=== PATIENT | female | born 1955 | race American Indian/Alaskan Native ===

== ENCOUNTER 2016-07-02 13:21 | Observation (INO) | payer MEDICAID ==
[2016-07-02 13:21] VITALS: BMI 45.3
[2016-07-02] MEDS ORDERED: Iohexol 240 (50 ml) PO ONE (14:08)
[2016-07-02] MEDS ORDERED: Iohexol 240 (50 ml) ONE (14:09)
[2016-07-02] MEDS ORDERED: HYDROmorphone 0.5 mg/0.5 ml ISec IVP STA ×2 (14:21→18:53)
--- NOTE | 2016-07-02 14:21 | ED PDOC ---
HPI: Abdomen Time Seen by Provider: 07/02/16 13:30 Chief Complaint (Nursing): GI Problem Chief Complaint (Provider): GI Problem History Per: Patient History/Exam Limitations: no limitations Onset/Duration Of Symptoms: Hrs Current Symptoms Are (Timing): Still Present Severity: Severe Location Of Pain/Discomfort: Diffuse Quality Of Discomfort: "Pain" Associated Symptoms: Nausea, Vomiting, Diarrhea Exacerbating Factors: None Alleviating Factors: None Additional Complaint(s): Patient is a 61 year old female with an extensive medical history, referred to ED by Rigoberto Andrade for GI bleed. Patient states symptoms began at 0200, notes she was very nausea with an episode of vomiting blood. At this time developed the sensation she needed to have a bowel movement but upon wiping noticed it was all blood. Patient states abdominal pain is severe and diffuse at this time. Past Medical History Reviewed: Historical Data, Nursing Documentation, Vital Signs Vital Signs: Last Vital Signs Temp 98.8 F 07/03/16 08:07 Pulse 78 07/03/16 08:33 Resp 18 07/03/16 08:07 BP 121/70 07/03/16 08:35 Pulse Ox 97 07/03/16 08:07 - Medical History PMH: Arthritis, Asthma, CAD, COPD, Diabetes (Type I and II), GERD, HTN, Hypercholesterolemia Denies: HIV, Chronic Kidney Disease - Surgical History Surgical History: Cholecystectomy, (x1) Other surgeries: amputation of toe on right foot - Family History Family History: States: Diabetes, Hypertension - Living Arrangements Living Arrangements: With Family - Social History Current smoker - smoking cessation education provided: No Alcohol: None Drugs: Denies - Immunization History Hx Tetanus Toxoid Vaccination: No - Home Medications Home Medications: Ambulatory Orders Medication Instructions Recorded Docusate [Colace] 100 mg PO BID PRN 01/26/15 Insulin Lispro Mix 75/25 [HumaLOG 20 units SC BID 01/26/15 Mix 75/25] Clopidogrel [Plavix] 75 mg PO DAILY 03/01/15 Ezetimibe [Zetia] 10 mg PO DAILY 03/01/15 Insulin Glargine,Hum.rec.anlog 20 unit SC HS 03/01/15 [Lantus] Brinzolamide [Azopt] 1 drop EACHEYE BID 04/10/16 Cholecalciferol [Vitamin D 1000 IU] 1,000 unit PO DAILY 04/10/16 Furosemide [Lasix] 20 mg PO BID 04/10/16 Gabapentin [Neurontin] 300 mg PO TID 04/10/16 Simvastatin [Zocor] 40 mg PO HS 04/10/16 Alogliptin Benzoate [Alogliptin] 25 mg PO DAILY 07/02/16 Aspirin [Ecotrin] 81 mg PO DAILY 07/02/16 Ciprofloxacin HCl [Cipro] 500 mg PO BID #20 tab 07/02/16 Fluticasone Nasal [Flonase] 2 spray ZEUS DAILY PRN 07/02/16 Losartan [Cozaar] 100 mg PO DAILY 07/02/16 Magnesium Oxide [Mag-Ox] 400 mg PO BID 07/02/16 Metronidazole [Flagyl] 500 mg PO TID #30 tablet 07/02/16 Minocycline HCl [Minocin] 100 mg PO BID 07/02/16 Pantoprazole Sodium [Protonix] 40 mg PO DAILY 07/02/16 Sennosides [Senna] 8.6 mg PO DAILY PRN 07/02/16 hydroCHLOROthiazide [Hydrodiuril] 25 mg PO DAILY 07/02/16 Hydrocodone/Acetaminophen 1 tab PO Q6H PRN #20 tablet 07/03/16 [Hydrocodon-Acetaminophn 10-325] - Allergies Allergies/Adverse Reactions: Allergies Allergy/AdvReac Type Severity Reaction Status Date / Time azithromycin [From Zithromax] Allergy RASH Verified 07/05/16 16:40 Review of Systems ROS Statement: Except As Marked, All Systems Reviewed And Found Negative Cardiovascular: Negative for: Chest Pain, Palpitations Respiratory: Negative for: Shortness of Breath Gastrointestinal: Positive for: Nausea, Vomiting, Abdominal Pain, Diarrhea, Hematochezia, Hematemesis Genitourinary Female: Negative for: Dysuria, Hematuria, Vaginal Discharge, Vaginal Bleeding Musculoskeletal: Negative for: Neck Pain, Back Pain Skin: Negative for: Rash Neurological: Negative for: Weakness, Numbness Physical Exam - Reviewed Nursing Documentation Reviewed: Yes Vital Signs Reviewed: Yes - Physical Exam Appears: Positive for: Uncomfortable Skin: Positive for: Normal Color, Warm. Negative for: Pallor Eye Exam: Positive for: Normal appearance Neck: Positive for: Normal, Painless ROM Cardiovascular/Chest: Positive for: Regular Rate, Rhythm. Negative for: Murmur Respiratory: Positive for: Normal Breath Sounds. Negative for: Respiratory Distress Gastrointestinal/Abdominal: Positive for: Tenderness (diffuse, obese). Negative for: Distended, Guarding, Rebound Back: Positive for: Normal Inspection Extremity: Positive for: Normal ROM Neurologic/Psych: Positive for: Alert, Oriented - Laboratory Results Result Diagrams: 07/03/16 06:10 07/03/16 06:10 - ECG O2 Sat by Pulse Oximetry: 99 (RA) Pulse Ox Interpretation: Normal Medical Decision Making Medical Decision Making: Time: 1420 Initial impression: GI bleed Initial plan: -- Type and screen -- CT-abdomen -- CMP -- CBC -- Dilaudid and Protonix -- ED obs -- Occult blood stool Case discussed with Rigoberto Andrade, who advised me that patient has a history of obesity, HTN, DM, PAD, CAD, hypolipidemia, currently on ASA and Plavix. Referred to ED for vomiting blood with rectal bleeding. Normal Hemoglobin 10.2 Time: 1605 Pt refusing guiac test, awaiting stool sample. Time: 1800 CT AP IMPRESSION: Colitis, mild confined to the descending colon. Time: 1826 Spoke with Rigoberto Andrade again, pt with intractible pain in setting of colitits. Will admit pt, Rigoberto Andrade accepted under Dr. Johns. Will give 1 dose of Cirpoflagil in room. Scribe Attestation: Documented by Lilian Hunt and Nicole Landa acting as a scribe for Veronica Cuba MD MD Scribe Attestation: All medical record entries made by the Scribe were at my direction and personally dictated by me. I have reviewed the chart and agree that the record accurately reflects my personal performance of the history, physical exam, medical decision making, and the department course for this patient. I have also personally directed, reviewed, and agree with the discharge instructions and disposition. Disposition - Clinical Impression Clinical Impression: Colitis - Patient ED Disposition Is Patient to be Admitted: Yes Counseled Patient/Family Regarding: Studies Performed, Diagnosis - Disposition Disposition Time: 15:40 Condition: STABLE
[2016-07-02 14:29] LABS: BASO # 0.1 K/uL (0.0-0.2); BASO % 0.7 % (0.0-2.0); EOS # 0.2 K/uL (0.0-0.7); EOS % 1.3 % (0.0-4.0); HEMATOCRIT 35.1 % (34.0-47.0); LYMPH # 1.9 K/uL (1.0-4.3); LYMPH % 12.6 % (20.0-40.0); MEAN CELL VOLUME 90.8 fl (81.0-99.0); MEAN CORPUSCULAR HEMOGLOBIN 30.5 pg (27.0-31.0); MEAN CORPUSCULAR HGB CONC 33.6 g/dL (33.0-37.0); MEAN PLATELET VOLUME 8.5 fl (7.2-11.7); MONO % 6.4 % (0.0-10.0); NEUT # 12.1 K/uL (1.8-7.0); RED CELL DISTRIBUTION WIDTH 15.3 % (11.5-14.5); WHITE BLOOD COUNT 15.3 K/uL (4.8-10.8)
[2016-07-02 14:37] LABS: ALB/GLOB RATIO 0.9 (1.0-2.1); ALKALINE PHOSPHATASE 129 U/L (38-126); ALT/SGPT 68 U/L (9-52); AST/SGOT 31 U/L (14-36); BILIRUBIN,TOTAL 0.4 mg/dl (0.2-1.3); BLOOD UREA NITROGEN 23 mg/dl (7-17); CALCIUM 9.2 mg/dL (8.4-10.2); CARBON DIOXIDE 25 mmol/L (22-30); CHLORIDE 106 mmol/L (98-107); GFR AFRICAN-AMERICAN > 60; GLUCOSE,RANDOM 136 mg/dL (65-105); POTASSIUM 4.8 MMOL/L (3.6-5.0); SODIUM 140 mmol/l (132-148); TOTAL PROTEIN 7.9 G/DL (6.3-8.2)
[2016-07-02] MEDS ORDERED: Sodium Chloride 0.9% 50 ML IV ONE (16:56)
[2016-07-02] MEDS ORDERED: Iohexol 300 100 ML IJ ONE (16:56)
--- NOTE | 2016-07-02 17:51 | CT ---
PROCEDURE: CT Abdomen and Pelvis with contrast HISTORY: Abdominal pain. COMPARISON: 05/02/2015 TECHNIQUE: Contrast dose: 100 cc Omnipaque 300 Radiation dose: Total exam DLP = 1078.32 mGy-cm. FINDINGS: LOWER THORAX: Unremarkable. LIVER: Unremarkable. No gross lesion or ductal dilatation. GALLBLADDER AND BILE DUCTS: Status post cholecystectomy. No abnormality is seen in the gallbladder fossa. PANCREAS: Unremarkable. No gross lesion or ductal dilatation. SPLEEN: Unremarkable. ADRENALS: Unremarkable. No mass. KIDNEYS AND URETERS: Unremarkable. No hydronephrosis. No solid mass. VASCULATURE: Unremarkable. No aortic aneurysm. BOWEL: Diffuse thickening of the wall of the descending colon with sparing of the remainder of the colon and rectum. APPENDIX: Normal appendix. PERITONEUM: Unremarkable. No free fluid. No free air. LYMPH NODES: Unremarkable. No enlarged lymph nodes. BLADDER: Unremarkable. REPRODUCTIVE: Unremarkable. BONES: No acute fracture. OTHER FINDINGS: Interval improvement in periumbilical inflammatory changes identified previously. Residual fat in the hernia and focal soft tissue without drainable collection. Rectus diastases at this level noted. IMPRESSION: Colitis, mild confined to the descending colon. Additional benign and/or incidental findings described above.
[2016-07-02] MEDS ORDERED: Ciprofloxacin 400mg/200ml D5W 200 ML IVPB STA (18:27)
[2016-07-02] MEDS ORDERED: metroNIDAZOLE 500mg/100ml NS 100 ML IVPB STA (18:28)
[2016-07-02] MEDS ORDERED: metroNIDAZOLE 500mg/100ml NS 100 ML IVPB ONE (18:36)
[2016-07-02] MEDS ORDERED: HYDROmorphone 0.5 mg/0.5 ml ISec ONE (18:59)
[2016-07-02] MEDS ORDERED: Ciprofloxacin 400mg/200ml D5W 200 ML IVPB ONE (19:59)
[2016-07-02] MEDS: Ciprofloxacin 400mg/200ml D5W 200 ML IVPB SCH (21:45)
[2016-07-02] MEDS ORDERED: Insulin Detemir 100 Units/ml Inj SC SCH (22:00)
[2016-07-02] MEDS: Insulin Regular 100 units/ml SC SCH (22:21)
[2016-07-02 23:25] VITALS: RESP 18
[2016-07-02] MEDS: HYDROmorphone 0.5 mg/0.5 ml ISec IVP PRN (23:34)
[2016-07-03] MEDS: metroNIDAZOLE 500mg/100ml NS 100 ML IVPB SCH ×2 (00:43→08:33)
[2016-07-03 03:29] VITALS: PULSE 78
[2016-07-03] MEDS: HYDROmorphone 0.5 mg/0.5 ml ISec IVP PRN ×3 (03:49→12:32)
[2016-07-03] MEDS: Insulin Regular 100 units/ml SC SCH ×2 (07:04→12:34)
[2016-07-03 07:26] LABS: ALB/GLOB RATIO 0.9 (1.0-2.1); ALKALINE PHOSPHATASE 100 U/L (38-126); ALT/SGPT 42 U/L (9-52); AST/SGOT 24 U/L (14-36); BILIRUBIN,TOTAL 0.6 mg/dl (0.2-1.3); BLOOD UREA NITROGEN 18 mg/dl (7-17); CALCIUM 8.4 mg/dL (8.4-10.2); CARBON DIOXIDE 22 mmol/L (22-30); CHLORIDE 107 mmol/L (98-107); GFR AFRICAN-AMERICAN > 60; GLUCOSE,RANDOM 91 mg/dL (65-105); POTASSIUM 4.4 MMOL/L (3.6-5.0); SODIUM 137 mmol/l (132-148); TOTAL PROTEIN 6.7 G/DL (6.3-8.2)
[2016-07-03 07:36] LABS: BASO # 0.1 K/uL (0.0-0.2); BASO % 0.5 % (0.0-2.0); EOS # 0.3 K/uL (0.0-0.7); EOS % 2.5 % (0.0-4.0); HEMATOCRIT 33.3 % (34.0-47.0); LYMPH # 2.8 K/uL (1.0-4.3); LYMPH % 19.9 % (20.0-40.0); MEAN CORPUSCULAR HEMOGLOBIN 29.8 pg (27.0-31.0); MEAN CORPUSCULAR HGB CONC 32.4 g/dL (33.0-37.0); MEAN PLATELET VOLUME 9.3 fl (7.2-11.7); MONO # 1.1 K/uL (0.0-0.8); MONO % 7.7 % (0.0-10.0); NEUT # 9.8 K/uL (1.8-7.0); NEUT % 69.4 % (50.0-75.0); RED CELL DISTRIBUTION WIDTH 15.7 % (11.5-14.5); WHITE BLOOD COUNT 14.2 K/uL (4.8-10.8)
[2016-07-03 08:08] VITALS: BP 121/70; TEMP 98.8
[2016-07-03] MEDS ORDERED: Magnesium Oxide 400 mg Tab UD PO SCH (09:00)
[2016-07-03] MEDS ORDERED: Pantoprazole 40 mg EC Tab PO SCH (09:00)
[2016-07-03] MEDS ORDERED: Insulin Lispro Mix 75/25 100 units/ml (HumaLog) 10ml SC SCH (09:00)
[2016-07-03] MEDS ORDERED: Dorzolamide 2% Ophth Soln OU SCH (09:00)
--- NOTE | 2016-07-03 09:14 | CP.PCM.HP ---
History of Present Illness - History of Present Illness History of Present Illness: admitted for colitis and intractable pain. doing well today beth liquids. glucose nad bun/cr stable. no f/c, n/v/d. 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 hgb stable. pain to left abd. controlled w/ meds. pt wishes to go home onpo pain/anbx Present on Admission - Present on Admission Any Indicators Present on Admission: Yes History of Uncontrolled Diabetes: Yes Review of Systems - Gastrointestinal Gastrointestinal: As Per HPI, Abdominal Pain, Diarrhea, Hematemesis, Hematochezia, Nausea, Vomiting Past Patient History - Infectious Disease Hx of Infectious Diseases: None - Past Medical History & Family History Past Medical History?: Yes - Past Social History Smoking Status: Former Smoker - CARDIAC Hx Cardiac Disorders: Yes Hx Hypercholesterolemia: Yes Hx Hypertension: Yes Other/Comment: PAD - PULMONARY Hx Respiratory Disorders: Yes Hx Asthma: Yes Hx Chronic Obstructive Pulmonary Disease (COPD): Yes - NEUROLOGICAL Hx Neurological Disorder: No - HEENT Hx HEENT Problems: No - RENAL Hx Chronic Kidney Disease: No - ENDOCRINE/METABOLIC Hx Endocrine Disorders: Yes Hx Diabetes Mellitus Type 1: Yes Hx Diabetes Mellitus Type 2: Yes - HEMATOLOGICAL/ONCOLOGICAL Hx Blood Disorders: No Hx Human Immunodeficiency Virus (HIV): No - INTEGUMENTARY Hx Dermatological Problems: No - MUSCULOSKELETAL/RHEUMATOLOGICAL Hx Musculoskeletal Disorders: Yes Hx Arthritis: Yes Hx Falls: Yes Hx Unsteady Gait: Yes (Cane) - GASTROINTESTINAL Hx Gastrointestinal Disorders: Yes Hx Gastroesophageal Reflux: Yes - GENITOURINARY/GYNECOLOGICAL Hx Genitourinary Disorders: No - PSYCHIATRIC Hx Psychophysiologic Disorder: No Hx Substance Use: No - SURGICAL HISTORY Hx Surgeries: Yes Hx Cholecystectomy: Yes Other/Comment: Amputation of toe on left foot. - ANESTHESIA Hx Anesthesia: Yes Hx Anesthesia Reactions: No Hx Malignant Hyperthermia: No Meds Home Medications: Home Medication List Medication Instructions Recorded Confirmed Type Ciprofloxacin HCl [Cipro] 500 mg PO BID #20 tab 07/02/16 Rx Metronidazole [Flagyl] 500 mg PO TID #30 tablet 07/02/16 Rx Hydrocodone/Acetaminophen 1 tab PO Q6H PRN #20 tablet 07/03/16 Rx [Hydrocodon-Acetaminophn 10-325] Allergies/Adverse Reactions: Allergies Allergy/AdvReac Type Severity Reaction Status Date / Time azithromycin [From Zithromax] Allergy RASH Verified 05/14/15 15:47 Physical Exam - Constitutional Appears: Well, Non-toxic, No Acute Distress - Head Exam Head Exam: ATRAUMATIC, NORMAL INSPECTION, NORMOCEPHALIC - Eye Exam Eye Exam: EOMI, Normal appearance, PERRL Pupil Exam: NORMAL ACCOMODATION, PERRL - ENT Exam ENT Exam: Mucous Membranes Moist, Normal Exam - Neck Exam Neck exam: Positive for: Normal Inspection - Respiratory Exam Respiratory Exam: Clear to Auscultation Bilateral, NORMAL BREATHING PATTERN - Cardiovascular Exam Cardiovascular Exam: REGULAR RHYTHM, RRR, +S1, +S2 - GI/Abdominal Exam GI & Abdominal Exam: Normal Bowel Sounds, Soft, Tenderness Additional comments: left abd - Extremities Exam Extremities exam: Positive for: normal inspection - Back Exam Back exam: NORMAL INSPECTION - Neurological Exam Neurological exam: Alert, CN II-XII Intact, Normal Gait, Oriented x3, Reflexes Normal - Psychiatric Exam Psychiatric exam: Normal Affect, Normal Mood - Skin Skin Exam: Dry, Intact, Normal Color, Warm Results - Vital Signs Recent Vital Signs: Last Vital Signs Temp 98.8 F 07/03/16 08:07 Pulse 78 07/03/16 08:33 Resp 18 07/03/16 08:07 BP 121/70 07/03/16 08:35 Pulse Ox 97 07/03/16 08:07 - Labs Result Diagrams: 07/03/16 06:10 07/03/16 06:10 Labs: Laboratory Results - last 24 hr 07/02/16 07/02/16 07/03/16 14:11 22:07 06:06 WBC 15.3 H RBC 3.87 Hgb 11.8 L D Hct 35.1 MCV 90.8 D MCH 30.5 MCHC 33.6 RDW 15.3 H Plt Count 304 MPV 8.5 Neut % (Auto) 79.0 H Lymph % (Auto) 12.6 L Wallace % (Auto) 6.4 Eos % (Auto) 1.3 Baso % (Auto) 0.7 Neut # 12.1 H Lymph # 1.9 Wallace # 1.0 H Eos # 0.2 Baso # 0.1 Sodium 140 Potassium 4.8 Chloride 106 Carbon Dioxide 25 Anion Gap 13 BUN 23 H Creatinine 0.7 Est GFR ( Amer) > 60 Est GFR (Non-Af Amer) > 60 POC Glucose (mg/dL) 142 H 97 Random Glucose 136 H Calcium 9.2 Total Bilirubin 0.4 AST 31 ALT 68 H D Alkaline Phosphatase 129 H D Total Protein 7.9 Albumin 3.8 Globulin 4.1 H Albumin/Globulin Ratio 0.9 L Blood Type O POSITIVE Antibody Screen Negative BBK History Checked Patient has bt 07/03/16 06:10 WBC 14.2 H RBC 3.62 L Hgb 10.8 L Hct 33.3 L MCV 92.0 MCH 29.8 MCHC 32.4 L RDW 15.7 H Plt Count 172 D MPV 9.3 Neut % (Auto) 69.4 Lymph % (Auto) 19.9 L Wallace % (Auto) 7.7 Eos % (Auto) 2.5 Baso % (Auto) 0.5 Neut # 9.8 H Lymph # 2.8 Wallace # 1.1 H Eos # 0.3 Baso # 0.1 Sodium 137 Potassium 4.4 Chloride 107 Carbon Dioxide 22 Anion Gap 13 BUN 18 H Creatinine 0.7 Est GFR ( Amer) > 60 Est GFR (Non-Af Amer) > 60 POC Glucose (mg/dL) Random Glucose 91 Calcium 8.4 Total Bilirubin 0.6 AST 24 ALT 42 Alkaline Phosphatase 100 Total Protein 6.7 Albumin 3.1 L Globulin 3.6 Albumin/Globulin Ratio 0.9 L Blood Type Antibody Screen BBK History Checked Assessment & Plan (1) DVT prophylaxis Assessment and Plan: scd nad ae hose ambulation Status: Acute (2) Diabetes type 2, uncontrolled Assessment and Plan: riss home meds, fsbg Status: Acute (3) Colitis Assessment and Plan: cipro/flagyl pain control liquid diet Status: Acute Decision To Admit - Pt Status Changed To: Hospital Disposition Of: Observation - . Bed Request Type: Med/Surg Admitting Physician: Jose Roberto Johns
[2016-07-03] MEDS: Ciprofloxacin 400mg/200ml D5W 200 ML IVPB SCH (10:20)
--- NOTE | 2016-07-03 14:48 | CP.PCM.DIS ---
Provider - Provider Date of Admission: 07/02/16 14:09 Attending physician: Jose Roberto Johns MD Primary care physician: Gil Andrade DO Time Spent in preparation of Discharge (in minutes): 15 Diagnosis - Discharge Diagnosis (1) DVT prophylaxis Status: Acute (2) Diabetes type 2, uncontrolled Status: Acute (3) Colitis Status: Acute Hospital Course - Lab Results Lab Results: Most Recent Lab Values WBC 14.2 K/uL (4.8-10.8) H 07/03/16 06:10 RBC 3.62 Mil/uL (3.80-5.20) L 07/03/16 06:10 Hgb 10.8 g/dL (12.0-16.0) L 07/03/16 06:10 Hct 33.3 % (34.0-47.0) L 07/03/16 06:10 MCV 92.0 fl (81.0-99.0) 07/03/16 06:10 MCH 29.8 pg (27.0-31.0) 07/03/16 06:10 MCHC 32.4 g/dL (33.0-37.0) L 07/03/16 06:10 RDW 15.7 % (11.5-14.5) H 07/03/16 06:10 Plt Count 172 K/uL (130-400) D 07/03/16 06:10 MPV 9.3 fl (7.2-11.7) 07/03/16 06:10 Neut % (Auto) 69.4 % (50.0-75.0) 07/03/16 06:10 Lymph % (Auto) 19.9 % (20.0-40.0) L 07/03/16 06:10 Edgar % (Auto) 7.7 % (0.0-10.0) 07/03/16 06:10 Eos % (Auto) 2.5 % (0.0-4.0) 07/03/16 06:10 Baso % (Auto) 0.5 % (0.0-2.0) 07/03/16 06:10 Neut # 9.8 K/uL (1.8-7.0) H 07/03/16 06:10 Lymph # 2.8 K/uL (1.0-4.3) 07/03/16 06:10 Edgar # 1.1 K/uL (0.0-0.8) H 07/03/16 06:10 Eos # 0.3 K/uL (0.0-0.7) 07/03/16 06:10 Baso # 0.1 K/uL (0.0-0.2) 07/03/16 06:10 Sodium 137 mmol/l (132-148) 07/03/16 06:10 Potassium 4.4 MMOL/L (3.6-5.0) 07/03/16 06:10 Chloride 107 mmol/L (98-107) 07/03/16 06:10 Carbon Dioxide 22 mmol/L (22-30) 07/03/16 06:10 Anion Gap 13 (10-20) 07/03/16 06:10 BUN 18 mg/dl (7-17) H 07/03/16 06:10 Creatinine 0.7 mg/dL (0.7-1.2) 07/03/16 06:10 Est GFR ( Amer) > 60 07/03/16 06:10 Est GFR (Non-Af Amer) > 60 07/03/16 06:10 POC Glucose (mg/dL) 97 mg/dL (65-110) 07/03/16 06:06 Random Glucose 91 mg/dL (65-105) 07/03/16 06:10 Calcium 8.4 mg/dL (8.4-10.2) 07/03/16 06:10 Total Bilirubin 0.6 mg/dl (0.2-1.3) 07/03/16 06:10 AST 24 U/L (14-36) 07/03/16 06:10 ALT 42 U/L (9-52) 07/03/16 06:10 Alkaline Phosphatase 100 U/L (38-126) 07/03/16 06:10 Total Protein 6.7 G/DL (6.3-8.2) 07/03/16 06:10 Albumin 3.1 g/dL (3.5-5.0) L 07/03/16 06:10 Globulin 3.6 gm/dL (2.2-3.9) 07/03/16 06:10 Albumin/Globulin Ratio 0.9 (1.0-2.1) L 07/03/16 06:10 Blood Type O POSITIVE 07/02/16 14:11 Antibody Screen Negative 07/02/16 14:11 BBK History Checked Patient has bt 07/02/16 14:11 Discharge Exam - Head Exam Head Exam: ATRAUMATIC, NORMAL INSPECTION, NORMOCEPHALIC Discharge Plan - Discharge Medications Prescriptions: Ciprofloxacin HCl [Cipro] 500 mg PO BID #20 tab Metronidazole [Flagyl] 500 mg PO TID #30 tablet Hydrocodone/Acetaminophen [Hydrocodon-Acetaminophn 10-325] 1 tab PO Q6H PRN #20 tablet PRN Reason: Pain, Severe (8-10) - Follow Up Plan Condition: STABLE Disposition: HOME/ ROUTINE Instructions: Acute Abdominal Pain (DC), Colitis (ED) Additional Instructions: follow up with Rigoberto Andrade TOMORROW in his office. take antibiotics as prescribed. return to the ED with any worsening or concerning symptoms. final dx-colitis, uncontrolled dm2 home cipro/flagyl, bacid, vicodin Referrals: Gil Andrade DO [Primary Care Provider] -
[2016-07-07 05:16] VITALS: O2SAT 99
== END 2016-07-03 14:00 | disposition home or self-care (01) ==
LOC: H.ER 13:21 → H.EROBSV 14:09 → UNDODISOB 18:06 → H.ERHOLD 20:25 → H.MEDSURG1 20:56
PROVIDERS: ADMIT Family Medicine; ATTEND Family Medicine
DX: K52.9 Noninfective gastroenteritis and colitis, unspecified (principal); J45.909 Unspecified asthma, uncomplicated; J44.9 Chronic obstructive pulmonary disease, unspecified; E78.00 Pure hypercholesterolemia, unspecified; I10 Essential (primary) hypertension; K21.9 Gastro-esophageal reflux disease without esophagitis; Z89.422 Acquired absence of other left toe(s); E10.65 Type 1 diabetes mellitus with hyperglycemia; I25.10 Atherosclerotic heart disease of native coronary artery without angina pectoris; Z79.899 Other long term (current) drug therapy; Z79.82 Long term (current) use of aspirin; Z79.02 Long term (current) use of antithrombotics/antiplatelets

== ENCOUNTER 2016-07-05 16:39 | Inpatient (IN) | payer MEDICAID ==
[2016-07-05 16:39] VITALS: BMI 45.3
[2016-07-05] MEDS ORDERED: Sodium Chloride 0.9% 1,000 ML IV STA (17:15)
[2016-07-05] MEDS ORDERED: HYDROmorphone 0.5 mg/0.5 ml ISec IVP STA (17:15)
[2016-07-05] MEDS ORDERED: Ciprofloxacin 400mg/200ml D5W 200 ML IVPB STA (17:16)
[2016-07-05] MEDS ORDERED: metroNIDAZOLE 500mg/100ml NS 100 ML IVPB STA (17:16)
[2016-07-05] MEDS ORDERED: HYDROmorphone 0.5 mg/0.5 ml ISec ONE (17:35)
[2016-07-05] MEDS ORDERED: Ciprofloxacin 400mg/200ml D5W 200 ML IVPB ONE (17:36)
--- NOTE | 2016-07-05 17:44 | ED PDOC ---
HPI: Abdomen Time Seen by Provider: 07/05/16 16:47 Chief Complaint (Nursing): Abdominal Pain Chief Complaint (Provider): abdominal pain History Per: Patient History/Exam Limitations: no limitations Onset/Duration Of Symptoms: Days (2x) Current Symptoms Are (Timing): Still Present Severity: Moderate Location Of Pain/Discomfort: LUQ Associated Symptoms: Nausea, Vomiting (bloody), Other (bloody stool). denies: Fever Additional Complaint(s): 61 year old female patient with a pertinent medical history of colitis presents to the ED with complaint of left upper quadrant abdominal pain that started 2x days ago. She has associated symptoms of vomiting (bloody), and bloody stool. She reports that she was recently discharged from [facility] for colitis. She denies having a fever. PMD: Jose Roberto Johns MD Past Medical History Reviewed: Historical Data, Nursing Documentation, Vital Signs Vital Signs: Last Vital Signs Temp 97.8 F 07/05/16 18:02 Pulse 87 07/05/16 18:02 Resp 16 07/05/16 18:02 BP 165/79 H 07/05/16 18:02 Pulse Ox 99 07/05/16 18:03 - Medical History PMH: Arthritis, Asthma, CAD, COPD, Diabetes (Type I and II), GERD, HTN, Hypercholesterolemia Denies: HIV, Chronic Kidney Disease - Surgical History Surgical History: Cholecystectomy, (x1) - Family History Family History: States: Diabetes, Hypertension - Social History Alcohol: None Drugs: Denies - Immunization History Hx Tetanus Toxoid Vaccination: No - Home Medications Home Medications: Ambulatory Orders Medication Instructions Recorded Docusate [Colace] 100 mg PO BID PRN 01/26/15 Insulin Lispro Mix 75/25 [HumaLOG 20 units SC BID 01/26/15 Mix 75/25] Clopidogrel [Plavix] 75 mg PO DAILY 03/01/15 Ezetimibe [Zetia] 10 mg PO DAILY 03/01/15 Insulin Glargine,Hum.rec.anlog 20 unit SC HS 03/01/15 [Lantus] Brinzolamide [Azopt] 1 drop EACHEYE BID 04/10/16 Cholecalciferol [Vitamin D 1000 IU] 1,000 unit PO DAILY 04/10/16 Furosemide [Lasix] 20 mg PO BID 04/10/16 Gabapentin [Neurontin] 300 mg PO TID 04/10/16 Simvastatin [Zocor] 40 mg PO HS 04/10/16 Alogliptin Benzoate [Alogliptin] 25 mg PO DAILY 07/02/16 Aspirin [Ecotrin] 81 mg PO DAILY 07/02/16 Ciprofloxacin HCl [Cipro] 500 mg PO BID #20 tab 07/02/16 Fluticasone Nasal [Flonase] 2 spray ZEUS DAILY PRN 07/02/16 Losartan [Cozaar] 100 mg PO DAILY 07/02/16 Magnesium Oxide [Mag-Ox] 400 mg PO BID 07/02/16 Metronidazole [Flagyl] 500 mg PO TID #30 tablet 07/02/16 Minocycline HCl [Minocin] 100 mg PO BID 07/02/16 Pantoprazole Sodium [Protonix] 40 mg PO DAILY 07/02/16 Sennosides [Senna] 8.6 mg PO DAILY PRN 07/02/16 hydroCHLOROthiazide [Hydrodiuril] 25 mg PO DAILY 07/02/16 Hydrocodone/Acetaminophen 1 tab PO Q6H PRN #20 tablet 07/03/16 [Hydrocodon-Acetaminophn 10-325] - Allergies Allergies/Adverse Reactions: Allergies Allergy/AdvReac Type Severity Reaction Status Date / Time azithromycin [From Zithromax] Allergy RASH Verified 07/05/16 16:40 Review of Systems ROS Statement: Except As Marked, All Systems Reviewed And Found Negative Constitutional: Negative for: Fever Gastrointestinal: Positive for: Vomiting (blooding), Abdominal Pain (left sided) , Hematochezia Physical Exam - Reviewed Nursing Documentation Reviewed: Yes Vital Signs Reviewed: Yes - Physical Exam Appears: Positive for: Well, Non-toxic Head Exam: Positive for: ATRAUMATIC, NORMOCEPHALIC Skin: Positive for: Normal Color Cardiovascular/Chest: Positive for: Regular Rate, Rhythm, Chest Non Tender Respiratory: Positive for: Normal Breath Sounds. Negative for: Respiratory Distress Gastrointestinal/Abdominal: Positive for: Tenderness (LUQ) Rectal: Positive for: Stool Is Heme: (positive) Neurologic/Psych: Positive for: Alert, Oriented (3x) - Laboratory Results Result Diagrams: 07/05/16 17:42 07/05/16 17:42 - ECG O2 Sat by Pulse Oximetry: 99 (RA) Pulse Ox Interpretation: Normal Medical Decision Making Medical Decision Makin:47 Initial impression: 61 year old female with LUQ abdominal pain and bloody stool. Initial plan: * CT abd and panel with IV contrast only * VBG shock panel * CMP * udip * CBC * cipro 200ml IVPB * dilaudid 1mg IVP * flagyl 100ml IVPB * sodium chloride 1,000ml IV 100mls/hr * protonix inj 40mg IVP * blood culture * reevaluation 17:18 Patient will be admitted to telemetry for colitis and GI bleed. Discussed results and plan to admit with patient who expresses understanding. All questions answered and there is agreement with the plan. Scribe Attestation: Documented by Olesya Brennan, acting as a scribe for Elio Toussaint MD. Provider Scribe Attestation: All medical record entries made by the Scribe were at my direction and personally dictated by me. I have reviewed the chart and agree that the record accurately reflects my personal performance of the history, physical exam, medical decision making, and the department course for this patient. I have also personally directed, reviewed, and agree with the discharge instructions and disposition. Disposition - Clinical Impression Clinical Impression: Colitis - Patient ED Disposition Is Patient to be Admitted: Yes - Disposition Disposition Time: 19:03 Condition: FAIR - Pt Status Changed To: Hospital Disposition Of: Inpatient - Admit Certification Admit to Inpatient:: After my assessment, the patient will require hospitalization for at least two midnights. This is because of the severity of symptoms shown, intensity of services needed, and/or the medical risk in this patient being treated as an outpatient. - POA Present On Arrival: None
[2016-07-05 17:51] LABS: VENOUS BLOOD GAS BASE EXCESS 3.9 mmol/L (0.0-2.0); VENOUS BLOOD GAS PCO2 58 mmHg (40-60); VENOUS BLOOD PH 7.34 (7.32-7.43)
[2016-07-05 17:56] LABS: ALB/GLOB RATIO 0.9 (1.0-2.1); ALKALINE PHOSPHATASE 97 U/L (38-126); ALT/SGPT 34 U/L (9-52); AST/SGOT 23 U/L (14-36); BILIRUBIN,TOTAL 0.4 mg/dl (0.2-1.3); BLOOD UREA NITROGEN 14 mg/dl (7-17); CALCIUM 8.8 mg/dL (8.4-10.2); CARBON DIOXIDE 28 mmol/L (22-30); CHLORIDE 104 mmol/L (98-107); GFR AFRICAN-AMERICAN > 60; GLUCOSE,RANDOM 171 mg/dL (65-105); SODIUM 143 mmol/l (132-148); TOTAL PROTEIN 7.7 G/DL (6.3-8.2)
[2016-07-05 18:00] LABS: POTASSIUM 5.1 MMOL/L (3.6-5.0)
[2016-07-05 18:04] LABS: BASO # 0.1 K/uL (0.0-0.2); BASO % 0.4 % (0.0-2.0); EOS # 0.5 K/uL (0.0-0.7); EOS % 3.9 % (0.0-4.0); HEMATOCRIT 33.9 % (34.0-47.0); LYMPH # 1.9 K/uL (1.0-4.3); LYMPH % 14.4 % (20.0-40.0); MEAN CELL VOLUME 90.9 fl (81.0-99.0); MEAN CORPUSCULAR HEMOGLOBIN 30.4 pg (27.0-31.0); MEAN CORPUSCULAR HGB CONC 33.4 g/dL (33.0-37.0); MEAN PLATELET VOLUME 8.8 fl (7.2-11.7); MONO # 0.8 K/uL (0.0-0.8); MONO % 5.8 % (0.0-10.0); NEUT # 10.1 K/uL (1.8-7.0); NEUT % 75.5 % (50.0-75.0); RED CELL DISTRIBUTION WIDTH 15.5 % (11.5-14.5); WHITE BLOOD COUNT 13.4 K/uL (4.8-10.8)
[2016-07-05] MEDS ORDERED: Iohexol 300 100 ML IJ ONE (19:25)
[2016-07-05] MEDS: Ciprofloxacin 400mg/200ml D5W 200 ML IVPB SCH (22:30)
[2016-07-06] MEDS: metroNIDAZOLE 500mg/100ml NS 100 ML IVPB SCH ×3 (00:57→16:45)
--- NOTE | 2016-07-06 07:24 | CP.PCM.HP ---
History of Present Illness - History of Present Illness History of Present Illness: pt admitted for gi bleed and colitits. pt c/o left sided abd pain. + vomiting blood and bloody stool. no n/v/d while in hospital, wbc decr from previous visit and hgb stable. no f/c. pain is controlled w/ iv pain meds Present on Admission - Present on Admission Any Indicators Present on Admission: Yes History of Uncontrolled Diabetes: Yes Review of Systems - Gastrointestinal Gastrointestinal: As Per HPI, Abdominal Pain, Hematemesis, Hematochezia Past Patient History - Infectious Disease Hx of Infectious Diseases: None - Past Medical History & Family History Past Medical History?: Yes - Past Social History Smoking Status: Former Smoker - CARDIAC Hx Hypercholesterolemia: Yes Hx Hypertension: Yes - PULMONARY Hx Asthma: Yes Hx Chronic Obstructive Pulmonary Disease (COPD): Yes - NEUROLOGICAL Hx Neurological Disorder: No - HEENT Hx HEENT Problems: No - RENAL Hx Chronic Kidney Disease: No - ENDOCRINE/METABOLIC Hx Endocrine Disorders: Yes Hx Diabetes Mellitus Type 1: Yes Hx Diabetes Mellitus Type 2: Yes - HEMATOLOGICAL/ONCOLOGICAL Hx AIDS: No Hx Human Immunodeficiency Virus (HIV): No - INTEGUMENTARY Hx Dermatological Problems: No - MUSCULOSKELETAL/RHEUMATOLOGICAL Hx Arthritis: Yes Hx Falls: No - GASTROINTESTINAL Hx Gastroesophageal Reflux: Yes - GENITOURINARY/GYNECOLOGICAL Hx Genitourinary Disorders: No - PSYCHIATRIC Hx Substance Use: No - SURGICAL HISTORY Hx Cholecystectomy: Yes - ANESTHESIA Hx Anesthesia: Yes Hx Anesthesia Reactions: No Hx Malignant Hyperthermia: No Meds Allergies/Adverse Reactions: Allergies Allergy/AdvReac Type Severity Reaction Status Date / Time azithromycin [From Zithromax] Allergy RASH Verified 07/05/16 16:40 Physical Exam - Constitutional Appears: Well, Non-toxic, No Acute Distress - Head Exam Head Exam: ATRAUMATIC, NORMAL INSPECTION, NORMOCEPHALIC - Eye Exam Eye Exam: EOMI, Normal appearance, PERRL Pupil Exam: NORMAL ACCOMODATION, PERRL - ENT Exam ENT Exam: Mucous Membranes Moist, Normal Exam - Neck Exam Neck exam: Positive for: Normal Inspection - Respiratory Exam Respiratory Exam: Clear to Auscultation Bilateral, NORMAL BREATHING PATTERN - Cardiovascular Exam Cardiovascular Exam: REGULAR RHYTHM, RRR, +S1 - GI/Abdominal Exam GI & Abdominal Exam: Normal Bowel Sounds, Soft, Tenderness Additional comments: llq/luq - Extremities Exam Extremities exam: Positive for: full ROM, normal capillary refill, normal inspection, pedal pulses present - Back Exam Back exam: NORMAL INSPECTION - Neurological Exam Neurological exam: Alert, CN II-XII Intact, Normal Gait, Oriented x3, Reflexes Normal - Psychiatric Exam Psychiatric exam: Normal Affect, Normal Mood - Skin Skin Exam: Dry, Intact, Normal Color, Warm Results - Vital Signs Recent Vital Signs: Last Vital Signs Temp 98.2 F 07/06/16 05:00 Pulse 65 07/06/16 05:00 Resp 16 07/06/16 05:00 BP 131/67 07/06/16 05:00 Pulse Ox 100 07/06/16 05:00 - Labs Result Diagrams: 07/06/16 07:35 07/06/16 07:35 Labs: Laboratory Results - last 24 hr 07/05/16 07/05/16 07/05/16 17:42 17:46 22:28 WBC 13.4 H RBC 3.73 L Hgb 11.3 L Hct 33.9 L MCV 90.9 MCH 30.4 MCHC 33.4 RDW 15.5 H Plt Count 311 D MPV 8.8 Neut % (Auto) 75.5 H Lymph % (Auto) 14.4 L Jennings % (Auto) 5.8 Eos % (Auto) 3.9 Baso % (Auto) 0.4 Neut # 10.1 H Lymph # 1.9 Jennings # 0.8 Eos # 0.5 Baso # 0.1 pO2 23 L VBG pH 7.34 VBG pCO2 58 VBG HCO3 26.3 VBG Total CO2 33.1 H VBG O2 Sat (Calc) 36.3 L VBG Base Excess 3.9 H VBG Potassium 5.0 Glucose 174 H Lactate 1.1 FiO2 21.0 Sodium 143 138.0 Potassium 5.1 H Chloride 104 106.0 Carbon Dioxide 28 Anion Gap 16 BUN 14 Creatinine 0.9 Est GFR ( Amer) > 60 Est GFR (Non-Af Amer) > 60 POC Glucose (mg/dL) 125 H Random Glucose 171 H Calcium 8.8 Total Bilirubin 0.4 AST 23 ALT 34 Alkaline Phosphatase 97 Total Protein 7.7 Albumin 3.7 Globulin 4.0 H Albumin/Globulin Ratio 0.9 L Venous Blood Potassium 5.0 07/06/16 05:57 WBC RBC Hgb Hct MCV MCH MCHC RDW Plt Count MPV Neut % (Auto) Lymph % (Auto) Jennings % (Auto) Eos % (Auto) Baso % (Auto) Neut # Lymph # Jennings # Eos # Baso # pO2 VBG pH VBG pCO2 VBG HCO3 VBG Total CO2 VBG O2 Sat (Calc) VBG Base Excess VBG Potassium Glucose Lactate FiO2 Sodium Potassium Chloride Carbon Dioxide Anion Gap BUN Creatinine Est GFR ( Amer) Est GFR (Non-Af Amer) POC Glucose (mg/dL) 121 H Random Glucose Calcium Total Bilirubin AST ALT Alkaline Phosphatase Total Protein Albumin Globulin Albumin/Globulin Ratio Venous Blood Potassium Assessment & Plan (1) Colitis Assessment and Plan: cipro/flagyl dialudid cld as per gi ivf Status: Acute (2) DVT prophylaxis Assessment and Plan: scd and ae hose no anticoag r/t gi bleed Status: Acute (3) Diabetes type 2, uncontrolled Assessment and Plan: fsbg, riss, home meds Status: Acute Decision To Admit - Pt Status Changed To: Hospital Disposition Of: Inpatient - Admit Certification Admit to Inpatient:: After my assessment, the patient will require hospitalization for at least two midnights. This is because of the severity of symptoms shown, intensity of services needed, and/or the medical risk in this patient being treated as an outpatient. - . Bed Request Type: Telemetry Admitting Physician: Jose Roberto Johns
[2016-07-06 08:02] LABS: BASO # 0.1 K/uL (0.0-0.2); BASO % 0.6 % (0.0-2.0); EOS # 0.5 K/uL (0.0-0.7); EOS % 4.6 % (0.0-4.0); HEMATOCRIT 32.8 % (34.0-47.0); LYMPH # 3.3 K/uL (1.0-4.3); LYMPH % 30.2 % (20.0-40.0); MEAN CELL VOLUME 91.8 fl (81.0-99.0); MEAN CORPUSCULAR HEMOGLOBIN 29.9 pg (27.0-31.0); MEAN CORPUSCULAR HGB CONC 32.6 g/dL (33.0-37.0); MEAN PLATELET VOLUME 8.2 fl (7.2-11.7); MONO # 0.8 K/uL (0.0-0.8); MONO % 7.6 % (0.0-10.0); NEUT # 6.3 K/uL (1.8-7.0); RED CELL DISTRIBUTION WIDTH 15.5 % (11.5-14.5); WHITE BLOOD COUNT 11.1 K/uL (4.8-10.8)
[2016-07-06 08:16] LABS: ALB/GLOB RATIO 0.9 (1.0-2.1); ALKALINE PHOSPHATASE 97 U/L (38-126); ALT/SGPT 32 U/L (9-52); AST/SGOT 22 U/L (14-36); BILIRUBIN,TOTAL 0.3 mg/dl (0.2-1.3); BLOOD UREA NITROGEN 12 mg/dl (7-17); CALCIUM 8.6 mg/dL (8.4-10.2); CARBON DIOXIDE 27 mmol/L (22-30); CHLORIDE 105 mmol/L (98-107); GFR AFRICAN-AMERICAN > 60; GLUCOSE,RANDOM 118 mg/dL (65-105); POTASSIUM 4.1 MMOL/L (3.6-5.0); SODIUM 143 mmol/l (132-148); TOTAL PROTEIN 7.1 G/DL (6.3-8.2)
[2016-07-06] MEDS: Insulin Regular 100 units/ml SC SCH ×4 (09:04→22:35)
[2016-07-06] MEDS: Lactobacillus Acidophilus 500 MU Cap PO SCH ×2 (09:10→16:45)
--- NOTE | 2016-07-06 10:47 | CT ---
PROCEDURE: CT Abdomen and Pelvis with contrast HISTORY: colitis COMPARISON: CT abdomen and pelvis with contrast performed 07/02/16 TECHNIQUE: Contrast dose: 100 mL Omnipaque 300 Radiation dose: Total exam DLP = 1118.68 mGy-cm. FINDINGS: LOWER THORAX: Minimal bibasilar atelectasis. No visible pleural effusion or pneumothorax. 9 mm right hilar lymph node, nonspecific. Small hiatal hernia/distal esophageal wall thickening. LIVER: Hepatomegaly. GALLBLADDER AND BILE DUCTS: Cholecystectomy. PANCREAS: Unremarkable. SPLEEN: Unremarkable. ADRENALS: Unremarkable. KIDNEYS AND URETERS: The kidneys enhance symmetrically. No evidence of hydronephrosis or obstructing calculus. VASCULATURE: Atherosclerotic calcifications. No aortic aneurysm. BOWEL: Bowel wall thickening involving left colon and proximal sigmoid colon with associated inflammatory stranding ; appearance compatible with colitis (i.e. infectious, inflammatory, ischemic). No evidence of bowel obstruction. APPENDIX: The appendix appears within normal limits of caliber. No secondary signs of acute appendicitis. PERITONEUM: No significant free fluid. No definite free air. LYMPH NODES: No bulky lymphadenopathy appreciated. BLADDER: Decompressed urinary bladder appears grossly unremarkable. REPRODUCTIVE: The uterus is not identified, presumably due to hysterectomy. BONES: Osseous demineralization. Degenerative changes. OTHER FINDINGS: Fat containing ventral abdominal wall hernia. Left inguinal clips. IMPRESSION: Bowel wall thickening involving left colon and proximal sigmoid colon with associated inflammatory stranding ; appearance compatible with colitis (i.e. infectious, inflammatory, ischemic). Additional incidental findings as above. Preliminary impression was provided by virtual radiologic.
[2016-07-06] MEDS: Sodium Chloride 0.9% 1,000 ML IV SCH ×2 (12:07→20:01)
[2016-07-06] MEDS: Ciprofloxacin 400mg/200ml D5W 200 ML IVPB SCH ×2 (12:08→21:21)
--- NOTE | 2016-07-06 13:08 | CP.PCM.CON ---
History of Present Illness - History of Present Illness History of Present Illness: GI Consult: Dr. Vora Pt is a 61F with PMHx significant for DM, HTN, PVD, & HLD who presented to [facility] for abdominal pain and diarrhea. Pt states she started having watery diarrhea on and noticed bright red blood with every bowel movement so she came to the hospital. She was admitted for observation overnight and discharged home on wednesday because her work up was negative. However, once pt was home and resumed a diet she started having bloody diarrhea again. She also admits to 1 episode of vomiting with specks of blood. States she has never had similar problems in the past but does admits to having hemorrhoids. Pt denies sick contacts, recent travel or eating out. States her last endoscopy was 3 years ago and it was normal. Does not recall when her last colonoscopy was done. Currently, pt is resting comfortably in bed. States she has some abdominal discomfit mostly in the left lower abdomen. She has not had any more episodes of diarrhea/vomiting since admission. Denies F/C. 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 SocialHx: former smoker, denies EtOH/drugs Review of Systems - Review of Systems All systems: reviewed and no additional remarkable complaints except (as per HPI ) Past Patient History - Infectious Disease Hx of Infectious Diseases: None - Past Medical History & Family History Past Medical History?: Yes - Past Social History Smoking Status: Former Smoker - CARDIAC Hx Hypercholesterolemia: Yes Hx Hypertension: Yes - PULMONARY Hx Asthma: Yes Hx Chronic Obstructive Pulmonary Disease (COPD): Yes - NEUROLOGICAL Hx Neurological Disorder: No - HEENT Hx HEENT Problems: No - RENAL Hx Chronic Kidney Disease: No - ENDOCRINE/METABOLIC Hx Endocrine Disorders: Yes Hx Diabetes Mellitus Type 2: Yes - HEMATOLOGICAL/ONCOLOGICAL Hx AIDS: No - INTEGUMENTARY Hx Dermatological Problems: No - MUSCULOSKELETAL/RHEUMATOLOGICAL Hx Arthritis: Yes Hx Falls: No - GASTROINTESTINAL Hx Gastroesophageal Reflux: Yes - GENITOURINARY/GYNECOLOGICAL Hx Genitourinary Disorders: No - PSYCHIATRIC Hx Substance Use: No - SURGICAL HISTORY Hx Cholecystectomy: Yes Hx Hysterectomy: Yes - ANESTHESIA Hx Anesthesia: Yes Hx Anesthesia Reactions: No Hx Malignant Hyperthermia: No Meds Allergies/Adverse Reactions: Allergies Allergy/AdvReac Type Severity Reaction Status Date / Time azithromycin [From Zithromax] Allergy RASH Verified 07/05/16 16:40 - Medications Medications: Current Medications Hydromorphone HCl (Dilaudid) 1 mg IVP Q4H PRN PRN Reason: abd pain 6-10 Last Admin: 07/06/16 10:51 Dose: 1 mg Ciprofloxacin (Cipro 400mg/200ml Dsw) 200 mls @ 200 mls/hr IVPB Q12 [facility] Last Admin: 07/06/16 12:08 Dose: 200 mls/hr Metronidazole (Flagyl 500mg/100ml Ns) 100 mls @ 100 mls/hr IVPB Q8 [facility] Last Admin: 07/06/16 09:02 Dose: 100 mls/hr Sodium Chloride (Sodium Chloride 0.9%) 1,000 mls @ 100 mls/hr IV .Q10H [facility] Stop: 07/07/16 09:31 Last Admin: 07/06/16 12:07 Dose: 100 mls/hr Insulin Human Regular (Humulin R) 0 units SC ACHS [facility] PRN Reason: Protocol Last Admin: 07/06/16 12:00 Dose: Not Given Lactobacillus Acidophilus (Bacid Acidophilus) 1 cap PO BID [facility] Last Admin: 07/06/16 09:10 Dose: 1 cap Pantoprazole Sodium (Protonix Inj) 40 mg IVP DAILY [facility] Last Admin: 07/06/16 09:02 Dose: 40 mg Physical Exam - Constitutional Appears: Well, No Acute Distress - Head Exam Head Exam: ATRAUMATIC, NORMOCEPHALIC - Eye Exam Eye Exam: Normal appearance - ENT Exam ENT Exam: Mucous Membranes Moist - Respiratory Exam Respiratory Exam: NORMAL BREATHING PATTERN - Cardiovascular Exam Cardiovascular Exam: RRR - GI/Abdominal Exam GI & Abdominal Exam: Normal Bowel Sounds, Soft, Tenderness (LLQ). absent: Distended, Guarding, Rebound - Rectal Exam Rectal Exam: absent: Deferred - Neurological Exam Neurological exam: Alert, Oriented x3 - Skin Skin Exam: Dry, Intact, Warm Results - Vital Signs Recent Vital Signs: Last Vital Signs Temp 98.2 F 07/06/16 12:26 Pulse 58 L 07/06/16 12:26 Resp 18 07/06/16 12:26 BP 151/61 H 07/06/16 12:26 Pulse Ox 100 07/06/16 12:26 - Labs Result Diagrams: 07/06/16 07:35 03/20/17 07:35 Labs: Laboratory Results - last 24 hr 07/05/16 07/05/16 07/05/16 17:42 17:46 22:28 WBC 13.4 H RBC 3.73 L Hgb 11.3 L Hct 33.9 L MCV 90.9 MCH 30.4 MCHC 33.4 RDW 15.5 H Plt Count 311 D MPV 8.8 Neut % (Auto) 75.5 H Lymph % (Auto) 14.4 L [place] % (Auto) 5.8 Eos % (Auto) 3.9 Baso % (Auto) 0.4 Neut # 10.1 H Lymph # 1.9 [place] # 0.8 Eos # 0.5 Baso # 0.1 pO2 23 L VBG pH 7.34 VBG pCO2 58 VBG HCO3 26.3 VBG Total CO2 33.1 H VBG O2 Sat (Calc) 36.3 L VBG Base Excess 3.9 H VBG Potassium 5.0 Glucose 174 H Lactate 1.1 FiO2 21.0 Sodium 143 138.0 Potassium 5.1 H Chloride 104 106.0 Carbon Dioxide 28 Anion Gap 16 BUN 14 Creatinine 0.9 Est GFR ( Amer) > 60 Est GFR (Non-Af Amer) > 60 POC Glucose (mg/dL) 125 H Random Glucose 171 H Calcium 8.8 Total Bilirubin 0.4 AST 23 ALT 34 Alkaline Phosphatase 97 Total Protein 7.7 Albumin 3.7 Globulin 4.0 H Albumin/Globulin Ratio 0.9 L Venous Blood Potassium 5.0 07/06/16 07/06/16 07/06/16 05:57 07:35 11:10 WBC 11.1 H RBC 3.58 L Hgb 10.7 L Hct 32.8 L MCV 91.8 MCH 29.9 MCHC 32.6 L RDW 15.5 H Plt Count 286 MPV 8.2 Neut % (Auto) 57.0 Lymph % (Auto) 30.2 [place] % (Auto) 7.6 Eos % (Auto) 4.6 H Baso % (Auto) 0.6 Neut # 6.3 Lymph # 3.3 [place] # 0.8 Eos # 0.5 Baso # 0.1 pO2 VBG pH VBG pCO2 VBG HCO3 VBG Total CO2 VBG O2 Sat (Calc) VBG Base Excess VBG Potassium Glucose Lactate FiO2 Sodium 143 Potassium 4.1 Chloride 105 Carbon Dioxide 27 Anion Gap 16 BUN 12 Creatinine 0.7 Est GFR ( Amer) > 60 Est GFR (Non-Af Amer) > 60 POC Glucose (mg/dL) 121 H 128 H Random Glucose 118 H Calcium 8.6 Total Bilirubin 0.3 AST 22 ALT 32 Alkaline Phosphatase 97 Total Protein 7.1 Albumin 3.3 L Globulin 3.8 Albumin/Globulin Ratio 0.9 L Venous Blood Potassium - Imaging and Cardiology CT scan - abdomen Status: Image reviewed by me, Report reviewed by me Assessment & Plan - Assessment and Plan (Free Text) Assessment: 61F with abdominal pain & diarrhea Plan: - H/H stable - no more episodes of diarrhea or vomiting - will start CLD and advance slowly as tolerated after discussing with Dr. Vielka Alexander, PGY-2
[2016-07-06] MEDS ORDERED: INSULIN GLARGINE HUM REC ANLOG 20 UNIT SC SCH (22:00)
[2016-07-06] MEDS ORDERED: Insulin Detemir 100 Units/ml Inj SC SCH (22:00)
[2016-07-07 00:46] VITALS: RESP 20
[2016-07-07] MEDS: metroNIDAZOLE 500mg/100ml NS 100 ML IVPB SCH ×3 (01:30→16:36)
[2016-07-07 06:45] LABS: BASO # 0.1 K/uL (0.0-0.2); BASO % 0.6 % (0.0-2.0); EOS # 0.5 K/uL (0.0-0.7); EOS % 5.1 % (0.0-4.0); LYMPH # 2.7 K/uL (1.0-4.3); LYMPH % 28.8 % (20.0-40.0); MEAN CELL VOLUME 90.8 fl (81.0-99.0); MEAN CORPUSCULAR HEMOGLOBIN 29.8 pg (27.0-31.0); MEAN CORPUSCULAR HGB CONC 32.9 g/dL (33.0-37.0); MEAN PLATELET VOLUME 7.7 fl (7.2-11.7); MONO # 0.8 K/uL (0.0-0.8); MONO % 8.2 % (0.0-10.0); NEUT # 5.3 K/uL (1.8-7.0); NEUT % 57.3 % (50.0-75.0); NRBC % 0.1 % (0.0-0.0); RED CELL DISTRIBUTION WIDTH 15.1 % (11.5-14.5); WHITE BLOOD COUNT 9.3 K/uL (4.8-10.8)
[2016-07-07] MEDS: Insulin Regular 100 units/ml SC SCH ×3 (06:59→22:29)
[2016-07-07 07:00] LABS: BLOOD UREA NITROGEN 9 mg/dl (7-17); GFR AFRICAN-AMERICAN > 60; GLUCOSE,RANDOM 116 mg/dL (65-105)
[2016-07-07 07:01] LABS: ALB/GLOB RATIO 0.9 (1.0-2.1); ALKALINE PHOSPHATASE 95 U/L (38-126); ALT/SGPT 25 U/L (9-52); AST/SGOT 25 U/L (14-36); BILIRUBIN,TOTAL 0.4 mg/dl (0.2-1.3); CARBON DIOXIDE 26 mmol/L (22-30); CHLORIDE 106 mmol/L (98-107); POTASSIUM 4.2 MMOL/L (3.6-5.0); SODIUM 144 mmol/l (132-148); TOTAL PROTEIN 7.2 G/DL (6.3-8.2)
[2016-07-07] MEDS: Ciprofloxacin 400mg/200ml D5W 200 ML IVPB SCH ×2 (08:21→21:30)
--- NOTE | 2016-07-07 08:21 | CP.PCM.PN ---
Subjective - Date & Time of Evaluation Date of Evaluation: 07/07/16 Time of Evaluation: 08:20 - Subjective Subjective: pain iscontrolled. no f/c, n/v/d/c. still w/ left sided abd pain/tenderness no furtehr bleedign in stool wbc 9.2 Objective - Vital Signs/Intake and Output Vital Signs (last 24 hours): Temp Pulse Resp BP Pulse Ox 98.6 F 62 20 185/71 H 95 07/07/16 00:00 07/07/16 00:00 07/07/16 00:00 07/07/16 00:00 07/07/16 00:00 - Medications Medications: Current Medications Aspirin (Ecotrin) 81 mg PO DAILY [facility] Atorvastatin Calcium (Lipitor) 20 mg PO DAILY [facility] Cholecalciferol (Vitamin D) 1,000 iu PO DAILY [facility] Clopidogrel Bisulfate (Plavix) 75 mg PO DAILY [facility] Docusate Sodium (Colace) 100 mg PO BID PRN PRN Reason: Constipation Dorzolamide HCl (Trusopt) 1 drop OU BID [facility] Ezetimibe (Zetia) 10 mg PO DAILY [facility] Fluticasone Propionate (Flonase) 2 spr ZEUS DAILY PRN PRN Reason: Allergy symptoms Furosemide (Lasix) 20 mg PO BID [facility] Gabapentin (Neurontin) 300 mg PO TID [facility] Home Med (Alogliptin Benzoate [Alogliptin]) 25 mg PO DAILY [facility] Home Med (Brinzolamide [Azopt]) 1 drop EACHEYE BID [facility] Home Med (Insulin Glargine,Hum.Rec.Anlog [Lantus]) 20 unit SC HS [facility] Home Med (Simvastatin [Zocor]) 40 mg PO HS [facility] Hydrochlorothiazide (Hydrodiuril) 25 mg PO DAILY [facility] Hydromorphone HCl (Dilaudid) 1 mg IVP Q4H PRN PRN Reason: abd pain 6-10 Last Admin: 07/07/16 08:15 Dose: 1 mg Ciprofloxacin (Cipro 400mg/200ml Dsw) 200 mls @ 200 mls/hr IVPB Q12 [facility] Last Admin: 07/06/16 21:21 Dose: 200 mls/hr Metronidazole (Flagyl 500mg/100ml Ns) 100 mls @ 100 mls/hr IVPB Q8 [facility] Last Admin: 03/21/17 01:30 Dose: 100 mls/hr Sodium Chloride (Sodium Chloride 0.9%) 1,000 mls @ 100 mls/hr IV .Q10H [facility] Stop: 07/07/16 09:31 Last Admin: 07/06/16 20:01 Dose: Not Given Insulin Detemir (Levemir) 20 units SC HS [facility] Insulin Human Regular (Humulin R) 0 units SC ACHS [facility] PRN Reason: Protocol Last Admin: 07/07/16 06:59 Dose: Not Given Insulin Lispro Protam/Lispro Human (Humalog Mix 75/25) 20 units SC BID [facility] Lactobacillus Acidophilus (Bacid Acidophilus) 1 cap PO BID [facility] Last Admin: 07/06/16 16:45 Dose: 1 cap Losartan Potassium (Cozaar) 100 mg PO DAILY [facility] Magnesium Oxide (Mag-Ox) 400 mg PO BID [facility] Pantoprazole Sodium (Protonix Inj) 40 mg IVP DAILY [facility] Last Admin: 07/06/16 09:02 Dose: 40 mg Sennosides (Senokot Tab) 8.6 mg PO DAILY PRN PRN Reason: Constipation Sitagliptin Phosphate (Januvia) 100 mg PO DAILY [facility] - Labs Labs: 07/07/16 06:20 07/07/16 06:20 - Constitutional Appears: Well, Non-toxic, No Acute Distress - Head Exam Head Exam: ATRAUMATIC, NORMAL INSPECTION, NORMOCEPHALIC - Eye Exam Eye Exam: EOMI, Normal appearance, PERRL Pupil Exam: NORMAL ACCOMODATION, PERRL - ENT Exam ENT Exam: Mucous Membranes Moist, Normal Exam - Neck Exam Neck Exam: Full ROM, Normal Inspection. absent: Lymphadenopathy - Respiratory Exam Respiratory Exam: Clear to Ausculation Bilateral, NORMAL BREATHING PATTERN - Cardiovascular Exam Cardiovascular Exam: REGULAR RHYTHM, +S1, +S2. absent: Murmur - GI/Abdominal Exam GI & Abdominal Exam: Soft, Tenderness, Normal Bowel Sounds Additional comments: left sided - Extremities Exam Extremities Exam: Full ROM, Normal Capillary Refill, Normal Inspection. absent : Joint Swelling, Pedal Edema - Back Exam Back Exam: NORMAL INSPECTION - Neurological Exam Neurological Exam: Alert, Awake, CN II-XII Intact, Normal Gait, Oriented x3 - Psychiatric Exam Psychiatric exam: Normal Affect, Normal Mood - Skin Skin Exam: Dry, Intact, Normal Color, Warm Assessment and Plan (1) Colitis Status: Acute (2) DVT prophylaxis Status: Acute (3) Diabetes type 2, uncontrolled Status: Acute - Assessment and Plan (Free Text) Assessment: (1) Colitis Assessment and Plan: cipro/flagyl dialudid cld as per gi ivf ?? dc in am Status: Acute (2) DVT prophylaxis Assessment and Plan: scd and ae hose no anticoag r/t gi bleed Status: Acute (3) Diabetes type 2, uncontrolled Assessment and Plan: fsbg, riss, home meds Status: Acute
[2016-07-07] MEDS: Lactobacillus Acidophilus 500 MU Cap PO SCH ×2 (08:25→16:32)
[2016-07-07] MEDS: Magnesium Oxide 400 mg Tab UD PO SCH ×2 (08:29→16:33)
[2016-07-07] MEDS: Dorzolamide 2% Ophth Soln OU SCH ×2 (08:45→16:34)
[2016-07-07] MEDS: Sodium Chloride 0.9% 1,000 ML IV SCH (08:46)
[2016-07-07] MEDS ORDERED: Patient's Own Med (Brinzolamide [Azopt] 1 DROP) EACHEYE SCH (09:00)
[2016-07-07] MEDS ORDERED: Insulin Lispro Mix 75/25 100 units/ml (HumaLog) 10ml SC SCH (09:00)
--- NOTE | 2016-07-07 12:22 | CP.PCM.PN ---
Subjective - Date & Time of Evaluation Date of Evaluation: 07/07/16 Time of Evaluation: 10:00 - Subjective Subjective: GI: Dr. Vora Pt seen and examined. No acute events overnight. States she feels a lot better today. Abdominal pain has improved. She admits to tolerating CLD and denies N/V/ D. Denies F/C. Objective - Vital Signs/Intake and Output Vital Signs (last 24 hours): Temp Pulse Resp BP Pulse Ox 98.4 F 58 L 20 149/69 93 L 07/07/16 08:32 07/07/16 09:00 07/07/16 08:32 07/07/16 08:32 07/07/16 08:32 - Medications Medications: Current Medications Aspirin (Ecotrin) 81 mg PO DAILY [facility] Last Admin: 07/07/16 08:26 Dose: 81 mg Atorvastatin Calcium (Lipitor) 20 mg PO DAILY [facility] Last Admin: 07/07/16 08:29 Dose: 20 mg Cholecalciferol (Vitamin D) 1,000 iu PO DAILY [facility] Last Admin: 07/07/16 08:29 Dose: 1,000 iu Clopidogrel Bisulfate (Plavix) 75 mg PO DAILY [facility] Last Admin: 07/07/16 08:27 Dose: 75 mg Docusate Sodium (Colace) 100 mg PO BID PRN PRN Reason: Constipation Dorzolamide HCl (Trusopt) 1 drop OU BID [facility] Last Admin: 07/07/16 08:45 Dose: 1 drop Ezetimibe (Zetia) 10 mg PO DAILY [facility] Last Admin: 07/07/16 08:26 Dose: 10 mg Fluticasone Propionate (Flonase) 2 spr ZEUS DAILY PRN PRN Reason: Allergy symptoms Last Admin: 07/07/16 08:30 Dose: 2 spr Furosemide (Lasix) 20 mg PO BID [facility] Last Admin: 07/07/16 08:26 Dose: 20 mg Gabapentin (Neurontin) 300 mg PO TID [facility] Last Admin: 07/07/16 12:15 Dose: 300 mg Home Med (Alogliptin Benzoate [Alogliptin]) 25 mg PO DAILY [facility] Home Med (Brinzolamide [Azopt]) 1 drop EACHEYE BID [facility] Home Med (Insulin Glargine,Hum.Rec.Anlog [Lantus]) 20 unit SC HS [facility] Home Med (Simvastatin [Zocor]) 40 mg PO HS [facility] Hydrochlorothiazide (Hydrodiuril) 25 mg PO DAILY [facility] Last Admin: 07/07/16 08:45 Dose: 25 mg Hydromorphone HCl (Dilaudid) 1 mg IVP Q4H PRN PRN Reason: abd pain 6-10 Last Admin: 07/07/16 08:15 Dose: 1 mg Ciprofloxacin (Cipro 400mg/200ml Dsw) 200 mls @ 200 mls/hr IVPB Q12 [facility] Last Admin: 07/07/16 08:21 Dose: 200 mls/hr Metronidazole (Flagyl 500mg/100ml Ns) 100 mls @ 100 mls/hr IVPB Q8 [facility] Last Admin: 07/07/16 08:20 Dose: 100 mls/hr Insulin Detemir (Levemir) 20 units SC HS [facility] Insulin Human Regular (Humulin R) 0 units SC ACHS [facility] PRN Reason: Protocol Last Admin: 07/07/16 12:13 Dose: Not Given Insulin Lispro Protam/Lispro Human (Humalog Mix 75/25) 20 units SC BID [facility] Last Admin: 07/07/16 08:38 Dose: Not Given Lactobacillus Acidophilus (Bacid Acidophilus) 1 cap PO BID [facility] Last Admin: 07/07/16 08:25 Dose: 1 cap Losartan Potassium (Cozaar) 100 mg PO DAILY [facility] Last Admin: 07/07/16 08:28 Dose: 100 mg Magnesium Oxide (Mag-Ox) 400 mg PO BID [facility] Last Admin: 07/07/16 08:29 Dose: 400 mg Pantoprazole Sodium (Protonix Inj) 40 mg IVP DAILY [facility] Last Admin: 07/07/16 08:30 Dose: 40 mg Sennosides (Senokot Tab) 8.6 mg PO DAILY PRN PRN Reason: Constipation Sitagliptin Phosphate (Januvia) 100 mg PO DAILY [facility] Last Admin: 07/07/16 08:25 Dose: 100 mg - Labs Labs: 07/07/16 06:20 07/07/16 06:20 - Constitutional Appears: Well, No Acute Distress - Head Exam Head Exam: ATRAUMATIC, NORMOCEPHALIC - Eye Exam Eye Exam: Normal appearance - ENT Exam ENT Exam: Mucous Membranes Moist - Respiratory Exam Respiratory Exam: NORMAL BREATHING PATTERN - Cardiovascular Exam Cardiovascular Exam: RRR - GI/Abdominal Exam GI & Abdominal Exam: Soft, Normal Bowel Sounds. absent: Distended, Guarding, Tenderness - Extremities Exam Extremities Exam: absent: Tenderness - Neurological Exam Neurological Exam: Alert, Awake, Oriented x3 - Skin Skin Exam: Dry, Intact, Warm Assessment and Plan - Assessment and Plan (Free Text) Assessment: 61F admitted with abdominal pain & diarrhea Plan: - H/H remains stable - Tolerating CLD, advance to soft HHD - if tolerating diet can be DC from GI standpoint with outpt follow up - d/w Dr. Vielka Alexander, PGY-2
[2016-07-07 22:50] VITALS: PULSE 62
[2016-07-08] MEDS: metroNIDAZOLE 500mg/100ml NS 100 ML IVPB SCH ×2 (01:00→09:07)
[2016-07-08] MEDS: Insulin Regular 100 units/ml SC SCH (06:46)
[2016-07-08 07:03] LABS: BASO # 0.1 K/uL (0.0-0.2); BASO % 0.7 % (0.0-2.0); EOS # 0.4 K/uL (0.0-0.7); LYMPH # 2.9 K/uL (1.0-4.3); LYMPH % 28.7 % (20.0-40.0); MEAN CELL VOLUME 92.4 fl (81.0-99.0); MEAN CORPUSCULAR HEMOGLOBIN 29.9 pg (27.0-31.0); MEAN CORPUSCULAR HGB CONC 32.4 g/dL (33.0-37.0); MEAN PLATELET VOLUME 8.1 fl (7.2-11.7); MONO % 9.7 % (0.0-10.0); NEUT # 5.8 K/uL (1.8-7.0); NEUT % 56.9 % (50.0-75.0); NRBC % 0.1 % (0.0-0.0); RED CELL DISTRIBUTION WIDTH 15.2 % (11.5-14.5); WHITE BLOOD COUNT 10.1 K/uL (4.8-10.8)
[2016-07-08 07:20] LABS: ALB/GLOB RATIO 0.9 (1.0-2.1); ALKALINE PHOSPHATASE 94 U/L (38-126); ALT/SGPT 21 U/L (9-52); AST/SGOT 21 U/L (14-36); BILIRUBIN,TOTAL 0.2 mg/dl (0.2-1.3); BLOOD UREA NITROGEN 12 mg/dl (7-17); CALCIUM 8.8 mg/dL (8.4-10.2); CARBON DIOXIDE 24 mmol/L (22-30); CHLORIDE 104 mmol/L (98-107); GFR AFRICAN-AMERICAN > 60; GLUCOSE,RANDOM 136 mg/dL (65-105); POTASSIUM 4.1 MMOL/L (3.6-5.0); SODIUM 138 mmol/l (132-148); TOTAL PROTEIN 7.1 G/DL (6.3-8.2)
[2016-07-08 08:10] VITALS: BP 138/59; TEMP 98.2; O2SAT 93
--- NOTE | 2016-07-08 08:13 | CP.PCM.DIS ---
Provider - Provider Date of Admission: 07/05/16 17:17 Attending physician: Jose Roberto Johns MD Time Spent in preparation of Discharge (in minutes): 15 Diagnosis - Discharge Diagnosis (1) Colitis Status: Acute (2) DVT prophylaxis Status: Acute (3) Diabetes type 2, uncontrolled Status: Acute Hospital Course - Lab Results Lab Results: Micro Results 07/05/16 17:54 Blood Blood Culture - Preliminary NO GROWTH AFTER 48 HOURS Most Recent Lab Values WBC 10.1 K/uL (4.8-10.8) 07/08/16 06:10 RBC 3.90 Mil/uL (3.80-5.20) 07/08/16 06:10 Hgb 11.7 g/dL (12.0-16.0) L 07/08/16 06:10 Hct 36.0 % (34.0-47.0) 07/08/16 06:10 MCV 92.4 fl (81.0-99.0) 07/08/16 06:10 MCH 29.9 pg (27.0-31.0) 07/08/16 06:10 MCHC 32.4 g/dL (33.0-37.0) L 07/08/16 06:10 RDW 15.2 % (11.5-14.5) H 07/08/16 06:10 Plt Count 294 K/uL (130-400) 07/08/16 06:10 MPV 8.1 fl (7.2-11.7) 07/08/16 06:10 Neut % (Auto) 56.9 % (50.0-75.0) 07/08/16 06:10 Lymph % (Auto) 28.7 % (20.0-40.0) 07/08/16 06:10 [place] % (Auto) 9.7 % (0.0-10.0) 07/08/16 06:10 Eos % (Auto) 4.0 % (0.0-4.0) 07/08/16 06:10 Baso % (Auto) 0.7 % (0.0-2.0) 07/08/16 06:10 Neut # 5.8 K/uL (1.8-7.0) 07/08/16 06:10 Lymph # 2.9 K/uL (1.0-4.3) 07/08/16 06:10 [place] # 1.0 K/uL (0.0-0.8) H 07/08/16 06:10 Eos # 0.4 K/uL (0.0-0.7) 07/08/16 06:10 Baso # 0.1 K/uL (0.0-0.2) 07/08/16 06:10 pO2 23 mm/Hg (30-55) L 07/05/16 17:46 VBG pH 7.34 (7.32-7.43) 07/05/16 17:46 VBG pCO2 58 mmHg (40-60) 07/05/16 17:46 VBG HCO3 26.3 mmol/L 07/05/16 17:46 VBG Total CO2 33.1 mmol/L (22-28) H 07/05/16 17:46 VBG O2 Sat (Calc) 36.3 % (40-65) L 07/05/16 17:46 VBG Base Excess 3.9 mmol/L (0.0-2.0) H 07/05/16 17:46 VBG Potassium 5.0 mmol/L (3.6-5.2) 07/05/16 17:46 Sodium 138.0 mmol/L (132-148) 07/05/16 17:46 Chloride 106.0 mmol/L (98-107) 07/05/16 17:46 Glucose 174 mg/dL (65-105) H 07/05/16 17:46 Lactate 1.1 mmol/L (0.7-2.1) 07/05/16 17:46 FiO2 21.0 % 07/05/16 17:46 Sodium 138 mmol/l (132-148) 07/08/16 06:10 Potassium 4.1 MMOL/L (3.6-5.0) 07/08/16 06:10 Chloride 104 mmol/L (98-107) 07/08/16 06:10 Carbon Dioxide 24 mmol/L (22-30) 07/08/16 06:10 Anion Gap 13 (10-20) 07/08/16 06:10 BUN 12 mg/dl (7-17) 07/08/16 06:10 Creatinine 0.7 mg/dL (0.7-1.2) 07/08/16 06:10 Est GFR ( Amer) > 60 07/08/16 06:10 Est GFR (Non-Af Amer) > 60 07/08/16 06:10 POC Glucose (mg/dL) 143 mg/dL (65-110) H 07/08/16 05:52 Random Glucose 136 mg/dL (65-105) H 07/08/16 06:10 Calcium 8.8 mg/dL (8.4-10.2) 07/08/16 06:10 Total Bilirubin 0.2 mg/dl (0.2-1.3) 07/08/16 06:10 AST 21 U/L (14-36) 07/08/16 06:10 ALT 21 U/L (9-52) 07/08/16 06:10 Alkaline Phosphatase 94 U/L (38-126) 07/08/16 06:10 Total Protein 7.1 G/DL (6.3-8.2) 07/08/16 06:10 Albumin 3.3 g/dL (3.5-5.0) L 07/08/16 06:10 Globulin 3.7 gm/dL (2.2-3.9) 07/08/16 06:10 Albumin/Globulin Ratio 0.9 (1.0-2.1) L 07/08/16 06:10 Venous Blood Potassium 5.0 mmol/L (3.6-5.2) 07/05/16 17:46 Discharge Exam - Head Exam Head Exam: ATRAUMATIC, NORMAL INSPECTION, NORMOCEPHALIC - Eye Exam Eye Exam: EOMI, Normal appearance, PERRL Pupil Exam: NORMAL ACCOMODATION, PERRL - Respiratory Exam Respiratory Exam: Clear to PA & Lateral, NORMAL BREATHING PATTERN, UNREMARKABLE - Cardiovascular Exam Cardiovascular Exam: REGULAR RHYTHM, RRR, +S1, +S2 - GI/Abdominal Exam GI & Abdominal Exam: Normal Bowel Sounds, Soft, Unremarkable - Extremities Exam Extremities exam: full ROM, normal capillary refill, normal inspection, pedal pulses present - Back Exam Back exam: FULL ROM - Neurological Exam Neurological exam: Alert, CN II-XII Intact, Normal Gait, Oriented x3, Reflexes Normal - Psychiatric Exam Psychiatric exam: Normal Affect, Normal Mood - Skin Skin Exam: Dry, Intact, Normal Color, Warm Discharge Plan - Follow Up Plan Condition: FAIR Disposition: HOME/ ROUTINE Additional Instructions: f/u rmg mon/tues. rted prn final dx-colitis, gi bleed all bw stable. pain controlled tolerating po no n/v/d. no b;lood in bm no complaints/distress wishes to be d/c home today
[2016-07-08] MEDS ORDERED: Multivitamin With Minerals Tab PO SCH (09:00)
[2016-07-08] MEDS: Ciprofloxacin 400mg/200ml D5W 200 ML IVPB SCH (09:13)
[2016-07-08] MEDS: Magnesium Oxide 400 mg Tab UD PO SCH (09:21)
[2016-07-08] MEDS: Dorzolamide 2% Ophth Soln OU SCH (09:24)
[2016-07-08] MEDS: Lactobacillus Acidophilus 500 MU Cap PO SCH (10:35)
== END 2016-07-08 12:52 | disposition home or self-care (01) | DRG 813 ==
LOC: H.ER 16:39 → H.ERHOLD 17:17 → H.TEL 21:48 → H.MEDSURG1 07-07 00:15
PROVIDERS: ADMIT Family Medicine; ATTEND Family Medicine
DX: K52.9 Noninfective gastroenteritis and colitis, unspecified (principal); E11.65 Type 2 diabetes mellitus with hyperglycemia; I10 Essential (primary) hypertension; J44.9 Chronic obstructive pulmonary disease, unspecified; E78.00 Pure hypercholesterolemia, unspecified; E78.5 Hyperlipidemia, unspecified; I25.10 Atherosclerotic heart disease of native coronary artery without angina pectoris; J45.909 Unspecified asthma, uncomplicated; K21.9 Gastro-esophageal reflux disease without esophagitis; I73.9 Peripheral vascular disease, unspecified; M19.90 Unspecified osteoarthritis, unspecified site; Z87.891 Personal history of nicotine dependence; Z88.1 Allergy status to other antibiotic agents

== ENCOUNTER 2016-09-03 13:31 | Inpatient (IN) | payer MEDICAID ==
[2016-09-03 20:15] VITALS: BMI 45.3
[2016-09-03] MEDS ORDERED: DiphenhydrAMINE 50 mg/ml Inj IVP STA (20:52)
[2016-09-03 21:25] LABS: ALKALINE PHOSPHATASE 118 U/L (38-126); ALT/SGPT 37 U/L (9-52); AST/SGOT 24 U/L (14-36); BILIRUBIN,TOTAL 0.3 mg/dl (0.2-1.3); BLOOD UREA NITROGEN 15 mg/dl (7-17); CALCIUM 9.3 mg/dL (8.4-10.2); CARBON DIOXIDE 27 mmol/L (22-30); CHLORIDE 102 mmol/L (98-107); GFR AFRICAN-AMERICAN > 60; GLUCOSE,RANDOM 182 mg/dL (65-105); POTASSIUM 3.9 MMOL/L (3.6-5.0); SODIUM 139 mmol/l (132-148); TOTAL PROTEIN 7.6 G/DL (6.3-8.2)
[2016-09-03] MEDS: Sodium Chloride 0.9% 1,000 ML IV SCH (23:02)
[2016-09-04] MEDS ORDERED: ACETAMINOPHEN PO PRN (06:42)
[2016-09-04] MEDS ORDERED: HYDROCODONE PO PRN (06:42)
--- NOTE | 2016-09-04 07:13 | CP.PCM.HP ---
History of Present Illness - History of Present Illness History of Present Illness: pt admitted for intractable abd pain and n/v. at present no further n./v but still w/ ruq pain. ct and bw noted. pain describe gutierrez discomrot. beth liquid diet well. no f/c. pt is on anbx for chornic foot infection r/t dm. glucose ocntrolled Present on Admission - Present on Admission Any Indicators Present on Admission: Yes History of Uncontrolled Diabetes: Yes Review of Systems - Gastrointestinal Gastrointestinal: As Per HPI, Abdominal Pain, Nausea, Vomiting Past Patient History - Infectious Disease Hx of Infectious Diseases: None - Past Medical History & Family History Past Medical History?: Yes - Past Social History Smoking Status: Former Smoker - CARDIAC Hx Cardiac Disorders: Yes Hx Hypercholesterolemia: Yes Hx Hypertension: Yes - PULMONARY Hx Asthma: Yes Hx Chronic Obstructive Pulmonary Disease (COPD): Yes - NEUROLOGICAL Hx Neurological Disorder: No - HEENT Hx HEENT Problems: Yes Hx Glaucoma: Yes (left eye) - RENAL Hx Chronic Kidney Disease: No - ENDOCRINE/METABOLIC Hx Endocrine Disorders: Yes Hx Diabetes Mellitus Type 2: Yes - HEMATOLOGICAL/ONCOLOGICAL Hx AIDS: No Hx Human Immunodeficiency Virus (HIV): No - INTEGUMENTARY Hx Dermatological Problems: No - MUSCULOSKELETAL/RHEUMATOLOGICAL Hx Falls: Yes - GASTROINTESTINAL Hx Gastroesophageal Reflux: Yes - GENITOURINARY/GYNECOLOGICAL Hx Genitourinary Disorders: No - PSYCHIATRIC Hx Substance Use: No - SURGICAL HISTORY Hx Cholecystectomy: Yes Other/Comment: left fifth toe amputation 2010. rt foot sx aug 26 2016 - ANESTHESIA Hx Anesthesia: Yes Hx Anesthesia Reactions: No Hx Malignant Hyperthermia: No Meds Allergies/Adverse Reactions: Allergies Allergy/AdvReac Type Severity Reaction Status Date / Time azithromycin [From Zithromax] Allergy RASH Verified 07/05/16 16:40 Physical Exam - Constitutional Appears: Well, Non-toxic, No Acute Distress - Head Exam Head Exam: ATRAUMATIC, NORMAL INSPECTION, NORMOCEPHALIC - Eye Exam Eye Exam: EOMI, Normal appearance, PERRL Pupil Exam: NORMAL ACCOMODATION, PERRL - ENT Exam ENT Exam: Mucous Membranes Moist, Normal Exam - Neck Exam Neck exam: Positive for: Normal Inspection - Respiratory Exam Respiratory Exam: Clear to Auscultation Bilateral, NORMAL BREATHING PATTERN - Cardiovascular Exam Cardiovascular Exam: REGULAR RHYTHM, RRR, +S1, +S2 - GI/Abdominal Exam GI & Abdominal Exam: Normal Bowel Sounds, Soft. absent: Tenderness - Extremities Exam Extremities exam: Positive for: full ROM, normal capillary refill, normal inspection, pedal pulses present - Back Exam Back exam: NORMAL INSPECTION - Neurological Exam Neurological exam: Alert, CN II-XII Intact, Normal Gait, Oriented x3, Reflexes Normal - Psychiatric Exam Psychiatric exam: Normal Affect, Normal Mood - Skin Skin Exam: Dry, Intact, Normal Color, Warm Results - Vital Signs Recent Vital Signs: Last Vital Signs Temp 98.1 F 09/04/16 03:40 Pulse 78 09/04/16 03:40 Resp 18 09/04/16 03:40 BP 155/83 H 09/04/16 03:40 Pulse Ox 98 09/04/16 03:42 - Labs Result Diagrams: 09/04/16 08:53 09/04/16 08:26 Assessment & Plan (1) Abdominal pain Assessment and Plan: pain control nausea control pepcid po as beth ?? dc Status: Acute (2) DVT prophylaxis Assessment and Plan: scd nad ae hose asa/plavix Status: Acute (3) Diabetes type 2, uncontrolled Assessment and Plan: riss, home meds, fsbg, diet obesity noted bmi 45 Status: Acute Decision To Admit - Pt Status Changed To: Hospital Disposition Of: Observation - . Bed Request Type: Telemetry Admitting Physician: Jose Roberto Johns
[2016-09-04] MEDS: DiphenhydrAMINE 50 mg/ml Inj IVP PRN ×2 (08:28→14:34)
[2016-09-04] MEDS: Insulin Regular 100 units/ml SC SCH ×5 (08:33→22:12)
[2016-09-04 08:53] LABS: RBC URINE 1 /hpf (0-3); URINE BACTERIA RARE (<OCC); URINE BILIRUBIN NEGATIVE (NEGATIVE); URINE BLOOD NEGATIVE (NEGATIVE); URINE COLOR YELLOW (YELLOW); URINE GLUCOSE (UA) NEG (Normal); URINE KETONE NEGATIVE (NEGATIVE); URINE LEUKOCYTE ESTERASE NEG Leu/uL (Negative); URINE PROTEIN 30 mg/dL (NEGATIVE); URINE UROBILINOGEN 0.2-1.0 mg/dL (0.2-1.0); WBC URINE 1 /hpf (0-5)
[2016-09-04 08:57] LABS: BASO % 0.3 % (0.0-2.0); EOS # 0.3 K/uL (0.0-0.7); EOS % 2.3 % (0.0-4.0); HEMATOCRIT 34.9 % (34.0-47.0); LYMPH % 25.8 % (20.0-40.0); MEAN CELL VOLUME 91.2 fl (81.0-99.0); MEAN CORPUSCULAR HEMOGLOBIN 29.9 pg (27.0-31.0); MEAN CORPUSCULAR HGB CONC 32.8 g/dL (33.0-37.0); MONO % 8.5 % (0.0-10.0); NEUT # 7.3 K/uL (1.8-7.0); NEUT % 63.1 % (50.0-75.0); NRBC % 0.1 % (0.0-0.0); RED CELL DISTRIBUTION WIDTH 15.5 % (11.5-14.5); WHITE BLOOD COUNT 11.7 K/uL (4.8-10.8)
[2016-09-04] MEDS: Insulin Lispro Mix 75/25 100 units/ml (HumaLog) 10ml SC SCH ×2 (09:00→19:21)
[2016-09-04] MEDS ORDERED: Patient's Own Med (Brinzolamide [Azopt] 1 DROP) EACHEYE SCH (09:00)
[2016-09-04] MEDS ORDERED: MINOCYCLINE HCL 100 MG PO SCH (09:00)
[2016-09-04 09:01] LABS: ALKALINE PHOSPHATASE 110 U/L (38-126); ALT/SGPT 38 U/L (9-52); AST/SGOT 23 U/L (14-36); BILIRUBIN,TOTAL 0.2 mg/dl (0.2-1.3); BLOOD UREA NITROGEN 12 mg/dl (7-17); CALCIUM 9.1 mg/dL (8.4-10.2); CARBON DIOXIDE 28 mmol/L (22-30); CHLORIDE 105 mmol/L (98-107); GFR AFRICAN-AMERICAN > 60; GLUCOSE,RANDOM 143 mg/dL (65-105); POTASSIUM 4.1 MMOL/L (3.6-5.0); SODIUM 142 mmol/l (132-148); TOTAL PROTEIN 7.2 G/DL (6.3-8.2)
[2016-09-04] MEDS: Pantoprazole 40 mg EC Tab PO SCH (10:10)
[2016-09-04] MEDS: Magnesium Oxide 400 mg Tab UD PO SCH ×2 (12:23→16:03)
[2016-09-04] MEDS: Dorzolamide 2% Ophth Soln OU SCH ×4 (12:23→16:10)
[2016-09-04] MEDS: Sodium Chloride 0.9% 1,000 ML IV SCH (14:33)
[2016-09-04 15:07] LABS: HEMATOCRIT 34.8 % (34.0-47.0); MEAN CELL VOLUME 90.9 fl (81.0-99.0); MEAN CORPUSCULAR HEMOGLOBIN 29.8 pg (27.0-31.0); MEAN CORPUSCULAR HGB CONC 32.8 g/dL (33.0-37.0); RED CELL DISTRIBUTION WIDTH 15.3 % (11.5-14.5); WHITE BLOOD COUNT 12.8 K/uL (4.8-10.8)
--- NOTE | 2016-09-04 16:33 | CT ---
PROCEDURE: CT Abdomen and Pelvis with contrast HISTORY: Abdominal pain COMPARISON: Comparison is made to the previous study dated 07/05/2016 TECHNIQUE: Contrast dose: 95 mL Omnipaque 300. Axial and reformatted coronal and sagittal CT images of the abdomen and pelvis were obtained after IV and oral contrast administration. Radiation dose: Total exam DLP = 1007.09 mGy-cm. This CT exam was performed using one or more of the following dose reduction techniques: Automated exposure control, adjustment of the mA and/or kV according to patient size, and/or use of iterative reconstruction technique. FINDINGS: LOWER THORAX: Unremarkable. LIVER: Mild intrahepatic biliary ductal dilatation is noted. No evidence of enhancing liver mass. GALLBLADDER AND BILE DUCTS: Status post cholecystectomy. PANCREAS: Slight dietitian of the main pancreatic duct noted. The pancreatic head region is not well visualized in this study and the possibility of small lesion is not totally excluded SPLEEN: Unremarkable. ADRENALS: Unremarkable. No mass. KIDNEYS AND URETERS: Unremarkable. No hydronephrosis. No solid mass. VASCULATURE: Unremarkable. No aortic aneurysm. BOWEL: Unremarkable. No obstruction. No gross mural thickening. Midline small ventral hernia contains small short short segment of small bowel without evidence of bowel obstruction. APPENDIX: No evidence of appendicitis PERITONEUM: Unremarkable. No free fluid. No free air. LYMPH NODES: Unremarkable. No enlarged lymph nodes. BLADDER: Unremarkable. REPRODUCTIVE: Status post hysterectomy BONES: No acute fracture. OTHER FINDINGS: None. IMPRESSION: Mild intrahepatic and extrahepatic biliary ductal dilatation. Heterogeneous attenuation at the pancreatic head without definite evidence of discrete mass. The possibility of small lesion is not totally excluded. If clinically warranted further assessment by MRI/MRCP may be obtained. Otherwise no evidence of acute pathology in the abdomen and pelvis. Midline ventral hernia contains short segment of small bowel without evidence of bowel obstruction or incarceration. Preliminary report was submitted by virtual Radiology.
[2016-09-04] MEDS ORDERED: Insulin Detemir 100 Units/ml Inj SC SCH (22:00)
[2016-09-05] MEDS: Insulin Regular 100 units/ml SC SCH ×3 (07:43→17:41)
[2016-09-05 08:11] LABS: MEAN CELL VOLUME 91.1 fl (81.0-99.0); MEAN CORPUSCULAR HEMOGLOBIN 29.9 pg (27.0-31.0); MEAN CORPUSCULAR HGB CONC 32.9 g/dL (33.0-37.0); RED CELL DISTRIBUTION WIDTH 15.3 % (11.5-14.5)
[2016-09-05] MEDS: Dorzolamide 2% Ophth Soln OU SCH ×2 (08:30→17:41)
[2016-09-05] MEDS: Magnesium Oxide 400 mg Tab UD PO SCH ×2 (08:30→17:41)
[2016-09-05] MEDS: Pantoprazole 40 mg EC Tab PO SCH (08:30)
[2016-09-05 08:39] VITALS: RESP 20
[2016-09-05 08:43] LABS: ALB/GLOB RATIO 0.9 (1.0-2.1); BILIRUBIN,TOTAL 0.2 mg/dl (0.2-1.3); CALCIUM 8.5 mg/dL (8.4-10.2); POTASSIUM 4.1 MMOL/L (3.6-5.0); TOTAL PROTEIN 6.4 G/DL (6.3-8.2)
[2016-09-05 16:09] VITALS: BP 149/64; PULSE 59; TEMP 98.3; O2SAT 98
--- NOTE | 2016-09-05 18:21 | CP.PCM.DIS ---
Provider - Provider Date of Admission: 09/04/16 18:21 Attending physician: Jose Roberto Johns MD Primary care physician: jeanmarie baig apn Time Spent in preparation of Discharge (in minutes): 30 Hospital Course - Lab Results Lab Results: Most Recent Lab Values WBC 10.0 K/uL (4.8-10.8) 09/05/16 05:30 RBC 3.51 Mil/uL (3.80-5.20) L 09/05/16 05:30 Hgb 10.5 g/dL (12.0-16.0) L 09/05/16 05:30 Hct 32.0 % (34.0-47.0) L 09/05/16 05:30 MCV 91.1 fl (81.0-99.0) 09/05/16 05:30 MCH 29.9 pg (27.0-31.0) 09/05/16 05:30 MCHC 32.9 g/dL (33.0-37.0) L 09/05/16 05:30 RDW 15.3 % (11.5-14.5) H 09/05/16 05:30 Plt Count 244 K/uL (130-400) 09/05/16 05:30 MPV 9.0 fl (7.2-11.7) 09/04/16 08:53 Neut % (Auto) 63.1 % (50.0-75.0) 09/04/16 08:53 Lymph % (Auto) 25.8 % (20.0-40.0) 09/04/16 08:53 [place] % (Auto) 8.5 % (0.0-10.0) 09/04/16 08:53 Eos % (Auto) 2.3 % (0.0-4.0) 09/04/16 08:53 Baso % (Auto) 0.3 % (0.0-2.0) 09/04/16 08:53 Neut # 7.3 K/uL (1.8-7.0) H 09/04/16 08:53 Lymph # 3.0 K/uL (1.0-4.3) 09/04/16 08:53 [place] # 1.0 K/uL (0.0-0.8) H 09/04/16 08:53 Eos # 0.3 K/uL (0.0-0.7) 09/04/16 08:53 Baso # 0.0 K/uL (0.0-0.2) 09/04/16 08:53 Sodium 141 mmol/l (132-148) 09/05/16 05:30 Potassium 4.1 MMOL/L (3.6-5.0) 09/05/16 05:30 Chloride 105 mmol/L (98-107) 09/05/16 05:30 Carbon Dioxide 31 mmol/L (22-30) H 09/05/16 05:30 Anion Gap 9 (10-20) L 09/05/16 05:30 BUN 14 mg/dl (7-17) 09/05/16 05:30 Creatinine 1.3 mg/dL (0.7-1.2) H 09/05/16 05:30 Est GFR ( Amer) 50 09/05/16 05:30 Est GFR (Non-Af Amer) 42 09/05/16 05:30 POC Glucose (mg/dL) 207 mg/dL (65-110) H 09/04/16 10:48 Random Glucose 100 mg/dL (65-105) 09/05/16 05:30 Calcium 8.5 mg/dL (8.4-10.2) 09/05/16 05:30 Total Bilirubin 0.2 mg/dl (0.2-1.3) 09/05/16 05:30 AST 19 U/L (14-36) 09/05/16 05:30 ALT 27 U/L (9-52) 09/05/16 05:30 Alkaline Phosphatase 87 U/L (38-126) 09/05/16 05:30 Total Protein 6.4 G/DL (6.3-8.2) 09/05/16 05:30 Albumin 3.1 g/dL (3.5-5.0) L 09/05/16 05:30 Globulin 3.3 gm/dL (2.2-3.9) 09/05/16 05:30 Albumin/Globulin Ratio 0.9 (1.0-2.1) L 09/05/16 05:30 Urine Color Yellow (YELLOW) 09/03/16 21:21 Urine Clarity Clear (Clear) 09/03/16 21:21 Urine pH 6.0 (5.0-8.0) 09/03/16 21:21 Ur Specific [place] 1.013 (1.003-1.030) 09/03/16 21:21 Urine Protein 30 mg/dL (NEGATIVE) 09/03/16 21:21 Urine Glucose (UA) Neg mg/dL (Normal) 09/03/16 21:21 Urine Ketones Negative mg/dL (NEGATIVE) 09/03/16 21:21 Urine Blood Negative (NEGATIVE) 09/03/16 21:21 Urine Nitrate Negative (NEGATIVE) 09/03/16 21:21 Urine Bilirubin Negative (NEGATIVE) 09/03/16 21:21 Urine Urobilinogen 0.2-1.0 mg/dL (0.2-1.0) 09/03/16 21:21 Ur Leukocyte Esterase Neg Ana/uL (Negative) 09/03/16 21:21 Urine RBC (Auto) 1 /hpf (0-3) 09/03/16 21:21 Urine Microscopic WBC 1 /hpf (0-5) 09/03/16 21:21 Ur Squamous Epith Cells < 1 /hpf (0-5) 09/03/16 21:21 Urine Bacteria Rare (<OCC) 09/03/16 21:21 Hyaline Casts 0-2 /hpf (0-2) 09/03/16 21:21 Discharge Exam - Head Exam Head Exam: ATRAUMATIC, NORMAL INSPECTION, NORMOCEPHALIC - Eye Exam Eye Exam: EOMI, Normal appearance Pupil Exam: NORMAL ACCOMODATION - ENT Exam ENT Exam: Normal Oropharynx - Respiratory Exam Respiratory Exam: Clear to PA & Lateral, NORMAL BREATHING PATTERN, UNREMARKABLE - Cardiovascular Exam Cardiovascular Exam: REGULAR RHYTHM - GI/Abdominal Exam GI & Abdominal Exam: Normal Bowel Sounds, Unremarkable Additional comments: tenderness on left side. no guarding or rebound - Rectal Exam Rectal Exam: NORMAL INSPECTION - Extremities Exam Extremities exam: full ROM - Back Exam Back exam: NORMAL INSPECTION Discharge Plan - Follow Up Plan Condition: FAIR Disposition: HOME/ ROUTINE Patient education suggested?: Yes Instructions: Diabetes Mellitus Type 2 in Adults (DC), Acute Abdominal Pain (DC ), Acute Abdominal Pain (GEN) Additional Instructions: RX: percocet rx given to patient.
== END 2016-09-05 18:20 | disposition home or self-care (01) | DRG 813 ==
LOC: H.ER 13:31 → H.ERHOLD 21:55 → H.MEDSURG1 09-04 03:45 → OBSVTOIN 09-04 18:21
PROVIDERS: ADMIT Family Medicine; ATTEND Family Medicine
DX: R10.11 Right upper quadrant pain (principal); E11.65 Type 2 diabetes mellitus with hyperglycemia; I10 Essential (primary) hypertension; J44.9 Chronic obstructive pulmonary disease, unspecified; E78.00 Pure hypercholesterolemia, unspecified; K21.9 Gastro-esophageal reflux disease without esophagitis; E66.9 Obesity, unspecified; Z68.42 Body mass index [BMI] 45.0-49.9, adult; H40.9 Unspecified glaucoma; Z88.1 Allergy status to other antibiotic agents; Z89.422 Acquired absence of other left toe(s); Z87.891 Personal history of nicotine dependence

== ENCOUNTER 2016-12-26 16:50 | Inpatient (IN) | payer MEDICAID ==
[2016-12-26] MEDS ORDERED: Piperacillin/Tazobact 3.375 GM in Sodium Chloride 0.9% 100 ML IVPB STA (17:20)
--- NOTE | 2016-12-26 17:56 | ED PDOC ---
Lower Extremity Pain/Injury Time Seen by Provider: 12/26/16 17:13 Chief Complaint (Nursing): Lower Extremity Problem/Injury Chief Complaint (Provider): Lower Extremity Problem/Injury History Per: Patient History/Exam Limitations: no limitations Onset/Duration Of Symptoms: Mins (prior to arrival) Current Symptoms Are (Timing): Still Present Additional Complaint(s): Ana Reyna is a 61 year old female with previous medical history of diabetes and left toes amputation, who presents to the emergency department by PCP referral for an evaluation of diabetic right foot ulcer infection prior to arrival. Denied fever, chills or drainage. Patient stated that she is currently on oral antibiotics but has no improvements of symptoms. PMD: Kulwinder Montes MD Past Medical History Reviewed: Historical Data, Nursing Documentation, Vital Signs Vital Signs: Last Vital Signs Temp 96.2 F L 12/26/16 17:01 Pulse 100 H 12/26/16 17:01 Resp 18 12/26/16 17:01 BP 157/81 H 12/26/16 17:01 Pulse Ox 98 12/26/16 17:01 - Medical History PMH: Arthritis, Asthma, CAD, COPD, Diabetes (Type I and II), GERD, HTN, Hypercholesterolemia Denies: HIV, Chronic Kidney Disease - Surgical History Surgical History: Cholecystectomy, (x1) - Family History Family History: States: Diabetes, Hypertension - Social History Current smoker - smoking cessation education provided: Yes Alcohol: Social Drugs: Denies - Immunization History Hx Tetanus Toxoid Vaccination: No - Home Medications Home Medications: Ambulatory Orders Medication Instructions Recorded Alogliptin Benzoate [Alogliptin] 25 mg PO DAILY 12/26/16 Aspirin [Ecotrin] 81 mg PO DAILY 12/26/16 Brinzolamide [Azopt 15 ml] 1 drop OP BID 12/26/16 Cholecalciferol [Vitamin D] 1,000 iu PO DAILY 12/26/16 Ciprofloxacin HCl [Cipro] 500 mg PO BID 12/26/16 Clopidogrel [Plavix] 75 mg PO DAILY 12/26/16 Docusate Sodium [Colace] 100 mg PO BID PRN 12/26/16 Ezetimibe [Zetia] 10 mg PO DAILY 12/26/16 Fluticasone Nasal [Flonase] 2 actuation NS BID PRN 12/26/16 Furosemide [Lasix] 20 mg PO BID 12/26/16 Gabapentin [Neurontin] 300 mg PO TID 12/26/16 Insulin Glargine, Recombina 20 unit SC HS 12/26/16 [Lantus] Insulin Lispro Mix 75/25 [HumaLOG 20 units SC BID 12/26/16 Mix 75/25] Losartan [Cozaar] 100 mg PO DAILY 12/26/16 Magnesium Oxide [Magnesium] 400 mg PO BID 12/26/16 Minocycline HCl [Minocin] 100 mg PO BID 12/26/16 Oxycodone HCl/Acetaminophen 1 each PO Q6 PRN 12/26/16 [Oxycodone-Acetaminophen 5-300] Pantoprazole Sodium [Protonix] 40 mg PO DAILY 12/26/16 Simvastatin [Zocor] 40 mg PO HS 12/26/16 hydroCHLOROthiazide [Hydrodiuril] 25 mg PO DAILY 12/26/16 - Allergies Allergies/Adverse Reactions: Allergies Allergy/AdvReac Type Severity Reaction Status Date / Time azithromycin [From Zithromax] Allergy RASH Verified 07/05/16 16:40 Review of Systems ROS Statement: Except As Marked, All Systems Reviewed And Found Negative Constitutional: Negative for: Fever, Chills Musculoskeletal: Positive for: Foot Pain (right foot ulcer). Negative for: Other (drainage) Physical Exam - Reviewed Nursing Documentation Reviewed: Yes Vital Signs Reviewed: Yes - Physical Exam Appears: Positive for: Well, Non-toxic, No Acute Distress Head Exam: Positive for: ATRAUMATIC, NORMAL INSPECTION, NORMOCEPHALIC Cardiovascular/Chest: Positive for: Regular Rate, Rhythm. Negative for: Chest Non Tender Respiratory: Positive for: Normal Breath Sounds. Negative for: Respiratory Distress Extremity: Positive for: Normal ROM, Deformity (2cm ulcer to dorsal surface of right foot). 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 Provider Scribe Attestation: All medical record entries made by the Scribe were at my direction and personally dictated by me. I have reviewed the chart and agree that the record accurately reflects my personal performance of the history, physical exam, medical decision making, and the department course for this patient. I have also personally directed, reviewed, and agree with the discharge instructions and disposition. Disposition - Clinical Impression Clinical Impression: Diabetic foot ulcer - Patient ED Disposition Is Patient to be Admitted: Yes - Disposition Disposition Time: 17:24 Condition: GOOD - Pt Status Changed To: Hospital Disposition Of: Inpatient - Admit Certification Admit to Inpatient:: After my assessment, the patient will require hospitalization for at least two midnights. This is because of the severity of symptoms shown, intensity of services needed, and/or the medical risk in this patient being treated as an outpatient. - POA Present On Arrival: Pressure Ulcer
[2016-12-26 18:15] LABS: BASO # 0.2 K/uL (0.0-0.2); BASO % 1.3 % (0.0-2.0); EOS # 0.1 K/uL (0.0-0.7); EOS % 1.1 % (0.0-4.0); LYMPH # 2.2 K/uL (1.0-4.3); LYMPH % 17.5 % (20.0-40.0); MEAN CORPUSCULAR HEMOGLOBIN 30.4 pg (27.0-31.0); MEAN CORPUSCULAR HGB CONC 32.2 g/dL (33.0-37.0); MEAN PLATELET VOLUME 10.5 fl (7.2-11.7); MONO # 0.8 K/uL (0.0-0.8); MONO % 6.6 % (0.0-10.0); NEUT % 73.5 % (50.0-75.0); RED CELL DISTRIBUTION WIDTH 14.8 % (11.5-14.5); WHITE BLOOD COUNT 12.3 K/uL (4.8-10.8)
[2016-12-26] MEDS ORDERED: Vancomycin 1 g Inj ONE (18:17)
[2016-12-26] MEDS ORDERED: Piperacillin/Tazobact 3.375 gm Inj IVPB ONE (18:17)
[2016-12-26 18:19] LABS: MEAN CELL VOLUME 94.5 fl (81.0-99.0)
[2016-12-26 18:26] LABS: ALKALINE PHOSPHATASE 189 U/L (38-126); ALT/SGPT 88 U/L (9-52); AST/SGOT 40 U/L (14-36); BILIRUBIN,TOTAL 0.4 mg/dl (0.2-1.3); BLOOD UREA NITROGEN 24 mg/dl (7-17); CALCIUM 9.1 mg/dL (8.4-10.2); CARBON DIOXIDE 23 mmol/L (22-30); CHLORIDE 98 mmol/L (98-107); GFR AFRICAN-AMERICAN > 60; POTASSIUM 4.8 MMOL/L (3.6-5.0); SODIUM 130 mmol/l (132-148); TOTAL PROTEIN 7.1 G/DL (6.3-8.2)
[2016-12-26 18:40] LABS: GLUCOSE,RANDOM 604 mg/dL (65-105)
[2016-12-26] MEDS ORDERED: Insulin Regular 100 units/ml SC STA (18:42)
[2016-12-26] MEDS ORDERED: Sodium Chloride 0.9% 1,000 ML IV STA (18:43)
--- NOTE | 2016-12-26 18:46 | CP.PCM.CON ---
History of Present Illness - History of Present Illness History of Present Illness: 61 year old female seen in the ED with PMHx including hypertension, diabetes and hypercholesterolema regarding right foot ulcer. Patient states that she has had this ulcer for a while. She has been treated with oral antibiotics. She saw her president and chief commercial officer, Dr. Theodore today who suggested she come to the ED. She admits to pain at the ulcer site. Denies n/v/f/c/sob/cp. Past Patient History - Infectious Disease Hx of Infectious Diseases: None - Past Medical History & Family History Past Medical History?: Yes - Past Social History Alcohol: Social Drugs: Denies - CARDIAC Hx Hypercholesterolemia: Yes Hx Hypertension: Yes - PULMONARY Hx Asthma: Yes Hx Chronic Obstructive Pulmonary Disease (COPD): Yes - NEUROLOGICAL Hx Neurological Disorder: No - HEENT Hx HEENT Problems: Yes Hx Glaucoma: Yes (left eye) - RENAL Hx Chronic Kidney Disease: No - ENDOCRINE/METABOLIC Hx Endocrine Disorders: Yes Hx Diabetes Mellitus Type 2: Yes - HEMATOLOGICAL/ONCOLOGICAL Hx Human Immunodeficiency Virus (HIV): No - INTEGUMENTARY Hx Dermatological Problems: No - MUSCULOSKELETAL/RHEUMATOLOGICAL Hx Arthritis: Yes - GASTROINTESTINAL Hx Gastroesophageal Reflux: Yes - GENITOURINARY/GYNECOLOGICAL Hx Genitourinary Disorders: No - PSYCHIATRIC Hx Psychophysiologic Disorder: No Hx Substance Use: No - SURGICAL HISTORY Hx Cholecystectomy: Yes - ANESTHESIA Hx Anesthesia: Yes Hx Anesthesia Reactions: No Hx Malignant Hyperthermia: No Meds Allergies/Adverse Reactions: Allergies Allergy/AdvReac Type Severity Reaction Status Date / Time azithromycin [From Zithromax] Allergy RASH Verified 07/05/16 16:40 - Medications Medications: Current Medications Vancomycin HCl 1 gm/ Sodium (Chloride) 250 mls @ 166.667 mls/hr IVPB STAT STA Stop: 12/26/16 18:49 Last Admin: 12/26/16 18:23 Dose: 166.667 mls/hr Physical Exam - Constitutional Appears: Well, Non-toxic, No Acute Distress - Extremities Exam Additional comments: Right lower extremity focused exam: Vasc: DP and PT pulses palpable 1/4TG wnl, CFT < 3 sec, non-pitting edema noted to dorsum of foot neuro: grossly sensation diminished derm: Open ulceration noted to the plantar aspect of the 5th metatarsal head measuring approximately 2 cm by 1 cm by 0.2 cm with granular base and hyperkeratotic rim. A second ulceration is noted more proximal than the first and lateral to the 5th metatarsal with a fibrotic base, no purulence, no probe to bone, no malodor noted. Skin to the lateral aspect of the right foot is darkly discolored, no malodor, no purulence, no probe to bone noted ortho: pain on palpation to lateral 5th metatarsal plantar ulceration site - Neurological Exam Neurological exam: Alert, Oriented x3 - Psychiatric Exam Psychiatric exam: Normal Affect, Normal Mood Results - Vital Signs Recent Vital Signs: Last Vital Signs Temp 96.2 F L 12/26/16 17:01 Pulse 100 H 12/26/16 17:01 Resp 18 12/26/16 17:01 BP 157/81 H 12/26/16 17:01 Pulse Ox 98 12/26/16 18:06 - Labs Result Diagrams: 12/26/16 18:11 12/26/16 18:11 Labs: Laboratory Results - last 24 hr 12/26/16 12/26/16 18:11 18:11 WBC 12.3 H RBC 3.92 Hgb 11.9 L Hct 37.0 MCV 94.5 D MCH 30.4 MCHC 32.2 L RDW 14.8 H Plt Count 192 MPV 10.5 Neut % (Auto) 73.5 Lymph % (Auto) 17.5 L [place] % (Auto) 6.6 Eos % (Auto) 1.1 Baso % (Auto) 1.3 Neut # 9.0 H Lymph # 2.2 [place] # 0.8 Eos # 0.1 Baso # 0.2 Sodium 130 L Potassium 4.8 Chloride 98 Carbon Dioxide 23 Anion Gap 14 BUN 24 H Creatinine 0.9 Est GFR ( Amer) > 60 Est GFR (Non-Af Amer) > 60 Random Glucose 604 H* D Calcium 9.1 Total Bilirubin 0.4 AST 40 H ALT 88 H D Alkaline Phosphatase 189 H Total Protein 7.1 Albumin 3.6 Globulin 3.5 Albumin/Globulin Ratio 1.0 Assessment & Plan - Assessment and Plan (Free Text) Assessment: 61 year old female with right plantar 5th metatarsal head chronic ulceration secondary to diabetes Plan: patient examined and evaluated discussed in detail with attending, Dr. Hernández Chart, lab, vitals reviewed: WBC 12.4, afebrile radiographs reviewed- no soft tissue empysema noted, previous 5th metatarsal amputation noted right foot dressed with bactroban, DSD right foot wound culture obtained podiatry will continue to follow patient while in house
[2016-12-26 18:53] LABS: VENOUS BLOOD GAS BASE EXCESS -1.8 mmol/L (0.0-2.0); VENOUS BLOOD GAS PCO2 48 mmHg (40-60); VENOUS BLOOD PH 7.32 (7.32-7.43)
[2016-12-26] MEDS ORDERED: OXYCODONE HCL PO PRN (19:49)
[2016-12-26] MEDS ORDERED: ACETAMINOPHEN PO PRN (19:49)
[2016-12-26] MEDS: Insulin Lispro Mix 75/25 100 units/ml (HumaLog) 10ml SC SCH (21:23)
[2016-12-26] MEDS ORDERED: INSULIN GLARGINE RECOMBINA 20 UNIT SC SCH (22:00)
[2016-12-26] MEDS ORDERED: Patient's Own Med (Simvastatin [Zocor] 40 MG) PO SCH (22:00)
[2016-12-26] MEDS: Insulin Regular 100 units/ml SC SCH (22:56)
[2016-12-26] MEDS: Insulin Detemir 100 Units/ml Inj SC SCH (22:57)
[2016-12-26] MEDS: Piperacillin/Tazobact 3.375 GM in Sodium Chloride 0.9% 100 ML IVPB SCH (23:00)
[2016-12-26] MEDS: Sodium Chloride 0.9% 1,000 ML IV SCH (23:00)
[2016-12-27] MEDS: Piperacillin/Tazobact 3.375 GM in Sodium Chloride 0.9% 100 ML IVPB SCH ×4 (03:50→22:05)
[2016-12-27] MEDS: Insulin Regular 100 units/ml SC SCH ×4 (06:46→22:05)
[2016-12-27 08:04] LABS: BASO % 0.4 % (0.0-2.0); EOS # 0.3 K/uL (0.0-0.7); EOS % 3.3 % (0.0-4.0); HEMATOCRIT 34.8 % (34.0-47.0); LYMPH # 3.2 K/uL (1.0-4.3); LYMPH % 33.6 % (20.0-40.0); MEAN CELL VOLUME 93.9 fl (81.0-99.0); MEAN CORPUSCULAR HEMOGLOBIN 30.9 pg (27.0-31.0); MEAN CORPUSCULAR HGB CONC 32.9 g/dL (33.0-37.0); MEAN PLATELET VOLUME 10.8 fl (7.2-11.7); MONO # 0.8 K/uL (0.0-0.8); MONO % 8.3 % (0.0-10.0); NEUT # 5.2 K/uL (1.8-7.0); NEUT % 54.4 % (50.0-75.0); RED CELL DISTRIBUTION WIDTH 14.7 % (11.5-14.5); WHITE BLOOD COUNT 9.6 K/uL (4.8-10.8)
[2016-12-27 08:05] LABS: ALB/GLOB RATIO 0.9 (1.0-2.1); ALKALINE PHOSPHATASE 167 U/L (38-126); ALT/SGPT 77 U/L (9-52); AST/SGOT 64 U/L (14-36); BILIRUBIN,TOTAL 0.4 mg/dl (0.2-1.3); BLOOD UREA NITROGEN 23 mg/dl (7-17); CALCIUM 8.8 mg/dL (8.4-10.2); CARBON DIOXIDE 21 mmol/L (22-30); CHLORIDE 107 mmol/L (98-107); GFR AFRICAN-AMERICAN > 60; GLUCOSE,RANDOM 122 mg/dL (65-105); SODIUM 138 mmol/l (132-148)
[2016-12-27] MEDS ORDERED: MINOCYCLINE HCL 100 MG PO SCH (09:00)
[2016-12-27] MEDS ORDERED: ALOGLIPTIN BENZOATE 25 MG PO SCH (09:00)
[2016-12-27] MEDS ORDERED: Patient's Own Med (Brinzolamide [Azopt] 1 DROP) OP SCH (09:00)
--- NOTE | 2016-12-27 09:24 | RAD ---
PROCEDURE: Right Foot Radiographs. HISTORY: r/o osteo COMPARISON: None. FINDINGS: BONES: No evidence of acute osteomyelitis. Postoperative changes related to resection of the 5th metatarsal. Adjacent soft tissue ulcerations noted. JOINTS: Multiple hammertoe deformities identified. Evidence of old digit fractures noted. SOFT TISSUES: Normal. OTHER FINDINGS: None. IMPRESSION: No acute findings related to/accounting for the clinical presentation.
[2016-12-27] MEDS: Sodium Chloride 0.9% 1,000 ML IV SCH ×2 (10:26→15:15)
[2016-12-27] MEDS: Pantoprazole 40 mg EC Tab PO SCH (10:29)
[2016-12-27] MEDS: Magnesium Oxide 400 mg Tab UD PO SCH ×2 (10:29→17:33)
[2016-12-27] MEDS: Insulin Lispro Mix 75/25 100 units/ml (HumaLog) 10ml SC SCH ×2 (10:31→17:34)
[2016-12-27] MEDS: Dorzolamide 2% Ophth Soln OU SCH ×4 (10:32→20:30)
[2016-12-27] MEDS ORDERED: DiphenhydrAMINE 50 mg/ml Inj IVP PRN (12:03)
--- NOTE | 2016-12-27 12:33 | CP.PCM.HP ---
History of Present Illness - History of Present Illness History of Present Illness: pt admitted for dm2 ulcer to r foot-infected despite outpt therapy w/ picc iv anbx. pt sent by cardio for revascularization procedure. c/o pain to r foot-described as cramp. bw noted. gluocse significantly elevated on arrival all imaging, bw, consults reviewed. Present on Admission - Present on Admission Any Indicators Present on Admission: Yes History of Uncontrolled Diabetes: Yes Review of Systems - Integumentary Integumentary: As Per HPI, Erythema, Wounds Past Patient History - Infectious Disease Hx of Infectious Diseases: None - Past Medical History & Family History Past Medical History?: Yes - Past Social History Alcohol: Social Drugs: Denies - CARDIAC Hx Hypercholesterolemia: Yes Hx Hypertension: Yes - PULMONARY Hx Asthma: Yes Hx Chronic Obstructive Pulmonary Disease (COPD): Yes - NEUROLOGICAL Hx Neurological Disorder: No - HEENT Hx HEENT Problems: Yes Hx Glaucoma: Yes (left eye) - RENAL Hx Chronic Kidney Disease: No - ENDOCRINE/METABOLIC Hx Endocrine Disorders: Yes Hx Diabetes Mellitus Type 2: Yes - HEMATOLOGICAL/ONCOLOGICAL Hx Human Immunodeficiency Virus (HIV): No - INTEGUMENTARY Hx Dermatological Problems: No - MUSCULOSKELETAL/RHEUMATOLOGICAL Hx Arthritis: Yes - GASTROINTESTINAL Hx Gastroesophageal Reflux: Yes - GENITOURINARY/GYNECOLOGICAL Hx Genitourinary Disorders: No - PSYCHIATRIC Hx Psychophysiologic Disorder: No Hx Substance Use: No - SURGICAL HISTORY Hx Cholecystectomy: Yes - ANESTHESIA Hx Anesthesia: Yes Hx Anesthesia Reactions: No Hx Malignant Hyperthermia: No Meds Allergies/Adverse Reactions: Allergies Allergy/AdvReac Type Severity Reaction Status Date / Time azithromycin [From Zithromax] Allergy RASH Verified 07/05/16 16:40 Physical Exam - Constitutional Appears: Well, Non-toxic, No Acute Distress - Head Exam Head Exam: ATRAUMATIC, NORMAL INSPECTION, NORMOCEPHALIC - Eye Exam Eye Exam: EOMI, Normal appearance, PERRL Pupil Exam: NORMAL ACCOMODATION, PERRL - ENT Exam ENT Exam: Mucous Membranes Moist, Normal Exam - Neck Exam Neck exam: Positive for: Normal Inspection - Respiratory Exam Respiratory Exam: Clear to Auscultation Bilateral, NORMAL BREATHING PATTERN - Cardiovascular Exam Cardiovascular Exam: REGULAR RHYTHM, RRR, +S1, +S2 - GI/Abdominal Exam GI & Abdominal Exam: Normal Bowel Sounds, Soft. absent: Tenderness - Extremities Exam Extremities exam: Positive for: full ROM, normal capillary refill, normal inspection, pedal pulses present - Back Exam Back exam: FULL ROM, NORMAL INSPECTION - Neurological Exam Neurological exam: Alert, CN II-XII Intact, Normal Gait, Oriented x3, Reflexes Normal - Psychiatric Exam Psychiatric exam: Normal Affect, Normal Mood - Skin Skin Exam: Dry, Intact, Normal Color, Warm Additional comments: dsg to r foot c/d/i Results - Vital Signs Recent Vital Signs: Last Vital Signs Temp 98.6 F 12/27/16 11:59 Pulse 62 12/27/16 11:59 Resp 18 12/27/16 11:59 BP 157/70 H 12/27/16 11:59 Pulse Ox 95 12/27/16 11:59 - Labs Result Diagrams: 12/27/16 07:30 12/27/16 06:00 Labs: Laboratory Results - last 24 hr 12/26/16 12/26/16 12/26/16 18:11 18:11 18:51 WBC 12.3 H RBC 3.92 Hgb 11.9 L Hct 37.0 MCV 94.5 D MCH 30.4 MCHC 32.2 L RDW 14.8 H Plt Count 192 MPV 10.5 Neut % (Auto) 73.5 Lymph % (Auto) 17.5 L [place] % (Auto) 6.6 Eos % (Auto) 1.1 Baso % (Auto) 1.3 Neut # 9.0 H Lymph # 2.2 [place] # 0.8 Eos # 0.1 Baso # 0.2 pO2 25 L VBG pH 7.32 VBG pCO2 48 VBG HCO3 22.4 VBG Total CO2 26.2 VBG O2 Sat (Calc) 59.0 VBG Base Excess -1.8 L VBG Potassium 5.2 Glucose 657 H* D Lactate 1.4 FiO2 21.0 Crit Value Called To Dr davida andrea Crit Value Called By Eliazar Crit Value Read Back Y Blood Gas Notified Time 1852 Sodium 130 L 130.0 L Potassium 4.8 Chloride 98 96.0 L Carbon Dioxide 23 Anion Gap 14 BUN 24 H Creatinine 0.9 Est GFR ( Amer) > 60 Est GFR (Non-Af Amer) > 60 POC Glucose (mg/dL) Random Glucose 604 H* D Calcium 9.1 Total Bilirubin 0.4 AST 40 H ALT 88 H D Alkaline Phosphatase 189 H Total Protein 7.1 Albumin 3.6 Globulin 3.5 Albumin/Globulin Ratio 1.0 Venous Blood Potassium 5.2 12/26/16 12/27/16 12/27/16 22:50 05:54 06:00 WBC RBC Hgb Hct MCV MCH MCHC RDW Plt Count MPV Neut % (Auto) Lymph % (Auto) [place] % (Auto) Eos % (Auto) Baso % (Auto) Neut # Lymph # [place] # Eos # Baso # pO2 VBG pH VBG pCO2 VBG HCO3 VBG Total CO2 VBG O2 Sat (Calc) VBG Base Excess VBG Potassium Glucose Lactate FiO2 Crit Value Called To Crit Value Called By Crit Value Read Back Blood Gas Notified Time Sodium 138 Potassium 4.0 Chloride 107 Carbon Dioxide 21 L Anion Gap 14 BUN 23 H Creatinine 0.9 Est GFR ( Amer) > 60 Est GFR (Non-Af Amer) > 60 POC Glucose (mg/dL) 380 H 120 H Random Glucose 122 H Calcium 8.8 Total Bilirubin 0.4 AST 64 H D ALT 77 H Alkaline Phosphatase 167 H Total Protein 7.0 Albumin 3.4 L Globulin 3.6 Albumin/Globulin Ratio 0.9 L Venous Blood Potassium 12/27/16 12/27/16 07:30 11:15 WBC 9.6 RBC 3.71 L Hgb 11.5 L Hct 34.8 MCV 93.9 MCH 30.9 MCHC 32.9 L RDW 14.7 H Plt Count 193 MPV 10.8 Neut % (Auto) 54.4 Lymph % (Auto) 33.6 [place] % (Auto) 8.3 Eos % (Auto) 3.3 Baso % (Auto) 0.4 Neut # 5.2 Lymph # 3.2 [place] # 0.8 Eos # 0.3 Baso # 0.0 pO2 VBG pH VBG pCO2 VBG HCO3 VBG Total CO2 VBG O2 Sat (Calc) VBG Base Excess VBG Potassium Glucose Lactate FiO2 Crit Value Called To Crit Value Called By Crit Value Read Back Blood Gas Notified Time Sodium Potassium Chloride Carbon Dioxide Anion Gap BUN Creatinine Est GFR ( Amer) Est GFR (Non-Af Amer) POC Glucose (mg/dL) 280 H Random Glucose Calcium Total Bilirubin AST ALT Alkaline Phosphatase Total Protein Albumin Globulin Albumin/Globulin Ratio Venous Blood Potassium Assessment & Plan (1) DVT prophylaxis Assessment and Plan: scd and ae hose hold lovenox until after procedure Status: Acute (2) Diabetes type 2, uncontrolled Assessment and Plan: strict glycemic control riss, home meds, fsbg dm diet, hydration endo if unable to be controlled Status: Acute (3) Diabetic foot ulcer Assessment and Plan: podiatry evita lopez cardio for revascularization procedure pain control wound care ?? transfer to [facility] after revascularization for further wound care as that is where pts primary team is located Status: Acute Decision To Admit - Pt Status Changed To: Hospital Disposition Of: Inpatient - Admit Certification Admit to Inpatient:: After my assessment, the patient will require hospitalization for at least two midnights. This is because of the severity of symptoms shown, intensity of services needed, and/or the medical risk in this patient being treated as an outpatient. - . Bed Request Type: Telemetry Admitting Physician: Jose Roberto Johns
--- NOTE | 2016-12-27 12:34 | CP.PCM.PN ---
Subjective - Date & Time of Evaluation Date of Evaluation: 12/27/16 Time of Evaluation: 12:32 - Subjective Subjective: Podiatry progress note for Dr. Hernández 61 year old female was seen resting at bedside comfortably regarding right foot ulcer. Patient NAD, AAOx3. Patient admits to some pain to her ulcer. Denies n/ v/f/c/sob/cp. Objective - Vital Signs/Intake and Output Vital Signs (last 24 hours): Temp Pulse Resp BP Pulse Ox 98.6 F 62 18 157/70 H 95 12/27/16 11:59 12/27/16 11:59 12/27/16 11:59 12/27/16 11:59 12/27/16 11:59 - Medications Medications: Current Medications Acetaminophen (Tylenol 325mg Tab) 650 mg PO Q4 PRN PRN Reason: Fever >100.4 F Aspirin (Ecotrin) 81 mg PO DAILY [facility] Last Admin: 12/27/16 10:31 Dose: 81 mg Atorvastatin Calcium (Lipitor) 20 mg PO HS [facility] Last Admin: 12/27/16 10:29 Dose: 20 mg Cholecalciferol (Vitamin D) 1,000 iu PO DAILY [facility] Last Admin: 12/27/16 10:33 Dose: 1,000 iu Ciprofloxacin (Cipro) 500 mg PO BID [facility] Last Admin: 12/27/16 10:28 Dose: 500 mg Clopidogrel Bisulfate (Plavix) 75 mg PO DAILY [facility] Last Admin: 12/27/16 10:30 Dose: 75 mg Diphenhydramine HCl (Benadryl) 25 mg IVP Q6 PRN PRN Reason: Itching / Pruritus Docusate Sodium (Colace) 100 mg PO BID PRN PRN Reason: Constipation Last Admin: 12/27/16 10:28 Dose: 100 mg Dorzolamide HCl (Trusopt) 1 drop OU BID [facility] Last Admin: 12/27/16 10:32 Dose: 1 drop Ezetimibe (Zetia) 10 mg PO DAILY [facility] Last Admin: 12/27/16 10:29 Dose: 10 mg Fluticasone Propionate (Flonase) 2 spr ZEUS BID PRN PRN Reason: Allergy symptoms Furosemide (Lasix) 20 mg PO BID [facility] Last Admin: 12/27/16 10:30 Dose: 20 mg Gabapentin (Neurontin) 300 mg PO TID [facility] Last Admin: 12/27/16 10:29 Dose: 300 mg Home Med (Alogliptin Benzoate [Alogliptin]) 25 mg PO DAILY [facility] Home Med (Brinzolamide [Azopt]) 1 drop OP BID [facility] Home Med (Insulin Glargine, Recombina [Lantus]) 20 unit SC [facility] Home Med (Minocycline Hcl [Minocin]) 100 mg PO BID [facility] Home Med (Oxycodone Hcl/Acetaminophen [Oxycodone-Acetaminophen 5-300]) 1 each PO Q6 PRN PRN Reason: Pain, moderate (4-7) Home Med (Simvastatin [Zocor]) 40 mg PO [facility] Hydrochlorothiazide (Hydrodiuril) 25 mg PO DAILY [facility] Last Admin: 12/27/16 10:30 Dose: 25 mg Hydromorphone HCl (Dilaudid) 1 mg IVP Q4 PRN PRN Reason: Pain, moderate (4-7) Last Admin: 12/27/16 11:52 Dose: 1 mg Sodium Chloride (Sodium Chloride 0.9%) 1,000 mls @ 125 mls/hr IV .Q8H [facility] Stop: 12/27/16 19:54 Last Admin: 12/27/16 10:26 Dose: 125 mls/hr Vancomycin HCl 1 gm/ Sodium (Chloride) 250 mls @ 166.667 mls/hr IVPB Q12 [facility] Last Admin: 12/27/16 10:42 Dose: 166.667 mls/hr Piperacillin Sod/Tazobactam (Sod 3.375 gm/ Sodium Chloride) 100 mls @ 100 mls/ hr IVPB Q6 [facility] Last Admin: 12/27/16 10:26 Dose: 100 mls/hr Insulin Detemir (Levemir) 20 units SC [facility] Last Admin: 12/26/16 22:57 Dose: 20 u Insulin Human Regular (Humulin R) 0 units SC [facility] PRN Reason: Protocol Last Admin: 12/27/16 06:46 Dose: Not Given Insulin Lispro Protam/Lispro Human (Humalog Mix 75/25) 20 units SC BID [facility] Last Admin: 12/27/16 10:31 Dose: 20 units Ketorolac Tromethamine (Toradol) 30 mg IVP Q6 PRN PRN Reason: Pain, moderate (4-7) Losartan Potassium (Cozaar) 100 mg PO DAILY [facility] Last Admin: 12/27/16 10:32 Dose: 100 mg Magnesium Oxide (Mag-Ox) 400 mg PO BID [facility] Last Admin: 12/27/16 10:29 Dose: 400 mg Mupirocin (Bactroban Ointment) 1 applic TOP BID [facility] Last Admin: 12/27/16 10:27 Dose: 1 applic Pantoprazole Sodium (Protonix Ec Tab) 40 mg PO DAILY [facility] Last Admin: 12/27/16 10:29 Dose: 40 mg Sitagliptin Phosphate (Januvia) 100 mg PO DAILY [facility] Last Admin: 12/27/16 10:30 Dose: 100 mg - Labs Labs: 12/27/16 07:30 12/27/16 06:00 - Constitutional Appears: Well, Non-toxic, No Acute Distress - Extremities Exam Additional comments: Right lower extremity focused exam: Vasc: DP and PT pulses palpable 1/4, TG wnl, CFT < 3 sec, non-pitting edema noted to dorsum of foot neuro: grossly sensation diminished derm: Open ulceration noted to the plantar aspect of the 5th metatarsal head measuring approximately 2 cm by 1 cm by 0.2 cm with granular base and hyperkeratotic rim. A second ulceration is noted more proximal than the first and lateral to the 5th metatarsal with a fibrotic base, no purulence, no probe to bone, no malodor noted. Skin to the lateral aspect of the right foot is darkly discolored, no malodor, no purulence, no probe to bone noted ortho: pain on palpation to lateral 5th metatarsal plantar ulceration site - Neurological Exam Neurological Exam: Alert, Awake, Oriented x3 - Psychiatric Exam Psychiatric exam: Normal Affect, Normal Mood Assessment and Plan - Assessment and Plan (Free Text) Assessment: 61 year old female with right plantar 5th metatarsal head chronic ulceration secondary to diabetes Plan: patient examined and evaluated discussed in detail with attending, Dr. 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
--- NOTE | 2016-12-27 13:01 | CP.PCM.CON ---
History of Present Illness - History of Present Illness History of Present Illness: 61 year old female with previous medical history of diabetes and left toes amputation, presents to the emergency department by PCP referral for an evaluation of diabetic right foot ulcer infection . Patient stated that she is currently on oral antibiotics but has no improvements of symptoms. Came for vascular eval right leg and going for possible angioplasty with Dr Montes Has nonhealing ulcer to right foot with likely OM MRI pending PMD: Kulwinder Montes MD, [facility] - Medical History PMH: Arthritis, Asthma, CAD, COPD, Diabetes (Type I and II), GERD, HTN, Hypercholesterolemia Denies: HIV, Chronic Kidney Disease - Surgical History Surgical History: Cholecystectomy, (x1) Review of Systems - Review of Systems All systems: reviewed and no additional remarkable complaints except - Constitutional Constitutional: absent: Chills, Fever, Malaise, Weight Loss - EENT Eyes: absent: As Per HPI, Blind Spots, Blurred Vision, Change in Vision, Decreased Night Vision, Diplopia, Discharge, Dry Eye, Exophthalmos, Floaters, Irritation, Itchy Eyes, Loss of Peripheral Vision, Pain, Photophobia, Requires Corrective Lenses, Sees Flashes, Spots in Vision, Tunnel Vision, Other Visual Disturbances, Loss of Vision, Other Ears: absent: As Per HPI, Decreased Hearing, Ear Discharge, Ear Pain, Tinnitus, Abnormal Hearing, Disequilibrium, Dizziness, Other Nose/Mouth/Throat: absent: As Per HPI, Epistaxis, Nasal Congestion, Nasal Discharge, Nasal Obstruction, Nasal Trauma, Nose Pain, Post Nasal Drip, Sinus Pain, Sinus Pressure, Bleeding Gums, Change in Voice, Dental Pain, Dry Mouth, Dysphagia, Halitosis, Hoarsness, Lip Swelling, Mouth Lesions, Mouth Pain, Odynophagia, Sore Throat, Throat Swelling, Tongue Swelling, Facial Pain, Neck Pain, Neck Mass, Other - Breasts Breasts: absent: As Per HPI, Change in Shape, Mass, Pain, Nipple Discharge, Nipple Inversion, Skin Changes, Swelling, Other - Cardiovascular Cardiovascular: As Per HPI - Respiratory Respiratory: absent: As Per HPI, Cough, Dyspnea, Hemoptysis, Dyspnea on Exertion , Wheezing, Snoring, Stridor, Pain on Inspiration, Chest Congestion, Excessive Mucous Production, Change in Mucous Color, Pain with Coughing, Other - Gastrointestinal Gastrointestinal: absent: As Per HPI, Abdominal Pain, Belching, Bloating, Change in Bowel Habits, Change in Stool Character, Coffee Ground Emesis, Constipation, Cramping, Diarrhea, Dyspepsia, Dysphagia, Early Satiety, Excessive Flatus, Fecal Incontinence, Heartburn, Hematemesis, Hematochezia, Loose Stools, Melena, Nausea, Odynophagia, Temesmus, Vomiting, Other - Genitourinary Genitourinary: absent: As Per HPI, Change in Urinary Stream, Difficulty Urinating, Dysuria, Flank Pain, Hematuria, Pyuria, Nocturia, Urinary Incontinence, Urinary Frequency, Urinary Hesitance, Urinary Urgency, Voiding Freq/Small Amts, Freq UTI, Hx Renal/Bladder Calculi, Hx /Renal Surgery, Bladder Distension, Other - Reproductive: Female Reproductive:Female: absent: As Per HPI, Amenorrhea, Amenorrhea/ Control, Currently Menstual, Cycle <21 Days, Cycle >35 Days, Cycle Variable, Menses 1-7 Days, Menses >/= 8 Days, Menses Variable, Cycle > 4 Weeks Between, No Menses for 6 Months, Heavy Menses, Light Menses, Normal Menses, Spotting Between Cycles , S/P Hysterectomy, Menopausal, Post Menopausal, Premenarche, Abnormal Vaginal Bleeding, Dysmenorrhea, Dyspareunia, Genital Lesions, Genital Pruritis, Pelvic Pain, Prolapse Symptoms, Sexual Dysfunction, Vaginal Discharge, Vaginal Dryness , Vaginal Odor, Vaginal Pruritis, Other - Menstruation Menstruation: absent: As Per HPI, Amenorrhea, Amenorrhea/ Control, Currently Menstual, Cycle <21 Days, Cycle >35 Days, Cycle Variable, Menses 1-7 Days, Menses >/= 8 Days, Menses Variable, Cycle > 4 Weeks Between, No Menses for 6 Months, Heavy Menses, Light Menses, Normal Menses, Spotting Between Cycles , S/P Hysterectomy, Menopausal, Post Menopausal, Premenarche, Abnormal Vaginal Bleeding, Dysmenorrhea, Other - Musculoskeletal Musculoskeletal: As Per HPI - Integumentary Integumentary: As Per HPI, Skin Pain, Wounds - Neurological Neurological: absent: As Per HPI, Abnormal Gait, Abnormal Hearing, Abnormal Movements, Abnormal Speech, Behavioral Changes, Burning Sensations, Confusion, Convulsions, Disequilibrium, Dizziness, Numbness, Focal Weakness, Frequent Falls , Headaches, Lack of Coordination, Loss of Vision, Memory Loss, Paresthesias, Radicular Pain, Restless Legs, Sensory Deficit, Syncope, Tingling, Tremor, Vertigo, Weakness, Other Visual Disturbances, Other - Psychiatric Psychiatric: absent: As Per HPI, Abnormal Sleep Pattern, Anhedonia, Anxiety, Auditory Hallucinations, Behavioral Changes, Change in Appetite, Change in Libido, Confusion, Depression, Difficulty Concentrating, Hallucinations, Homicidal Ideation, Hopelessness, Irritability, Memory Loss, Mood Swings, Panic Attacks, Paranoia, Suicidal Ideation, Visual Hallucinations, Tactile Hallucinations, Other - Endocrine Endocrine: As Per HPI - Hematologic/Lymphatic Hematologic: absent: As Per HPI, Easy Bleeding, Easy Bruising, Lymphadenopathy, Other Past Patient History - Infectious Disease Hx of Infectious Diseases: None - Past Medical History & Family History Past Medical History?: Yes - Past Social History Alcohol: Social Drugs: Denies - CARDIAC Hx Hypercholesterolemia: Yes Hx Hypertension: Yes - PULMONARY Hx Asthma: Yes Hx Chronic Obstructive Pulmonary Disease (COPD): Yes - NEUROLOGICAL Hx Neurological Disorder: No - HEENT Hx HEENT Problems: Yes Hx Glaucoma: Yes (left eye) - RENAL Hx Chronic Kidney Disease: No - ENDOCRINE/METABOLIC Hx Endocrine Disorders: Yes Hx Diabetes Mellitus Type 2: Yes - HEMATOLOGICAL/ONCOLOGICAL Hx Human Immunodeficiency Virus (HIV): No - INTEGUMENTARY Hx Dermatological Problems: No - MUSCULOSKELETAL/RHEUMATOLOGICAL Hx Arthritis: Yes - GASTROINTESTINAL Hx Gastroesophageal Reflux: Yes - GENITOURINARY/GYNECOLOGICAL Hx Genitourinary Disorders: No - PSYCHIATRIC Hx Psychophysiologic Disorder: No Hx Substance Use: No - SURGICAL HISTORY Hx Cholecystectomy: Yes - ANESTHESIA Hx Anesthesia: Yes Hx Anesthesia Reactions: No Hx Malignant Hyperthermia: No Meds Allergies/Adverse Reactions: Allergies Allergy/AdvReac Type Severity Reaction Status Date / Time azithromycin [From Zithromax] Allergy RASH Verified 07/05/16 16:40 - Medications Medications: Current Medications Acetaminophen (Tylenol 325mg Tab) 650 mg PO Q4 PRN PRN Reason: Fever >100.4 F Aspirin (Ecotrin) 81 mg PO DAILY [facility] Last Admin: 12/27/16 10:31 Dose: 81 mg Atorvastatin Calcium (Lipitor) 20 mg PO HS [facility] Last Admin: 12/27/16 10:29 Dose: 20 mg Cholecalciferol (Vitamin D) 1,000 iu PO DAILY [facility] Last Admin: 09/10/17 10:33 Dose: 1,000 iu Ciprofloxacin (Cipro) 500 mg PO BID [facility] Last Admin: 12/27/16 10:28 Dose: 500 mg Clopidogrel Bisulfate (Plavix) 75 mg PO DAILY [facility] Last Admin: 12/27/16 10:30 Dose: 75 mg Diphenhydramine HCl (Benadryl) 25 mg IVP Q6 PRN PRN Reason: Itching / Pruritus Docusate Sodium (Colace) 100 mg PO BID PRN PRN Reason: Constipation Last Admin: 12/27/16 10:28 Dose: 100 mg Dorzolamide HCl (Trusopt) 1 drop OU BID [facility] Last Admin: 12/27/16 10:32 Dose: 1 drop Ezetimibe (Zetia) 10 mg PO DAILY [facility] Last Admin: 12/27/16 10:29 Dose: 10 mg Fluticasone Propionate (Flonase) 2 spr ZEUS BID PRN PRN Reason: Allergy symptoms Furosemide (Lasix) 20 mg PO BID [facility] Last Admin: 12/27/16 10:30 Dose: 20 mg Gabapentin (Neurontin) 300 mg PO TID [facility] Last Admin: 12/27/16 10:29 Dose: 300 mg Home Med (Alogliptin Benzoate [Alogliptin]) 25 mg PO DAILY [facility] Home Med (Brinzolamide [Azopt]) 1 drop OP BID [facility] Home Med (Insulin Glargine, Recombina [Lantus]) 20 unit SC [facility] Home Med (Minocycline Hcl [Minocin]) 100 mg PO BID [facility] Home Med (Oxycodone Hcl/Acetaminophen [Oxycodone-Acetaminophen 5-300]) 1 each PO Q6 PRN PRN Reason: Pain, moderate (4-7) Home Med (Simvastatin [Zocor]) 40 mg PO HS [facility] Hydrochlorothiazide (Hydrodiuril) 25 mg PO DAILY [facility] Last Admin: 12/27/16 10:30 Dose: 25 mg Hydromorphone HCl (Dilaudid) 1 mg IVP Q4 PRN PRN Reason: Pain, moderate (4-7) Last Admin: 12/27/16 11:52 Dose: 1 mg Sodium Chloride (Sodium Chloride 0.9%) 1,000 mls @ 125 mls/hr IV .Q8H [facility] Stop: 12/27/16 19:54 Last Admin: 12/27/16 10:26 Dose: 125 mls/hr Vancomycin HCl 1 gm/ Sodium (Chloride) 250 mls @ 166.667 mls/hr IVPB Q12 [facility] Last Admin: 12/27/16 10:42 Dose: 166.667 mls/hr Piperacillin Sod/Tazobactam (Sod 3.375 gm/ Sodium Chloride) 100 mls @ 100 mls/ hr IVPB Q6 [facility] Last Admin: 12/27/16 10:26 Dose: 100 mls/hr Insulin Detemir (Levemir) 20 units SC HS [facility] Last Admin: 12/26/16 22:57 Dose: 20 u Insulin Human Regular (Humulin R) 0 units SC ACHS [facility] PRN Reason: Protocol Last Admin: 12/27/16 06:46 Dose: Not Given Insulin Lispro Protam/Lispro Human (Humalog Mix 75/25) 20 units SC BID [facility] Last Admin: 12/27/16 10:31 Dose: 20 units Ketorolac Tromethamine (Toradol) 30 mg IVP Q6 PRN PRN Reason: Pain, moderate (4-7) Losartan Potassium (Cozaar) 100 mg PO DAILY [facility] Last Admin: 12/27/16 10:32 Dose: 100 mg Magnesium Oxide (Mag-Ox) 400 mg PO BID [facility] Last Admin: 12/27/16 10:29 Dose: 400 mg Mupirocin (Bactroban Ointment) 1 applic TOP BID [facility] Last Admin: 12/27/16 10:27 Dose: 1 applic Pantoprazole Sodium (Protonix Ec Tab) 40 mg PO DAILY [facility] Last Admin: 12/27/16 10:29 Dose: 40 mg Sitagliptin Phosphate (Januvia) 100 mg PO DAILY [facility] Last Admin: 12/27/16 10:30 Dose: 100 mg Physical Exam - Constitutional Appears: Non-toxic, Chronically Ill - Head Exam Head Exam: ATRAUMATIC, NORMAL INSPECTION, NORMOCEPHALIC - Eye Exam Eye Exam: PERRL. absent: Scleral icterus - ENT Exam ENT Exam: Mucous Membranes Dry, Normal External Ear Exam - Neck Exam Neck exam: Negative for: Lymphadenopathy - Respiratory Exam Respiratory Exam: Decreased Breath Sounds, Rhonchi - Cardiovascular Exam Cardiovascular Exam: REGULAR RHYTHM - GI/Abdominal Exam GI & Abdominal Exam: Diminished Bowel Sounds, Soft. absent: Tenderness - Rectal Exam Rectal Exam: Deferred - Exam Exam: NORMAL INSPECTION - Extremities Exam Extremities exam: Negative for: calf tenderness, pedal edema, tenderness, pedal pulses present Additional comments: large ulcer to right foot - Back Exam Back exam: absent: CVA tenderness (L), CVA tenderness (R) - Neurological Exam Neurological exam: Alert, CN II-XII Intact, Oriented x3, Reflexes Normal - Psychiatric Exam Psychiatric exam: Normal Mood - Skin Skin Exam: Dry, Intact Results - Vital Signs Recent Vital Signs: Last Vital Signs Temp 98.6 F 12/27/16 11:59 Pulse 62 12/27/16 11:59 Resp 18 12/27/16 11:59 BP 157/70 H 12/27/16 11:59 Pulse Ox 95 12/27/16 11:59 - Labs Result Diagrams: 12/27/16 07:30 12/27/16 06:00 Labs: Laboratory Results - last 24 hr 12/26/16 12/26/16 12/26/16 18:11 18:11 18:51 WBC 12.3 H RBC 3.92 Hgb 11.9 L Hct 37.0 MCV 94.5 D MCH 30.4 MCHC 32.2 L RDW 14.8 H Plt Count 192 MPV 10.5 Neut % (Auto) 73.5 Lymph % (Auto) 17.5 L [place] % (Auto) 6.6 Eos % (Auto) 1.1 Baso % (Auto) 1.3 Neut # 9.0 H Lymph # 2.2 [place] # 0.8 Eos # 0.1 Baso # 0.2 pO2 25 L VBG pH 7.32 VBG pCO2 48 VBG HCO3 22.4 VBG Total CO2 26.2 VBG O2 Sat (Calc) 59.0 VBG Base Excess -1.8 L VBG Potassium 5.2 Glucose 657 H* D Lactate 1.4 FiO2 21.0 Crit Value Called To Dr davida andrea Crit Value Called By Eliazar Crit Value Read Back Y Blood Gas Notified Time 1851 Sodium 130 L 130.0 L Potassium 4.8 Chloride 98 96.0 L Carbon Dioxide 23 Anion Gap 14 BUN 24 H Creatinine 0.9 Est GFR ( Amer) > 60 Est GFR (Non-Af Amer) > 60 POC Glucose (mg/dL) Random Glucose 604 H* D Calcium 9.1 Total Bilirubin 0.4 AST 40 H ALT 88 H D Alkaline Phosphatase 189 H Total Protein 7.1 Albumin 3.6 Globulin 3.5 Albumin/Globulin Ratio 1.0 Venous Blood Potassium 5.2 12/26/16 12/27/16 12/27/16 22:50 05:54 06:00 WBC RBC Hgb Hct MCV MCH MCHC RDW Plt Count MPV Neut % (Auto) Lymph % (Auto) [place] % (Auto) Eos % (Auto) Baso % (Auto) Neut # Lymph # [place] # Eos # Baso # pO2 VBG pH VBG pCO2 VBG HCO3 VBG Total CO2 VBG O2 Sat (Calc) VBG Base Excess VBG Potassium Glucose Lactate FiO2 Crit Value Called To Crit Value Called By Crit Value Read Back Blood Gas Notified Time Sodium 138 Potassium 4.0 Chloride 107 Carbon Dioxide 21 L Anion Gap 14 BUN 23 H Creatinine 0.9 Est GFR ( Amer) > 60 Est GFR (Non-Af Amer) > 60 POC Glucose (mg/dL) 380 H 120 H Random Glucose 122 H Calcium 8.8 Total Bilirubin 0.4 AST 64 H D ALT 77 H Alkaline Phosphatase 167 H Total Protein 7.0 Albumin 3.4 L Globulin 3.6 Albumin/Globulin Ratio 0.9 L Venous Blood Potassium 12/27/16 12/27/16 07:30 11:15 WBC 9.6 RBC 3.71 L Hgb 11.5 L Hct 34.8 MCV 93.9 MCH 30.9 MCHC 32.9 L RDW 14.7 H Plt Count 193 MPV 10.8 Neut % (Auto) 54.4 Lymph % (Auto) 33.6 [place] % (Auto) 8.3 Eos % (Auto) 3.3 Baso % (Auto) 0.4 Neut # 5.2 Lymph # 3.2 [place] # 0.8 Eos # 0.3 Baso # 0.0 pO2 VBG pH VBG pCO2 VBG HCO3 VBG Total CO2 VBG O2 Sat (Calc) VBG Base Excess VBG Potassium Glucose Lactate FiO2 Crit Value Called To Crit Value Called By Crit Value Read Back Blood Gas Notified Time Sodium Potassium Chloride Carbon Dioxide Anion Gap BUN Creatinine Est GFR ( Amer) Est GFR (Non-Af Amer) POC Glucose (mg/dL) 280 H Random Glucose Calcium Total Bilirubin AST ALT Alkaline Phosphatase Total Protein Albumin Globulin Albumin/Globulin Ratio Venous Blood Potassium Assessment & Plan - Assessment and Plan (Free Text) Assessment: severe pvd DMII NONHEALING ULCER RIGHT FOOT CONSIDER MRI AND /OR BONE BX WHEN VASCULAR SUPPLY ALLOWS FOR EVAL BY DR MONTES IN AM CONSIDER PICC LINE AND RESTORER PAPER AND PRINTS IV RX DORECTED BY CULTURES IF POSSIBLE
[2016-12-27] MEDS: Insulin Detemir 100 Units/ml Inj SC SCH (22:04)
[2016-12-28] MEDS: Piperacillin/Tazobact 3.375 GM in Sodium Chloride 0.9% 100 ML IVPB SCH ×2 (03:50→10:09)
[2016-12-28] MEDS: Insulin Regular 100 units/ml SC SCH (06:29)
[2016-12-28 06:39] LABS: BASO % 0.4 % (0.0-2.0); EOS # 0.3 K/uL (0.0-0.7); EOS % 2.8 % (0.0-4.0); LYMPH # 1.9 K/uL (1.0-4.3); LYMPH % 18.9 % (20.0-40.0); MEAN CELL VOLUME 94.6 fl (81.0-99.0); MEAN CORPUSCULAR HEMOGLOBIN 30.7 pg (27.0-31.0); MEAN CORPUSCULAR HGB CONC 32.4 g/dL (33.0-37.0); MEAN PLATELET VOLUME 10.6 fl (7.2-11.7); MONO # 0.7 K/uL (0.0-0.8); MONO % 6.9 % (0.0-10.0); NEUT # 7.2 K/uL (1.8-7.0); RED CELL DISTRIBUTION WIDTH 14.2 % (11.5-14.5); WHITE BLOOD COUNT 10.1 K/uL (4.8-10.8)
[2016-12-28 06:57] LABS: ALKALINE PHOSPHATASE 164 U/L (38-126); ALT/SGPT 90 U/L (9-52); AST/SGOT 61 U/L (14-36); BILIRUBIN,TOTAL 0.3 mg/dl (0.2-1.3); BLOOD UREA NITROGEN 16 mg/dl (7-17); CALCIUM 8.5 mg/dL (8.4-10.2); CARBON DIOXIDE 25 mmol/L (22-30); CHLORIDE 106 mmol/L (98-107); GFR AFRICAN-AMERICAN > 60; GLUCOSE,RANDOM 297 mg/dL (65-105); POTASSIUM 4.5 MMOL/L (3.6-5.0); SODIUM 138 mmol/l (132-148); TOTAL PROTEIN 6.4 G/DL (6.3-8.2)
[2016-12-28 07:02] LABS: ALB/GLOB RATIO 0.9 (1.0-2.1)
[2016-12-28 07:14] LABS: PARTIAL THROMBOPLASTIN TIME 26.8 Seconds (25.6-37.1)
--- NOTE | 2016-12-28 07:42 | CP.PCM.PN ---
Subjective - Date & Time of Evaluation Date of Evaluation: 12/28/16 Time of Evaluation: 07:42 - Subjective Subjective: Podiatry progress note for Dr. Hernández 61 y/o female was seen resting at bedside comfortably for right foot plantar ulcer. Patient is currently in NAD, AAOx3. Patient admits to some pain to her ulcer, especially when the foot hits the bed. Pt is aware that she is going for an angioplasty with Dr. Montes today. Pt denies F/C/N/V/SOB/CP. Objective - Vital Signs/Intake and Output Vital Signs (last 24 hours): Temp Pulse Resp BP Pulse Ox 98.6 F 80 19 132/62 96 12/28/16 04:58 12/28/16 04:58 12/28/16 04:58 12/28/16 04:58 12/28/16 04:58 - Medications Medications: Current Medications Acetaminophen (Tylenol 325mg Tab) 650 mg PO Q4 PRN PRN Reason: Fever >100.4 F Aspirin (Ecotrin) 81 mg PO DAILY [facility] Last Admin: 12/27/16 10:31 Dose: 81 mg Atorvastatin Calcium (Lipitor) 20 mg PO HS [facility] Last Admin: 12/27/16 22:01 Dose: Not Given Cholecalciferol (Vitamin D) 1,000 iu PO DAILY [facility] Last Admin: 12/27/16 10:33 Dose: 1,000 iu Ciprofloxacin (Cipro) 500 mg PO BID [facility] Last Admin: 12/27/16 17:33 Dose: 500 mg Clopidogrel Bisulfate (Plavix) 75 mg PO DAILY [facility] Last Admin: 12/27/16 10:30 Dose: 75 mg Diphenhydramine HCl (Benadryl) 25 mg IVP Q6 PRN PRN Reason: Itching / Pruritus Last Admin: 12/27/16 17:39 Dose: 25 mg Docusate Sodium (Colace) 100 mg PO BID PRN PRN Reason: Constipation Last Admin: 12/27/16 10:28 Dose: 100 mg Dorzolamide HCl (Trusopt) 1 drop OU Q12 [facility] Last Admin: 12/27/16 20:30 Dose: 1 drop Ezetimibe (Zetia) 10 mg PO DAILY [facility] Last Admin: 12/27/16 10:29 Dose: 10 mg Fluticasone Propionate (Flonase) 2 spr ZEUS BID PRN PRN Reason: Allergy symptoms Furosemide (Lasix) 20 mg PO BID [facility] Last Admin: 12/27/16 17:33 Dose: 20 mg Gabapentin (Neurontin) 300 mg PO TID [facility] Last Admin: 12/27/16 17:32 Dose: 300 mg Home Med (Alogliptin Benzoate [Alogliptin]) 25 mg PO DAILY [facility] Home Med (Brinzolamide [Azopt]) 1 drop OP BID [facility] Home Med (Insulin Glargine, Recombina [Lantus]) 20 unit SC [facility] Home Med (Minocycline Hcl [Minocin]) 100 mg PO BID [facility] Home Med (Oxycodone Hcl/Acetaminophen [Oxycodone-Acetaminophen 5-300]) 1 each PO Q6 PRN PRN Reason: Pain, moderate (4-7) Home Med (Simvastatin [Zocor]) 40 mg PO [facility] Hydrochlorothiazide (Hydrodiuril) 25 mg PO DAILY [facility] Last Admin: 12/27/16 10:30 Dose: 25 mg Hydromorphone HCl (Dilaudid) 1 mg IVP Q4 PRN PRN Reason: Pain, moderate (4-7) Last Admin: 12/28/16 05:20 Dose: 1 mg Vancomycin HCl 1 gm/ Sodium (Chloride) 250 mls @ 166.667 mls/hr IVPB Q12 [facility] Last Admin: 12/27/16 20:30 Dose: 166.667 mls/hr Piperacillin Sod/Tazobactam (Sod 3.375 gm/ Sodium Chloride) 100 mls @ 100 mls/ hr IVPB Q6 [facility] Last Admin: 12/28/16 03:50 Dose: 100 mls/hr Insulin Detemir (Levemir) 20 units SC [facility] Last Admin: 12/27/16 22:04 Dose: 20 u Insulin Human Regular (Humulin R) 0 units SC [facility] PRN Reason: Protocol Last Admin: 12/28/16 06:29 Dose: 4 u Insulin Lispro Protam/Lispro Human (Humalog Mix 75/25) 20 units SC BID [facility] Last Admin: 12/27/16 17:34 Dose: 20 units Ketorolac Tromethamine (Toradol) 30 mg IVP Q6 PRN PRN Reason: Pain, moderate (4-7) Losartan Potassium (Cozaar) 100 mg PO DAILY [facility] Last Admin: 12/27/16 10:32 Dose: 100 mg Magnesium Oxide (Mag-Ox) 400 mg PO BID [facility] Last Admin: 12/27/16 17:33 Dose: 400 mg Mupirocin (Bactroban Ointment) 1 applic TOP BID [facility] Last Admin: 12/27/16 17:33 Dose: 1 applic Pantoprazole Sodium (Protonix Ec Tab) 40 mg PO DAILY [facility] Last Admin: 12/27/16 10:29 Dose: 40 mg Sitagliptin Phosphate (Januvia) 100 mg PO DAILY [facility] Last Admin: 12/27/16 10:30 Dose: 100 mg - Labs Labs: 12/28/16 05:55 12/28/16 05:55 PT 10.7 Seconds (9.8-13.1) 12/28/16 05:55 INR 1.0 (0.9-1.2) 12/28/16 05:55 APTT 26.8 Seconds (25.6-37.1) 12/28/16 05:55 - Constitutional Appears: Well, Non-toxic, No Acute Distress - Extremities Exam Additional comments: Right lower extremity focused exam: Vasc: DP and PT pulses palpable 1/4, temperature gradient warm to cool, CFT < 3 sec to all digits, +1 non-pitting edema noted to dorsum of foot Neuro: grossly sensation diminished Derm: Open ulceration noted to the plantar aspect of the 5th metatarsal head measuring approximately 2 cm by 1 cm by 0.2 cm with granular base and hyperkeratotic rim. A second ulceration is noted more proximal than the first and lateral to the 5th metatarsal with a fibrotic base, no purulence, no probe to bone, no malodor noted. Skin to the lateral aspect of the right foot is darkly discolored, no malodor, no purulence, no tunneling, no undermining, no probe to bone noted Ortho: pain on palpation to plantar lateral 5th metatarsal ulceration site - Neurological Exam Neurological Exam: Alert, Awake, Oriented x3 - Psychiatric Exam Psychiatric exam: Normal Affect, Normal Mood Assessment and Plan - Assessment and Plan (Free Text) Assessment: 61 year old female with right plantar 5th metatarsal head chronic ulceration secondary to DM Plan: patient examined and evaluated discussed in detail with attending, Dr. Hernández Chart, lab, vitals reviewed: afebrile, WBC 10.1 Right foot dressed with bactroban, DSD Wound culture of R foot ulceration pending - will use to guide IV abx Patient to go for angio with Dr. Montes today Will consider MRI if clinically warranted after patient's flow is improved Podiatry will continue to follow patient while in house
[2016-12-28 08:12] VITALS: BP 166/77; PULSE 81; RESP 18; TEMP 98
[2016-12-28] MEDS: Dorzolamide 2% Ophth Soln OU SCH (08:17)
--- NOTE | 2016-12-28 08:36 | PQF SKIN ---
This form is a permanent part of the medical record 12/28 Rigoberto Andrade APN, Would you please further clarify the DM Ulcer after workup. Patient with a history of DM II , PVD, and decreased sensation ( podiatry note) who is being treated with insulin and Neurontin presents with a Diabetic Foot Ulcer infected despite outpatient therapy with IVAB. Will have a revascularization procedure. Clarification of your documentation is requested to better reflect the severity of illness and intensity of treatment of your patient. Indicators present [x] Documentation of skin ulcer [] Skin breakdown [] Skin wounds [] Wound Care consult [] Nursing assessment [] Mobility decreased [] Poor nutrition [] Other: [] Location in the medical record that reflects the above clinical findings: [] Treatment Provided: [] PHYSICIAN'S RESPONSE Based on your medical judgment of the clinical indicators outlined above, are you treating this patient for a known or suspected: Present On Admission [x] Diabetic Ulcer [] Diabetic Neuropathic Ulcer [] Diabetic PVD Ulcer [] Other please clarify [] Unable to Determine In responding to this query, please exercise your independent professional judgment. The fact that a question is asked does not imply that any particular answer is desired or expected. Thank you for your clarification on this documentation. If you have any questions please call:[phone] * Thank you, Monica Feng RN [facility]
--- NOTE | 2016-12-28 08:46 | PQF GENQUE ---
This form is a permanent part of the medical record 12/28/16 Rigoberto Andrade APN, Would you please clarify if there is an associated diagnosis to go along with the elevated BMI. If yes please document the BMI as well. EMR has the patient listed as 5'2", weighing 260 pounds with a BMI of 47.6. Clarification of your documentation is requested to better reflect the severity of illness and intensity of treatment of your patient. Indicators present [] Specify: [] [] Specify: [] [] Specify: [] [] Specify: [] Location in the medical record that reflects the above clinical findings: [] Treatment Provided: [] PHYSICIAN'S RESPONSE Based on your medical judgment of the clinical indicators outlined above please clarify the following: [x] Practitioner response morb obesity by bmi [] If unable to determine, please check the box, sign and date. Present On Admission (POA) Indicator: [x] Present at the time of admission [] Not present at the time of admission [] Clinically Undetermined In responding to this query, please exercise your independent professional judgment. The fact that a question is asked does not imply that any particular answer is desired or expected. Thank you for your clarification on this documentation. If you have any questions please call:[phone] * Thank you, Monica Feng RN [facility]
[2016-12-28] MEDS: Insulin Lispro Mix 75/25 100 units/ml (HumaLog) 10ml SC SCH (10:08)
[2016-12-28] MEDS: Magnesium Oxide 400 mg Tab UD PO SCH (10:08)
[2016-12-28] MEDS: Pantoprazole 40 mg EC Tab PO SCH (10:09)
--- NOTE | 2016-12-28 10:44 | CP.PCM.PN ---
Subjective - Date & Time of Evaluation Date of Evaluation: 12/28/16 Time of Evaluation: 10:43 - Subjective Subjective: pt doing well, glucose coming down. for revascularization procedure at [facility] today. bw noted. no f/c, n/v/d. wound c/s prelim c/s noted. for possible transfer pending outcome of procedure Objective - Vital Signs/Intake and Output Vital Signs (last 24 hours): Temp Pulse Resp BP Pulse Ox 98 F 81 18 166/77 H 97 12/28/16 08:12 12/28/16 08:12 12/28/16 08:12 12/28/16 08:12 12/28/16 08:12 - Medications Medications: Current Medications Acetaminophen (Tylenol 325mg Tab) 650 mg PO Q4 PRN PRN Reason: Fever >100.4 F Aspirin (Ecotrin) 81 mg PO DAILY [facility]CLUDES [facility] Last Admin: 12/28/16 08:13 Dose: 81 mg Atorvastatin Calcium (Lipitor) 20 mg PO HS [facility] Last Admin: 12/27/16 22:01 Dose: Not Given Cholecalciferol (Vitamin D) 1,000 iu PO DAILY [facility] Last Admin: 12/28/16 10:09 Dose: Not Given Ciprofloxacin (Cipro) 500 mg PO BID [facility] Last Admin: 12/28/16 10:07 Dose: Not Given Clopidogrel Bisulfate (Plavix) 75 mg PO DAILY [facility] Last Admin: 12/28/16 08:17 Dose: 75 mg Diphenhydramine HCl (Benadryl) 25 mg IVP Q6 PRN PRN Reason: Itching / Pruritus Last Admin: 12/27/16 17:39 Dose: 25 mg Docusate Sodium (Colace) 100 mg PO BID PRN PRN Reason: Constipation Last Admin: 12/27/16 10:28 Dose: 100 mg Dorzolamide HCl (Trusopt) 1 drop OU Q12 [facility] Last Admin: 12/28/16 08:17 Dose: 1 drop Ezetimibe (Zetia) 10 mg PO DAILY [facility] Last Admin: 12/28/16 10:09 Dose: Not Given Fluticasone Propionate (Flonase) 2 spr ZEUS BID PRN PRN Reason: Allergy symptoms Furosemide (Lasix) 20 mg PO BID [facility]CLUD[facility] Last Admin: 12/28/16 10:08 Dose: Not Given Gabapentin (Neurontin) 300 mg PO TID COUNT [facility]CLUD[facility] Last Admin: 12/28/16 10:08 Dose: Not Given Home Med (Alogliptin Benzoate [Alogliptin]) 25 mg PO DAILY COUNT [facility]CLUD[facility] Home Med (Brinzolamide [Azopt]) 1 drop OP BID COUNT INCLUDES [facility] Home Med (Insulin Glargine, Recombina [Lantus]) 20 unit SC [facility] Home Med (Minocycline Hcl [Minocin]) 100 mg PO BID COUNT [facility]CLUDES [facility] Home Med (Oxycodone Hcl/Acetaminophen [Oxycodone-Acetaminophen 5-300]) 1 each PO Q6 PRN PRN Reason: Pain, moderate (4-7) Home Med (Simvastatin [Zocor]) 40 mg PO [facility] Hydrochlorothiazide (Hydrodiuril) 25 mg PO DAILY [facility] Last Admin: 12/28/16 10:08 Dose: Not Given Hydromorphone HCl (Dilaudid) 1 mg IVP Q4 PRN PRN Reason: Pain, moderate (4-7) Last Admin: 12/28/16 05:20 Dose: 1 mg Vancomycin HCl 1 gm/ Sodium (Chloride) 250 mls @ 166.667 mls/hr IVPB Q12 [facility] Last Admin: 12/28/16 10:09 Dose: Not Given Piperacillin Sod/Tazobactam (Sod 3.375 gm/ Sodium Chloride) 100 mls @ 100 mls/ hr IVPB Q6 [facility] Last Admin: 12/28/16 10:09 Dose: Not Given Insulin Detemir (Levemir) 20 units SC [facility] Last Admin: 12/27/16 22:04 Dose: 20 u Insulin Human Regular (Humulin R) 0 units SC [facility] PRN Reason: Protocol Last Admin: 12/28/16 06:29 Dose: 4 u Insulin Lispro Protam/Lispro Human (Humalog Mix 75/25) 20 units SC BID COUNT [facility]CLUD[facility] Last Admin: 12/28/16 10:08 Dose: Not Given Ketorolac Tromethamine (Toradol) 30 mg IVP Q6 PRN PRN Reason: Pain, moderate (4-7) Losartan Potassium (Cozaar) 100 mg PO DAILY [facility] Last Admin: 12/28/16 10:08 Dose: Not Given Magnesium Oxide (Mag-Ox) 400 mg PO BID COUNT [facility] Last Admin: 12/28/16 10:08 Dose: Not Given Mupirocin (Bactroban Ointment) 1 applic TOP BID COUNT [facility]CLUDES [facility] Last Admin: 12/27/16 17:33 Dose: 1 applic Pantoprazole Sodium (Protonix Ec Tab) 40 mg PO DAILY COUNT [facility] Last Admin: 12/28/16 10:09 Dose: Not Given Sitagliptin Phosphate (Januvia) 100 mg PO DAILY COUNT [facility] Last Admin: 12/28/16 10:08 Dose: Not Given - Labs Labs: 12/28/16 05:55 12/28/16 05:55 PT 10.7 Seconds (9.8-13.1) 12/28/16 05:55 INR 1.0 (0.9-1.2) 12/28/16 05:55 APTT 26.8 Seconds (25.6-37.1) 12/28/16 05:55 - Constitutional Appears: Well, Non-toxic, No Acute Distress - Head Exam Head Exam: ATRAUMATIC, NORMAL INSPECTION, NORMOCEPHALIC - Eye Exam Eye Exam: EOMI, Normal appearance, PERRL Pupil Exam: NORMAL ACCOMODATION, PERRL - ENT Exam ENT Exam: Mucous Membranes Moist, Normal Exam - Neck Exam Neck Exam: Full ROM, Normal Inspection. absent: Lymphadenopathy - Respiratory Exam Respiratory Exam: Clear to Ausculation Bilateral, NORMAL BREATHING PATTERN - Cardiovascular Exam Cardiovascular Exam: REGULAR RHYTHM, RRR, +S1, +S2. absent: Murmur - GI/Abdominal Exam GI & Abdominal Exam: Soft, Normal Bowel Sounds. absent: Tenderness - Extremities Exam Extremities Exam: Full ROM, Normal Capillary Refill, Normal Inspection. absent : Joint Swelling, Pedal Edema - Back Exam Back Exam: NORMAL INSPECTION - Neurological Exam Neurological Exam: Alert, Awake, CN II-XII Intact, Normal Gait, Oriented x3 - Psychiatric Exam Psychiatric exam: Normal Affect, Normal Mood - Skin Skin Exam: Dry, Intact, Normal Color, Warm Additional comments: dsg c/d/i Assessment and Plan (1) DVT prophylaxis Status: Acute (2) Diabetes type 2, uncontrolled Status: Acute (3) Diabetic foot ulcer Status: Acute - Assessment and Plan (Free Text) Assessment: (1) DVT prophylaxis Assessment and Plan: scd and ae hose hold lovenox until after procedure Status: Acute (2) Diabetes type 2, uncontrolled Assessment and Plan: strict glycemic control riss, home meds, fsbg dm diet, hydration endo if unable to be controlled Status: Acute (3) Diabetic foot ulcer Assessment and Plan: podiatry evita lopez-wound c/s noted id cardio for revascularization procedure pain control wound care ?? [place] [facility] care as that is where pts primary team is located Status: Acute
--- NOTE | 2016-12-28 13:27 | CP.PCM.PN ---
Subjective - Date & Time of Evaluation Date of Evaluation: 12/28/16 Time of Evaluation: 09:00 - Subjective Subjective: Came for vascular eval right leg and going for possible angioplasty with Dr Montes Has nonhealing ulcer to right foot with likely OM MRI pending Objective - Vital Signs/Intake and Output Vital Signs (last 24 hours): Temp Pulse Resp BP Pulse Ox 98 F 81 18 166/77 H 97 12/28/16 08:12 12/28/16 08:12 12/28/16 08:12 12/28/16 08:12 12/28/16 08:12 - Medications Medications: Current Medications Acetaminophen (Tylenol 325mg Tab) 650 mg PO Q4 PRN PRN Reason: Fever >100.4 F Aspirin (Ecotrin) 81 mg PO DAILY [facility] Last Admin: 12/28/16 08:13 Dose: 81 mg Atorvastatin Calcium (Lipitor) 20 mg PO HS [facility] Last Admin: 12/27/16 22:01 Dose: Not Given Cholecalciferol (Vitamin D) 1,000 iu PO DAILY [facility] Last Admin: 12/28/16 10:09 Dose: Not Given Ciprofloxacin (Cipro) 500 mg PO BID [facility] Last Admin: 12/28/16 10:07 Dose: Not Given Clopidogrel Bisulfate (Plavix) 75 mg PO DAILY [facility] Last Admin: 12/28/16 08:17 Dose: 75 mg Diphenhydramine HCl (Benadryl) 25 mg IVP Q6 PRN PRN Reason: Itching / Pruritus Last Admin: 12/27/16 17:39 Dose: 25 mg Docusate Sodium (Colace) 100 mg PO BID PRN PRN Reason: Constipation Last Admin: 12/27/16 10:28 Dose: 100 mg Dorzolamide HCl (Trusopt) 1 drop OU Q12 [facility] Last Admin: 12/28/16 08:17 Dose: 1 drop Ezetimibe (Zetia) 10 mg PO DAILY [facility] Last Admin: 12/28/16 10:09 Dose: Not Given Fluticasone Propionate (Flonase) 2 spr ZEUS BID PRN PRN Reason: Allergy symptoms Furosemide (Lasix) 20 mg PO BID [facility] Last Admin: 12/28/16 10:08 Dose: Not Given Gabapentin (Neurontin) 300 mg PO TID [facility] Last Admin: 12/28/16 10:08 Dose: Not Given Home Med (Alogliptin Benzoate [Alogliptin]) 25 mg PO DAILY [facility] Home Med (Brinzolamide [Azopt]) 1 drop OP BID [facility] Home Med (Insulin Glargine, Recombina [Lantus]) 20 unit SC [facility] Home Med (Minocycline Hcl [Minocin]) 100 mg PO BID [facility] Home Med (Oxycodone Hcl/Acetaminophen [Oxycodone-Acetaminophen 5-300]) 1 each PO Q6 PRN PRN Reason: Pain, moderate (4-7) Home Med (Simvastatin [Zocor]) 40 mg PO [facility] Hydrochlorothiazide (Hydrodiuril) 25 mg PO DAILY [facility] Last Admin: 12/28/16 10:08 Dose: Not Given Hydromorphone HCl (Dilaudid) 1 mg IVP Q4 PRN PRN Reason: Pain, moderate (4-7) Last Admin: 12/28/16 05:20 Dose: 1 mg Vancomycin HCl 1 gm/ Sodium (Chloride) 250 mls @ 166.667 mls/hr IVPB Q12 [facility] Last Admin: 12/28/16 10:09 Dose: Not Given Piperacillin Sod/Tazobactam (Sod 3.375 gm/ Sodium Chloride) 100 mls @ 100 mls/ hr IVPB Q6 [facility] Last Admin: 12/28/16 10:09 Dose: Not Given Insulin Detemir (Levemir) 20 units SC [facility] Last Admin: 12/27/16 22:04 Dose: 20 u Insulin Human Regular (Humulin R) 0 units SC [facility] PRN Reason: Protocol Last Admin: 12/28/16 06:29 Dose: 4 u Insulin Lispro Protam/Lispro Human (Humalog Mix 75/25) 20 units SC BID [facility] Last Admin: 12/28/16 10:08 Dose: Not Given Ketorolac Tromethamine (Toradol) 30 mg IVP Q6 PRN PRN Reason: Pain, moderate (4-7) Losartan Potassium (Cozaar) 100 mg PO DAILY [facility] Last Admin: 12/28/16 10:08 Dose: Not Given Magnesium Oxide (Mag-Ox) 400 mg PO BID [facility] Last Admin: 12/28/16 10:08 Dose: Not Given Mupirocin (Bactroban Ointment) 1 applic TOP BID [facility] Last Admin: 12/27/16 17:33 Dose: 1 applic Pantoprazole Sodium (Protonix Ec Tab) 40 mg PO DAILY [facility] Last Admin: 12/28/16 10:09 Dose: Not Given Sitagliptin Phosphate (Januvia) 100 mg PO DAILY [facility] Last Admin: 12/28/16 10:08 Dose: Not Given - Labs Labs: 12/28/16 05:55 12/28/16 05:55 PT 10.7 Seconds (9.8-13.1) 12/28/16 05:55 INR 1.0 (0.9-1.2) 12/28/16 05:55 APTT 26.8 Seconds (25.6-37.1) 12/28/16 05:55 - Constitutional Appears: Non-toxic, Chronically Ill - Head Exam Head Exam: NORMOCEPHALIC - Eye Exam Eye Exam: PERRL - ENT Exam ENT Exam: Mucous Membranes Dry - Neck Exam Neck Exam: absent: Lymphadenopathy - Respiratory Exam Respiratory Exam: Decreased Breath Sounds - Cardiovascular Exam Cardiovascular Exam: REGULAR RHYTHM - GI/Abdominal Exam GI & Abdominal Exam: Distended, Soft - Rectal Exam Rectal Exam: Deferred - Exam Exam: NORMAL INSPECTION - Extremities Exam Extremities Exam: Pedal Edema Additional comments: right foot ulcer + - Back Exam Back Exam: absent: CVA tenderness (L), CVA tenderness (R) Assessment and Plan - Assessment and Plan (Free Text) Plan: chronic OM right foot cont iv rx wound care
--- NOTE | 2016-12-28 15:45 | CP.PCM.CON ---
History of Present Illness - History of Present Illness History of Present Illness: consultation for evaluation of non-healing ulcer and wet gangrene HPI: Ana is a 61-year-old -N[place]alese female with past medical history significant for hypertension diabetes mellitus dyslipidemia and severe peripheral vascular occlusive disease who had undergone left common femoral endarterectomy about 6 months ago at [facility]. She was followed closely by her paralegals is Dr. Lam for her right lower extremity foot ulcer. She had prior angioplasty and stenting of the SFA. According to the patient the wound was healing significantly better but in the last month the wound started to deteriorate significantly and I was called by her paralegals is Dr. Lam for concerns with red gangrene. She was admitted or Wednesday for evaluation of her vascular disease. At baseline she has limited activity secondary to discomfort and claudication symptoms. She can ambulate with the help of a wheelchair and a walker. She has been maintained on dual antiplatelet therapy and is very compliant with her medications at baseline. Review of Systems - Constitutional Constitutional: As Per HPI - EENT Eyes: As Per HPI Ears: As Per HPI Nose/Mouth/Throat: As Per HPI - Breasts Breasts: As Per HPI - Cardiovascular Cardiovascular: As Per HPI - Respiratory Respiratory: As Per HPI - Gastrointestinal Gastrointestinal: As Per HPI - Genitourinary Genitourinary: As Per HPI - Reproductive: Female Reproductive:Female: As Per HPI - Menstruation Menstruation: As Per HPI - Musculoskeletal Musculoskeletal: As Per HPI - Integumentary Integumentary: As Per HPI - Neurological Neurological: As Per HPI - Psychiatric Psychiatric: As Per HPI - Endocrine Endocrine: As Per HPI - Hematologic/Lymphatic Hematologic: As Per HPI Past Patient History - Infectious Disease Hx of Infectious Diseases: None - Past Medical History & Family History Past Medical History?: Yes Pertinent Family History: +ve for CAD and HTN - Past Social History Alcohol: Social Drugs: Denies - CARDIAC Hx Hypercholesterolemia: Yes Hx Hypertension: Yes - PULMONARY Hx Asthma: Yes Hx Chronic Obstructive Pulmonary Disease (COPD): Yes - NEUROLOGICAL Hx Neurological Disorder: No - HEENT Hx HEENT Problems: Yes Hx Glaucoma: Yes (left eye) - RENAL Hx Chronic Kidney Disease: No - ENDOCRINE/METABOLIC Hx Endocrine Disorders: Yes Hx Diabetes Mellitus Type 2: Yes - HEMATOLOGICAL/ONCOLOGICAL Hx Human Immunodeficiency Virus (HIV): No - INTEGUMENTARY Hx Dermatological Problems: No - MUSCULOSKELETAL/RHEUMATOLOGICAL Hx Arthritis: Yes - GASTROINTESTINAL Hx Gastroesophageal Reflux: Yes - GENITOURINARY/GYNECOLOGICAL Hx Genitourinary Disorders: No - PSYCHIATRIC Hx Psychophysiologic Disorder: No Hx Substance Use: No - SURGICAL HISTORY Hx Cholecystectomy: Yes - ANESTHESIA Hx Anesthesia: Yes Hx Anesthesia Reactions: No Hx Malignant Hyperthermia: No Meds Allergies/Adverse Reactions: Allergies Allergy/AdvReac Type Severity Reaction Status Date / Time azithromycin [From Zithromax] Allergy RASH Verified 07/05/16 16:40 - Medications Medications: Current Medications Acetaminophen (Tylenol 325mg Tab) 650 mg PO Q4 PRN PRN Reason: Fever >100.4 F Aspirin (Ecotrin) 81 mg PO DAILY [facility] Last Admin: 12/28/16 08:13 Dose: 81 mg Atorvastatin Calcium (Lipitor) 20 mg PO HS [facility] Last Admin: 12/27/16 22:01 Dose: Not Given Cholecalciferol (Vitamin D) 1,000 iu PO DAILY [facility] Last Admin: 12/28/16 10:09 Dose: Not Given Ciprofloxacin (Cipro) 500 mg PO BID [facility] Last Admin: 12/28/16 10:07 Dose: Not Given Clopidogrel Bisulfate (Plavix) 75 mg PO DAILY [facility] Last Admin: 12/28/16 08:17 Dose: 75 mg Diphenhydramine HCl (Benadryl) 25 mg IVP Q6 PRN PRN Reason: Itching / Pruritus Last Admin: 12/27/16 17:39 Dose: 25 mg Docusate Sodium (Colace) 100 mg PO BID PRN PRN Reason: Constipation Last Admin: 12/27/16 10:28 Dose: 100 mg Dorzolamide HCl (Trusopt) 1 drop OU Q12 [facility] Last Admin: 12/28/16 08:17 Dose: 1 drop Ezetimibe (Zetia) 10 mg PO DAILY [facility] Last Admin: 12/28/16 10:09 Dose: Not Given Fluticasone Propionate (Flonase) 2 spr ZEUS BID PRN PRN Reason: Allergy symptoms Furosemide (Lasix) 20 mg PO BID [facility] Last Admin: 12/28/16 10:08 Dose: Not Given Gabapentin (Neurontin) 300 mg PO TID [facility] Last Admin: 12/28/16 10:08 Dose: Not Given Home Med (Alogliptin Benzoate [Alogliptin]) 25 mg PO DAILY [facility] Home Med (Brinzolamide [Azopt]) 1 drop OP BID [facility] Home Med (Insulin Glargine, Recombina [Lantus]) 20 unit SC [facility] Home Med (Minocycline Hcl [Minocin]) 100 mg PO BID [facility] Home Med (Oxycodone Hcl/Acetaminophen [Oxycodone-Acetaminophen 5-300]) 1 each PO Q6 PRN PRN Reason: Pain, moderate (4-7) Home Med (Simvastatin [Zocor]) 40 mg PO [facility] Hydrochlorothiazide (Hydrodiuril) 25 mg PO DAILY [facility] Last Admin: 12/28/16 10:08 Dose: Not Given Hydromorphone HCl (Dilaudid) 1 mg IVP Q4 PRN PRN Reason: Pain, moderate (4-7) Last Admin: 12/28/16 05:20 Dose: 1 mg Vancomycin HCl 1 gm/ Sodium (Chloride) 250 mls @ 166.667 mls/hr IVPB Q12 [facility] Last Admin: 12/28/16 10:09 Dose: Not Given Piperacillin Sod/Tazobactam (Sod 3.375 gm/ Sodium Chloride) 100 mls @ 100 mls/ hr IVPB Q6 [facility] Last Admin: 12/28/16 10:09 Dose: Not Given Insulin Detemir (Levemir) 20 units SC [facility] Last Admin: 12/27/16 22:04 Dose: 20 u Insulin Human Regular (Humulin R) 0 units SC [facility] PRN Reason: Protocol Last Admin: 12/28/16 06:29 Dose: 4 u Insulin Lispro Protam/Lispro Human (Humalog Mix 75/25) 20 units SC BID [facility] Last Admin: 12/28/16 10:08 Dose: Not Given Ketorolac Tromethamine (Toradol) 30 mg IVP Q6 PRN PRN Reason: Pain, moderate (4-7) Losartan Potassium (Cozaar) 100 mg PO DAILY [facility] Last Admin: 12/28/16 10:08 Dose: Not Given Magnesium Oxide (Mag-Ox) 400 mg PO BID [facility] Last Admin: 12/28/16 10:08 Dose: Not Given Mupirocin (Bactroban Ointment) 1 applic TOP BID [facility] Last Admin: 12/27/16 17:33 Dose: 1 applic Pantoprazole Sodium (Protonix Ec Tab) 40 mg PO DAILY [facility] Last Admin: 12/28/16 10:09 Dose: Not Given Sitagliptin Phosphate (Januvia) 100 mg PO DAILY [facility] Last Admin: 12/28/16 10:08 Dose: Not Given Physical Exam - Constitutional Appears: Well - Head Exam Head Exam: ATRAUMATIC, NORMAL INSPECTION, NORMOCEPHALIC - Eye Exam Eye Exam: EOMI, Normal appearance, PERRL Pupil Exam: NORMAL ACCOMODATION, PERRL - ENT Exam ENT Exam: Mucous Membranes Moist, Normal Exam - Neck Exam Neck exam: Positive for: Normal Inspection - Respiratory Exam Respiratory Exam: Clear to Auscultation Bilateral, NORMAL BREATHING PATTERN - Cardiovascular Exam Cardiovascular Exam: REGULAR RHYTHM, RRR, +S1, +S2, Systolic Murmur - GI/Abdominal Exam GI & Abdominal Exam: Normal Bowel Sounds, Soft. absent: Tenderness - Extremities Exam Extremities exam: Positive for: normal inspection Additional comments: poor pedal pules, dsg in RLE foot ulcer - Back Exam Back exam: NORMAL INSPECTION - Neurological Exam Neurological exam: Alert, CN II-XII Intact, Oriented x3, Reflexes Normal - Psychiatric Exam Psychiatric exam: Normal Affect, Normal Mood - Skin Skin Exam: Dry, Intact, Normal Color, Warm Results - Vital Signs Recent Vital Signs: Last Vital Signs Temp 98 F 12/28/16 08:12 Pulse 81 12/28/16 08:12 Resp 18 12/28/16 08:12 BP 166/77 H 12/28/16 08:12 Pulse Ox 97 12/28/16 08:12 - Labs Result Diagrams: 12/28/16 05:55 12/28/16 05:55 Labs: Laboratory Results - last 24 hr 12/26/16 12/27/16 12/27/16 20:45 15:45 17:00 WBC RBC Hgb Hct MCV MCH MCHC RDW Plt Count MPV Neut % (Auto) Lymph % (Auto) Geary % (Auto) Eos % (Auto) Baso % (Auto) Neut # Lymph # Geary # Eos # Baso # PT INR APTT Sodium Potassium Chloride Carbon Dioxide Anion Gap BUN Creatinine Est GFR ( Amer) Est GFR (Non-Af Amer) POC Glucose (mg/dL) > 500 H* 171 H Random Glucose Calcium Total Bilirubin AST ALT Alkaline Phosphatase Total Protein Albumin Globulin Albumin/Globulin Ratio Vancomycin Trough Hepatitis C Antibody Negative 12/27/16 12/28/16 12/28/16 21:42 05:14 05:55 WBC 10.1 RBC 3.70 L Hgb 11.3 L Hct 35.0 MCV 94.6 MCH 30.7 MCHC 32.4 L RDW 14.2 Plt Count 192 MPV 10.6 Neut % (Auto) 71.0 Lymph % (Auto) 18.9 L Geary % (Auto) 6.9 Eos % (Auto) 2.8 Baso % (Auto) 0.4 Neut # 7.2 H Lymph # 1.9 Geary # 0.7 Eos # 0.3 Baso # 0.0 PT INR APTT Sodium Potassium Chloride Carbon Dioxide Anion Gap BUN Creatinine Est GFR ( Amer) Est GFR (Non-Af Amer) POC Glucose (mg/dL) 216 H 286 H Random Glucose Calcium Total Bilirubin AST ALT Alkaline Phosphatase Total Protein Albumin Globulin Albumin/Globulin Ratio Vancomycin Trough Hepatitis C Antibody 12/28/16 12/28/16 12/28/16 05:55 05:55 05:55 WBC RBC Hgb Hct MCV MCH MCHC RDW Plt Count MPV Neut % (Auto) Lymph % (Auto) Geary % (Auto) Eos % (Auto) Baso % (Auto) Neut # Lymph # Geary # Eos # Baso # PT 10.7 INR 1.0 APTT 26.8 Sodium 138 Potassium 4.5 Chloride 106 Carbon Dioxide 25 Anion Gap 12 BUN 16 Creatinine 0.9 Est GFR ( Amer) > 60 Est GFR (Non-Af Amer) > 60 POC Glucose (mg/dL) Random Glucose 297 H Calcium 8.5 Total Bilirubin 0.3 AST 61 H ALT 90 H Alkaline Phosphatase 164 H Total Protein 6.4 Albumin 3.1 L Globulin 3.3 Albumin/Globulin Ratio 0.9 L Vancomycin Trough 10.4 H Hepatitis C Antibody Assessment & Plan (1) Non-healing ulcer of foot Assessment and Plan: will plan for peripheral angiogram today further titration based on findings of angiogram cont with DAPT Status: Acute (2) Diabetes mellitus Status: Acute (3) PVD (peripheral vascular disease) Status: Acute (4) Osteomyelitis of ankle or foot, acute Status: Acute (5) HTN (hypertension) Status: Acute
[2016-12-28 15:58] VITALS: BMI 47.5
--- NOTE | 2016-12-30 10:10 | CARD ---
APPROVED REPORT EKG Measurement Heart [id number] MI [id number] <Conclusion> Normal sinus rhythm Normal ECG
[2016-12-31 12:02] VITALS: O2SAT 98
== END 2016-12-28 22:25 | disposition short-term general hospital (02) | DRG 294 ==
LOC: H.ER 16:50 → H.ERHOLD 17:24 → H.TEL 21:41
PROVIDERS: ADMIT Family Medicine; ATTEND Family Medicine
DX: E11.621 Type 2 diabetes mellitus with foot ulcer (principal); L97.519 Non-pressure chronic ulcer of other part of right foot with unspecified severity; M86.671 Other chronic osteomyelitis, right ankle and foot; E11.51 Type 2 diabetes mellitus with diabetic peripheral angiopathy without gangrene; J44.9 Chronic obstructive pulmonary disease, unspecified; E11.65 Type 2 diabetes mellitus with hyperglycemia; I25.10 Atherosclerotic heart disease of native coronary artery without angina pectoris; I10 Essential (primary) hypertension; Z68.42 Body mass index [BMI] 45.0-49.9, adult; K21.9 Gastro-esophageal reflux disease without esophagitis; E78.00 Pure hypercholesterolemia, unspecified; E78.5 Hyperlipidemia, unspecified; E66.01 Morbid (severe) obesity due to excess calories; H40.9 Unspecified glaucoma; M19.90 Unspecified osteoarthritis, unspecified site; F17.210 Nicotine dependence, cigarettes, uncomplicated; Z90.49 Acquired absence of other specified parts of digestive tract; Z79.02 Long term (current) use of antithrombotics/antiplatelets; Z79.4 Long term (current) use of insulin; Z79.82 Long term (current) use of aspirin

== ENCOUNTER 2017-02-24 04:49 | Inpatient (IN) | payer MEDICAID ==
[2017-02-24 05:50] VITALS: BMI 35.9
--- NOTE | 2017-02-24 05:54 | ED PDOC ---
Syncope/Near Syncope/Dizziness Time Seen by Provider: 02/24/17 05:48 Chief Complaint (Nursing): Syncope Chief Complaint (Provider): Syncope History Per: Patient History/Exam Limitations: no limitations Current Symptoms Are (Timing): Still Present Number Of Syncopal Episodes: 1 Fall Associated With With Symptoms: No (Familiy caught the patient) Additional Complaint(s): 61 year old female presents to ED status post witnessed syncope with complaints of right sided lower back pain and has a past medical history of Hypertension, DM, hypercholesterolemia, and is currently taking a course of antibiotics for Pneumonia. (+) mild shortness of breath, (-) vomiting, diarrhea, or chest pain. Patient states that she did not fall after syncope, as her family caught her. Notes that back pain precedes syncopal episode. PCP: [facility] at [facility] Past Medical History Reviewed: Historical Data, Nursing Documentation, Vital Signs - Medical History PMH: Anemia, Arthritis, Asthma, CAD, COPD, Diabetes (Type I and II), GERD, HTN, Hypercholesterolemia Denies: HIV, Chronic Kidney Disease - Surgical History Surgical History: Cholecystectomy, (x1) - Family History Family History: States: Diabetes, Hypertension - Living Arrangements Living Arrangements: With Family - Immunization History Hx Tetanus Toxoid Vaccination: No - Home Medications Home Medications: Ambulatory Orders Medication Instructions Recorded Alogliptin Benzoate [Alogliptin] 25 mg PO DAILY 12/26/16 Aspirin [Ecotrin] 81 mg PO DAILY 12/26/16 Brinzolamide [Azopt] 1 drop BOTHEYES BID 12/26/16 Cholecalciferol [Vitamin D 1000 IU] 1,000 iu PO DAILY 12/26/16 Simvastatin [Zocor] 40 mg PO HS 12/26/16 Albuterol/Ipratropium [Duoneb 3 3 ml INH RQ6 #100 neb 02/15/17 mg/0.5 mg (3 ml) UD] Aluminum Hydroxide/Magnesium 30 ml PO Q6 PRN #250 ml 02/15/17 [Maalox Plus 30 ml] Carvedilol [Coreg] 25 mg PO Q12 #60 tab 02/15/17 Furosemide [Lasix] 40 mg PO DAILY #30 tab 02/15/17 Isosorbide Dinitrate [Isordil] 10 mg PO BID #60 tab 02/15/17 Moxifloxacin [Avelox] 400 mg PO DAILY #5 tab 02/15/17 Pantoprazole [Protonix EC Tab] 40 mg PO DAILY #30 ect 02/15/17 amLODIPine [Norvasc] 10 mg PO DAILY #30 tab 02/15/17 cloNIDine [Catapres] 0.1 mg PO BID #60 tab 02/15/17 hydrALAZINE [Apresoline] 100 mg PO Q8 #90 tab 02/15/17 Ascorbic Acid [Vitamin C 500 mg 500 mg PO DAILY 02/24/17 Tab] Cilostazol [Pletal] 100 mg PO BID 02/24/17 Insulin Detemir [Levemir] 20 units SC HS 02/24/17 Insulin Lispro Mix 75/25 [HumaLog 10 units SC ACBD 02/24/17 MIX 75/25] Montelukast [Singulair] 10 mg PO QPM 02/24/17 Multivitamin [Daily Doris] 1 tab PO DAILY 02/24/17 - Allergies Allergies/Adverse Reactions: Allergies Allergy/AdvReac Type Severity Reaction Status Date / Time azithromycin [From Zithromax] Allergy RASH Verified 02/24/17 05:47 Review of Systems ROS Statement: Except As Marked, All Systems Reviewed And Found Negative Cardiovascular: Negative for: Chest Pain Respiratory: Positive for: Shortness of Breath (mild) Gastrointestinal: Negative for: Vomiting, Diarrhea Musculoskeletal: Positive for: Back Pain (right lower back pain) Physical Exam - Reviewed Nursing Documentation Reviewed: Yes Vital Signs Reviewed: Yes - Physical Exam Appears: Positive for: Uncomfortable Head Exam: Positive for: ATRAUMATIC, NORMAL INSPECTION Skin: Positive for: Warm, Dry Eye Exam: Positive for: EOMI, PERRL ENT: Positive for: Normal ENT Inspection Neck: Positive for: Painless ROM, Supple Cardiovascular/Chest: Positive for: Regular Rate, Rhythm. Negative for: Edema Respiratory: Positive for: Normal Breath Sounds. Negative for: Wheezing, Respiratory Distress Gastrointestinal/Abdominal: Positive for: Soft. Negative for: Tenderness, Distended Back: Positive for: R CVA Tenderness. Negative for: L CVA Tenderness Extremity: Positive for: Normal ROM Neurologic/Psych: Positive for: Alert, Oriented - Laboratory Results Result Diagrams: 02/24/17 05:30 02/24/17 05:30 - ECG ECG: Positive for: Interpreted By Me, Viewed By Me ECG Rhythm: Positive for: Normal QRS, Normal ST Segment, Sinus Rhythm Rate: 86 Medical Decision Making Medical Decision Makin Initial impression: syncope and right flank pain DDx: cardiac arrhythmia, pulmonary embolism, renal stone, rule out AAA Initial plan: * CTA A/P * Labs * Trop I * Blood Cx Scribe Attestation: Documented by Serene Norman acting as a scribe for Gil Guajardo MD. Scribe Attestation: All medical record entries made by the Scribe were at my direction and personally dictated by me. I have reviewed the chart and agree that the record accurately reflects my personal performance of the history, physical exam, medical decision making, and the department course for this patient. I have also personally directed, reviewed, and agree with the discharge instructions and disposition. Disposition - Clinical Impression Clinical Impression: Syncope, Pancreatitis, acute - Patient ED Disposition Is Patient to be Admitted: Transfer of Care Counseled Patient/Family Regarding: Studies Performed, Diagnosis - Disposition Disposition: Transfer of Care Disposition Time: 07:00 Condition: FAIR
[2017-02-24] MEDS ORDERED: HYDROmorphone 0.5 mg/0.5 ml ISec IVP STA ×2 (06:09→14:00)
[2017-02-24 06:14] LABS: BASO # 0.1 K/uL (0.0-0.2); BASO % 0.9 % (0.0-2.0); EOS # 0.5 K/uL (0.0-0.7); EOS % 3.4 % (0.0-4.0); HEMATOCRIT 24.8 % (34.0-47.0); LYMPH % 15.1 % (20.0-40.0); MEAN CELL VOLUME 91.5 fl (81.0-99.0); MEAN CORPUSCULAR HEMOGLOBIN 30.4 pg (27.0-31.0); MEAN CORPUSCULAR HGB CONC 33.2 g/dL (33.0-37.0); MEAN PLATELET VOLUME 9.6 fl (7.2-11.7); MONO # 1.1 K/uL (0.0-0.8); MONO % 7.9 % (0.0-10.0); NEUT # 9.8 K/uL (1.8-7.0); NEUT % 72.7 % (50.0-75.0); RED CELL DISTRIBUTION WIDTH 16.7 % (11.5-14.5); WHITE BLOOD COUNT 13.4 K/uL (4.8-10.8)
[2017-02-24 06:23] LABS: CALCIUM 7.5 mg/dL (8.4-10.2); POTASSIUM 3.5 MMOL/L (3.6-5.0)
[2017-02-24 06:34] LABS: TROPONIN I 0.05 ng/mL (0.00-0.120)
[2017-02-24] MEDS ORDERED: Iohexol 300 100 ML IJ ONE (07:03)
[2017-02-24] MEDS ORDERED: Sodium Chloride 0.9% 50 ML IV ONE (07:04)
--- NOTE | 2017-02-24 07:16 | ED PDOC ---
- Laboratory Results Result Diagrams: 02/24/17 05:30 02/24/17 05:30 - ECG O2 Sat by Pulse Oximetry: 100 (RA) Pulse Ox Interpretation: Normal Medical Decision Making Medical Decision Making: Receiving sign out: Patient signed out to me by Dr. Guajardo at 0700 pending Troponin and DDimer results. Scribe Attestation: Documented by Nicole Landa acting as a scribe for Shona Nieves MD. Provider Attestation: All medical record entries made by the Scribe were at my direction and personally dictated by me. I have reviewed the chart and agree that the record accurately reflects my personal performance of the history, physical exam, medical decision making, and the department course for this patient. I have also personally directed, reviewed, and agree with the discharge instructions and disposition. Disposition Doctor Will See Patient In The: Hospital - Clinical Impression Clinical Impression: Syncope, Pancreatitis, acute - POA Present On Arrival: Falls Or Trauma - Disposition Referrals: Jose Roberto Johns MD [Primary Care Provider] - Disposition: Admitted as In-Patient Disposition Time: 12:05 Condition: GUARDED Forms: [facility] (Mauritanian) Progress Note - Review of Symptoms Events since last encounter: Time: 0740 Lab reviewed and indicate mildly elevated DDimer levels; CTA Abdomen and Pelvis ordered. Time: 1021 CTA CHEST IMPRESSION: 1. Suboptimal diagnostic quality for evaluation of pulmonary embolism due to missed bolus. Allowing for this, no large central pulmonary embolism. No aortic aneurysm. 2. Mild cardiomegaly, small pleural effusions, larger on the left and mild interstitial pulmonary edema. Time: 1041 CT ABDOMEN AND PELVIS IMPRESSION: 1. Findings are most compatible with acute pancreatitis involving the head and body of the pancreas with mild peripancreatic inflammatory changes without evidence of ductal dilatation or pseudocyst. 2. No hydronephrosis or pyelonephritis. 3. Moderate hepatomegaly
[2017-02-24] MEDS ORDERED: Iodixanol 320 MG/ML 100 ML BOTTLE IV ONE (08:40)
--- NOTE | 2017-02-24 08:53 | RAD ---
HISTORY: Chest pain COMPARISON: 02/11/2017 FINDINGS: LUNGS: No active pulmonary disease. PLEURA: No significant pleural effusion identified, no pneumothorax apparent. CARDIOVASCULAR: Cardiomegaly. No evidence of acute, significant cardiovascular disease. OSSEOUS STRUCTURES: No significant abnormalities. VISUALIZED UPPER ABDOMEN: Normal. OTHER FINDINGS: None. IMPRESSION: No active disease. BMD changes compared to the prior study Please note: No preliminary interpretation of this examination rendered by emergency department personnel.
[2017-02-24] MEDS ORDERED: HYDROmorphone 0.5 mg/0.5 ml ISec ONE ×4 (10:14→23:32)
[2017-02-24] MEDS: HYDROmorphone 0.5 mg/0.5 ml ISec IVP STA (10:20)
--- NOTE | 2017-02-24 10:22 | CT ---
PROCEDURE: CT Chest with contrast (Pulmonary Angiogram) HISTORY: high d-dimer COMPARISON: None available. TECHNIQUE: Axial computed tomography images were obtained of the chest in the pulmonary arterial phase of enhancement. Coronal and sagittal reformatted images were created and reviewed. Intravenous contrast dose: 95 mL Visipaque injected intravenously Radiation dose: Total exam DLP = 433.88 mGy-cm. This CT exam was performed using one or more of the following dose reduction techniques: Automated exposure control, adjustment of the mA and/or kV according to patient size, and/or use of iterative reconstruction technique. FINDINGS: PULMONARY ARTERIES: Examination is of suboptimal diagnostic quality for evaluation of pulmonary embolism due to missed bolus. Allowing for this, there is no central pulmonary embolism. AORTA: No aortic dissection. No thoracic aortic aneurysm. LUNGS: The lungs are well inflated. There is mild interlobular septal thickening and peripheral subsegmental atelectasis in the right middle lobe, lingula and both lower lobes. No focal consolidation. There are no endobronchial lesions. PLEURAL SPACES: There are bilateral small pleural effusions, larger on the left and compressive atelectasis in the lung bases. No pneumothorax. HEART: There is mild cardiomegaly. No pericardial effusion. LYMPH NODES: No pathologic mediastinal or hilar lymphadenopathy. BONES, CHEST WALL: Diffuse bone demineralization and multilevel degenerative disc disease. No fracture or destructive lesion OTHER FINDINGS: Unremarkable. IMPRESSION: 1. Suboptimal diagnostic quality for evaluation of pulmonary embolism due to missed bolus. Allowing for this, no large central pulmonary embolism. No aortic aneurysm. 2. Mild cardiomegaly, small pleural effusions, larger on the left and mild interstitial pulmonary edema.
--- NOTE | 2017-02-24 10:43 | CT ---
PROCEDURE: CT Abdomen and Pelvis with contrast HISTORY: flank pain COMPARISON: None. TECHNIQUE: CT scan of the abdomen and pelvis was performed after intravenous injection of contrast. Oral contrast was not administered. Coronal and sagittal reformatted images were obtained. Contrast dose: 95 mL Visipaque Radiation dose: Total exam DLP = 1007.72 mGy-cm. This CT exam was performed using one or more of the following dose reduction techniques: Automated exposure control, adjustment of the mA and/or kV according to patient size, and/or use of iterative reconstruction technique. FINDINGS: LIVER: There is moderate hepatomegaly and homogeneous enhancement. No gross lesion or ductal dilatation. GALLBLADDER AND BILE DUCTS: Surgically absent. PANCREAS: There is mild enlargement of the head of the pancreas with surrounding edema and indistinct margins. . There is redemonstration of indistinct margins in the body of the pancreas. No ductal dilatation or pseudocyst. SPLEEN: Normal in size and appearance. ADRENALS: No discrete nodule. KIDNEYS AND URETERS: Both kidneys are normal in size and there is homogeneous enhancement. There is contrast material in the collecting system and ureters from intravenous injection of contrast. No hydronephrosis. No solid mass. VASCULATURE: No aortic aneurysm. BOWEL: The small bowel loops are normal in caliber. APPENDIX: Normal appendix. PERITONEUM: No free fluid. No free air. LYMPH NODES: No enlarged lymph nodes. BLADDER: Grossly normal in appearance. REPRODUCTIVE: The uterus is surgically absent. BONES: No acute fracture. Diffuse bone demineralization and mild multilevel degenerative disc disease. OTHER FINDINGS: There is a right paramedian infraumbilical fat containing ventral hernia. IMPRESSION: 1. Findings are most compatible with acute pancreatitis involving the head and body of the pancreas with mild peripancreatic inflammatory changes without evidence of ductal dilatation or pseudocyst. 2. No hydronephrosis or pyelonephritis. 3. Moderate hepatomegaly
--- NOTE | 2017-02-24 15:20 | CP.PCM.HP ---
History of Present Illness - History of Present Illness History of Present Illness: 61 year old female presents to ED status post witnessed syncope with complaints of right sided lower back pain and has a past medical history of Hypertension, DM, hypercholesterolemia, and is currently taking a course of antibiotics for Pneumonia. (+) mild shortness of breath, (-) vomiting, diarrhea, or chest pain. Patient states that she did not fall after syncope, as her family caught her. Notes that back pain precedes syncopal episode. Present on Admission - Present on Admission Any Indicators Present on Admission: Yes History of DVT/PE: No Review of Systems - Review of Systems All systems: reviewed and no additional remarkable complaints except - Constitutional Constitutional: As Per HPI - Breasts Breasts: absent: As Per HPI, Change in Shape, Mass, Pain, Nipple Discharge, Nipple Inversion, Skin Changes, Swelling, Other - Cardiovascular Cardiovascular: absent: As Per HPI, Acrocyanosis, Chest Pain, Chest Pain at Rest , Chest Pain with Activity, Claudication, Diaphoresis, Dyspnea, Dyspnea on Exertion, Edema, Irregular Heart Rhythm, Pain Radiating to Arm/Neck/Jaw, Leg Edema, Leg Ulcers, Lightheadedness, Orthopnea, Palpitations, Paroxysmal Nocturnal Dyspnea, Pedal Edema, Radiating Pain, Rapid Heart Rate, Slow Heart Rate, Syncope, Other - Neurological Neurological: Syncope Past Patient History - Infectious Disease Hx of Infectious Diseases: None - Past Medical History & Family History Past Medical History?: Yes - Past Social History Smoking Status: Heavy Smoker > 10 Cigarettes Daily - CARDIAC Hx Hypercholesterolemia: Yes Hx Hypertension: Yes - PULMONARY Hx Asthma: Yes Hx Chronic Obstructive Pulmonary Disease (COPD): Yes - NEUROLOGICAL Hx Neurological Disorder: No - HEENT Hx HEENT Problems: Yes Hx Glaucoma: Yes (left eye and right eye) Other/Comment: uses glasses for reading. - RENAL Hx Chronic Kidney Disease: No - ENDOCRINE/METABOLIC Hx Endocrine Disorders: Yes Hx Diabetes Mellitus Type 2: Yes - HEMATOLOGICAL/ONCOLOGICAL Hx Anemia: Yes Hx Human Immunodeficiency Virus (HIV): No - INTEGUMENTARY Hx Dermatological Problems: No - MUSCULOSKELETAL/RHEUMATOLOGICAL Hx Arthritis: Yes - GASTROINTESTINAL Hx Gastroesophageal Reflux: Yes - GENITOURINARY/GYNECOLOGICAL Hx Genitourinary Disorders: No - PSYCHIATRIC Hx Psychophysiologic Disorder: No Hx Substance Use: No - SURGICAL HISTORY Hx Cholecystectomy: Yes - ANESTHESIA Hx Anesthesia: Yes Hx Anesthesia Reactions: No Hx Malignant Hyperthermia: No Meds Allergies/Adverse Reactions: Allergies Allergy/AdvReac Type Severity Reaction Status Date / Time azithromycin [From Zithromax] Allergy RASH Verified 02/24/17 05:47 Physical Exam - Head Exam Head Exam: ATRAUMATIC - Eye Exam Eye Exam: Normal appearance Pupil Exam: NORMAL ACCOMODATION - ENT Exam ENT Exam: Mucous Membranes Moist - Neck Exam Neck exam: Positive for: Normal Inspection - Respiratory Exam Respiratory Exam: Clear to Auscultation Bilateral, NORMAL BREATHING PATTERN - Cardiovascular Exam Cardiovascular Exam: REGULAR RHYTHM, +S1, +S2 - GI/Abdominal Exam GI & Abdominal Exam: Tenderness Additional comments: epigastric, pos guarding no rebound Results - Vital Signs Recent Vital Signs: Last Vital Signs Temp 98.3 F 02/24/17 05:00 Pulse 83 02/24/17 10:24 Resp 16 02/24/17 10:24 BP 154/78 H 02/24/17 10:24 Pulse Ox 100 02/24/17 12:46 - Labs Result Diagrams: 02/24/17 05:30 02/24/17 05:30 Labs: Laboratory Results - last 24 hr 02/24/17 02/24/17 02/24/17 05:30 05:30 06:41 WBC 13.4 H RBC 2.71 L Hgb 8.2 L Hct 24.8 L MCV 91.5 MCH 30.4 MCHC 33.2 RDW 16.7 H Plt Count 216 MPV 9.6 Neut % (Auto) 72.7 Lymph % (Auto) 15.1 L Casey % (Auto) 7.9 Eos % (Auto) 3.4 Baso % (Auto) 0.9 Neut # 9.8 H Lymph # 2.0 Casey # 1.1 H Eos # 0.5 Baso # 0.1 D-Dimer, Quantitative 5 H Sodium 143 Potassium 3.5 L Chloride 106 Carbon Dioxide 30 Anion Gap 11 BUN 25 H Creatinine 1.2 Est GFR ( Amer) 55 Est GFR (Non-Af Amer) 46 Random Glucose 161 H Calcium 7.5 L Troponin I 0.0500 Lipase 02/24/17 12:09 WBC RBC Hgb Hct MCV MCH MCHC RDW Plt Count MPV Neut % (Auto) Lymph % (Auto) Casey % (Auto) Eos % (Auto) Baso % (Auto) Neut # Lymph # Casey # Eos # Baso # D-Dimer, Quantitative Sodium Potassium Chloride Carbon Dioxide Anion Gap BUN Creatinine Est GFR ( Amer) Est GFR (Non-Af Amer) Random Glucose Calcium Troponin I Lipase 79 Assessment & Plan - Assessment and Plan (Free Text) Assessment: 1. Syncopal episode possibly vasovagal no cth in ER neuro consulted will monitor neuro checks 2. Ac pancreatitis CT a/p noted npo start IVF monitor labs dilaudid for pain \ 3. HTN cont coreg and norvasc 4. DM2 RISS cont to moinitr home meds 5. GERD protonix. 6. DVT PX scd 7. Leucocytosis h/o pneumonia pt afebrile ct chest and cxr no infiltrates check ua will monitor
[2017-02-24] MEDS ORDERED: Alum-Mag Hydrox-Simethicone Susp (30 mL) PO PRN (15:22)
[2017-02-24] MEDS ORDERED: HYDROmorphone 0.5 mg/0.5 ml ISec IVP SCH (16:00)
[2017-02-24 16:19] LABS: RBC URINE 52 /hpf (0-3); URINE BACTERIA RARE (<OCC); URINE BILIRUBIN NEGATIVE (NEGATIVE); URINE BLOOD SMALL (NEGATIVE); URINE COLOR YELLOW (YELLOW); URINE GLUCOSE (UA) NEG (Normal); URINE KETONE NEGATIVE (NEGATIVE); URINE LEUKOCYTE ESTERASE NEG Leu/uL (Negative); URINE PROTEIN >=500 mg/dL (NEGATIVE); URINE UROBILINOGEN 0.2-1.0 mg/dL (0.2-1.0)
[2017-02-24 16:24] LABS: WBC URINE 3 /hpf (0-5)
[2017-02-24] MEDS ORDERED: Insulin Lispro Mix 75/25 100 units/ml (HumaLog) 10ml SC SCH (16:30)
[2017-02-24] MEDS: Cilostazol 100 mg Tab UD PO SCH (17:13)
--- NOTE | 2017-02-24 18:04 | CARD ---
APPROVED REPORT EKG Measurement Heart [id number] <Conclusion> Normal sinus rhythm Normal ECG
[2017-02-24] MEDS ORDERED: Albuterol-Ipratrop 3 mg / 0.5 (3 ml) UD ONE (20:29)
[2017-02-24] MEDS: Albuterol-Ipratrop 3 mg / 0.5 (3 ml) UD INH SCH (20:34)
[2017-02-24] MEDS ORDERED: Insulin Detemir 100 Units/ml Inj SC SCH (22:00)
[2017-02-24] MEDS: Insulin Regular 100 units/ml SC SCH (22:45)
[2017-02-25] MEDS ORDERED: Albuterol-Ipratrop 3 mg / 0.5 (3 ml) UD ONE ×3 (02:07→17:33)
[2017-02-25] MEDS: Albuterol-Ipratrop 3 mg / 0.5 (3 ml) UD INH SCH ×3 (02:13→18:02)
[2017-02-25] MEDS ORDERED: HYDROmorphone 0.5 mg/0.5 ml ISec ONE ×3 (02:27→20:51)
[2017-02-25 06:55] LABS: HEMATOCRIT 22.6 % (34.0-47.0); MEAN CELL VOLUME 91.9 fl (81.0-99.0); MEAN CORPUSCULAR HEMOGLOBIN 30.5 pg (27.0-31.0); MEAN CORPUSCULAR HGB CONC 33.2 g/dL (33.0-37.0); RED CELL DISTRIBUTION WIDTH 16.5 % (11.5-14.5); WHITE BLOOD COUNT 9.6 K/uL (4.8-10.8)
[2017-02-25 07:51] LABS: ALB/GLOB RATIO 0.8 (1.0-2.1); BILIRUBIN,TOTAL 0.3 mg/dl (0.2-1.3); CALCIUM 7.2 mg/dL (8.4-10.2); TOTAL PROTEIN 5.9 G/DL (6.3-8.2)
[2017-02-25] MEDS: Insulin Regular 100 units/ml SC SCH ×3 (09:45→16:40)
[2017-02-25] MEDS: Cilostazol 100 mg Tab UD PO SCH ×2 (10:46→19:59)
[2017-02-25] MEDS: Pantoprazole 40 mg EC Tab PO SCH (10:48)
[2017-02-25] MEDS: Multivitamin With Minerals Tab PO SCH (10:50)
[2017-02-25] MEDS ORDERED: KCL 40MEQ/NS 1L 1,000 ML IV SCH (11:30)
--- NOTE | 2017-02-25 12:44 | CP.PCM.PN ---
Subjective - Date & Time of Evaluation Date of Evaluation: 02/25/17 Time of Evaluation: 10:00 - Subjective Subjective: pt seen and examined at bedside. nad. pt is still npo, no vomiting, chest pain, palpitations. pain is well controlled. pt had temp of 100.1 earlier, given tylenol pt understands condition and need for endoscopy in am. Objective - Vital Signs/Intake and Output Vital Signs (last 24 hours): Temp Pulse Resp BP Pulse Ox 100.0 F H 91 H 18 156/85 H 94 L 02/25/17 12:03 02/25/17 08:29 02/25/17 08:29 02/25/17 10:50 02/25/17 08:29 - Medications Medications: Current Medications Acetaminophen (Tylenol 325mg Tab) 650 mg PO Q6 PRN PRN Reason: Fever >100.4 F Last Admin: 02/25/17 12:03 Dose: 650 mg Al Hydrox/Mg Hydrox/Simethicone (Maalox Plus 30 Ml) 30 ml PO Q6 PRN PRN Reason: Indigestion / Heartburn Albuterol/Ipratropium (Duoneb 3 Mg/0.5 Mg (3 Ml) Ud) 3 ml INH RQ4 PRN PRN Reason: Shortness of Breath Albuterol/Ipratropium (Duoneb 3 Mg/0.5 Mg (3 Ml) Ud) 3 ml INH RQ6 MARISELA Last Admin: 02/25/17 10:51 Dose: 3 ml Amlodipine Besylate (Norvasc) 10 mg PO DAILY [facility] Last Admin: 02/25/17 10:47 Dose: 10 mg Aspirin (Ecotrin) 81 mg PO DAILY [facility] Last Admin: 02/25/17 10:47 Dose: 81 mg Atorvastatin Calcium (Lipitor) 20 mg PO HS [facility] Last Admin: 02/24/17 22:28 Dose: 20 mg Carvedilol (Coreg) 25 mg PO Q12 [facility] Last Admin: 02/25/17 10:46 Dose: 25 mg Cholecalciferol (Vitamin D) 1,000 iu PO DAILY [facility] Last Admin: 02/25/17 10:48 Dose: 1,000 iu Cilostazol (Pletal) 100 mg PO BID [facility] Last Admin: 02/25/17 10:46 Dose: 100 mg Clonidine HCl (Catapres) 0.1 mg PO BID [facility] Last Admin: 02/25/17 10:44 Dose: 0.1 mg Furosemide (Lasix) 40 mg PO DAILY [facility] Last Admin: 02/25/17 10:50 Dose: 40 mg Hydralazine HCl (Apresoline) 100 mg PO Q8 [facility] Last Admin: 02/25/17 10:43 Dose: 100 mg Hydromorphone HCl (Dilaudid) 0.5 mg IVP Q3 [facility] Last Admin: 02/25/17 11:59 Dose: 0.5 mg Potassium Chloride 20 meq/ (Sodium Chloride) 1,010 mls @ 150 mls/hr IV .Q6H44M [facility] Stop: 02/25/17 14:49 Last Admin: 02/24/17 17:07 Dose: 150 mls/hr Oral Electrolytes (Kcl 40meq/ 0.9% 1l) 1,000 mls @ 147.059 mls/hr IV .Q6H48M [facility] Last Admin: 02/25/17 12:05 Dose: 147.059 mls/hr Insulin Detemir (Levemir) 20 units SC [facility] Insulin Human Regular (Humulin R) 0 units SC [facility] PRN Reason: Protocol Last Admin: 02/25/17 09:45 Dose: Not Given Insulin Lispro Protam/Lispro Human (Humalog Mix 75/25) 10 units SC ACBD [facility] Isosorbide Dinitrate (Isordil) 10 mg PO BID [facility] Last Admin: 02/25/17 10:45 Dose: 10 mg Montelukast Sodium (Singulair) 10 mg PO QPM [facility] Last Admin: 02/24/17 22:28 Dose: 10 mg Multivitamins/Minerals (Therapeutic-M Tab) 1 tab PO DAILY [facility] Last Admin: 02/25/17 10:50 Dose: 1 tab Pantoprazole Sodium (Protonix Ec Tab) 40 mg PO DAILY [facility] Last Admin: 02/25/17 10:48 Dose: 40 mg - Labs Labs: 02/25/17 05:30 02/25/17 05:30 - Constitutional Appears: Well, Non-toxic - Eye Exam Eye Exam: Normal appearance - ENT Exam ENT Exam: Mucous Membranes Moist - Respiratory Exam Respiratory Exam: Clear to Ausculation Bilateral, NORMAL BREATHING PATTERN - Cardiovascular Exam Cardiovascular Exam: REGULAR RHYTHM, +S1, +S2 - GI/Abdominal Exam GI & Abdominal Exam: Tenderness Additional comments: epigastric tenderness, no guarding or rebound - Extremities Exam Extremities Exam: Full ROM Additional comments: no pedal edema Assessment and Plan - Assessment and Plan (Free Text) Assessment: 1. Syncopal episode possibly vasovagal no cth in ER neuro consulted will monitor neuro checks 2. Ac pancreatitis CT a/p noted npo start IVF monitor labs dilaudid for pain GI consulted, MRI ordered endo tomorrow. \ 3. HTN cont coreg and norvasc 4. DM2 RISS cont to moinitr home meds 5. GERD protonix. 6. DVT PX scd 7. Leucocytosis h/o pneumonia pt afebrile ct chest and cxr no infiltrates check ua blood cx ng so far wbc improving f/u urine culture 8. hypokalemia will correct lytes
--- NOTE | 2017-02-25 17:00 | CON ---
DATE: 02/25/2017 NEUROLOGY CONSULTATION CHIEF COMPLAINT: Syncope. HISTORY OF PRESENT ILLNESS: A 61-year-old woman with past medical history of type 2 diabetes, hypertension, hypercholesterolemia, who came in for right-sided lower quadrant back pain, which was followed by syncopal episode. She has had the back pain and had some mild shortness of breath and had passed out. No further syncopal episodes while she has been in the ER. A CT of the head showed no acute intracranial abnormality. CT of abdomen showed some evidence of acute pancreatitis for which she is n.p.o. and undergoing pain management, on IV fluids. She is probably going for an endoscopy in the morning. She received antibiotics for underlying pneumonia. No focal weakness of the extremities. She is A and O x 3. ALLERGIES: AZITHROMYCIN. PAST MEDICAL HISTORY: Diabetes, hypertension, and dyslipidemia. MEDICATIONS: Reviewed by nurse per reconciliation sheet. REVIEW OF SYSTEMS: A 14-point review of systems is negative except in the HPI. PHYSICAL EXAMINATION: VITAL SIGNS: Temperature 100, pulse rate is 97, blood pressure 156/85, respiratory rate of 18, oxygen saturation 98% by room air. GENERAL: Patient is sitting up in bed, in no acute distress. HEENT: Head is atraumatic and normocephalic. PERRLA. Extraocular muscles intact. NECK: Supple. No JVD. No adenopathy noted. LUNGS: Clear to auscultation. No adventitious sounds. HEART: S1, S2. Normal rate and rhythm. No murmurs, rubs, or gallops. ABDOMEN: Soft, nontender, nondistended. Bowel sounds are present. EXTREMITIES: No clubbing, no cyanosis. Peripheral pulses 2+ felt bilaterally. NEUROLOGIC: Patient is alert and oriented to person, place, month, and year. Speech is fluent without any errors. Sensory: Decreased light touch and pinprick up to the calves bilaterally. Decreased vibration at the toes. DTRs are 2+ throughout, 1 at both knees and absent at the ankles. Coordination: [id number] intact. Gait is deferred for now. LABORATORY DATA: Sodium is 142, potassium 3, chloride 104, carbon dioxide 30, BUN of 18, creatinine 1.2, random glucose 150. ASSESSMENT AND PLAN: This is a 61-year-old woman with history of type 2 diabetes mellitus, hypertension, dyslipidemia, and right lower quadrant pain, mostly in the back, which is followed by syncopal episode, palpitations, shortness of breath. Likely, her syncope is most likely vasovagal. She was also found to have acute pancreatitis for which she is n.p.o. and given IV fluids and therefore, likely the cause of her underlying low-grade fever. At this time, she will follow up with Gastroenterology pancreatitis and continue the hydration and correct any electrolyte abnormalities and will get orthostatic vital signs. Continue current present medical management. Thank you for this consult. Tony Arias MD
[2017-02-25] MEDS: HYDROmorphone 0.5 mg/0.5 ml ISec IVP STA (20:54)
[2017-02-26] MEDS: HYDROmorphone 0.5 mg/0.5 ml ISec IVP PRN ×7 (00:02→20:15)
[2017-02-26] MEDS: Insulin Regular 100 units/ml SC SCH ×5 (00:28→21:45)
[2017-02-26] MEDS: Potassium Chl 20 mEq in NS 1,000 ML IV SCH ×3 (00:30→22:21)
[2017-02-26] MEDS: Albuterol-Ipratrop 3 mg / 0.5 (3 ml) UD INH SCH ×4 (01:38→19:53)
[2017-02-26 07:08] LABS: BASO # 0.1 K/uL (0.0-0.2); BASO % 0.7 % (0.0-2.0); EOS # 0.2 K/uL (0.0-0.7); EOS % 1.9 % (0.0-4.0); HEMATOCRIT 21.6 % (34.0-47.0); LYMPH # 0.8 K/uL (1.0-4.3); LYMPH % 8.4 % (20.0-40.0); MEAN CELL VOLUME 92.4 fl (81.0-99.0); MEAN CORPUSCULAR HGB CONC 32.4 g/dL (33.0-37.0); MEAN PLATELET VOLUME 8.4 fl (7.2-11.7); MONO # 0.7 K/uL (0.0-0.8); MONO % 7.4 % (0.0-10.0); NEUT # 7.9 K/uL (1.8-7.0); NEUT % 81.6 % (50.0-75.0); PLATELET COUNT 197 K/uL (130-400); RED CELL DISTRIBUTION WIDTH 16.6 % (11.5-14.5); WHITE BLOOD COUNT 9.7 K/uL (4.8-10.8)
[2017-02-26 07:18] LABS: ALB/GLOB RATIO 0.8 (1.0-2.1); BILIRUBIN,TOTAL 0.2 mg/dl (0.2-1.3); POTASSIUM 3.4 MMOL/L (3.6-5.0); TOTAL PROTEIN 5.7 G/DL (6.3-8.2)
--- NOTE | 2017-02-26 08:47 | CON ---
DATE: 02/24/2017 REFERRING PROVIDER: REASON FOR CONSULTATION: Nausea, vomiting, abdominal pain. HISTORY OF PRESENT ILLNESS: This is a pleasant 61-year-old female who just was in the hospital and I saw for the same things of nausea and vomiting, and is now back for essentially right-sided lower abdominal pain, history of hypertension, hyperlipidemia, hypercholesterolemia. Currently taking antibiotics for pneumonia, comes in with some vomiting, and no diarrhea, no fever or chills. Lying in bed comfortably, in no apparent distress. PAST MEDICAL HISTORY: As above. PAST SURGICAL HISTORY: As above. MEDICATIONS: Have been reviewed. REVIEW OF SYSTEMS: All other systems have been reviewed and negative apart from the HPI. PHYSICAL EXAMINATION: GENERAL: A pleasant, elderly-appearing female, lying in bed comfortably, in no apparent distress. VITAL SIGNS: In the hospital, grossly unremarkable. HEENT: Head: Normocephalic, atraumatic. Eyes: Pupils are equally reactive to light bilaterally. No conjunctival pallor or icterus. NECK: Supple. Normal range of motion. No lymphadenopathy appreciated. LUNGS: Coarse breath sounds bilaterally. HEART: S1, S2. Regular rate and rhythm. No murmurs appreciated. ABDOMEN: Soft, nontender. Bowel sounds are present. No rebound, no guarding. RECTAL: Deferred. EXTREMITIES: Pulses present bilaterally. SKIN: Warm, dry, and intact. NEUROLOGIC: A and O x3. LABORATORY DATA: All labs and relevant radiology have been reviewed. CAT scan of the abdomen and pelvis shows pancreatitis in the head and body with mild pancreatic atrophy, some inflammatory changes. Labs include a WBC of 13.4, hemoglobin 8.2; potassium 3.5 and lipase of 79. ASSESSMENT AND PLAN: This is a 61-year-old female with abdominal pain, nausea and vomiting. From gastrointestinal standpoint, this is acute pancreatitis. We will get an endoscopy in this admission. Correct potassium. Thank you for consult. Juan Alberto Vora MD/ PhD CC: ____
[2017-02-26] MEDS ORDERED: Potassium CL 10 MEQ/50 ML 50 ML IVPB ONE (08:50)
[2017-02-26] MEDS: Pantoprazole 40 mg EC Tab PO SCH (09:44)
[2017-02-26] MEDS: Multivitamin With Minerals Tab PO SCH (09:44)
[2017-02-26] MEDS: Cilostazol 100 mg Tab UD PO SCH ×2 (09:45→16:34)
[2017-02-26 10:16] LABS: EOSINOPHIL 2 % (0-7); NEUTROPHIL 82 % (42-75); TOTAL CELLS COUNTED 100
[2017-02-26 10:17] LABS: LARGE PLATELETS PRESENT
--- NOTE | 2017-02-26 11:00 | PQF GENQUE ---
Dr. Bolivar, In agreement with the following data listed in the EMR?: BMI:43.0 5ft 10 in (1) If in agreement :please add the BMI to your next progress note (2) please document a corresponding dx: i.e. Obesity or Morbid Obesity etc. OR: Disagree OR: Other explanation of clinical finding This form is a permanent part of the medical record Clarification of your documentation is requested to better reflect the severity of illness and intensity of treatment of your patient. Indicators present [] Specify: [] [] Specify: [] [] Specify: [] [] Specify: [] Location in the medical record that reflects the above clinical findings: [] Treatment Provided: [] PHYSICIAN'S RESPONSE Based on your medical judgment of the clinical indicators outlined above please clarify the following: [] Practitioner response [] If unable to determine, please check the box, sign and date. Present On Admission (POA) Indicator: [] Present at the time of admission [] Not present at the time of admission [] Clinically Undetermined In responding to this query, please exercise your independent professional judgment. The fact that a question is asked does not imply that any particular answer is desired or expected. Thank you for your clarification on this documentation. If you have any questions please call. * Thank you, Leda Sorensen RN ext. #[phone] MTDD
[2017-02-26] MEDS ORDERED: EPINEPHrine 1 mg/ml (1:1000) Inj ONE (11:04)
[2017-02-26] MEDS ORDERED: Sodium Chloride 0.9% 1,000 ML IV ONE (11:39)
[2017-02-26] MEDS ORDERED: Etomidate 20 mg/10ml Inj IV ONE (11:41)
[2017-02-26] MEDS ORDERED: Propofol 10 mg/ml Inj (20 ML) ONE (11:42)
[2017-02-26] MEDS ORDERED: Lidocaine 2% MPF (5 ml) Inj ONE (11:43)
--- NOTE | 2017-02-26 11:48 | CP.PCM.PN ---
Subjective - Date & Time of Evaluation Date of Evaluation: 02/26/17 Time of Evaluation: 10:00 - Subjective Subjective: pt ready for egd today. hb is low. cont to have abdominal pain. Objective - Vital Signs/Intake and Output Vital Signs (last 24 hours): Temp Pulse Resp BP Pulse Ox 99.9 F H 88 20 121/72 92 L 02/26/17 11:41 02/26/17 11:41 02/26/17 11:41 02/26/17 11:41 02/26/17 11:41 - Medications Medications: Current Medications Acetaminophen (Tylenol 325mg Tab) 650 mg PO Q6 PRN PRN Reason: Fever >100.4 F Last Admin: 02/26/17 09:42 Dose: 650 mg Al Hydrox/Mg Hydrox/Simethicone (Maalox Plus 30 Ml) 30 ml PO Q6 PRN PRN Reason: Indigestion / Heartburn Albuterol/Ipratropium (Duoneb 3 Mg/0.5 Mg (3 Ml) Ud) 3 ml INH RQ4 PRN PRN Reason: Shortness of Breath Albuterol/Ipratropium (Duoneb 3 Mg/0.5 Mg (3 Ml) Ud) 3 ml INH RQ6 [facility] Last Admin: 02/26/17 07:56 Dose: 3 ml Amlodipine Besylate (Norvasc) 10 mg PO DAILY [facility] Last Admin: 02/26/17 09:54 Dose: Not Given Aspirin (Ecotrin) 81 mg PO DAILY [facility] Last Admin: 02/25/17 10:47 Dose: 81 mg Atorvastatin Calcium (Lipitor) 20 mg PO HS [facility] Last Admin: 02/26/17 00:27 Dose: 20 mg Carvedilol (Coreg) 25 mg PO Q12 [facility] Last Admin: 02/26/17 09:53 Dose: Not Given Cholecalciferol (Vitamin D) 1,000 iu PO DAILY [facility] Last Admin: 02/26/17 09:45 Dose: 1,000 iu Cilostazol (Pletal) 100 mg PO BID [facility] Last Admin: 02/26/17 09:45 Dose: 100 mg Clonidine HCl (Catapres) 0.1 mg PO BID [facility] Last Admin: 02/26/17 09:53 Dose: Not Given Furosemide (Lasix) 40 mg PO DAILY [facility] Last Admin: 02/26/17 09:55 Dose: Not Given Hydralazine HCl (Apresoline) 100 mg PO Q8 [facility] Last Admin: 02/26/17 09:54 Dose: Not Given Hydromorphone HCl (Dilaudid) 0.5 mg IVP Q3 PRN PRN Reason: Pain, moderate (4-7) Last Admin: 02/26/17 09:38 Dose: 0.5 mg Potassium Chloride/Sodium Chloride (Potassium Chl 20 Meq In Ns) 1,000 mls @ 99.01 mls/hr IV .Q10H6M [facility] Stop: 02/26/17 23:50 Last Admin: 02/26/17 09:55 Dose: 99.01 mls/hr Insulin Detemir (Levemir) 20 units SC HS [facility] Insulin Human Regular (Humulin R) 0 units SC ACHS [facility] PRN Reason: Protocol Last Admin: 02/26/17 06:48 Dose: Not Given Insulin Lispro Protam/Lispro Human (Humalog Mix 75/25) 10 units SC ACBD [facility] Isosorbide Dinitrate (Isordil) 10 mg PO BID [facility] Last Admin: 02/26/17 09:54 Dose: Not Given Montelukast Sodium (Singulair) 10 mg PO HS [facility] Last Admin: 02/26/17 00:26 Dose: 10 mg Multivitamins/Minerals (Therapeutic-M Tab) 1 tab PO DAILY [facility] Last Admin: 02/26/17 09:44 Dose: 1 tab Pantoprazole Sodium (Protonix Ec Tab) 40 mg PO DAILY [facility] Last Admin: 02/26/17 09:44 Dose: 40 mg Potassium Chloride (Potassium Chloride Oral Soln) 40 meq PO DAILY [facility] - Labs Labs: 02/26/17 06:50 02/26/17 06:50 - Head Exam Head Exam: NORMAL INSPECTION - Eye Exam Pupil Exam: NORMAL ACCOMODATION - ENT Exam ENT Exam: Mucous Membranes Moist - Respiratory Exam Respiratory Exam: Clear to Ausculation Bilateral, NORMAL BREATHING PATTERN - Cardiovascular Exam Cardiovascular Exam: REGULAR RHYTHM, +S1, +S2 - GI/Abdominal Exam GI & Abdominal Exam: Soft, Normal Bowel Sounds Assessment and Plan - Assessment and Plan (Free Text) Assessment: 1. Syncopal episode possibly vasovagal no cth in ER neuro consulted will monitor neuro checks 2. Ac pancreatitis CT a/p noted npo start IVF monitor labs dilaudid for pain GI consulted, MRI ordered endo tomorrow. \ 3. HTN cont coreg and norvasc 4. DM2 RISS cont to moinitr home meds 5. GERD protonix. 6. DVT PX scd 7. Leucocytosis h/o pneumonia pt afebrile ct chest and cxr no infiltrates check ua blood cx ng so far wbc improving f/u urine culture 8. hypokalemia will correct lytes 9. anemia egd today transfuse one unit
--- NOTE | 2017-02-26 18:22 | CP.PCM.PN ---
Subjective - Date & Time of Evaluation Date of Evaluation: 02/26/17 Time of Evaluation: 18:16 - Subjective Subjective: I D NOTE HAVE DISCUSSED C STUDENT SERVICES COUNSELOR EARLIER ADVISED TO DISCONTINUE PICC LINE START DIFLUCAN 200MG IVPB Q24H WILL SEE TOMORROW Objective - Vital Signs/Intake and Output Vital Signs (last 24 hours): Temp Pulse Resp BP Pulse Ox 99.4 F 80 18 175/76 H 95 02/26/17 16:33 02/26/17 16:33 02/26/17 16:33 02/26/17 16:33 02/26/17 16:33 Intake and Output: 02/26/17 02/26/17 06:59 18:59 Intake Total 150 Balance 150 - Medications Medications: Current Medications Acetaminophen (Tylenol 325mg Tab) 650 mg PO Q6 PRN PRN Reason: Fever >100.4 F Last Admin: 02/26/17 09:42 Dose: 650 mg Al Hydrox/Mg Hydrox/Simethicone (Maalox Plus 30 Ml) 30 ml PO Q6 PRN PRN Reason: Indigestion / Heartburn Albuterol/Ipratropium (Duoneb 3 Mg/0.5 Mg (3 Ml) Ud) 3 ml INH RQ4 PRN PRN Reason: Shortness of Breath Albuterol/Ipratropium (Duoneb 3 Mg/0.5 Mg (3 Ml) Ud) 3 ml INH RQ6 [facility] Last Admin: 02/26/17 13:02 Dose: 3 ml Amlodipine Besylate (Norvasc) 10 mg PO DAILY [facility] Last Admin: 02/26/17 09:54 Dose: Not Given Aspirin (Ecotrin) 81 mg PO DAILY [facility] Last Admin: 02/25/17 10:47 Dose: 81 mg Atorvastatin Calcium (Lipitor) 20 mg PO HS [facility] Last Admin: 02/26/17 00:27 Dose: 20 mg Carvedilol (Coreg) 25 mg PO Q12 [facility] Last Admin: 02/26/17 09:53 Dose: Not Given Cholecalciferol (Vitamin D) 1,000 iu PO DAILY [facility] Last Admin: 02/26/17 09:45 Dose: 1,000 iu Cilostazol (Pletal) 100 mg PO BID [facility] Last Admin: 02/26/17 16:34 Dose: 100 mg Clonidine HCl (Catapres) 0.1 mg PO BID [facility] Last Admin: 02/26/17 16:33 Dose: 0.1 mg Furosemide (Lasix) 40 mg PO DAILY [facility] Last Admin: 02/26/17 09:55 Dose: Not Given Hydralazine HCl (Apresoline) 100 mg PO Q8 [facility] Last Admin: 02/26/17 16:31 Dose: 100 mg Hydromorphone HCl (Dilaudid) 0.5 mg IVP Q3 PRN PRN Reason: Pain, moderate (4-7) Last Admin: 02/26/17 16:31 Dose: 0.5 mg Potassium Chloride/Sodium Chloride (Potassium Chl 20 Meq In Ns) 1,000 mls @ 99.01 mls/hr IV .Q10H6M [facility] Stop: 02/26/17 23:50 Last Admin: 02/26/17 09:55 Dose: 99.01 mls/hr Fluconazole (Diflucan Iv 200 Mg/100 Ml Ns) 100 mls @ 100 mls/hr IVPB ONCE ONE Stop: 02/27/17 15:25 Insulin Detemir (Levemir) 20 units SC [facility] Insulin Human Regular (Humulin R) 0 units SC ACHS [facility] PRN Reason: Protocol Last Admin: 02/26/17 06:48 Dose: Not Given Insulin Lispro Protam/Lispro Human (Humalog Mix 75/25) 10 units SC ACBD [facility] Isosorbide Dinitrate (Isordil) 10 mg PO BID [facility] Last Admin: 02/26/17 16:34 Dose: 10 mg Montelukast Sodium (Singulair) 10 mg PO HS [facility] Last Admin: 02/26/17 00:26 Dose: 10 mg Multivitamins/Minerals (Therapeutic-M Tab) 1 tab PO DAILY [facility] Last Admin: 02/26/17 09:44 Dose: 1 tab Pantoprazole Sodium (Protonix Ec Tab) 40 mg PO DAILY [facility] Last Admin: 02/26/17 09:44 Dose: 40 mg Potassium Chloride (Potassium Chloride Oral Soln) 40 meq PO DAILY [facility] - Labs Labs: 02/26/17 06:50 02/26/17 06:50
[2017-02-26] MEDS ORDERED: Nitroglycerin 2% 15 INCH/30 GM TUBE TOP STA (21:04)
[2017-02-26] MEDS ORDERED: Nitroglycerin 2% Ointment Foilpak UD TOP ONE (21:06)
[2017-02-26 21:26] LABS: ABG ALLEN TEST YES; ABG MECHANICAL RATE 18; ARTERIAL BLOOD GAS HCO3 24.6 mmol/L (21-28); ARTERIAL BLOOD GAS MODE BiPAP; ARTERIAL BLOOD GAS PH 7.25 (7.35-7.45); ARTERIAL BLOOD GAS PO2 142 mm/Hg (80-100)
--- NOTE | 2017-02-26 22:09 | PCM.RRT ---
RADIOLOGY ASSISTANT Nurse Assessment - Situation RADIOLOGY ASSISTANT Responder Arrival Time: 21:00 RADIOLOGY ASSISTANT Reason for Call: O2 Saturation below 90% RADIOLOGY ASSISTANT Called By: RN - IV IV Inserted during RADIOLOGY ASSISTANT?: No - Respiratory Oxygen Delivery Method: BiPAP (/6, FIO2 100%) - Ventilator Settings FIO2 (% Oxygen): 100 - Medication Medications Administered During RADIOLOGY ASSISTANT: Nitro SL, Nitro 1inch TOP, Lasix 40mg IVP - Stat Labs Ordered RADIOLOGY ASSISTANT Stat Labs Ordered: ABG - Vital Signs Vital Signs: BP 173/84 HR 123 RR 16 O2 84 FSGlucose 199 - [place] Coma Scale Coma Scale Eye Opening: Spontaneous Coma Scale Motor: Obeys Commands Movement Coma Scale Verbal: Oriented Coma Scale Total: 15 - Time RADIOLOGY ASSISTANT Ended Time RADIOLOGY ASSISTANT Ended: 21:40 - Vital Signs at end of RADIOLOGY ASSISTANT Vital Signs at end of RADIOLOGY ASSISTANT: BP 180/90 HR 131 RR 26 O2 100% - Recommendations RADIOLOGY ASSISTANT Level of Care Recommendations: Remain in current setting I.Reason for RADIOLOGY ASSISTANT - A) Acute Change in Patient: (Select all that apply): Staff member or family is worried about patient ( Respiratory distress, O2 75%) - Neurological Status (Select all that apply): Alert, Responsive, Oriented, Verbal - Respiratory Oxygen Delivery Method: BiPAP @% (/, FIO2 100%) - Constitutional Appears: In Acute Distress, Confused - Head Head Exam: ATRAUMATIC, NORMOCEPHALIC - Eyes Eye Exam: EOMI, Normal appearance - Respiratory Exam Respiratory Exam: Clear to Ausculation Bilateral, Respiratory Distress - Cardiovascular Exam Cardiovascular Exam: Tachycardia, REGULAR RHYTHM, +S1, +S2 - GI/Abdominal Exam GI & Abdominal Exam: Soft, Tenderness, Normal Bowel Sounds - Neurological Exam Neurological Exam: Alert, Awake - Extremities Exam Extremities Exam: Normal Inspection (SCDs on), Pedal Edema Plan - Assessment of Findings&Treatment Plan 61 YO Female is admitted for acute pancreatitis was found to be dyspneic by nurse and RADIOLOGY ASSISTANT was called. O2 saturation was found to be 75, and pt was in respiratory distress. RADIOLOGY ASSISTANT team arrived, with Dr. Hunter by bedside. pt was found mildly disoriented, and in distress. O2 was administered by NC, continuous treatment with duonab was started, IVP laxis 40mg was administered, followed by Nitro paste 1inch was administered. Chest x-ray and ABG was ordered. O2 improved to 80s, and RR was in 30s. PT was started on BIPAP at 14/6 at FIO2 @100 %. Chest x-ray appreciated, venous congestion seen. BP was found to be elevated , SL nitro administered. RADIOLOGY ASSISTANT ended, pt was in NAD and breathing more comfortably , disorientation resolved- O2 100% and RR 22. Acute respiratory distress -likely 2/2 to fluid overload -ABG; respiratory acidosis with pH 7.25, PCO2 63. -Chest x-ray appreciated (read by me), venous congestion noted. -lasix 40mg IVP administered, 2nd dose of lasix 40mg IVP ordered in 6hrs -nitro paste and SL administered -BIPAP started
[2017-02-27] MEDS: Albuterol-Ipratrop 3 mg / 0.5 (3 ml) UD INH SCH ×4 (01:09→19:12)
[2017-02-27 07:42] LABS: HEMATOCRIT 22.6 % (34.0-47.0); MEAN CELL VOLUME 90.3 fl (81.0-99.0); MEAN CORPUSCULAR HEMOGLOBIN 30.3 pg (27.0-31.0); MEAN CORPUSCULAR HGB CONC 33.6 g/dL (33.0-37.0); WHITE BLOOD COUNT 10.1 K/uL (4.8-10.8)
[2017-02-27] MEDS: Pantoprazole 40 mg EC Tab PO SCH (09:18)
[2017-02-27] MEDS: Cilostazol 100 mg Tab UD PO SCH ×2 (09:19→16:56)
[2017-02-27] MEDS: Potassium Chloride 20 mEq/15 ml LIQ UD PO SCH (09:19)
[2017-02-27] MEDS: Multivitamin With Minerals Tab PO SCH (09:20)
[2017-02-27] MEDS: Insulin Regular 100 units/ml SC SCH ×4 (09:21→23:00)
[2017-02-27] MEDS ORDERED: Fluconazole 150 MG TAB PO ONE (11:41)
--- NOTE | 2017-02-27 12:35 | RAD ---
HISTORY: dyspnea COMPARISON: Comparison made with the chest radiograph and CTA chest both dated 02/24/2017 02/24/2017 FINDINGS: LUNGS: Diffuse bilateral infiltrates consistent with pulmonary edema/CHF. . Small bilateral effusions PLEURA: As above. No apparent Pneumothorax apparent. CARDIOVASCULAR: Normal. OSSEOUS STRUCTURES: No significant abnormalities. VISUALIZED UPPER ABDOMEN: Normal. OTHER FINDINGS: None. IMPRESSION: Diffuse bilateral infiltrates consistent with pulmonary edema/CHF. . Small bilateral effusions
[2017-02-27] MEDS: HYDROmorphone 0.5 mg/0.5 ml ISec IVP PRN ×3 (12:53→23:00)
[2017-02-27] MEDS ORDERED: Fluconazole IV 200mg/100 ml NS 100 ML IVPB ONE (14:26)
--- NOTE | 2017-02-27 15:16 | CP.PCM.PN ---
Subjective - Date & Time of Evaluation Date of Evaluation: 02/27/17 Time of Evaluation: 10:00 - Subjective Subjective: pt seen and examined at bedside. 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 tolerating po Objective - Vital Signs/Intake and Output Vital Signs (last 24 hours): Temp Pulse Resp BP Pulse Ox 97.8 F 80 20 153/75 H 98 02/27/17 09:00 02/27/17 09:20 02/27/17 09:00 02/27/17 09:20 02/27/17 09:00 - Medications Medications: Current Medications Acetaminophen (Tylenol 325mg Tab) 650 mg PO Q6 PRN PRN Reason: Fever >100.4 F Last Admin: 02/27/17 00:12 Dose: 650 mg Al Hydrox/Mg Hydrox/Simethicone (Maalox Plus 30 Ml) 30 ml PO Q6 PRN PRN Reason: Indigestion / Heartburn Albuterol/Ipratropium (Duoneb 3 Mg/0.5 Mg (3 Ml) Ud) 3 ml INH RQ4 PRN PRN Reason: Shortness of Breath Albuterol/Ipratropium (Duoneb 3 Mg/0.5 Mg (3 Ml) Ud) 3 ml INH RQ6 [facility] Last Admin: 02/27/17 13:57 Dose: 3 ml Amlodipine Besylate (Norvasc) 10 mg PO DAILY [facility] Last Admin: 02/27/17 09:19 Dose: 10 mg Aspirin (Ecotrin) 81 mg PO DAILY [facility] Last Admin: 02/25/17 10:47 Dose: 81 mg Atorvastatin Calcium (Lipitor) 20 mg PO HS [facility] Last Admin: 02/26/17 22:20 Dose: 20 mg Carvedilol (Coreg) 25 mg PO Q12 [facility] Last Admin: 02/27/17 09:20 Dose: 25 mg Cholecalciferol (Vitamin D) 1,000 iu PO DAILY [facility] Last Admin: 02/27/17 09:18 Dose: 1,000 iu Cilostazol (Pletal) 100 mg PO BID [facility] Last Admin: 02/27/17 09:19 Dose: 100 mg Clonidine HCl (Catapres) 0.1 mg PO BID [facility] Last Admin: 02/27/17 09:18 Dose: 0.1 mg Furosemide (Lasix) 40 mg PO DAILY [facility] Last Admin: 02/27/17 09:18 Dose: 40 mg Hydralazine HCl (Apresoline) 100 mg PO Q8 [facility] Last Admin: 02/27/17 09:19 Dose: 100 mg Hydromorphone HCl (Dilaudid) 0.5 mg IVP Q3 PRN PRN Reason: Pain, moderate (4-7) Last Admin: 02/27/17 12:53 Dose: 0.5 mg Fluconazole (Diflucan Iv 200 Mg/100 Ml Ns) 100 mls @ 100 mls/hr IVPB ONCE ONE Stop: 02/27/17 15:25 Last Admin: 02/27/17 13:44 Dose: 100 mls/hr Fluconazole (Diflucan Iv 200 Mg/100 Ml Ns) 100 mls @ 100 mls/hr IVPB DAILY [facility] Insulin Detemir (Levemir) 20 units SC HS [facility] Insulin Human Regular (Humulin R) 0 units SC ACHS [facility] PRN Reason: Protocol Last Admin: 02/27/17 12:55 Dose: 2 unit Insulin Lispro Protam/Lispro Human (Humalog Mix 75/25) 10 units SC ACBD [facility] Isosorbide Dinitrate (Isordil) 10 mg PO BID [facility] Last Admin: 02/27/17 09:18 Dose: 10 mg Linezolid (Zyvox) 600 mg PO Q12 [facility] PRN Reason: Protocol Last Admin: 02/27/17 12:53 Dose: 600 mg Montelukast Sodium (Singulair) 10 mg PO HS [facility] Last Admin: 02/26/17 22:21 Dose: 10 mg Multivitamins/Minerals (Therapeutic-M Tab) 1 tab PO DAILY [facility] Last Admin: 02/27/17 09:20 Dose: 1 tab Pantoprazole Sodium (Protonix Ec Tab) 40 mg PO DAILY [facility] Last Admin: 02/27/17 09:18 Dose: 40 mg Potassium Chloride (Potassium Chloride Oral Soln) 40 meq PO DAILY [facility] Last Admin: 02/27/17 09:19 Dose: 40 meq - Labs Labs: 02/27/17 06:30 02/26/17 06:50 - Constitutional Appears: Well, Non-toxic - Head Exam Head Exam: NORMAL INSPECTION - Eye Exam Eye Exam: Normal appearance Pupil Exam: NORMAL ACCOMODATION - ENT Exam ENT Exam: Mucous Membranes Moist - Neck Exam Neck Exam: Full ROM - Respiratory Exam Respiratory Exam: Clear to Ausculation Bilateral, NORMAL BREATHING PATTERN - Cardiovascular Exam Cardiovascular Exam: REGULAR RHYTHM, +S1, +S2 - GI/Abdominal Exam GI & Abdominal Exam: Soft, Normal Bowel Sounds Additional comments: tenderness in epigastric region - Extremities Exam Extremities Exam: Full ROM Assessment and Plan - Assessment and Plan (Free Text) Assessment: 1. Syncopal episode possibly vasovagal no cth in ER neuro consulted will monitor neuro checks 2. Ac pancreatitis CT a/p noted npo start IVF monitor labs dilaudid for pain GI consulted, MRI ordered endo tomorrow. \ 3. HTN cont coreg and norvasc 4. DM2 RISS cont to moinitr home meds 5. GERD protonix. 6. DVT PX scd 7. UTI/pos blood culture ID consulted started zyvox and diflucan cont to monitor. 8. hypokalemia will correct lytes 9. anemia egd today transfuse one unit
[2017-02-28] MEDS: Albuterol-Ipratrop 3 mg / 0.5 (3 ml) UD INH SCH ×4 (01:05→19:16)
[2017-02-28] MEDS: HYDROmorphone 0.5 mg/0.5 ml ISec IVP PRN ×4 (06:50→21:46)
[2017-02-28] MEDS: Fluconazole IV 200mg/100 ml NS 100 ML IVPB SCH (08:12)
[2017-02-28] MEDS: Insulin Regular 100 units/ml SC SCH ×4 (08:13→21:40)
[2017-02-28] MEDS: Cilostazol 100 mg Tab UD PO SCH ×2 (08:15→16:08)
[2017-02-28] MEDS: Pantoprazole 40 mg EC Tab PO SCH (08:15)
[2017-02-28] MEDS: Multivitamin With Minerals Tab PO SCH (08:15)
[2017-02-28] MEDS: Potassium Chloride 20 mEq/15 ml LIQ UD PO SCH (08:18)
[2017-02-28 10:58] LABS: HEMATOCRIT 23.5 % (34.0-47.0); MEAN CELL VOLUME 90.6 fl (81.0-99.0); MEAN CORPUSCULAR HEMOGLOBIN 30.1 pg (27.0-31.0); MEAN CORPUSCULAR HGB CONC 33.2 g/dL (33.0-37.0); RED CELL DISTRIBUTION WIDTH 16.8 % (11.5-14.5)
[2017-02-28 11:22] LABS: ALB/GLOB RATIO 0.8 (1.0-2.1); BILIRUBIN,TOTAL 0.3 mg/dl (0.2-1.3); CALCIUM 7.7 mg/dL (8.4-10.2); POTASSIUM 4.3 MMOL/L (3.6-5.0); TOTAL PROTEIN 6.1 G/DL (6.3-8.2)
--- NOTE | 2017-02-28 12:34 | CP.PCM.PN ---
Subjective - Date & Time of Evaluation Date of Evaluation: 02/28/17 Time of Evaluation: 12:30 - Subjective Subjective: no overnight events Objective - Vital Signs/Intake and Output Vital Signs (last 24 hours): Temp Pulse Resp BP Pulse Ox 97.3 F L 76 18 126/52 L 99 02/28/17 08:00 02/28/17 09:00 02/28/17 08:00 02/28/17 08:18 02/28/17 08:00 - Medications Medications: Current Medications Acetaminophen (Tylenol 325mg Tab) 650 mg PO Q6 PRN PRN Reason: Fever >100.4 F Last Admin: 02/27/17 00:12 Dose: 650 mg Al Hydrox/Mg Hydrox/Simethicone (Maalox Plus 30 Ml) 30 ml PO Q6 PRN PRN Reason: Indigestion / Heartburn Last Admin: 02/27/17 16:59 Dose: 30 ml Albuterol/Ipratropium (Duoneb 3 Mg/0.5 Mg (3 Ml) Ud) 3 ml INH RQ4 PRN PRN Reason: Shortness of Breath Albuterol/Ipratropium (Duoneb 3 Mg/0.5 Mg (3 Ml) Ud) 3 ml INH RQ6 [facility] Last Admin: 02/28/17 07:56 Dose: 3 ml Amlodipine Besylate (Norvasc) 10 mg PO DAILY [facility] Last Admin: 02/28/17 08:14 Dose: 10 mg Aspirin (Ecotrin) 81 mg PO DAILY [facility] Last Admin: 02/25/17 10:47 Dose: 81 mg Atorvastatin Calcium (Lipitor) 20 mg PO HS [facility] Last Admin: 02/27/17 21:07 Dose: 20 mg Carvedilol (Coreg) 25 mg PO Q12 [facility] Last Admin: 02/28/17 08:12 Dose: 25 mg Cholecalciferol (Vitamin D) 1,000 iu PO DAILY [facility] Last Admin: 02/28/17 08:15 Dose: 1,000 iu Cilostazol (Pletal) 100 mg PO BID [facility] Last Admin: 02/28/17 08:15 Dose: 100 mg Clonidine HCl (Catapres) 0.1 mg PO BID [facility] Last Admin: 02/28/17 08:18 Dose: 0.1 mg Furosemide (Lasix) 40 mg PO DAILY [facility] Last Admin: 02/28/17 08:13 Dose: 40 mg Hydralazine HCl (Apresoline) 100 mg PO Q8 [facility] Last Admin: 02/28/17 08:11 Dose: 100 mg Hydromorphone HCl (Dilaudid) 0.5 mg IVP Q4 PRN PRN Reason: Pain, moderate (4-7) Last Admin: 02/28/17 11:01 Dose: 0.5 mg Fluconazole (Diflucan Iv 200 Mg/100 Ml Ns) 100 mls @ 100 mls/hr IVPB DAILY [facility] Last Admin: 02/28/17 08:12 Dose: 100 mls/hr Insulin Detemir (Levemir) 20 units SC HS [facility] Insulin Human Regular (Humulin R) 0 units SC ACHS [facility] PRN Reason: Protocol Last Admin: 02/28/17 12:15 Dose: 3 unit Insulin Lispro Protam/Lispro Human (Humalog Mix 75/25) 10 units SC ACBD [facility] Isosorbide Dinitrate (Isordil) 10 mg PO BID [facility] Last Admin: 02/28/17 08:13 Dose: 10 mg Linezolid (Zyvox) 600 mg PO Q12 [facility] PRN Reason: Protocol Last Admin: 02/28/17 08:16 Dose: 600 mg Montelukast Sodium (Singulair) 10 mg PO HS [facility] Last Admin: 02/27/17 21:06 Dose: 10 mg Multivitamins/Minerals (Therapeutic-M Tab) 1 tab PO DAILY [facility] Last Admin: 02/28/17 08:15 Dose: 1 tab Pantoprazole Sodium (Protonix Ec Tab) 40 mg PO DAILY [facility] Last Admin: 02/28/17 08:15 Dose: 40 mg Potassium Chloride (Potassium Chloride Oral Soln) 40 meq PO DAILY [facility] Last Admin: 02/28/17 08:18 Dose: 40 meq - Labs Labs: 02/28/17 10:49 02/28/17 10:49 - Head Exam Head Exam: NORMAL INSPECTION - Neck Exam Neck Exam: Normal Inspection - Respiratory Exam Respiratory Exam: NORMAL BREATHING PATTERN - Cardiovascular Exam Cardiovascular Exam: REGULAR RHYTHM - GI/Abdominal Exam GI & Abdominal Exam: Soft, Normal Bowel Sounds Assessment and Plan - Assessment and Plan (Free Text) Assessment: 61 yo female with abd pain no pain no n/v abx advance diet
--- NOTE | 2017-02-28 15:15 | CP.PCM.PN ---
Subjective - Date & Time of Evaluation Date of Evaluation: 02/28/17 Time of Evaluation: 11:00 - Subjective Subjective: pt seen and examined at bedside. nad. pt c/o sob, has been on bipap at night. no chest pain or palpitaitons. Objective - Vital Signs/Intake and Output Vital Signs (last 24 hours): Temp Pulse Resp BP Pulse Ox 97.7 F 76 18 107/63 100 02/28/17 12:50 02/28/17 12:50 02/28/17 12:50 02/28/17 12:50 02/28/17 12:50 - Medications Medications: Current Medications Acetaminophen (Tylenol 325mg Tab) 650 mg PO Q6 PRN PRN Reason: Fever >100.4 F Last Admin: 02/27/17 00:12 Dose: 650 mg Al Hydrox/Mg Hydrox/Simethicone (Maalox Plus 30 Ml) 30 ml PO Q6 PRN PRN Reason: Indigestion / Heartburn Last Admin: 02/27/17 16:59 Dose: 30 ml Albuterol/Ipratropium (Duoneb 3 Mg/0.5 Mg (3 Ml) Ud) 3 ml INH RQ4 PRN PRN Reason: Shortness of Breath Albuterol/Ipratropium (Duoneb 3 Mg/0.5 Mg (3 Ml) Ud) 3 ml INH RQ6 [facility] Last Admin: 02/28/17 13:28 Dose: 3 ml Amlodipine Besylate (Norvasc) 10 mg PO DAILY [facility] Last Admin: 02/28/17 08:14 Dose: 10 mg Aspirin (Ecotrin) 81 mg PO DAILY [facility] Last Admin: 02/25/17 10:47 Dose: 81 mg Atorvastatin Calcium (Lipitor) 20 mg PO HS [facility] Last Admin: 02/27/17 21:07 Dose: 20 mg Carvedilol (Coreg) 25 mg PO Q12 [facility] Last Admin: 02/28/17 08:12 Dose: 25 mg Cholecalciferol (Vitamin D) 1,000 iu PO DAILY [facility] Last Admin: 02/28/17 08:15 Dose: 1,000 iu Cilostazol (Pletal) 100 mg PO BID [facility] Last Admin: 02/28/17 08:15 Dose: 100 mg Clonidine HCl (Catapres) 0.1 mg PO BID [facility] Last Admin: 02/28/17 08:18 Dose: 0.1 mg Furosemide (Lasix) 40 mg PO DAILY [facility] Last Admin: 02/28/17 08:13 Dose: 40 mg Hydralazine HCl (Apresoline) 100 mg PO Q8 [facility] Last Admin: 02/28/17 08:11 Dose: 100 mg Hydromorphone HCl (Dilaudid) 0.5 mg IVP Q4 PRN PRN Reason: Pain, moderate (4-7) Last Admin: 02/28/17 11:01 Dose: 0.5 mg Fluconazole (Diflucan Iv 200 Mg/100 Ml Ns) 100 mls @ 100 mls/hr IVPB DAILY [facility] Last Admin: 02/28/17 08:12 Dose: 100 mls/hr Insulin Detemir (Levemir) 20 units SC HS [facility] Insulin Human Regular (Humulin R) 0 units SC ACHS [facility] PRN Reason: Protocol Last Admin: 02/28/17 12:15 Dose: 3 unit Insulin Lispro Protam/Lispro Human (Humalog Mix 75/25) 10 units SC ACBD [facility] Isosorbide Dinitrate (Isordil) 10 mg PO BID [facility] Last Admin: 02/28/17 08:13 Dose: 10 mg Linezolid (Zyvox) 600 mg PO Q12 [facility] PRN Reason: Protocol Last Admin: 02/28/17 08:16 Dose: 600 mg Montelukast Sodium (Singulair) 10 mg PO HS [facility] Last Admin: 02/27/17 21:06 Dose: 10 mg Multivitamins/Minerals (Therapeutic-M Tab) 1 tab PO DAILY [facility] Last Admin: 02/28/17 08:15 Dose: 1 tab Pantoprazole Sodium (Protonix Ec Tab) 40 mg PO DAILY [facility] Last Admin: 02/28/17 08:15 Dose: 40 mg Potassium Chloride (Potassium Chloride Oral Soln) 40 meq PO DAILY [facility] Last Admin: 02/28/17 08:18 Dose: 40 meq - Labs Labs: 02/28/17 10:49 02/28/17 10:49 - Head Exam Head Exam: NORMAL INSPECTION - Eye Exam Pupil Exam: NORMAL ACCOMODATION - ENT Exam ENT Exam: Mucous Membranes Moist - Respiratory Exam Respiratory Exam: Clear to Ausculation Bilateral, NORMAL BREATHING PATTERN - Cardiovascular Exam Cardiovascular Exam: REGULAR RHYTHM, +S1, +S2 - GI/Abdominal Exam GI & Abdominal Exam: Normal Bowel Sounds - Neurological Exam Neurological Exam: Alert, Oriented x3 Assessment and Plan - Assessment and Plan (Free Text) Assessment: 1. Syncopal episode possibly vasovagal no cth in ER neuro consulted will monitor neuro checks 2. Ac pancreatitis CT a/p noted npo start IVF monitor labs dilaudid for pain GI consulted, MRI ordered endo tomorrow. \ 3. HTN cont coreg and norvasc 4. DM2 RISS cont to [facility] home meds 5. GERD protonix. 6. DVT PX scd 7. UTI/pos blood culture ID consulted started zyvox and diflucan cont to monitor. 8. hypokalemia will correct lytes 9. anemia egd today transfuse one unit 10. sob pt stable O2 sats normal cxr
[2017-02-28] MEDS: Albuterol-Ipratrop 3 mg / 0.5 (3 ml) UD INH PRN (16:11)
--- NOTE | 2017-02-28 18:02 | RAD ---
PROCEDURE: CHEST RADIOGRAPH, 1 VIEW HISTORY: sob COMPARISON: Comparison chest 02/26/2017. FINDINGS: LUNGS: Interval improvement previously noted diffuse bilateral infiltrates which more felt to represent pulmonary edema/ CHF. There may be some small residual bilateral effusions however PLEURA: As above. No apparent pneumothorax CARDIOVASCULAR: Normal. OSSEOUS STRUCTURES: No significant abnormalities. VISUALIZED UPPER ABDOMEN: Normal. OTHER FINDINGS: None. IMPRESSION: Interval improvement pulmonary edema/ CHF as described.
[2017-03-01] MEDS: Albuterol-Ipratrop 3 mg / 0.5 (3 ml) UD INH SCH ×4 (01:26→19:37)
[2017-03-01] MEDS: HYDROmorphone 0.5 mg/0.5 ml ISec IVP PRN ×4 (01:43→13:42)
[2017-03-01 05:59] LABS: MEAN CELL VOLUME 91.4 fl (81.0-99.0); MEAN CORPUSCULAR HEMOGLOBIN 29.7 pg (27.0-31.0); MEAN CORPUSCULAR HGB CONC 32.5 g/dL (33.0-37.0); RED CELL DISTRIBUTION WIDTH 17.1 % (11.5-14.5); WHITE BLOOD COUNT 8.4 K/uL (4.8-10.8)
[2017-03-01 06:18] LABS: ALB/GLOB RATIO 0.8 (1.0-2.1); ALKALINE PHOSPHATASE 85 U/L (38-126); ALT/SGPT 30 U/L (9-52); AST/SGOT 15 U/L (14-36); BILIRUBIN,TOTAL < 0.1 mg/dl (0.2-1.3); BLOOD UREA NITROGEN 22 mg/dl (7-17); CALCIUM 7.6 mg/dL (8.4-10.2); CARBON DIOXIDE 28 mmol/L (22-30); CHLORIDE 107 mmol/L (98-107); GFR AFRICAN-AMERICAN 40; GLUCOSE,RANDOM 148 mg/dL (65-105); POTASSIUM 3.9 MMOL/L (3.6-5.0); SODIUM 141 mmol/l (132-148); TOTAL PROTEIN 5.6 G/DL (6.3-8.2)
[2017-03-01] MEDS: Multivitamin With Minerals Tab PO SCH (09:20)
[2017-03-01] MEDS: Insulin Regular 100 units/ml SC SCH ×4 (09:23→21:25)
[2017-03-01] MEDS: Pantoprazole 40 mg EC Tab PO SCH (09:29)
[2017-03-01] MEDS: Fluconazole IV 200mg/100 ml NS 100 ML IVPB SCH (09:29)
[2017-03-01] MEDS: Cilostazol 100 mg Tab UD PO SCH ×2 (09:34→16:44)
[2017-03-01] MEDS: Potassium Chloride 20 mEq/15 ml LIQ UD PO SCH (10:00)
[2017-03-01] MEDS: Albuterol-Ipratrop 3 mg / 0.5 (3 ml) UD INH PRN (11:41)
[2017-03-01 12:19] LABS: IRON 68 ug/dL (37-170)
--- NOTE | 2017-03-01 12:41 | CP.PCM.PN ---
Subjective - Date & Time of Evaluation Date of Evaluation: 03/01/17 Time of Evaluation: 11:00 - Subjective Subjective: pt seen and examined at bedside. NAD. cont to have mild abdominal pain. tolerating po. Objective - Vital Signs/Intake and Output Vital Signs (last 24 hours): Temp Pulse Resp BP Pulse Ox 97.6 F 70 18 110/55 L 92 L 03/01/17 12:27 03/01/17 12:27 03/01/17 12:27 03/01/17 12:27 03/01/17 12:27 - Medications Medications: Current Medications Acetaminophen (Tylenol 325mg Tab) 650 mg PO Q6 PRN PRN Reason: Fever >100.4 F Last Admin: 02/27/17 00:12 Dose: 650 mg Al Hydrox/Mg Hydrox/Simethicone (Maalox Plus 30 Ml) 30 ml PO Q6 PRN PRN Reason: Indigestion / Heartburn Last Admin: 02/27/17 16:59 Dose: 30 ml Albuterol/Ipratropium (Duoneb 3 Mg/0.5 Mg (3 Ml) Ud) 3 ml INH RQ4 PRN PRN Reason: Shortness of Breath Last Admin: 03/01/17 11:41 Dose: 3 ml Albuterol/Ipratropium (Duoneb 3 Mg/0.5 Mg (3 Ml) Ud) 3 ml INH RQ6 [facility] Last Admin: 03/01/17 08:04 Dose: 3 ml Amlodipine Besylate (Norvasc) 10 mg PO DAILY [facility] Last Admin: 03/01/17 09:22 Dose: 10 mg Aspirin (Ecotrin) 81 mg PO DAILY [facility] Last Admin: 02/25/17 10:47 Dose: 81 mg Atorvastatin Calcium (Lipitor) 20 mg PO HS [facility] Last Admin: 02/28/17 21:40 Dose: 20 mg Carvedilol (Coreg) 25 mg PO Q12 [facility] Last Admin: 03/01/17 09:21 Dose: 25 mg Cholecalciferol (Vitamin D) 1,000 iu PO DAILY [facility] Last Admin: 03/01/17 09:23 Dose: 1,000 iu Cilostazol (Pletal) 100 mg PO BID [facility] Last Admin: 03/01/17 09:34 Dose: 100 mg Clonidine HCl (Catapres) 0.1 mg PO BID [facility] Last Admin: 03/01/17 09:21 Dose: 0.1 mg Furosemide (Lasix) 40 mg PO DAILY [facility] Last Admin: 03/01/17 09:20 Dose: 40 mg Hydralazine HCl (Apresoline) 100 mg PO Q8 [facility] Last Admin: 03/01/17 09:22 Dose: 100 mg Hydromorphone HCl (Dilaudid) 0.5 mg IVP Q4 PRN PRN Reason: Pain, moderate (4-7) Last Admin: 03/01/17 09:27 Dose: 0.5 mg Fluconazole (Diflucan Iv 200 Mg/100 Ml Ns) 100 mls @ 100 mls/hr IVPB DAILY [facility] Last Admin: 03/01/17 09:29 Dose: 100 mls/hr Insulin Detemir (Levemir) 20 units SC HS [facility] Insulin Human Regular (Humulin R) 0 units SC ACHS [facility] PRN Reason: Protocol Last Admin: 03/01/17 12:23 Dose: 2 unit Insulin Lispro Protam/Lispro Human (Humalog Mix 75/25) 10 units SC ACBD [facility] Isosorbide Dinitrate (Isordil) 10 mg PO BID [facility] Last Admin: 03/01/17 09:21 Dose: 10 mg Linezolid (Zyvox) 600 mg PO Q12 [facility] PRN Reason: Protocol Last Admin: 03/01/17 09:20 Dose: 600 mg Montelukast Sodium (Singulair) 10 mg PO HS [facility] Last Admin: 02/28/17 21:40 Dose: 10 mg Multivitamins/Minerals (Therapeutic-M Tab) 1 tab PO DAILY [facility] Last Admin: 03/01/17 09:20 Dose: 1 tab Pantoprazole Sodium (Protonix Ec Tab) 40 mg PO DAILY [facility] Last Admin: 03/01/17 09:29 Dose: 40 mg Potassium Chloride (Potassium Chloride Oral Soln) 40 meq PO DAILY [facility] Last Admin: 03/01/17 10:00 Dose: 40 meq - Labs Labs: 03/01/17 05:00 03/01/17 05:00 - Constitutional Appears: Well, Non-toxic - Head Exam Head Exam: NORMAL INSPECTION - ENT Exam ENT Exam: Mucous Membranes Moist - Respiratory Exam Respiratory Exam: Clear to Ausculation Bilateral, NORMAL BREATHING PATTERN - Cardiovascular Exam Cardiovascular Exam: REGULAR RHYTHM, +S1, +S2 - GI/Abdominal Exam GI & Abdominal Exam: Soft, Normal Bowel Sounds - Extremities Exam Extremities Exam: Full ROM - Neurological Exam Neurological Exam: Alert, Awake Assessment and Plan - Assessment and Plan (Free Text) Assessment: 1. Syncopal episode possibly vasovagal no cth in ER neuro consulted will monitor 2. Ac pancreatitis CT a/p noted npo start IVF monitor labs dilaudid for pain GI consulted gastritis on endoscopy \ 3. HTN cont coreg and norvasc [facility]. [facility] 5. GERD protonix. 6. DVT PX scd 7. UTI/pos blood culture ID consulted started zyvox and diflucan cont to monitor. 8. hypokalemia will correct lytes 9. anemia egd today 7.5 today consider transfusion below 7 10. sob pt stable O2 sats normal cxr: pos b/l infiltrates 11. chf cont to monitor 12 anxiety xanax prn
[2017-03-02] MEDS: HYDROmorphone 0.5 mg/0.5 ml ISec IVP PRN ×3 (00:03→10:14)
[2017-03-02] MEDS: Albuterol-Ipratrop 3 mg / 0.5 (3 ml) UD INH SCH ×4 (01:13→19:19)
[2017-03-02 05:57] LABS: HEMATOCRIT 21.9 % (34.0-47.0); MEAN CELL VOLUME 90.6 fl (81.0-99.0); MEAN CORPUSCULAR HEMOGLOBIN 29.8 pg (27.0-31.0); MEAN CORPUSCULAR HGB CONC 32.9 g/dL (33.0-37.0); WHITE BLOOD COUNT 7.3 K/uL (4.8-10.8)
[2017-03-02 06:16] LABS: CALCIUM 7.6 mg/dL (8.4-10.2); POTASSIUM 4.3 MMOL/L (3.6-5.0)
[2017-03-02] MEDS: Insulin Regular 100 units/ml SC SCH ×4 (06:54→22:54)
--- NOTE | 2017-03-02 09:41 | CP.PCM.PN ---
Subjective - Date & Time of Evaluation Date of Evaluation: 03/02/17 Time of Evaluation: 09:38 - Subjective Subjective: doing well in bed. admitted for syncope, pancreatitis, anemia. no f/c, n/v/d at [facility]. had resp distress that was tx w/ bipap. comfortable on ra at present. bw reviewed and hgb 7.2 pt refused any further transfusion-heme/onc consult ordered. iron panel noted. pt consult pending. pt asking to be dc home, does not want to go to [facility] Objective - Vital Signs/Intake and Output Vital Signs (last 24 hours): Temp Pulse Resp BP Pulse Ox 98.4 F 81 18 135/68 95 03/02/17 08:00 03/02/17 08:00 03/02/17 08:00 03/02/17 08:00 03/02/17 08:00 - Medications Medications: Current Medications Acetaminophen (Tylenol 325mg Tab) 650 mg PO Q6 PRN PRN Reason: Fever >100.4 F Last Admin: 02/27/17 00:12 Dose: 650 mg Al Hydrox/Mg Hydrox/Simethicone (Maalox Plus 30 Ml) 30 ml PO Q6 PRN PRN Reason: Indigestion / Heartburn Last Admin: 02/27/17 16:59 Dose: 30 ml Albuterol/Ipratropium (Duoneb 3 Mg/0.5 Mg (3 Ml) Ud) 3 ml INH RQ4 PRN PRN Reason: Shortness of Breath Last Admin: 03/01/17 11:41 Dose: 3 ml Albuterol/Ipratropium (Duoneb 3 Mg/0.5 Mg (3 Ml) Ud) 3 ml INH RQ6 [facility] Last Admin: 03/02/17 07:56 Dose: 3 ml Alprazolam (Xanax) 0.25 mg PO Q12 PRN PRN Reason: Anxiety Stop: 03/08/17 12:42 Last Admin: 03/01/17 21:28 Dose: 0.25 mg Amlodipine Besylate (Norvasc) 10 mg PO DAILY [facility] Last Admin: 03/01/17 09:22 Dose: 10 mg Aspirin (Ecotrin) 81 mg PO DAILY [facility] Last Admin: 02/25/17 10:47 Dose: 81 mg Atorvastatin Calcium (Lipitor) 20 mg PO HS [facility] Last Admin: 03/01/17 21:03 Dose: 20 mg Carvedilol (Coreg) 25 mg PO Q12 [facility] Last Admin: 03/01/17 21:03 Dose: 25 mg Cholecalciferol (Vitamin D) 1,000 iu PO DAILY [facility] Last Admin: 03/01/17 09:23 Dose: 1,000 iu Cilostazol (Pletal) 100 mg PO BID [facility] Last Admin: 03/01/17 16:44 Dose: 100 mg Clonidine HCl (Catapres) 0.1 mg PO BID [facility] Last Admin: 03/01/17 16:42 Dose: 0.1 mg Furosemide (Lasix) 40 mg PO DAILY [facility] Last Admin: 03/01/17 09:20 Dose: 40 mg Hydralazine HCl (Apresoline) 100 mg PO Q8 [facility] Last Admin: 03/02/17 00:33 Dose: 100 mg Hydromorphone HCl (Dilaudid) 0.5 mg IVP Q4 PRN PRN Reason: Pain, moderate (4-7) Last Admin: 03/02/17 04:50 Dose: 0.5 mg Fluconazole (Diflucan Iv 200 Mg/100 Ml Ns) 100 mls @ 100 mls/hr IVPB DAILY [facility] Last Admin: 03/01/17 09:29 Dose: 100 mls/hr Insulin Detemir (Levemir) 20 units SC HS [facility] Insulin Human Regular (Humulin R) 0 units SC ACHS [facility] PRN Reason: Protocol Last Admin: 03/02/17 06:54 Dose: Not Given Insulin Lispro Protam/Lispro Human (Humalog Mix 75/25) 10 units SC ACBD [facility] Isosorbide Dinitrate (Isordil) 10 mg PO BID [facility] Last Admin: 03/01/17 16:43 Dose: 10 mg Linezolid (Zyvox) 600 mg PO Q12 [facility] PRN Reason: Protocol Last Admin: 03/01/17 21:03 Dose: 600 mg Montelukast Sodium (Singulair) 10 mg PO HS [facility] Last Admin: 03/01/17 21:03 Dose: 10 mg Multivitamins/Minerals (Therapeutic-M Tab) 1 tab PO DAILY [facility] Last Admin: 03/01/17 09:20 Dose: 1 tab Pantoprazole Sodium (Protonix Ec Tab) 40 mg PO DAILY [facility] Last Admin: 03/01/17 09:29 Dose: 40 mg Potassium Chloride (Potassium Chloride Oral Soln) 40 meq PO DAILY [facility] Last Admin: 03/01/17 10:00 Dose: 40 meq - Labs Labs: 03/02/17 04:25 03/02/17 04:25 - Constitutional Appears: Well, Non-toxic, No Acute Distress - Head Exam Head Exam: ATRAUMATIC, NORMAL INSPECTION, NORMOCEPHALIC - Eye Exam Eye Exam: EOMI, Normal appearance, PERRL Pupil Exam: NORMAL ACCOMODATION, PERRL - ENT Exam ENT Exam: Mucous Membranes Moist, Normal Exam - Neck Exam Neck Exam: Full ROM, Normal Inspection. absent: Lymphadenopathy - Respiratory Exam Respiratory Exam: Clear to Ausculation Bilateral, NORMAL BREATHING PATTERN - Cardiovascular Exam Cardiovascular Exam: REGULAR RHYTHM, RRR, +S1, +S2. absent: Murmur - GI/Abdominal Exam GI & Abdominal Exam: Soft, Normal Bowel Sounds. absent: Tenderness - Rectal Exam Rectal Exam: NORMAL INSPECTION - Extremities Exam Extremities Exam: Full ROM, Normal Capillary Refill, Normal Inspection. absent : Joint Swelling, Pedal Edema - Back Exam Back Exam: NORMAL INSPECTION - Neurological Exam Neurological Exam: Alert, Awake, CN II-XII Intact, Normal Gait, Oriented x3 - Psychiatric Exam Psychiatric exam: Normal Affect, Normal Mood - Skin Skin Exam: Dry, Intact, Normal Color, Warm Assessment and Plan (1) Positive blood culture Assessment & Plan: zyvox/diflucan ID Status: Acute (2) Pancreatitis, acute Assessment & Plan: resolved, doing well, po as beth Status: Acute (3) Syncope Assessment & Plan: no further, consults appriciated ? r/t anemia Status: Acute (4) ARCHIE (acute kidney injury) Assessment & Plan: ivf monitor Status: Acute (5) Chronic kidney disease, stage 3 (moderate) Assessment & Plan: omoniotor, r/t uncontrolled dm2 Status: Acute (6) DVT prophylaxis Assessment & Plan: scd and aehose ambulation w/ support Status: Acute (7) Diabetes type 2, uncontrolled Assessment & Plan: riss, fsbg, home meds Status: Acute (8) Diabetic foot ulcer Assessment & Plan: zyvox, podiatry Status: Acute
--- NOTE | 2017-03-02 09:53 | PQF GENQUE ---
Cele Andrade NP, In agreement with the following data listed in the EMR?: BMI:43.0 5ft 10 in (1) If in agreement please add the BMI to your next progress note (2) please document a corresponding dx: i.e. Obesity or Morbid Obesity etc. OR: Disagree OR: Other explanation of clinical finding This form is a permanent part of the medical record Clarification of your documentation is requested to better reflect the severity of illness and intensity of treatment of your patient. Indicators present [] Specify: [] [] Specify: [] [] Specify: [] [] Specify: [] Location in the medical record that reflects the above clinical findings: [] Treatment Provided: [] PHYSICIAN'S RESPONSE Based on your medical judgment of the clinical indicators outlined above please clarify the following: [] Practitioner response morbid obesity-chronic, cont diet/exercise, consider bariatric intervention [] If unable to determine, please check the box, sign and date. Present On Admission (POA) Indicator: [x] Present at the time of admission [] Not present at the time of admission [] Clinically Undetermined In responding to this query, please exercise your independent professional judgment. The fact that a question is asked does not imply that any particular answer is desired or expected. Thank you for your clarification on this documentation. If you have any questions please call. * Thank you, Leda Sorensen RN ext. #[phone] MTDD
[2017-03-02] MEDS: Fluconazole IV 200mg/100 ml NS 100 ML IVPB SCH (10:04)
[2017-03-02] MEDS: Cilostazol 100 mg Tab UD PO SCH ×2 (10:07→17:22)
[2017-03-02] MEDS: Multivitamin With Minerals Tab PO SCH (10:08)
[2017-03-02] MEDS: Pantoprazole 40 mg EC Tab PO SCH (10:08)
[2017-03-02] MEDS: Potassium Chloride 20 mEq/15 ml LIQ UD PO SCH (10:08)
--- NOTE | 2017-03-02 13:43 | CP.PCM.CON ---
History of Present Illness - History of Present Illness History of Present Illness: 61 year old female with a history of HTN, DM, HL, PVD s/p toe amputation, presented s/p syncope and treated for pancreatitis, with anemia s/p transfusion complicated by shortness of breath. The patient is s/p 2U PRBC and apparently had shortness of breath that was treated as a CHF exacerbation. Review of her blood work shows she has maintained a hgb in the 7's for the last several days. She denies abnormal bleeding and bruising. Past medical history: HTN, DM, HL, PVD Past surgical history: Toe amputation, hernia repair Family history: Denies hematologic and oncologic problems Social history: Denies tobacco, alcohol, and illicit drug use. Allergies: Azithromycin Review of systems: All remaining review of systems including HEENT, cardiovascular, respiratory, gastrointestinal, genitourinary, musculoskeletal, dermatologic, neurologic, and psychiatric are negative unless mentioned in the HPI. Past Patient History - Infectious Disease Hx of Infectious Diseases: None - Past Medical History & Family History Past Medical History?: Yes - Past Social History Smoking Status: Former Smoker - CARDIAC Hx Hypercholesterolemia: Yes Hx Hypertension: Yes - PULMONARY Hx Asthma: Yes Hx Chronic Obstructive Pulmonary Disease (COPD): Yes - NEUROLOGICAL Hx Neurological Disorder: No - HEENT Hx HEENT Problems: Yes Hx Glaucoma: Yes (left eye and right eye) Other/Comment: uses glasses for reading. - RENAL Hx Chronic Kidney Disease: No - ENDOCRINE/METABOLIC Hx Endocrine Disorders: Yes Hx Diabetes Mellitus Type 2: Yes - HEMATOLOGICAL/ONCOLOGICAL Hx Anemia: Yes Hx Human Immunodeficiency Virus (HIV): No - INTEGUMENTARY Hx Dermatological Problems: No - MUSCULOSKELETAL/RHEUMATOLOGICAL Hx Falls: Yes - GASTROINTESTINAL Hx Gastroesophageal Reflux: Yes - GENITOURINARY/GYNECOLOGICAL Hx Genitourinary Disorders: No - PSYCHIATRIC Hx Substance Use: No - SURGICAL HISTORY Hx Cholecystectomy: Yes - ANESTHESIA Hx Anesthesia: Yes Hx Anesthesia Reactions: No Hx Malignant Hyperthermia: No Meds Allergies/Adverse Reactions: Allergies Allergy/AdvReac Type Severity Reaction Status Date / Time azithromycin [From Zithromax] Allergy RASH Verified 02/24/17 05:47 - Medications Medications: Current Medications Acetaminophen (Tylenol 325mg Tab) 650 mg PO Q6 PRN PRN Reason: Fever >100.4 F Last Admin: 02/27/17 00:12 Dose: 650 mg Al Hydrox/Mg Hydrox/Simethicone (Maalox Plus 30 Ml) 30 ml PO Q6 PRN PRN Reason: Indigestion / Heartburn Last Admin: 02/27/17 16:59 Dose: 30 ml Albuterol/Ipratropium (Duoneb 3 Mg/0.5 Mg (3 Ml) Ud) 3 ml INH RQ4 PRN PRN Reason: Shortness of Breath Last Admin: 03/01/17 11:41 Dose: 3 ml Albuterol/Ipratropium (Duoneb 3 Mg/0.5 Mg (3 Ml) Ud) 3 ml INH RQ6 [facility] Last Admin: 03/02/17 13:27 Dose: 3 ml Alprazolam (Xanax) 0.25 mg PO Q12 PRN PRN Reason: Anxiety Stop: 03/08/17 12:42 Last Admin: 03/01/17 21:28 Dose: 0.25 mg Amlodipine Besylate (Norvasc) 10 mg PO DAILY [facility] Last Admin: 03/02/17 10:07 Dose: 10 mg Aspirin (Ecotrin) 81 mg PO DAILY [facility] Last Admin: 02/25/17 10:47 Dose: 81 mg Atorvastatin Calcium (Lipitor) 20 mg PO HS [facility] Last Admin: 03/01/17 21:03 Dose: 20 mg Carvedilol (Coreg) 25 mg PO Q12 [facility] Last Admin: 03/02/17 10:03 Dose: 25 mg Cholecalciferol (Vitamin D) 1,000 iu PO DAILY [facility] Last Admin: 03/02/17 10:09 Dose: 1,000 iu Cilostazol (Pletal) 100 mg PO BID [facility] Last Admin: 03/02/17 10:07 Dose: 100 mg Clonidine HCl (Catapres) 0.1 mg PO BID [facility] Last Admin: 03/02/17 10:03 Dose: 0.1 mg Furosemide (Lasix) 40 mg PO DAILY [facility] Last Admin: 03/02/17 10:05 Dose: 40 mg Hydralazine HCl (Apresoline) 100 mg PO Q8 [facility] Last Admin: 03/02/17 10:02 Dose: 100 mg Hydromorphone HCl (Dilaudid) 0.5 mg IVP Q4 PRN PRN Reason: Pain, moderate (4-7) Last Admin: 03/02/17 10:14 Dose: 0.5 mg Fluconazole (Diflucan Iv 200 Mg/100 Ml Ns) 100 mls @ 100 mls/hr IVPB DAILY [facility] Last Admin: 03/02/17 10:04 Dose: 100 mls/hr Insulin Detemir (Levemir) 20 units SC HS [facility] Insulin Human Regular (Humulin R) 0 units SC ACHS [facility] PRN Reason: Protocol Last Admin: 03/02/17 12:41 Dose: 3 unit Insulin Lispro Protam/Lispro Human (Humalog Mix 75/25) 10 units SC ACBD [facility] Isosorbide Dinitrate (Isordil) 10 mg PO BID [facility] Last Admin: 03/02/17 10:05 Dose: 10 mg Linezolid (Zyvox) 600 mg PO Q12 [facility] PRN Reason: Protocol Last Admin: 03/02/17 10:09 Dose: 600 mg Montelukast Sodium (Singulair) 10 mg PO HS [facility] Last Admin: 03/01/17 21:03 Dose: 10 mg Multivitamins/Minerals (Therapeutic-M Tab) 1 tab PO DAILY [facility] Last Admin: 03/02/17 10:08 Dose: 1 tab Pantoprazole Sodium (Protonix Ec Tab) 40 mg PO DAILY [facility] Last Admin: 03/02/17 10:08 Dose: 40 mg Potassium Chloride (Potassium Chloride Oral Soln) 40 meq PO DAILY [facility] Last Admin: 03/02/17 10:08 Dose: 40 meq Physical Exam - Head Exam Head Exam: ATRAUMATIC - Eye Exam Eye Exam: Normal appearance - ENT Exam ENT Exam: Mucous Membranes Dry - Respiratory Exam Respiratory Exam: NORMAL BREATHING PATTERN - Cardiovascular Exam Cardiovascular Exam: +S1, +S2 - GI/Abdominal Exam GI & Abdominal Exam: Normal Bowel Sounds - Neurological Exam Neurological exam: Oriented x3 - Psychiatric Exam Psychiatric exam: Normal Affect, Normal Mood Results - Vital Signs Recent Vital Signs: Last Vital Signs Temp 98.2 F 03/02/17 12:00 Pulse 74 03/02/17 12:00 Resp 18 03/02/17 12:00 BP 116/66 03/02/17 12:00 Pulse Ox 97 03/02/17 12:00 - Labs Result Diagrams: 03/02/17 04:25 03/02/17 04:25 Labs: Laboratory Results - last 24 hr 03/01/17 03/01/17 03/02/17 16:14 21:10 04:25 WBC 7.3 RBC 2.41 L Hgb 7.2 L Hct 21.9 L MCV 90.6 MCH 29.8 MCHC 32.9 L RDW 17.0 H Plt Count 254 Sodium Potassium Chloride Carbon Dioxide Anion Gap BUN Creatinine Est GFR ( Amer) Est GFR (Non-Af Amer) POC Glucose (mg/dL) 161 H 169 H Random Glucose Calcium 03/02/17 03/02/17 03/02/17 04:25 05:08 11:21 WBC RBC Hgb Hct MCV MCH MCHC RDW Plt Count Sodium 138 Potassium 4.3 Chloride 107 Carbon Dioxide 28 Anion Gap 8 L BUN 22 H Creatinine 1.7 H Est GFR ( Amer) 37 Est GFR (Non-Af Amer) 31 POC Glucose (mg/dL) 143 H 208 H Random Glucose 140 H Calcium 7.6 L Assessment & Plan (1) Anemia Assessment and Plan: will add retic count no evidence of iron, b12, folate deficiency likely an element of anemia of chronic disease and anemia of CKD will add Procrit given patients symptoms with her prior transfusion, she is reluctant to have another transfusion. I feel this is reasonable at this point given she is asymptomatic from her anemia (walked with PT around her room without symptoms). Should her H/H decline further or she becomes symptomatic, she will need a slow transfusion with premedication and lasix. Thank you for this interesting consult. Status: Acute
--- NOTE | 2017-03-02 15:56 | CP.PCM.PN ---
Subjective - Date & Time of Evaluation Date of Evaluation: 03/02/17 Time of Evaluation: 13:00 - Subjective Subjective: no bleeding, no gi complaints Objective - Vital Signs/Intake and Output Vital Signs (last 24 hours): Temp Pulse Resp BP Pulse Ox 98.2 F 74 18 116/66 97 03/02/17 12:00 03/02/17 12:00 03/02/17 12:00 03/02/17 12:00 03/02/17 12:00 Intake and Output: 03/02/17 03/02/17 06:59 18:59 Intake Total 100 Balance 100 - Medications Medications: Current Medications Acetaminophen (Tylenol 325mg Tab) 650 mg PO Q6 PRN PRN Reason: Fever >100.4 F Last Admin: 02/27/17 00:12 Dose: 650 mg Al Hydrox/Mg Hydrox/Simethicone (Maalox Plus 30 Ml) 30 ml PO Q6 PRN PRN Reason: Indigestion / Heartburn Last Admin: 02/27/17 16:59 Dose: 30 ml Albuterol/Ipratropium (Duoneb 3 Mg/0.5 Mg (3 Ml) Ud) 3 ml INH RQ4 PRN PRN Reason: Shortness of Breath Last Admin: 03/01/17 11:41 Dose: 3 ml Albuterol/Ipratropium (Duoneb 3 Mg/0.5 Mg (3 Ml) Ud) 3 ml INH RQ6 [facility] Last Admin: 03/02/17 13:27 Dose: 3 ml Alprazolam (Xanax) 0.25 mg PO Q12 PRN PRN Reason: Anxiety Stop: 03/08/17 12:42 Last Admin: 03/01/17 21:28 Dose: 0.25 mg Amlodipine Besylate (Norvasc) 10 mg PO DAILY [facility] Last Admin: 03/02/17 10:07 Dose: 10 mg Aspirin (Ecotrin) 81 mg PO DAILY [facility] Last Admin: 02/25/17 10:47 Dose: 81 mg Atorvastatin Calcium (Lipitor) 20 mg PO HS [facility] Last Admin: 03/01/17 21:03 Dose: 20 mg Carvedilol (Coreg) 25 mg PO Q12 [facility] Last Admin: 03/02/17 10:03 Dose: 25 mg Cholecalciferol (Vitamin D) 1,000 iu PO DAILY [facility] Last Admin: 03/02/17 10:09 Dose: 1,000 iu Cilostazol (Pletal) 100 mg PO BID [facility] Last Admin: 03/02/17 10:07 Dose: 100 mg Clonidine HCl (Catapres) 0.1 mg PO BID [facility] Last Admin: 03/02/17 10:03 Dose: 0.1 mg Furosemide (Lasix) 40 mg PO DAILY [facility] Last Admin: 03/02/17 10:05 Dose: 40 mg Hydralazine HCl (Apresoline) 100 mg PO Q8 [facility] Last Admin: 03/02/17 10:02 Dose: 100 mg Hydromorphone HCl (Dilaudid) 0.5 mg IVP Q4 PRN PRN Reason: Pain, moderate (4-7) Last Admin: 03/02/17 15:47 Dose: 0.5 mg Fluconazole (Diflucan Iv 200 Mg/100 Ml Ns) 100 mls @ 100 mls/hr IVPB DAILY [facility] Last Admin: 03/02/17 10:04 Dose: 100 mls/hr Insulin Detemir (Levemir) 20 units SC HS [facility] Insulin Human Regular (Humulin R) 0 units SC ACHS [facility] PRN Reason: Protocol Last Admin: 03/02/17 12:41 Dose: 3 unit Insulin Lispro Protam/Lispro Human (Humalog Mix 75/25) 10 units SC ACBD [facility] Isosorbide Dinitrate (Isordil) 10 mg PO BID [facility] Last Admin: 03/02/17 10:05 Dose: 10 mg Linezolid (Zyvox) 600 mg PO Q12 [facility] PRN Reason: Protocol Last Admin: 03/02/17 10:09 Dose: 600 mg Montelukast Sodium (Singulair) 10 mg PO HS [facility] Last Admin: 03/01/17 21:03 Dose: 10 mg Multivitamins/Minerals (Therapeutic-M Tab) 1 tab PO DAILY [facility] Last Admin: 03/02/17 10:08 Dose: 1 tab Pantoprazole Sodium (Protonix Ec Tab) 40 mg PO DAILY [facility] Last Admin: 03/02/17 10:08 Dose: 40 mg Potassium Chloride (Potassium Chloride Oral Soln) 40 meq PO DAILY [facility] Last Admin: 03/02/17 10:08 Dose: 40 meq - Labs Labs: 03/02/17 04:25 03/02/17 04:25 - Head Exam Head Exam: NORMAL INSPECTION - Respiratory Exam Respiratory Exam: NORMAL BREATHING PATTERN - Cardiovascular Exam Cardiovascular Exam: REGULAR RHYTHM - GI/Abdominal Exam GI & Abdominal Exam: Soft, Normal Bowel Sounds Assessment and Plan - Assessment and Plan (Free Text) Assessment: 61 yo female with gastritis no bleeding doing well outpatient colonoscopy as indicated
[2017-03-02 18:16] LABS: FOLATE 11.8 ng/mL
[2017-03-02] MEDS ORDERED: HYDROmorphone 0.5 mg/0.5 ml ISec IVP PRN (22:35)
[2017-03-03] MEDS: Albuterol-Ipratrop 3 mg / 0.5 (3 ml) UD INH SCH ×4 (01:20→19:19)
[2017-03-03 05:54] LABS: HEMATOCRIT 23.6 % (34.0-47.0); MEAN CELL VOLUME 91.9 fl (81.0-99.0); MEAN CORPUSCULAR HEMOGLOBIN 29.9 pg (27.0-31.0); MEAN CORPUSCULAR HGB CONC 32.6 g/dL (33.0-37.0); RED CELL DISTRIBUTION WIDTH 16.9 % (11.5-14.5); WHITE BLOOD COUNT 8.5 K/uL (4.8-10.8)
[2017-03-03 06:16] LABS: ALB/GLOB RATIO 0.8 (1.0-2.1); ALKALINE PHOSPHATASE 85 U/L (38-126); ALT/SGPT 28 U/L (9-52); AST/SGOT 18 U/L (14-36); BILIRUBIN,TOTAL < 0.1 mg/dl (0.2-1.3); BLOOD UREA NITROGEN 22 mg/dl (7-17); CALCIUM 8.2 mg/dL (8.4-10.2); CARBON DIOXIDE 29 mmol/L (22-30); CHLORIDE 108 mmol/L (98-107); GFR AFRICAN-AMERICAN 37; GLUCOSE,RANDOM 147 mg/dL (65-105); POTASSIUM 5.8 MMOL/L (3.6-5.0); SODIUM 142 mmol/l (132-148); TOTAL PROTEIN 5.8 G/DL (6.3-8.2)
[2017-03-03] MEDS: Insulin Regular 100 units/ml SC SCH ×4 (06:43→21:16)
[2017-03-03] MEDS ORDERED: Sod Polystyrene Sulf 15 gm/60 ml Susp PO ONE (07:29)
--- NOTE | 2017-03-03 08:20 | CP.PCM.PN ---
Subjective - Date & Time of Evaluation Date of Evaluation: 03/03/17 Time of Evaluation: 08:17 - Subjective Subjective: pt denies complaints. assessed for home w/ services by pt. bw noted. hgb now 7.7 heme/onc consult appriciated. k 5.87 pt was on kdur daily. no s/s hyperkalemia. pt requesting to go home Objective - Vital Signs/Intake and Output Vital Signs (last 24 hours): Temp Pulse Resp BP Pulse Ox 98.3 F 81 18 136/71 98 03/03/17 07:48 03/03/17 07:48 03/03/17 07:48 03/03/17 07:48 03/03/17 07:48 - Medications Medications: Current Medications Acetaminophen (Tylenol 325mg Tab) 650 mg PO Q6 PRN PRN Reason: Fever >100.4 F Last Admin: 02/27/17 00:12 Dose: 650 mg Al Hydrox/Mg Hydrox/Simethicone (Maalox Plus 30 Ml) 30 ml PO Q6 PRN PRN Reason: Indigestion / Heartburn Last Admin: 02/27/17 16:59 Dose: 30 ml Albuterol/Ipratropium (Duoneb 3 Mg/0.5 Mg (3 Ml) Ud) 3 ml INH RQ4 PRN PRN Reason: Shortness of Breath Last Admin: 03/01/17 11:41 Dose: 3 ml Albuterol/Ipratropium (Duoneb 3 Mg/0.5 Mg (3 Ml) Ud) 3 ml INH RQ6 [facility] Last Admin: 03/03/17 07:48 Dose: 3 ml Alprazolam (Xanax) 0.25 mg PO Q12 PRN PRN Reason: Anxiety Stop: 03/08/17 12:42 Last Admin: 03/01/17 21:28 Dose: 0.25 mg Amlodipine Besylate (Norvasc) 10 mg PO DAILY [facility] Last Admin: 03/02/17 10:07 Dose: 10 mg Aspirin (Ecotrin) 81 mg PO DAILY [facility] Last Admin: 02/25/17 10:47 Dose: 81 mg Atorvastatin Calcium (Lipitor) 20 mg PO HS [facility] Last Admin: 03/02/17 23:02 Dose: 20 mg Carvedilol (Coreg) 25 mg PO Q12 [facility] Last Admin: 03/02/17 23:01 Dose: Not Given Cholecalciferol (Vitamin D) 1,000 iu PO DAILY [facility] Last Admin: 03/02/17 10:09 Dose: 1,000 iu Cilostazol (Pletal) 100 mg PO BID [facility] Last Admin: 03/02/17 17:22 Dose: 100 mg Clonidine HCl (Catapres) 0.1 mg PO BID [facility] Last Admin: 03/02/17 17:20 Dose: 0.1 mg Epoetin Zane (Procrit) 10,000 unit SC [facility] Furosemide (Lasix) 40 mg PO DAILY [facility] Last Admin: 03/02/17 10:05 Dose: 40 mg Hydralazine HCl (Apresoline) 100 mg PO Q8 [facility] Last Admin: 03/03/17 01:29 Dose: 100 mg Hydromorphone HCl (Dilaudid) 0.5 mg IVP Q4 PRN PRN Reason: Pain, moderate (4-7) Last Admin: 03/03/17 03:12 Dose: 0.5 mg Hydromorphone HCl (Dilaudid) 1 mg IVP Q4 PRN PRN Reason: Pain, severe (8-10) Fluconazole (Diflucan Iv 200 Mg/100 Ml Ns) 100 mls @ 100 mls/hr IVPB DAILY [facility] Last Admin: 03/02/17 10:04 Dose: 100 mls/hr Insulin Detemir (Levemir) 20 units SC HS [facility] Insulin Human Regular (Humulin R) 0 units SC ACHS [facility] PRN Reason: Protocol Last Admin: 03/03/17 06:43 Dose: 2 unit Insulin Lispro Protam/Lispro Human (Humalog Mix 75/25) 10 units SC ACBD [facility] Isosorbide Dinitrate (Isordil) 10 mg PO BID [facility] Last Admin: 03/02/17 17:22 Dose: 10 mg Linezolid (Zyvox) 600 mg PO Q12 [facility] PRN Reason: Protocol Last Admin: 03/02/17 23:02 Dose: 600 mg Montelukast Sodium (Singulair) 10 mg PO HS [facility] Last Admin: 03/02/17 23:02 Dose: 10 mg Multivitamins/Minerals (Therapeutic-M Tab) 1 tab PO DAILY [facility] Last Admin: 03/02/17 10:08 Dose: 1 tab Pantoprazole Sodium (Protonix Ec Tab) 40 mg PO DAILY [facility] Last Admin: 03/02/17 10:08 Dose: 40 mg - Labs Labs: 03/03/17 04:30 03/03/17 04:30 - Constitutional Appears: Well, Non-toxic, No Acute Distress - Head Exam Head Exam: ATRAUMATIC, NORMAL INSPECTION, NORMOCEPHALIC - Eye Exam Eye Exam: EOMI, Normal appearance, PERRL Pupil Exam: NORMAL ACCOMODATION, PERRL - ENT Exam ENT Exam: Mucous Membranes Moist, Normal Exam - Neck Exam Neck Exam: Full ROM, Normal Inspection. absent: Lymphadenopathy - Respiratory Exam Respiratory Exam: Clear to Ausculation Bilateral, NORMAL BREATHING PATTERN - Cardiovascular Exam Cardiovascular Exam: REGULAR RHYTHM, RRR, +S1, +S2. absent: Murmur - GI/Abdominal Exam GI & Abdominal Exam: Soft, Normal Bowel Sounds. absent: Tenderness - Extremities Exam Extremities Exam: Full ROM, Normal Capillary Refill, Normal Inspection. absent : Joint Swelling, Pedal Edema - Back Exam Back Exam: NORMAL INSPECTION - Neurological Exam Neurological Exam: Alert, Awake, CN II-XII Intact, Normal Gait, Oriented x3 - Psychiatric Exam Psychiatric exam: Normal Affect, Normal Mood - Skin Skin Exam: Dry, Intact, Normal Color, Warm Assessment and Plan (1) Positive blood culture Status: Acute (2) Pancreatitis, acute Status: Acute (3) Syncope Status: Acute (4) ARCHIE (acute kidney injury) Status: Acute (5) Chronic kidney disease, stage 3 (moderate) Status: Acute (6) DVT prophylaxis Status: Acute (7) Diabetes type 2, uncontrolled Status: Acute (8) Diabetic foot ulcer Status: Acute - Assessment and Plan (Free Text) Assessment: (1) Positive blood culture Assessment & Plan: zyvox/diflucan ID Status: Acute (2) Pancreatitis, acute Assessment & Plan: resolved, doing well, po as beth gi appriciated Status: Acute (3) Syncope Assessment & Plan: no further, consults appriciated ? r/t anemia Status: Acute (4) ARCHIE (acute kidney injury) Assessment & Plan: ivf monitor Status: Acute (5) Chronic kidney disease, stage 3 (moderate) Assessment & Plan: omoniotor, r/t uncontrolled dm2 Status: Acute (6) DVT prophylaxis Assessment & Plan: scd and aehose ambulation w/ support Status: Acute (7) Diabetes type 2, uncontrolled Assessment & Plan: riss, fsbg, home meds Status: Acute (8) Diabetic foot ulcer Assessment & Plan: zyvox, podiatry Status: Acute 8- anemia-improving, heme/onc, monitor [id number], stop kdur dc planning
[2017-03-03] MEDS: Fluconazole IV 200mg/100 ml NS 100 ML IVPB SCH (08:22)
[2017-03-03] MEDS: Pantoprazole 40 mg EC Tab PO SCH (08:24)
[2017-03-03] MEDS: Cilostazol 100 mg Tab UD PO SCH ×2 (08:24→17:48)
[2017-03-03] MEDS: Multivitamin With Minerals Tab PO SCH (08:25)
[2017-03-03] MEDS ORDERED: EPOETIN ALFA 10,000 UNIT/ML ML SC SCH (09:00)
[2017-03-03 13:16] LABS: CALCIUM 8.4 mg/dL (8.4-10.2); POTASSIUM 4.5 MMOL/L (3.6-5.0)
[2017-03-04] MEDS: Albuterol-Ipratrop 3 mg / 0.5 (3 ml) UD INH SCH ×3 (01:18→13:32)
[2017-03-04 05:57] LABS: BASO # 0.1 K/uL (0.0-0.2); BASO % 0.8 % (0.0-2.0); EOS # 0.5 K/uL (0.0-0.7); EOS % 5.6 % (0.0-4.0); HEMATOCRIT 23.3 % (34.0-47.0); LYMPH # 2.4 K/uL (1.0-4.3); LYMPH % 29.8 % (20.0-40.0); MEAN CELL VOLUME 92.2 fl (81.0-99.0); MEAN CORPUSCULAR HEMOGLOBIN 29.8 pg (27.0-31.0); MEAN CORPUSCULAR HGB CONC 32.3 g/dL (33.0-37.0); MEAN PLATELET VOLUME 6.7 fl (7.2-11.7); MONO # 0.8 K/uL (0.0-0.8); MONO % 9.3 % (0.0-10.0); NEUT # 4.4 K/uL (1.8-7.0); NEUT % 54.5 % (50.0-75.0); NRBC % 0.1 % (0.0-0.0); RED CELL DISTRIBUTION WIDTH 16.7 % (11.5-14.5)
[2017-03-04 06:15] LABS: ALB/GLOB RATIO 0.8 (1.0-2.1); ALKALINE PHOSPHATASE 83 U/L (38-126); ALT/SGPT 27 U/L (9-52); AST/SGOT 21 U/L (14-36); BILIRUBIN,TOTAL < 0.1 mg/dl (0.2-1.3); BLOOD UREA NITROGEN 18 mg/dl (7-17); CARBON DIOXIDE 28 mmol/L (22-30); CHLORIDE 107 mmol/L (98-107); GFR AFRICAN-AMERICAN 43; GLUCOSE,RANDOM 134 mg/dL (65-105); LIPASE 12 U/L (23-300); POTASSIUM 4.5 MMOL/L (3.6-5.0); SODIUM 141 mmol/l (132-148); TOTAL PROTEIN 5.7 G/DL (6.3-8.2)
[2017-03-04] MEDS: Insulin Regular 100 units/ml SC SCH ×2 (06:34→11:30)
--- NOTE | 2017-03-04 07:38 | CP.PCM.PN ---
Subjective - Date & Time of Evaluation Date of Evaluation: 03/04/17 Time of Evaluation: 07:38 - Subjective Subjective: doing well, had n/v/d w/ abd crmaping after kayexalate yesterday. no fc. bw note.d hgb stable. k wnl. for ?? dc today Objective - Vital Signs/Intake and Output Vital Signs (last 24 hours): Temp Pulse Resp BP Pulse Ox 98.0 F 80 16 117/44 L 97 03/04/17 05:12 03/04/17 05:12 03/04/17 05:12 03/04/17 05:12 03/04/17 05:12 - Medications Medications: Current Medications Acetaminophen (Tylenol 325mg Tab) 650 mg PO Q6 PRN PRN Reason: Fever >100.4 F Last Admin: 02/27/17 00:12 Dose: 650 mg Al Hydrox/Mg Hydrox/Simethicone (Maalox Plus 30 Ml) 30 ml PO Q6 PRN PRN Reason: Indigestion / Heartburn Last Admin: 02/27/17 16:59 Dose: 30 ml Albuterol/Ipratropium (Duoneb 3 Mg/0.5 Mg (3 Ml) Ud) 3 ml INH RQ4 PRN PRN Reason: Shortness of Breath Last Admin: 03/01/17 11:41 Dose: 3 ml Albuterol/Ipratropium (Duoneb 3 Mg/0.5 Mg (3 Ml) Ud) 3 ml INH RQ6 [facility] Last Admin: 03/04/17 01:18 Dose: 3 ml Alprazolam (Xanax) 0.25 mg PO Q12 PRN PRN Reason: Anxiety Stop: 03/08/17 12:42 Last Admin: 03/01/17 21:28 Dose: 0.25 mg Amlodipine Besylate (Norvasc) 10 mg PO DAILY [facility] Last Admin: 03/03/17 08:24 Dose: 10 mg Aspirin (Ecotrin) 81 mg PO DAILY [facility] Last Admin: 02/25/17 10:47 Dose: 81 mg Atorvastatin Calcium (Lipitor) 20 mg PO HS [facility] Last Admin: 03/03/17 21:15 Dose: 20 mg Carvedilol (Coreg) 25 mg PO Q12 [facility] Last Admin: 03/03/17 21:15 Dose: 25 mg Cholecalciferol (Vitamin D) 1,000 iu PO DAILY [facility] Last Admin: 03/03/17 08:25 Dose: 1,000 iu Cilostazol (Pletal) 100 mg PO BID [facility] Last Admin: 03/03/17 17:48 Dose: 100 mg Clonidine HCl (Catapres) 0.1 mg PO BID [facility] Last Admin: 03/03/17 17:45 Dose: 0.1 mg Epoetin Zane (Procrit) 10,000 unit SC MWF [facility] Last Admin: 03/03/17 17:49 Dose: 10,000 unit Furosemide (Lasix) 40 mg PO DAILY [facility] Last Admin: 03/03/17 08:23 Dose: 40 mg Hydralazine HCl (Apresoline) 100 mg PO Q8 [facility] Last Admin: 03/04/17 00:25 Dose: 100 mg Hydromorphone HCl (Dilaudid) 0.5 mg IVP Q4 PRN PRN Reason: Pain, moderate (4-7) Last Admin: 03/04/17 03:59 Dose: 0.5 mg Hydromorphone HCl (Dilaudid) 1 mg IVP Q4 PRN PRN Reason: Pain, severe (8-10) Fluconazole (Diflucan Iv 200 Mg/100 Ml Ns) 100 mls @ 100 mls/hr IVPB DAILY [facility] Last Admin: 03/03/17 08:22 Dose: 100 mls/hr Insulin Detemir (Levemir) 20 units SC HS [facility] Insulin Human Regular (Humulin R) 0 units SC ACHS [facility] PRN Reason: Protocol Last Admin: 03/04/17 06:34 Dose: 2 unit Insulin Lispro Protam/Lispro Human (Humalog Mix 75/25) 10 units SC ACBD [facility] Isosorbide Dinitrate (Isordil) 10 mg PO BID [facility] Last Admin: 03/03/17 17:48 Dose: 10 mg Linezolid (Zyvox) 600 mg PO Q12 [facility] PRN Reason: Protocol Last Admin: 03/03/17 21:15 Dose: 600 mg Montelukast Sodium (Singulair) 10 mg PO HS [facility] Last Admin: 03/03/17 22:00 Dose: 10 mg Multivitamins/Minerals (Therapeutic-M Tab) 1 tab PO DAILY [facility] Last Admin: 03/03/17 08:25 Dose: 1 tab Pantoprazole Sodium (Protonix Ec Tab) 40 mg PO DAILY [facility] Last Admin: 03/03/17 08:24 Dose: 40 mg - Labs Labs: 03/04/17 05:30 03/04/17 05:30 - Constitutional Appears: Well, Non-toxic, No Acute Distress - Head Exam Head Exam: ATRAUMATIC, NORMAL INSPECTION, NORMOCEPHALIC - Eye Exam Eye Exam: EOMI, Normal appearance, PERRL Pupil Exam: NORMAL ACCOMODATION, PERRL - ENT Exam ENT Exam: Mucous Membranes Moist, Normal Exam - Neck Exam Neck Exam: Full ROM, Normal Inspection. absent: Lymphadenopathy - Respiratory Exam Respiratory Exam: Clear to Ausculation Bilateral, NORMAL BREATHING PATTERN - Cardiovascular Exam Cardiovascular Exam: REGULAR RHYTHM, RRR, +S1, +S2. absent: Murmur - GI/Abdominal Exam GI & Abdominal Exam: Soft, Normal Bowel Sounds. absent: Tenderness - Extremities Exam Extremities Exam: Full ROM, Normal Capillary Refill, Normal Inspection. absent : Joint Swelling, Pedal Edema - Back Exam Back Exam: NORMAL INSPECTION - Neurological Exam Neurological Exam: Alert, Awake, CN II-XII Intact, Normal Gait, Oriented x3 - Psychiatric Exam Psychiatric exam: Normal Affect, Normal Mood - Skin Skin Exam: Dry, Intact, Normal Color, Warm Assessment and Plan (1) Positive blood culture Status: Acute (2) Pancreatitis, acute Status: Acute (3) Syncope Status: Acute (4) ARCHIE (acute kidney injury) Status: Acute (5) Chronic kidney disease, stage 3 (moderate) Status: Acute (6) DVT prophylaxis Status: Acute (7) Diabetes type 2, uncontrolled Status: Acute (8) Diabetic foot ulcer Status: Acute - Assessment and Plan (Free Text) Assessment: (1) Positive blood culture Assessment & Plan: zyvox/diflucan ID Status: Acute (2) Pancreatitis, acute Assessment & Plan: resolved, doing well, po as beth gi appriciated Status: Acute (3) Syncope Assessment & Plan: no further, consults appriciated ? r/t anemia Status: Acute (4) ARCHIE (acute kidney injury) Assessment & Plan: ivf monitor Status: Acute (5) Chronic kidney disease, stage 3 (moderate) Assessment & Plan: omoniotor, r/t uncontrolled dm2 Status: Acute (6) DVT prophylaxis Assessment & Plan: scd and aehose ambulation w/ support Status: Acute (7) Diabetes type 2, uncontrolled Assessment & Plan: riss, fsbg, home meds Status: Acute (8) Diabetic foot ulcer Assessment & Plan: zyvox, podiatry Status: Acute 8- anemia-improving, heme/onc, monitor [id number], stop kdur, k normal today dc planning n/v/d-r/t kayexalte-will monitor, dwayne prn. po as beth
[2017-03-04 07:52] VITALS: RESP 18
[2017-03-04] MEDS: Multivitamin With Minerals Tab PO SCH (09:04)
[2017-03-04] MEDS: Pantoprazole 40 mg EC Tab PO SCH (09:04)
[2017-03-04] MEDS: Cilostazol 100 mg Tab UD PO SCH (09:05)
[2017-03-04] MEDS: Fluconazole IV 200mg/100 ml NS 100 ML IVPB SCH (09:13)
[2017-03-04 12:06] VITALS: BP 103/72; PULSE 72; TEMP 97.4; O2SAT 95
--- NOTE | 2017-03-04 13:34 | CP.PCM.PN ---
Objective - Vital Signs/Intake and Output Vital Signs (last 24 hours): Temp Pulse Resp BP Pulse Ox 97.4 F L 72 18 103/72 95 03/04/17 12:00 03/04/17 12:00 03/04/17 12:00 03/04/17 12:00 03/04/17 12:00 - Medications Medications: Current Medications Acetaminophen (Tylenol 325mg Tab) 650 mg PO Q6 PRN PRN Reason: Fever >100.4 F Last Admin: 02/27/17 00:12 Dose: 650 mg Al Hydrox/Mg Hydrox/Simethicone (Maalox Plus 30 Ml) 30 ml PO Q6 PRN PRN Reason: Indigestion / Heartburn Last Admin: 02/27/17 16:59 Dose: 30 ml Albuterol/Ipratropium (Duoneb 3 Mg/0.5 Mg (3 Ml) Ud) 3 ml INH RQ4 PRN PRN Reason: Shortness of Breath Last Admin: 03/01/17 11:41 Dose: 3 ml Albuterol/Ipratropium (Duoneb 3 Mg/0.5 Mg (3 Ml) Ud) 3 ml INH RQ6 MARISELA Last Admin: 03/04/17 13:32 Dose: Not Given Alprazolam (Xanax) 0.25 mg PO Q12 PRN PRN Reason: Anxiety Stop: 03/08/17 12:42 Last Admin: 03/01/17 21:28 Dose: 0.25 mg Amlodipine Besylate (Norvasc) 10 mg PO DAILY [facility] Last Admin: 03/04/17 09:06 Dose: 10 mg Aspirin (Ecotrin) 81 mg PO DAILY [facility] Last Admin: 02/25/17 10:47 Dose: 81 mg Atorvastatin Calcium (Lipitor) 20 mg PO HS [facility] Last Admin: 03/03/17 21:15 Dose: 20 mg Carvedilol (Coreg) 25 mg PO Q12 [facility] Last Admin: 03/04/17 09:06 Dose: 25 mg Cholecalciferol (Vitamin D) 1,000 iu PO DAILY [facility] Last Admin: 03/04/17 09:05 Dose: 1,000 iu Cilostazol (Pletal) 100 mg PO BID [facility] Last Admin: 03/04/17 09:05 Dose: 100 mg Clonidine HCl (Catapres) 0.1 mg PO BID [facility] Last Admin: 03/04/17 09:05 Dose: 0.1 mg Epoetin Zane (Procrit) 10,000 unit SC MWF [facility] Last Admin: 03/03/17 17:49 Dose: 10,000 unit Furosemide (Lasix) 40 mg PO DAILY [facility] Last Admin: 03/04/17 09:09 Dose: 40 mg Hydralazine HCl (Apresoline) 100 mg PO Q8 [facility] Last Admin: 03/04/17 09:07 Dose: 100 mg Hydromorphone HCl (Dilaudid) 0.5 mg IVP Q4 PRN PRN Reason: Pain, moderate (4-7) Last Admin: 03/04/17 09:02 Dose: 0.5 mg Hydromorphone HCl (Dilaudid) 1 mg IVP Q4 PRN PRN Reason: Pain, severe (8-10) Fluconazole (Diflucan Iv 200 Mg/100 Ml Ns) 100 mls @ 100 mls/hr IVPB DAILY [facility] Last Admin: 03/04/17 09:13 Dose: 100 mls/hr Insulin Detemir (Levemir) 20 units SC HS [facility] Insulin Human Regular (Humulin R) 0 units SC ACHS [facility] PRN Reason: Protocol Last Admin: 03/04/17 11:30 Dose: Not Given Insulin Lispro Protam/Lispro Human (Humalog Mix 75/25) 10 units SC ACBD [facility] Isosorbide Dinitrate (Isordil) 10 mg PO BID [facility] Last Admin: 03/04/17 09:05 Dose: 10 mg Linezolid (Zyvox) 600 mg PO Q12 [facility] PRN Reason: Protocol Last Admin: 03/04/17 09:05 Dose: 600 mg Montelukast Sodium (Singulair) 10 mg PO HS [facility] Last Admin: 03/03/17 22:00 Dose: 10 mg Multivitamins/Minerals (Therapeutic-M Tab) 1 tab PO DAILY [facility] Last Admin: 03/04/17 09:04 Dose: 1 tab Pantoprazole Sodium (Protonix Ec Tab) 40 mg PO DAILY [facility] Last Admin: 03/04/17 09:04 Dose: 40 mg - Labs Labs: 03/04/17 05:30 03/04/17 05:30 Assessment and Plan (1) Anemia Status: Acute
--- NOTE | 2017-03-04 15:45 | CP.PCM.DIS ---
Provider - Provider Date of Admission: 02/24/17 12:43 Attending physician: Jose Roberto Johns MD Primary care physician: Jose Roberto Johns MD Time Spent in preparation of Discharge (in minutes): 15 Diagnosis - Discharge Diagnosis (1) Positive blood culture Status: Acute (2) Pancreatitis, acute Status: Acute (3) Syncope Status: Acute (4) ARCHIE (acute kidney injury) Status: Acute (5) Chronic kidney disease, stage 3 (moderate) Status: Acute (6) DVT prophylaxis Status: Acute (7) Diabetes type 2, uncontrolled Status: Acute (8) Diabetic foot ulcer Status: Acute Hospital Course - Lab Results Lab Results: Micro Results 03/01/17 10:20 Blood Blood Culture - Preliminary NO GROWTH AFTER 3 DAYS 03/02/17 06:45 Urine,Clean Catch Urine Culture - Final 10-50,000 CFU/ML. MULTIPLE SPECIES. PROBABLE CONTAMINATION. 02/26/17 15:00 Catheter Tip Catheter Tip Culture - Final No Growth 02/24/17 05:30 Blood S.aureus & Coag-Neg Staph PNA FISH - Final 02/24/17 05:30 Blood Blood Culture - Final Riana Famata 02/24/17 05:30 Blood Gram Stain - Final 02/24/17 06:00 Blood Blood Culture - Final Riana Famata 02/24/17 06:00 Blood Gram Stain - Final 02/24/17 16:05 Urine Urine Culture - Final Enterococcus Faecium Yeast Species Most Recent Lab Values WBC 8.0 K/uL (4.8-10.8) 03/04/17 05:30 RBC 2.53 Mil/uL (3.80-5.20) L 03/04/17 05:30 Hgb 7.5 g/dL (12.0-16.0) L 03/04/17 05:30 Hct 23.3 % (34.0-47.0) L 03/04/17 05:30 MCV 92.2 fl (81.0-99.0) 03/04/17 05:30 MCH 29.8 pg (27.0-31.0) 03/04/17 05:30 MCHC 32.3 g/dL (33.0-37.0) L 03/04/17 05:30 RDW 16.7 % (11.5-14.5) H 03/04/17 05:30 Plt Count 337 K/uL (130-400) 03/04/17 05:30 MPV 6.7 fl (7.2-11.7) L 03/04/17 05:30 Neut % (Auto) 54.5 % (50.0-75.0) 03/04/17 05:30 Lymph % (Auto) 29.8 % (20.0-40.0) 03/04/17 05:30 [place] % (Auto) 9.3 % (0.0-10.0) 03/04/17 05:30 Eos % (Auto) 5.6 % (0.0-4.0) H 03/04/17 05:30 Baso % (Auto) 0.8 % (0.0-2.0) 03/04/17 05:30 Neut # 4.4 K/uL (1.8-7.0) 03/04/17 05:30 Lymph # 2.4 K/uL (1.0-4.3) 03/04/17 05:30 [place] # 0.8 K/uL (0.0-0.8) 03/04/17 05:30 Eos # 0.5 K/uL (0.0-0.7) 03/04/17 05:30 Baso # 0.1 K/uL (0.0-0.2) 03/04/17 05:30 Neutrophils % (Manual) 82 % (42-75) H 02/26/17 06:50 Band Neutrophils % 1 % (0-2) 02/26/17 06:50 Lymphocytes % (Manual) 9 % (20-50) L 02/26/17 06:50 Monocytes % (Manual) 6 % (0-10) 02/26/17 06:50 Eosinophils % (Manual) 2 % (0-7) 02/26/17 06:50 Platelet Estimate Normal (NORMAL) 02/26/17 06:50 Large Platelets Present 02/26/17 06:50 Poikilocytosis (manual Slight 02/26/17 06:50 Anisocytosis (manual) Slight 02/26/17 06:50 Target Cells Slight 02/26/17 06:50 D-Dimer, Quantitative 2095 ng/mlDDU (0-230) H 02/24/17 06:41 pCO2 63 mm/Hg (35-45) H 02/26/17 21:16 pO2 142 mm/Hg (80-100) H 02/26/17 21:16 HCO3 24.6 mmol/L (21-28) 02/26/17 21:16 ABG pH 7.25 (7.35-7.45) L 02/26/17 21:16 ABG Total CO2 29.5 mmol/L (22-28) H 02/26/17 21:16 ABG O2 Saturation 100.0 % (95-98) H 02/26/17 21:16 ABG Base Excess -0.4 mmol/L (-2.0-3.0) 02/26/17 21:16 [place]ard Test Yes 02/26/17 21:16 ABG Potassium 3.8 mmol/L (3.6-5.2) 02/26/17 21:16 A-a O2 Difference 492.0 mm/Hg 02/26/17 21:16 Sodium 138.0 mmol/L (132-148) 02/26/17 21:16 Chloride 106.0 mmol/L (98-107) 02/26/17 21:16 Glucose 222 mg/dL (65-105) H 02/26/17 21:16 Lactate 0.8 mmol/L (0.7-2.1) 02/26/17 21:16 Vent Mode Bipap 02/26/17 21:16 Mechanical Rate 18 02/26/17 21:16 FiO2 100.0 % 02/26/17 21:16 Inspiratory BiPAP 14 02/26/17 21:16 Expiratory BiPAP 6 02/26/17 21:16 Sodium 141 mmol/l (132-148) 03/04/17 05:30 Potassium 4.5 MMOL/L (3.6-5.0) 03/04/17 05:30 Chloride 107 mmol/L (98-107) 03/04/17 05:30 Carbon Dioxide 28 mmol/L (22-30) 03/04/17 05:30 Anion Gap 11 (-20) 03/04/17 05:30 BUN 18 mg/dl (7-17) H 03/04/17 05:30 Creatinine 1.5 mg/dl (0.7-1.2) H 03/04/17 05:30 Est GFR ( Amer) 43 03/04/17 05:30 Est GFR (Non-Af Amer) 35 03/04/17 05:30 POC Glucose (mg/dL) 149 mg/dL (65-110) H 03/04/17 10:46 Random Glucose 134 mg/dL (65-105) H 03/04/17 05:30 Calcium 8.0 mg/dL (8.4-10.2) L 03/04/17 05:30 Iron 68 ug/dL (37-170) 03/01/17 11:26 TIBC 199 ug/dL (250-450) L 03/01/17 11:26 % Saturation 34 % (20-55) 03/01/17 11:26 Ferritin 763.0 ng/Ml (11.1-264.0) H 03/01/17 11:26 Total Bilirubin < 0.1 mg/dl (0.2-1.3) L 03/04/17 05:30 AST 21 U/L (14-36) 03/04/17 05:30 ALT 27 U/L (9-52) 03/04/17 05:30 Alkaline Phosphatase 83 U/L (38-126) 03/04/17 05:30 Troponin I 0.0500 ng/mL (0.00-0.120) 02/24/17 05:30 Total Protein 5.7 G/DL (6.3-8.2) L 03/04/17 05:30 Albumin 2.6 g/dL (3.5-5.0) L 03/04/17 05:30 Globulin 3.1 gm/dL (2.2-3.9) 03/04/17 05:30 Albumin/Globulin Ratio 0.8 (1.0-2.1) L 03/04/17 05:30 Lipase 12 U/L (23-300) L 03/04/17 05:30 Vitamin B12 333 pg/mL (239-931) 03/01/17 11:26 Folate 11.8 ng/mL 03/01/17 11:26 Arterial Blood Potassium 3.8 mmol/L (3.6-5.2) 02/26/17 21:16 Urine Color Yellow (YELLOW) 02/24/17 16:05 Urine Clarity Slighty-cloudy (Clear) 02/24/17 16:05 Urine pH 7.0 (5.0-8.0) 02/24/17 16:05 Ur Specific [place] 1.020 (1.003-1.030) 02/24/17 16:05 Urine Protein >=500 mg/dL (NEGATIVE) 02/24/17 16:05 Urine Glucose (UA) Neg mg/dL (Normal) 02/24/17 16:05 Urine Ketones Negative mg/dL (NEGATIVE) 02/24/17 16:05 Urine Blood Small (NEGATIVE) 02/24/17 16:05 Urine Nitrate Negative (NEGATIVE) 02/24/17 16:05 Urine Bilirubin Negative (NEGATIVE) 02/24/17 16:05 Urine Urobilinogen 0.2-1.0 mg/dL (0.2-1.0) 02/24/17 16:05 Ur Leukocyte Esterase Neg Ana/uL (Negative) 02/24/17 16:05 Urine RBC (Auto) 52 /hpf (0-3) H 02/24/17 16:05 Urine Microscopic WBC 3 /hpf (0-5) 02/24/17 16:05 Ur Squamous Epith Cells 7 /hpf (0-5) H 02/24/17 16:05 Amorphous Sediment Few /ul (<OCC) H 02/24/17 16:05 Urine Bacteria Rare (<OCC) 02/24/17 16:05 Hyaline Casts 0-2 /hpf (0-2) 02/24/17 16:05 Broad Casts 1 /lpf (0-1) 02/24/17 16:05 Stool Occult Blood Negative (NEGATIVE) 03/02/17 Unknown Urine Opiates Screen Negative (NEGATIVE) 02/24/17 16:06 Urine Methadone Screen Negative (NEGATIVE) 02/24/17 16:06 Ur Barbiturates Screen Negative (NEGATIVE) 02/24/17 16:06 Ur Phencyclidine Scrn Negative (NEGATIVE) 02/24/17 16:06 Ur Amphetamines Screen Negative (NEGATIVE) 02/24/17 16:06 U Benzodiazepines Scrn Negative (NEGATIVE) 02/24/17 16:06 U Oth Cocaine Metabols Negative (NEGATIVE) 02/24/17 16:06 U Cannabinoids Screen Negative (NEGATIVE) 02/24/17 16:06 Alcohol, Quantitative < 10 mg/dl (0-10) 02/24/17 16:05 Blood Type O POSITIVE 02/26/17 10:55 Antibody Screen Negative 02/26/17 10:55 Crossmatch See Detail 02/26/17 10:55 BBK History Checked Patient has bt 02/26/17 10:55 Discharge Exam - Head Exam Head Exam: ATRAUMATIC, NORMAL INSPECTION, NORMOCEPHALIC Discharge Plan - Discharge Medications Prescriptions: Albuterol/Ipratropium [Duoneb 3 mg/0.5 mg (3 ml) UD] 3 ml INH RQ4 PRN #100 neb PRN Reason: Shortness Of Breath Fluconazole 100 mg PO DAILY #3 tablet Linezolid [Zyvox] 600 mg PO Q12 #6 tab - Follow Up Plan Condition: FAIR Disposition: HOME/ ROUTINE Instructions: Pancreatitis (DC), Syncope (DC), Syncope (GEN) Additional Instructions: doing well, no complaitns. pain controlled. no f/c, n/v/d bw noted. hgb stable. k wnl. f/u rmg wednesday. rted prn, med sper med rec final dx-hyperkalemia, ckd, dm2 uncontrolled, anemia, chf, resp distress, pancreatitis, syncope Referrals: Jose Roberto Johns MD [Primary Care Provider] -
== END 2017-03-04 12:15 | disposition home or self-care (01) | DRG 557 ==
LOC: H.ER 04:49 → H.ERHOLD 12:43 → H.TEL 02-25 22:36
PROVIDERS: ADMIT Family Medicine; ATTEND Family Medicine
PROC: 30233N1 Transfusion of Nonautologous Red Blood Cells into Peripheral Vein, Percutaneous Approach (ICD-10-PCS; 2017-02-26)
PROC: 0DB68ZX Excision of Stomach, Via Natural or Artificial Opening Endoscopic, Diagnostic (ICD-10-PCS; principal; 2017-02-26 11:30)
DX: K85.90 Acute pancreatitis without necrosis or infection, unspecified (principal); N17.9 Acute kidney failure, unspecified; J18.9 Pneumonia, unspecified organism; I13.0 Hypertensive heart and chronic kidney disease with heart failure and stage 1 through stage 4 chronic kidney disease, or unspecified chronic kidney disease; E11.22 Type 2 diabetes mellitus with diabetic chronic kidney disease; N18.3 Chronic kidney disease, stage 3 (moderate); I50.9 Heart failure, unspecified; E11.621 Type 2 diabetes mellitus with foot ulcer; E11.65 Type 2 diabetes mellitus with hyperglycemia; E87.6 Hypokalemia; L97.519 Non-pressure chronic ulcer of other part of right foot with unspecified severity; E87.5 Hyperkalemia; J44.0 Chronic obstructive pulmonary disease with (acute) lower respiratory infection; K21.9 Gastro-esophageal reflux disease without esophagitis; K29.50 Unspecified chronic gastritis without bleeding; I25.10 Atherosclerotic heart disease of native coronary artery without angina pectoris; D63.1 Anemia in chronic kidney disease; B95.2 Enterococcus as the cause of diseases classified elsewhere; E66.01 Morbid (severe) obesity due to excess calories; Z68.41 Body mass index [BMI] 40.0-44.9, adult; E78.5 Hyperlipidemia, unspecified; F41.9 Anxiety disorder, unspecified; H40.9 Unspecified glaucoma; F17.210 Nicotine dependence, cigarettes, uncomplicated; M19.90 Unspecified osteoarthritis, unspecified site; Z79.4 Long term (current) use of insulin; Z79.82 Long term (current) use of aspirin; Z88.1 Allergy status to other antibiotic agents; Z87.01 Personal history of pneumonia (recurrent); Z89.429 Acquired absence of other toe(s), unspecified side

== ENCOUNTER 2017-04-21 05:00 | Inpatient (IN) | payer MEDICAID ==
[2017-04-21 05:06] VITALS: BMI 45.1
[2017-04-21] MEDS ORDERED: Nitroglycerin 50mg in D5W 50 MG/250 ML BOTTLE IV ONE (05:08)
[2017-04-21] MEDS ORDERED: Albuterol-Ipratrop 3 mg / 0.5 (3 ml) UD INH STA ×2 (05:11→05:12)
[2017-04-21] MEDS ORDERED: Albuterol-Ipratrop 3 mg / 0.5 (3 ml) UD ONE ×2 (05:14→05:42)
[2017-04-21 05:21] LABS: BASO # 0.1 K/uL (0.0-0.2); BASO % 0.5 % (0.0-2.0); EOS # 0.9 K/uL (0.0-0.7); EOS % 5.3 % (0.0-4.0); HEMOGLOBIN 11.1 g/dL (12.0-16.0); LYMPH # 5.8 K/uL (1.0-4.3); LYMPH % 34.2 % (20.0-40.0); MEAN CELL VOLUME 95.1 fl (81.0-99.0); MEAN CORPUSCULAR HEMOGLOBIN 30.1 pg (27.0-31.0); MEAN CORPUSCULAR HGB CONC 31.6 g/dL (33.0-37.0); MEAN PLATELET VOLUME 8.6 fl (7.2-11.7); MONO # 1.5 K/uL (0.0-0.8); MONO % 8.8 % (0.0-10.0); NEUT # 8.6 K/uL (1.8-7.0); NEUT % 51.2 % (50.0-75.0); NRBC % 0.1 % (0.0-0.0); RBC 3.7 Mil/uL (3.80-5.20); RED CELL DISTRIBUTION WIDTH 17.8 % (11.5-14.5); WHITE BLOOD COUNT 16.8 K/uL (4.8-10.8)
--- NOTE | 2017-04-21 05:26 | ED PDOC ---
HPI: SOB/CHF/COPD Time Seen by Provider: 04/21/17 05:03 Chief Complaint (Nursing): Respiratory Distress Chief Complaint (Provider): Respiratory Distress History Per: EMS, Family History/Exam Limitations: clinical condition Onset/Duration Of Symptoms: Other (prior to arrival) Current Symptoms Are (Timing): Still Present Additional Complaint(s): 62 year old female, with a past medical history of HTN, CHF, COPD, pancreatitis, and diabetes, who was brought to the ED by EMS with ALS due to shortness of breath onset prior to arrival. Per family, patient awoke and was visibly short of breath. Patients medical history provided by family. Patient was placed on CPAP on route to ED. PMD: Provider TBD Past Medical History Reviewed: Historical Data, Nursing Documentation, Vital Signs, Unable To Obtain Vital Signs: Last Vital Signs Temp 98.6 F 04/21/17 20:00 Pulse 95 H 04/21/17 21:07 Resp 22 04/21/17 20:00 BP 131/58 L 04/21/17 21:07 Pulse Ox 98 04/21/17 20:00 - Medical History PMH: Anemia, Arthritis, Asthma, CAD, CHF, COPD, Diabetes (Type I and II), GERD, HTN, Hypercholesterolemia, Pancreatitis Denies: HIV, Chronic Kidney Disease - Surgical History Surgical History: Cholecystectomy, (x1) - Family History Family History: States: Diabetes, Hypertension - Immunization History Hx Tetanus Toxoid Vaccination: No - Home Medications Home Medications: Ambulatory Orders Medication Instructions Recorded Alogliptin Benzoate [Alogliptin] 25 mg PO DAILY 12/26/16 Aspirin [Ecotrin] 81 mg PO DAILY 12/26/16 Brinzolamide [Azopt] 1 drop BOTHEYES BID 12/26/16 Cholecalciferol [Vitamin D 1000 IU] 1,000 iu PO DAILY 12/26/16 Simvastatin [Zocor] 40 mg PO HS 12/26/16 Albuterol/Ipratropium [Duoneb 3 3 ml INH RQ6 #100 neb 02/15/17 mg/0.5 mg (3 ml) UD] Aluminum Hydroxide/Magnesium 30 ml PO Q6 PRN #250 ml 02/15/17 [Maalox Plus 30 ml] Carvedilol [Coreg] 25 mg PO Q12 #60 tab 02/15/17 Isosorbide Dinitrate [Isordil] 10 mg PO BID #60 tab 02/15/17 Moxifloxacin [Avelox] 400 mg PO DAILY #5 tab 02/15/17 Pantoprazole [Protonix EC Tab] 40 mg PO DAILY #30 ect 02/15/17 amLODIPine [Norvasc] 10 mg PO DAILY #30 tab 02/15/17 cloNIDine [Catapres] 0.1 mg PO BID #60 tab 02/15/17 hydrALAZINE [Apresoline] 100 mg PO Q8 #90 tab 02/15/17 Ascorbic Acid [Vitamin C 500 mg 500 mg PO DAILY 02/24/17 Tab] Cilostazol [Pletal] 100 mg PO BID 02/24/17 Insulin Detemir [Levemir] 20 units SC HS 02/24/17 Insulin Lispro Mix 75/25 [HumaLog 10 units SC ACBD 02/24/17 MIX 75/25] Montelukast [Singulair] 10 mg PO QPM 02/24/17 Multivitamin [Daily Doris] 1 tab PO DAILY 02/24/17 Albuterol/Ipratropium [Duoneb 3 3 ml INH RQ4 PRN #100 neb 03/03/17 mg/0.5 mg (3 ml) UD] Fluconazole 100 mg PO DAILY #3 tablet 03/03/17 Linezolid [Zyvox] 600 mg PO Q12 #6 tab 03/03/17 Furosemide [Lasix] 40 mg PO DAILY 04/21/17 Omeprazole [Omeprazole] 20 mg PO DAILY 04/21/17 - Allergies Allergies/Adverse Reactions: Allergies Allergy/AdvReac Type Severity Reaction Status Date / Time azithromycin [From Zithromax] Allergy RASH Verified 04/21/17 05:05 Review of Systems Review Of Systems: ROS cannot be obtained secondary to pt's inabilty to answer questions. Respiratory: Positive for: Shortness of Breath Physical Exam - Reviewed Nursing Documentation Reviewed: Yes Vital Signs Reviewed: Yes - Physical Exam Appears: Positive for: Non-toxic, In Acute Distress Head Exam: Positive for: ATRAUMATIC, NORMAL INSPECTION, NORMOCEPHALIC Skin: Positive for: Normal Color, Diaphoresis Eye Exam: Positive for: EOMI, Normal appearance, PERRL Neck: Positive for: Normal, Painless ROM, Supple Cardiovascular/Chest: Positive for: Tachycardia, Other (Hypertensive) Respiratory: Positive for: Rales (bilateral, diffuse), Respiratory Distress ( moderate) Gastrointestinal/Abdominal: Positive for: Normal Exam, Bowel Sounds, Soft. Negative for: Tenderness Back: Positive for: Normal Inspection. Negative for: L CVA Tenderness, R CVA Tenderness, Vertebral Tenderness Extremity: Positive for: Pedal Edema (3+ edema lower extremities bilaterally) Neurologic/Psych: Positive for: Alert - Laboratory Results Result Diagrams: 04/21/17 05:10 04/21/17 05:10 - ECG O2 Sat by Pulse Oximetry: 100 (BIPAP) Pulse Ox Interpretation: Normal - Critical Care Total Time (In Min): 60 Medical Decision Making Medical Decision Making: Time: 05:06 Initial Impression: 62 year old female with shortness of breath in setting of known CHF, COPD, and HTN Plan: --ABG Shock Panel --EKG --BNP --CMP --Lipase --Troponin I --CBC w/ differential --PTT --Prothrombin Time --Portable Chest X-Ray --Dextrose 50% IV --Duoneb 3 ml INH --Duoneb 3 ml INH --Glucagen Diagnostic Kit IM --Glucose 15 PO --HumuLIN R 10 units IV --Sodium Chloride 0.9% 100 ml, HumuLIN R 100 units IV 6 units/hr --Lasix 80 mg IV --Nitroglycerin 50 mg in 250 ml IV 10 mcg/min --SOLU-Medrol 125 mg IVP --Blood Culture --Heplock Insertion --Accucheck --Glucose, Blood, POC --Hypoglycemia Oral Treatment --Urinary Catheter --BIPAP --Peak flow pre/post treatment --Reevaluation Time: 05:14 --Chest X-Ray shows cardiomegaly and pulmonary edema bilaterally Time: 05:55 --Case discussed with Rigoberto Andrade NP for [facility]. --Labs reviewed and significant for marked elevation of proBNP. Patient noted to have leukocytosis. Patient is also hyperglycemic and acidotic whic is likely mixed metabolic and respiratory in etiology given pCO@ is only 60. Although no anion gap, will treat with IV insulin drip due to acidosis and hyperglycemia which may indicate early nonketotic hyperglycemia. Patient will be admitted to ICU for further treatment of CHF, hypertensive urgency, and possible nonketotic hyperglycemia. Scribe Attestation: Documented by Aubrey Vera acting as a scribe for Lei Salas MD. Scribe Attestation: All medical record entries made by the Scribe were at my direction and personally dictated by me. I have reviewed the chart and agree that the record accurately reflects my personal performance of the history, physical exam, medical decision making, and the department course for this patient. I have also personally directed, reviewed, and agree with the discharge instructions and disposition. Disposition - Clinical Impression Clinical Impression: Respiratory failure, CHF (congestive heart failure), Hyperglycemia - Patient ED Disposition Is Patient to be Admitted: Yes - Disposition Disposition Time: 06:00 Condition: GUARDED - Pt Status Changed To: Hospital Disposition Of: Inpatient (ICU) - Admit Certification Admit to Inpatient:: After my assessment, the patient will require hospitalization for at least two midnights. This is because of the severity of symptoms shown, intensity of services needed, and/or the medical risk in this patient being treated as an outpatient. - POA Present On Arrival: Poor Glycemic Control
[2017-04-21 05:28] LABS: ABG ALLEN TEST YES; ARTERIAL BLOOD GAS HCO3 18.8 mmol/L (21-28); ARTERIAL BLOOD GAS O2 SAT 99.9 % (95-98); ARTERIAL BLOOD GAS PCO2 60 mm/Hg (35-45); ARTERIAL BLOOD GAS PH 7.16 (7.35-7.45); ARTERIAL BLOOD GAS PO2 250 mm/Hg (80-100); ARTERIAL BLOOD GAS TCO2 23.2 mmol/L (22-28)
[2017-04-21 05:31] LABS: ALB/GLOB RATIO 0.9 (1.0-2.1); ALBUMIN 3.7 g/dL (3.5-5.0); CALCIUM 8.7 mg/dL (8.4-10.2); GFR AFRICAN-AMERICAN > 60; GFR NON-AFRICAN AMERICAN 56; LIPASE 184 U/L (23-300)
[2017-04-21] MEDS ORDERED: Insulin Regular 100 units/ml IV ONE (05:31)
[2017-04-21] MEDS ORDERED: Glucagon Recombinant 1 mg Inj IM PRN (05:32)
[2017-04-21] MEDS ORDERED: Dextrose 50% SYRINGE Inj (50 ml) IV PRN (05:32)
[2017-04-21 05:35] LABS: ALT/SGPT 33 U/L (9-52); AST/SGOT 66 U/L (14-36); BLOOD UREA NITROGEN 17 mg/dl (7-17)
[2017-04-21 05:38] LABS: PARTIAL THROMBOPLASTIN TIME 35.4 Seconds (25.6-37.1); PROTHROMBIN TIME 11.2 Seconds (9.8-13.1)
[2017-04-21 05:43] LABS: B-TYPE NATRIURETIC PEPTIDE 14300 pg/ml (0-900)
--- NOTE | 2017-04-21 05:51 | CP.PCM.CON ---
History of Present Illness - History of Present Illness History of Present Illness: PCP: Jose Roberto Johns MD Reason for consult: Critical care management Chief Complaint: Worsening SOB The patient was seen and examined in the ED HPI: The hx was obtained from the family and after review of the medical chart. She is a 62 years old female with hx of DM II, COPD with Asthma and CHF who was last admitted on 02/24/17 and Discharged n 03/04/17 with Dx of Syncope, Candidemia and Enterococcus in the urine. She was brought to the ED because of worsening SOB which has been evolving over the the past week. EMS placed her on CP where SpO2 only increased to 92%. Her BP was 240/100mmHg. In the ED she was placed on BIPAP I/O 30/09 at rate of 14 and FiO2 of 100%. No hx of Chest pain. PMH: Anemia; Arthritis; Asthma; COPD; CAD; CHF; DM II; GERD; HTN; HLD; Pancreatitis PSH: Cholecystectomy; C SectionX1 SH: Former Smoker; No illegal drug use; No Alcohol use FH: DM: HTN Allergies: Azithromycin Medication: Reviewed Review of Systems - Review of Systems Systems not reviewed;Unavailable: Respiratory Distress Review of Systems: Review of system is limited because of the Severe SOB. - Constitutional Constitutional: Lethargy. absent: Fever, Headache, Weakness - EENT Eyes: Requires Corrective Lenses Nose/Mouth/Throat: absent: Epistaxis, Nasal Congestion - Cardiovascular Cardiovascular: Dyspnea, Leg Edema. absent: Chest Pain - Respiratory Respiratory: Cough, Dyspnea, Wheezing, Chest Congestion Past Patient History - Infectious Disease Hx of Infectious Diseases: None - Past Medical History & Family History Past Medical History?: Yes - Past Social History Smoking Status: Former Smoker Chewing Tobacco Use: No Cigar Use: No Alcohol: None Drugs: Denies Home Situation {Lives}: With Family - CARDIAC Hx Congestive Heart Failure: Yes Hx Hypercholesterolemia: Yes Hx Hypertension: Yes - PULMONARY Hx Asthma: Yes Hx Chronic Obstructive Pulmonary Disease (COPD): Yes - NEUROLOGICAL Hx Neurological Disorder: No - HEENT Hx HEENT Problems: Yes Hx Glaucoma: Yes (left eye and right eye) Other/Comment: uses glasses for reading. - RENAL Hx Chronic Kidney Disease: No - ENDOCRINE/METABOLIC Hx Diabetes Mellitus Type 1: Yes Hx Diabetes Mellitus Type 2: Yes - HEMATOLOGICAL/ONCOLOGICAL Hx Anemia: Yes Hx Human Immunodeficiency Virus (HIV): No - INTEGUMENTARY Hx Dermatological Problems: No - MUSCULOSKELETAL/RHEUMATOLOGICAL Hx Arthritis: Yes - GASTROINTESTINAL Hx Pancreatitis: Yes - GENITOURINARY/GYNECOLOGICAL Hx Genitourinary Disorders: No - PSYCHIATRIC Hx Substance Use: No - SURGICAL HISTORY Hx Cholecystectomy: Yes - ANESTHESIA Hx Anesthesia: Yes Hx Anesthesia Reactions: No Hx Malignant Hyperthermia: No Meds Allergies/Adverse Reactions: Allergies Allergy/AdvReac Type Severity Reaction Status Date / Time azithromycin [From Zithromax] Allergy RASH Verified 04/21/17 05:05 - Medications Medications: Current Medications Dextrose (Dextrose 50% Inj) 0 ml IV STAT PRN; Protocol PRN Reason: Hypoglycemia Protocol Dextrose (Glutose 15) 0 gm PO ONCE PRN; Protocol PRN Reason: Hypoglycemia Protocol Glucagon (Glucagen Diagnostic Kit) 0 mg IM STAT PRN; Protocol PRN Reason: Hypoglycemia Protocol Nitroglycerin/Dextrose (Nitroglycerin 50 Mg/250 Ml D5w) 50 mg in 250 mls @ 3 mls/hr IV .Q24H ONE; 10 MCG/MIN PRN Reason: Protocol Stop: 04/22/17 05:07 Last Admin: 04/21/17 05:16 Dose: 3 mls/hr Insulin Human Regular 100 (units/ Sodium Chloride) 101 mls @ 6.06 mls/hr IV .[id number] MARISELA; 6 UNITS/HR PRN Reason: Protocol Physical Exam - Constitutional Appears: In Acute Distress, Older Than Stated Age - Head Exam Head Exam: ATRAUMATIC, NORMAL INSPECTION, NORMOCEPHALIC - Eye Exam Eye Exam: EOMI, Normal appearance Pupil Exam: NORMAL ACCOMODATION, PERRL - ENT Exam ENT Exam: Mucous Membranes Moist, Normal Exam, Normal External Ear Exam - Neck Exam Neck exam: Positive for: Full Rom, Normal Inspection. Negative for: Lymphadenopathy, Tenderness - Respiratory Exam Respiratory Exam: Wheezes. absent: Rales Additional comments: Harsh expiratory wheezes with inspiratory rales - Cardiovascular Exam Cardiovascular Exam: REGULAR RHYTHM, +S1, +S2. absent: Gallop - GI/Abdominal Exam GI & Abdominal Exam: absent: Mass, Organomegaly, Soft Additional comments: . - Rectal Exam Rectal Exam: Deferred - Extremities Exam Additional comments: Edema 3+ to both lower extremities. Pain to both ankles on palpation. On the Right foot the 4th and 5th toes are amputated and healed well. On the left foot the 5th toe is amputated and healing well. - Back Exam Back exam: NORMAL INSPECTION. absent: CVA tenderness (L), CVA tenderness (R) - Neurological Exam Neurological exam: CN II-XII Intact, Oriented x3, Reflexes Normal Additional comments: lethargic - Psychiatric Exam Psychiatric exam: Normal Affect, Normal Mood - Skin Skin Exam: Dry, Intact, Normal Color, Warm Results - Vital Signs Recent Vital Signs: Last Vital Signs Temp 98.8 F 04/21/17 05:51 Pulse 140 H 04/21/17 05:19 Resp 24 04/21/17 05:16 BP 208/102 H 04/21/17 05:16 Pulse Ox 100 04/21/17 05:49 - Labs Result Diagrams: 04/21/17 05:10 04/21/17 05:10 Labs: Laboratory Results - last 24 hr 04/21/17 04/21/17 04/21/17 05:10 05:10 05:10 WBC 16.8 H D RBC 3.70 L Hgb 11.1 L D Hct 35.2 MCV 95.1 D MCH 30.1 MCHC 31.6 L RDW 17.8 H Plt Count 357 MPV 8.6 Neut % (Auto) 51.2 Lymph % (Auto) 34.2 [place] % (Auto) 8.8 Eos % (Auto) 5.3 H Baso % (Auto) 0.5 Neut # 8.6 H Lymph # 5.8 H [place] # 1.5 H Eos # 0.9 H Baso # 0.1 PT 11.2 INR 1.0 APTT 35.4 pCO2 pO2 HCO3 ABG pH ABG Total CO2 ABG O2 Saturation ABG Base Excess [place] Test ABG Potassium A-a O2 Difference Glucose Lactate Vent Mode Mechanical Rate FiO2 Inspiratory BiPAP Expiratory BiPAP Crit Value Called To Crit Value Called By Crit Value Read Back Blood Gas Notified Time Sodium 142 Potassium 4.5 Chloride 111 H Carbon Dioxide 22 Anion Gap 14 BUN 17 Creatinine 1.0 Est GFR ( Amer) > 60 Est GFR (Non-Af Amer) 56 Random Glucose 273 H Calcium 8.7 Total Bilirubin 0.5 AST 66 H D ALT 33 Alkaline Phosphatase 134 H D Troponin I 0.0460 NT-Pro-B Natriuret Pep 96778 H Total Protein 7.9 Albumin 3.7 Globulin 4.1 H Albumin/Globulin Ratio 0.9 L Lipase 184 Arterial Blood Potassium 04/21/17 05:18 WBC RBC Hgb Hct MCV MCH MCHC RDW Plt Count MPV Neut % (Auto) Lymph % (Auto) [place] % (Auto) Eos % (Auto) Baso % (Auto) Neut # Lymph # [place] # Eos # Baso # PT INR APTT pCO2 60 H pO2 250 H HCO3 18.8 L ABG pH 7.16 L* ABG Total CO2 23.2 ABG O2 Saturation 99.9 H ABG Base Excess -8.0 L [place] Test Yes ABG Potassium 4.1 A-a O2 Difference 388.0 Glucose 319 H Lactate 0.7 Vent Mode Bipap Mechanical Rate 14 FiO2 100.0 Inspiratory BiPAP 14 Expiratory BiPAP 6 Crit Value Called To Dr katey walker Crit Value Called By Shawna Crit Value Read Back Y Blood Gas Notified Time 528 Sodium 140.0 Potassium Chloride 115.0 H Carbon Dioxide Anion Gap BUN Creatinine Est GFR ( Amer) Est GFR (Non-Af Amer) Random Glucose Calcium Total Bilirubin AST ALT Alkaline Phosphatase Troponin I NT-Pro-B Natriuret Pep Total Protein Albumin Globulin Albumin/Globulin Ratio Lipase Arterial Blood Potassium 4.1 - Imaging and Cardiology Chest x-ray Status: Image reviewed by me Additional comment: Bilateral interstitial infiltrate CT scan - head Status: Image reviewed by me, Report reviewed by me Additional comment: No definite Intracraneal abnormality Assessment & Plan - Assessment and Plan (Free Text) Assessment: #. Acute CHF #. COPD exacerbation #. hypercarbic, hypoxic Respiratory Failure #.Respiratory with metabolic Acidosis #. DM II with hyperglycemia #. Leukocytosis Plan: 62 years old female with hx of DM II, COPD with Asthma and CHF who was last admitted on 02/24/17 and Discharged n 03/04/17 with Dx of Syncope,Candidemia and Enterococcus in the urine. She was brought to the ED because of worsening SOB which has been evolving over the the past week. In the ED she was placed on BIPAP I/E 14/6 at rate of 14 and FiO2 of 100%. No hx of Chest pain. #. Acute CHF with Pro BNP 63050 - Consult Cardiology - Tridil started in ED - Lasix IV 40mg BID - Coreg - Apresoline #. COPD exacerbation - Consult Dr Jones Pulmonary - Duoneb Q4hrs - Solumedrol #. Hypercarbic, hypoxic Respiratory Failure with respiratory and metabolic Acidosis - Pulmonary on Consult - BIPAP I/E 30/09 with FiO2 of 100% and Rate of 14 follow Repeat ABG #. DM II with hyperglycemia. No Evidence for DKA - D/C Insulin Drip - Levemir - HbA1c 11.7 on 02/07/17 #. Leukocytosis Could be reactive - follow Blood culture - Procalcitonin - follow WBC #. Stress Ulcer Prophylaxis with Pantoprazole #. DVT prophylaxis with Lovenox #. Code Status: Full - Date & Time Date: 04/21/17 Time: 05:51
[2017-04-21 05:57] LABS: SQUAMOUS EPITHIAL < 1 /hpf (0-5); URINE BACTERIA FEW (<OCC); URINE BILIRUBIN NEGATIVE (NEGATIVE); URINE BLOOD SMALL (NEGATIVE); URINE CLARITY SLIGHTY-CLOUDY (Clear); URINE COLOR YELLOW (YELLOW); URINE GLUCOSE (UA) NEG (Normal); URINE LEUKOCYTE ESTERASE NEG Leu/uL (Negative); URINE NITRATE NEGATIVE (NEGATIVE); URINE PROTEIN >=500 mg/dL (NEGATIVE); URINE UROBILINOGEN 0.2-1.0 mg/dL (0.2-1.0)
--- NOTE | 2017-04-21 07:05 | CT ---
EXAM: CT Head Without Intravenous Contrast CLINICAL HISTORY: 62 years old, female; Signs and symptoms; Altered mental status/memory loss; Additional info: AMS TECHNIQUE: Axial computed tomography images of the head/brain without intravenous contrast. All CT scans at this facility use one or more dose reduction techniques, viz.: automated exposure control; ma/kV adjustment per patient size (including targeted exams where dose is matched to indication; i.e. head); or iterative reconstruction technique. Coronal and sagittal reformatted images were created and reviewed. COMPARISON: CT - HEAD W/O CONTRAST 2014-04-16 20:35 FINDINGS: Brain: Mild atrophy. No intracranial hemorrhage. No mass. No definite edema. Ventricles: No hydrocephalus. Bones/joints: No acute fracture. Soft tissues: Unremarkable. Vasculature: Atherosclerotic disease of intracranial arteries. Sinuses: Scattered minimal mucosal thickening. Mastoid air cells: No mastoid effusion. Orbits: Unremarkable as visualized. IMPRESSION: 1. No definite acute intracranial abnormality. 2. Incidental/non-acute findings are described above.
--- NOTE | 2017-04-21 08:04 | CP.PCM.HP ---
History of Present Illness - History of Present Illness History of Present Illness: pt admitted for chf, tachycardia, htn urgency, elevated glucose. pt has h/o chf , htn, dm2, multiple leg wounds. probnp elevated. imaging noted pt on bipap and lethargic st on monitor bp controlled. no f/c, n/v/d. per son pt woke up 4am w/ sob. was given albuterol at home then son called 911 Present on Admission - Present on Admission Any Indicators Present on Admission: Yes History of Uncontrolled Diabetes: Yes Review of Systems - Cardiovascular Cardiovascular: As Per HPI, Rapid Heart Rate - Respiratory Respiratory: As Per HPI, Cough, Dyspnea, Chest Congestion Past Patient History - Infectious Disease Hx of Infectious Diseases: None - Past Medical History & Family History Past Medical History?: Yes - Past Social History Smoking Status: Former Smoker Chewing Tobacco Use: No Cigar Use: No Alcohol: None Drugs: Denies Home Situation {Lives}: With Family - CARDIAC Hx Congestive Heart Failure: Yes Hx Hypercholesterolemia: Yes Hx Hypertension: Yes - PULMONARY Hx Asthma: Yes Hx Chronic Obstructive Pulmonary Disease (COPD): Yes - NEUROLOGICAL Hx Neurological Disorder: No - HEENT Hx HEENT Problems: Yes Hx Glaucoma: Yes (left eye and right eye) Other/Comment: uses glasses for reading. - RENAL Hx Chronic Kidney Disease: No - ENDOCRINE/METABOLIC Hx Diabetes Mellitus Type 1: Yes Hx Diabetes Mellitus Type 2: Yes - HEMATOLOGICAL/ONCOLOGICAL Hx Anemia: Yes Hx Human Immunodeficiency Virus (HIV): No - INTEGUMENTARY Hx Dermatological Problems: No - MUSCULOSKELETAL/RHEUMATOLOGICAL Hx Arthritis: Yes - GASTROINTESTINAL Hx Pancreatitis: Yes - GENITOURINARY/GYNECOLOGICAL Hx Genitourinary Disorders: No - PSYCHIATRIC Hx Substance Use: No - SURGICAL HISTORY Hx Cholecystectomy: Yes - ANESTHESIA Hx Anesthesia: Yes Hx Anesthesia Reactions: No Hx Malignant Hyperthermia: No Meds Allergies/Adverse Reactions: Allergies Allergy/AdvReac Type Severity Reaction Status Date / Time azithromycin [From Zithromax] Allergy RASH Verified 04/21/17 05:05 Physical Exam - Constitutional Appears: No Acute Distress, Older Than Stated Age, Chronically Ill - Head Exam Head Exam: ATRAUMATIC, NORMAL INSPECTION, NORMOCEPHALIC - Eye Exam Eye Exam: EOMI, Normal appearance, PERRL Pupil Exam: NORMAL ACCOMODATION, PERRL - ENT Exam ENT Exam: Mucous Membranes Moist, Normal Exam - Neck Exam Neck exam: Positive for: Normal Inspection - Respiratory Exam Respiratory Exam: Rales, Rhonchi Additional comments: on bipap. rr 20s - Cardiovascular Exam Cardiovascular Exam: Tachycardia (d), REGULAR RHYTHM, RRR, +S1, +S2 - GI/Abdominal Exam GI & Abdominal Exam: Normal Bowel Sounds, Soft. absent: Tenderness - Extremities Exam Extremities exam: Positive for: full ROM, normal capillary refill, normal inspection, pedal pulses present - Back Exam Back exam: NORMAL INSPECTION - Neurological Exam Neurological exam: Abnormal Gait, Alert, CN II-XII Intact, Oriented x3, Reflexes Normal - Psychiatric Exam Psychiatric exam: Normal Affect, Normal Mood - Skin Skin Exam: Dry, Intact, Normal Color, Warm Results - Vital Signs Recent Vital Signs: Last Vital Signs Temp 98.8 F 04/21/17 07:08 Pulse 117 H 04/21/17 07:08 Resp 29 H 04/21/17 07:08 BP 120/58 L 04/21/17 07:08 Pulse Ox 100 04/21/17 07:00 - Labs Result Diagrams: 04/21/17 05:10 04/21/17 05:10 Labs: Laboratory Results - last 24 hr 04/21/17 04/21/17 04/21/17 05:10 05:10 05:10 WBC 16.8 H D RBC 3.70 L Hgb 11.1 L D Hct 35.2 MCV 95.1 D MCH 30.1 MCHC 31.6 L RDW 17.8 H Plt Count 357 MPV 8.6 Neut % (Auto) 51.2 Lymph % (Auto) 34.2 [place] % (Auto) 8.8 Eos % (Auto) 5.3 H Baso % (Auto) 0.5 Neut # 8.6 H Lymph # 5.8 H [place] # 1.5 H Eos # 0.9 H Baso # 0.1 PT 11.2 INR 1.0 APTT 35.4 pCO2 pO2 HCO3 ABG pH ABG Total CO2 ABG O2 Saturation ABG Base Excess [place] Test ABG Potassium A-a O2 Difference Glucose Lactate Vent Mode Mechanical Rate FiO2 Inspiratory BiPAP Expiratory BiPAP Crit Value Called To Crit Value Called By Crit Value Read Back Blood Gas Notified Time Sodium 142 Potassium 4.5 Chloride 111 H Carbon Dioxide 22 Anion Gap 14 BUN 17 Creatinine 1.0 Est GFR ( Amer) > 60 Est GFR (Non-Af Amer) 56 POC Glucose (mg/dL) Random Glucose 273 H Calcium 8.7 Total Bilirubin 0.5 AST 66 H D ALT 33 Alkaline Phosphatase 134 H D Troponin I 0.0460 NT-Pro-B Natriuret Pep 81288 H Total Protein 7.9 Albumin 3.7 Globulin 4.1 H Albumin/Globulin Ratio 0.9 L Lipase 184 Arterial Blood Potassium Urine Color Urine Clarity Urine pH Ur Specific [place] Urine Protein Urine Glucose (UA) Urine Ketones Urine Blood Urine Nitrate Urine Bilirubin Urine Urobilinogen Ur Leukocyte Esterase Urine RBC (Auto) Urine Microscopic WBC Ur Squamous Epith Cells Urine Bacteria Hyaline Casts 04/21/17 04/21/17 04/21/17 05:18 05:40 06:17 WBC RBC Hgb Hct MCV MCH MCHC RDW Plt Count MPV Neut % (Auto) Lymph % (Auto) [place] % (Auto) Eos % (Auto) Baso % (Auto) Neut # Lymph # [place] # Eos # Baso # PT INR APTT pCO2 60 H pO2 250 H HCO3 18.8 L ABG pH 7.16 L* ABG Total CO2 23.2 ABG O2 Saturation 99.9 H ABG Base Excess -8.0 L [place] Test Yes ABG Potassium 4.1 A-a O2 Difference 388.0 Glucose 319 H Lactate 0.7 Vent Mode Bipap Mechanical Rate 14 FiO2 100.0 Inspiratory BiPAP 14 Expiratory BiPAP 6 Crit Value Called To Dr katey walker Crit Value Called By 333 Crit Value Read Back Y Blood Gas Notified Time 528 Sodium 140.0 Potassium Chloride 115.0 H Carbon Dioxide Anion Gap BUN Creatinine Est GFR ( Amer) Est GFR (Non-Af Amer) POC Glucose (mg/dL) 181 H Random Glucose Calcium Total Bilirubin AST ALT Alkaline Phosphatase Troponin I NT-Pro-B Natriuret Pep Total Protein Albumin Globulin Albumin/Globulin Ratio Lipase Arterial Blood Potassium 4.1 Urine Color Yellow Urine Clarity Slighty-cloudy Urine pH 5.0 Ur Specific [place] 1.009 Urine Protein >=500 Urine Glucose (UA) Neg Urine Ketones Negative Urine Blood Small Urine Nitrate Negative Urine Bilirubin Negative Urine Urobilinogen 0.2-1.0 Ur Leukocyte Esterase Neg Urine RBC (Auto) 11 H Urine Microscopic WBC 4 Ur Squamous Epith Cells < 1 Urine Bacteria Few H Hyaline Casts 3-5 H 04/21/17 04/21/17 06:57 07:49 WBC RBC Hgb Hct MCV MCH MCHC RDW Plt Count MPV Neut % (Auto) Lymph % (Auto) [place] % (Auto) Eos % (Auto) Baso % (Auto) Neut # Lymph # [place] # Eos # Baso # PT INR APTT pCO2 pO2 HCO3 ABG pH ABG Total CO2 ABG O2 Saturation ABG Base Excess [place] Test ABG Potassium A-a O2 Difference Glucose Lactate Vent Mode Mechanical Rate FiO2 Inspiratory BiPAP Expiratory BiPAP Crit Value Called To Crit Value Called By Crit Value Read Back Blood Gas Notified Time Sodium Potassium Chloride Carbon Dioxide Anion Gap BUN Creatinine Est GFR ( Amer) Est GFR (Non-Af Amer) POC Glucose (mg/dL) 87 86 Random Glucose Calcium Total Bilirubin AST ALT Alkaline Phosphatase Troponin I NT-Pro-B Natriuret Pep Total Protein Albumin Globulin Albumin/Globulin Ratio Lipase Arterial Blood Potassium Urine Color Urine Clarity Urine pH Ur Specific [place] Urine Protein Urine Glucose (UA) Urine Ketones Urine Blood Urine Nitrate Urine Bilirubin Urine Urobilinogen Ur Leukocyte Esterase Urine RBC (Auto) Urine Microscopic WBC Ur Squamous Epith Cells Urine Bacteria Hyaline Casts Assessment & Plan - Assessment and Plan (Free Text) Assessment: 1-dm2 uncontrolled-cont home meds, fsbg, insulin gtt, transition to insulin q6, diet control 8-ddq-nliotz, lasix, I/O, bipap for support 3-resp failure r/t chf-bipap, pulm, duonebs, solumedrol 4-dvt ppx-scd, ae hose, lovenox 5-htn-cont home meds Decision To Admit - Pt Status Changed To: Hospital Disposition Of: Inpatient - Admit Certification Admit to Inpatient:: After my assessment, the patient will require hospitalization for at least two midnights. This is because of the severity of symptoms shown, intensity of services needed, and/or the medical risk in this patient being treated as an outpatient. - . Bed Request Type: Intensive Care Admitting Physician: Jose Roberto Johns
[2017-04-21] MEDS ORDERED: Alum-Mag Hydrox-Simethicone Susp (30 mL) PO PRN (08:06)
[2017-04-21] MEDS: Insulin Lispro (humaLOG) 100 Units/ml Inj SC SCH ×4 (08:14→23:08)
[2017-04-21] MEDS: Albuterol-Ipratrop 3 mg / 0.5 (3 ml) UD INH SCH ×4 (08:25→19:43)
--- NOTE | 2017-04-21 08:48 | RAD ---
HISTORY: SOB COMPARISON: 02/28/2017 FINDINGS: LUNGS: Bilateral central pulmonary interstitial edema with greater confluence the right lung base. Pulmonary edema appears increased since 02/28/2017 PLEURA: No significant pleural effusion identified, no pneumothorax apparent. CARDIOVASCULAR: Cardiomegaly -some OSSEOUS STRUCTURES: No significant abnormalities. VISUALIZED UPPER ABDOMEN: Normal. OTHER FINDINGS: None. IMPRESSION: Cardiomegaly with worsening pulmonary interstitial edema -CHF inferred
[2017-04-21] MEDS: Cilostazol 100 mg Tab UD PO SCH ×2 (09:18→17:14)
[2017-04-21] MEDS: Pantoprazole 40 mg EC Tab PO SCH (09:21)
[2017-04-21] MEDS ORDERED: methylPREDNISolone 40 MG in Sodium Chloride 0.9% 50 ML IVPB SCH (10:00)
--- NOTE | 2017-04-21 10:11 | CP.PCM.PN ---
Subjective - Date & Time of Evaluation Date of Evaluation: 04/21/17 Time of Evaluation: 09:58 - Subjective Subjective: PGY2 consult note for cardiology, Dr. Montes 62 year old female with past medical history of HTN, DM, COPD, PAD presented to hospital for COPD exacerbation. Cardiology was consulted for CHF exacerbation. Pt's family is at bedside and help give history. Pt has been feeling short of breath for about 1 week progressively worsening with worsening cough. Last night, pt became severely short of breath. She was given an albuterol treatment at home with minimal relief. Son called ambulance and she was brought to hospital. While en route to hospital, pt was placed on CPAP machine. Pt was noted to have blood pressure around 240/100s en route. She was also noted to be hyperglycemic and was acidotic on blood gas. She was admitted to ICU for treatment. [place] blood work, [place] [address]. Echo from Jan 2017 was normal with EF of 65-70%. Pt had one catherization procedure of LE with revascularization of left SFA artherectomy and balloon angioplasty in 2012. Currently, pt does complain of shortness of breath (on BIPAP) and B/L LE swelling. Denies having any CP, SOB, abd pain, N/v/D/C, F/C, LE pain. PMHx: stated above Sx: B/L toe amputations, cholecysectomy, c section Social: former smoker for over 25 years, denies tobacco and ETOH use Meds: see JUN Allergies: azithromycin PMD: Dr. Johns Objective - Vital Signs/Intake and Output Vital Signs (last 24 hours): Temp Pulse Resp BP Pulse Ox 98.1 F 100 H 24 147/79 100 04/21/17 08:00 04/21/17 09:16 04/21/17 09:00 04/21/17 09:16 04/21/17 09:00 Intake and Output: 04/21/17 04/21/17 06:59 18:59 Output Total 350 1700 Balance -350 -1700 - Medications Medications: Current Medications Al Hydrox/Mg Hydrox/Simethicone (Maalox Plus 30 Ml) 30 ml PO Q6 PRN PRN Reason: Indigestion / Heartburn Albuterol/Ipratropium (Duoneb 3 Mg/0.5 Mg (3 Ml) Ud) 3 ml INH RQ4 [facility] Last Admin: 04/21/17 08:25 Dose: 3 ml Amlodipine Besylate (Norvasc) 10 mg PO DAILY [facility] Last Admin: 04/21/17 09:15 Dose: 10 mg Aspirin (Ecotrin) 81 mg PO DAILY [facility] Atorvastatin Calcium (Lipitor) 20 mg PO HS [facility] Carvedilol (Coreg) 25 mg PO Q12 [facility] Last Admin: 04/21/17 09:16 Dose: 25 mg Cholecalciferol (Vitamin D) 1,000 intlu PO DAILY [facility] Cilostazol (Pletal) 100 mg PO BID [facility] Last Admin: 04/21/17 09:18 Dose: 100 mg Dextrose (Dextrose 50% Inj) 0 ml IV STAT PRN; Protocol PRN Reason: Hypoglycemia Protocol Dextrose (Glutose 15) 0 gm PO ONCE PRN; Protocol PRN Reason: Hypoglycemia Protocol Enoxaparin Sodium (Lovenox) 40 mg SC DAILY [facility] PRN Reason: Protocol Furosemide (Lasix) 40 mg IVP BID [facility] Last Admin: 04/21/17 09:12 Dose: 40 mg Glucagon (Glucagen Diagnostic Kit) 0 mg IM STAT PRN; Protocol PRN Reason: Hypoglycemia Protocol Home Med (Brinzolamide [Azopt]) 1 drop BOTHEYES BID [facility] Home Med (Alogliptin Benzoate [Alogliptin]) 25 mg PO DAILY [facility] Hydralazine HCl (Apresoline) 100 mg PO Q8 [facility] Nitroglycerin/Dextrose (Nitroglycerin 50 Mg/250 Ml D5w) 50 mg in 250 mls @ 3 mls/hr IV .Q24H ONE; 10 MCG/MIN PRN Reason: Protocol Stop: 04/22/17 05:07 Last Admin: 04/21/17 05:16 Dose: 3 mls/hr Insulin Detemir (Levemir) 20 units SC HS [facility] Insulin Human Lispro (Humalog) 0 units SC ACHS [facility] PRN Reason: Protocol Last Admin: 04/21/17 08:14 Dose: Not Given Insulin Lispro Protam/Lispro Human (Humalog Mix 75/25) 10 units SC ACBD [facility] Isosorbide Dinitrate (Isordil) 10 mg PO BID [facility] Methylprednisolone (Solu-Medrol) 40 mg IVP Q6H [facility] Montelukast Sodium (Singulair) 10 mg PO QPM [facility] Multivitamins/Minerals (Therapeutic-M Tab) 1 tab PO DAILY [facility] Pantoprazole Sodium (Protonix Ec Tab) 40 mg PO DAILY [facility] Last Admin: 04/21/17 09:21 Dose: 40 mg - Labs Labs: 04/21/17 05:10 04/21/17 05:10 PT 11.2 Seconds (9.8-13.1) 04/21/17 05:10 INR 1.0 (0.9-1.2) 04/21/17 05:10 APTT 35.4 Seconds (25.6-37.1) 04/21/17 05:10
--- NOTE | 2017-04-21 10:11 | CP.PCM.CON ---
<Lesley Vargas - Last Filed: 04/21/17 11:48> History of Present Illness - History of Present Illness History of Present Illness: PGY2 consult note for cardiology, Dr. Montes 62 year old female with past medical history of HTN, DM, COPD, PAD presented to hospital for COPD exacerbation. Cardiology was consulted for CHF exacerbation. Pt's family is at bedside and help give history. Pt has been feeling short of breath for about 1 week progressively worsening with worsening cough. Last night, pt became severely short of breath. She was given an albuterol treatment at home with minimal relief. Son called ambulance and she was brought to hospital. While en route to hospital, pt was placed on CPAP machine. Pt was noted to have blood pressure around 240/100s en route. She was also noted to be hyperglycemic and was acidotic on blood gas. She was admitted to ICU for treatment. On blood work, [place] [id number]. Echo from Jan 2017 was normal with EF of 65-70%. Pt had one catherization procedure of LE with revascularization of left SFA artherectomy and balloon angioplasty in 2012. Currently, pt does complain of shortness of breath (on BIPAP) and B/L LE swelling. Denies having any CP, SOB, abd pain, N/v/D/C, F/C, LE pain. PMHx: stated above Sx: B/L toe amputations, cholecysectomy, c section Social: former smoker for over 25 years, denies tobacco and ETOH use Meds: see MAR Allergies: azithromycin PMD: Dr. Johns Review of Systems - Constitutional Constitutional: absent: Chills, Fever, Headache, Night Sweats - EENT Eyes: absent: Blurred Vision, Change in Vision Nose/Mouth/Throat: absent: Nasal Congestion, Nasal Discharge, Sore Throat - Cardiovascular Cardiovascular: Dyspnea, Leg Edema, Pedal Edema. absent: Chest Pain, Chest Pain at Rest, Lightheadedness, Rapid Heart Rate - Respiratory Respiratory: Cough, Dyspnea, Dyspnea on Exertion. absent: Wheezing, Snoring, Chest Congestion, Pain with Coughing - Gastrointestinal Gastrointestinal: absent: Abdominal Pain, Constipation, Diarrhea, Dysphagia, Nausea, Vomiting - Genitourinary Genitourinary: absent: Dysuria, Urinary Frequency, Urinary Urgency - Musculoskeletal Musculoskeletal: absent: Back Pain, Muscle Cramps, Neck Pain - Integumentary Integumentary: absent: Acne, Lesions, Rash - Neurological Neurological: absent: Headaches, Memory Loss - Psychiatric Psychiatric: absent: Anxiety, Depression Past Patient History - Infectious Disease Hx of Infectious Diseases: None - Past Medical History & Family History Past Medical History?: Yes - Past Social History Smoking Status: Former Smoker Chewing Tobacco Use: No Cigar Use: No Alcohol: None Drugs: Denies Home Situation {Lives}: With Family - CARDIAC Hx Congestive Heart Failure: Yes Hx Hypercholesterolemia: Yes Hx Hypertension: Yes - PULMONARY Hx Asthma: Yes Hx Chronic Obstructive Pulmonary Disease (COPD): Yes - NEUROLOGICAL Hx Neurological Disorder: No - HEENT Hx HEENT Problems: Yes Hx Glaucoma: Yes (left eye and right eye) Other/Comment: uses glasses for reading. - RENAL Hx Chronic Kidney Disease: No - ENDOCRINE/METABOLIC Hx Diabetes Mellitus Type 1: Yes Hx Diabetes Mellitus Type 2: Yes - HEMATOLOGICAL/ONCOLOGICAL Hx Anemia: Yes Hx Human Immunodeficiency Virus (HIV): No - INTEGUMENTARY Hx Dermatological Problems: No - MUSCULOSKELETAL/RHEUMATOLOGICAL Hx Arthritis: Yes - GASTROINTESTINAL Hx Pancreatitis: Yes - GENITOURINARY/GYNECOLOGICAL Hx Genitourinary Disorders: No - PSYCHIATRIC Hx Substance Use: No - SURGICAL HISTORY Hx Cholecystectomy: Yes - ANESTHESIA Hx Anesthesia: Yes Hx Anesthesia Reactions: No Hx Malignant Hyperthermia: No Meds Allergies/Adverse Reactions: Allergies Allergy/AdvReac Type Severity Reaction Status Date / Time azithromycin [From Zithromax] Allergy RASH Verified 04/21/17 05:05 - Medications Medications: Current Medications Al Hydrox/Mg Hydrox/Simethicone (Maalox Plus 30 Ml) 30 ml PO Q6 PRN PRN Reason: Indigestion / Heartburn Albuterol/Ipratropium (Duoneb 3 Mg/0.5 Mg (3 Ml) Ud) 3 ml INH RQ4 [facility] Last Admin: 04/21/17 08:25 Dose: 3 ml Amlodipine Besylate (Norvasc) 10 mg PO DAILY [facility] Last Admin: 04/21/17 09:15 Dose: 10 mg Aspirin (Ecotrin) 81 mg PO DAILY [facility] Atorvastatin Calcium (Lipitor) 20 mg PO HS [facility] Carvedilol (Coreg) 25 mg PO Q12 [facility] Last Admin: 04/21/17 09:16 Dose: 25 mg Cholecalciferol (Vitamin D) 1,000 intlu PO DAILY [facility] Cilostazol (Pletal) 100 mg PO BID [facility] Last Admin: 04/21/17 09:18 Dose: 100 mg Dextrose (Dextrose 50% Inj) 0 ml IV STAT PRN; Protocol PRN Reason: Hypoglycemia Protocol Dextrose (Glutose 15) 0 gm PO ONCE PRN; Protocol PRN Reason: Hypoglycemia Protocol Enoxaparin Sodium (Lovenox) 40 mg SC DAILY [facility] PRN Reason: Protocol Furosemide (Lasix) 40 mg IVP BID [facility] Last Admin: 04/21/17 09:12 Dose: 40 mg Glucagon (Glucagen Diagnostic Kit) 0 mg IM STAT PRN; Protocol PRN Reason: Hypoglycemia Protocol Home Med (Brinzolamide [Azopt]) 1 drop BOTHEYES BID [facility] Home Med (Alogliptin Benzoate [Alogliptin]) 25 mg PO DAILY [facility] Hydralazine HCl (Apresoline) 100 mg PO Q8 [facility] Nitroglycerin/Dextrose (Nitroglycerin 50 Mg/250 Ml D5w) 50 mg in 250 mls @ 3 mls/hr IV .Q24H ONE; 10 MCG/MIN PRN Reason: Protocol Stop: 04/22/17 05:07 Last Admin: 04/21/17 05:16 Dose: 3 mls/hr Insulin Detemir (Levemir) 20 units SC HS [facility] Insulin Human Lispro (Humalog) 0 units SC ACHS [facility] PRN Reason: Protocol Last Admin: 04/21/17 08:14 Dose: Not Given Insulin Lispro Protam/Lispro Human (Humalog Mix 75/25) 10 units SC ACBD [facility] Isosorbide Dinitrate (Isordil) 10 mg PO BID [facility] Methylprednisolone (Solu-Medrol) 40 mg IVP Q6H [facility] Montelukast Sodium (Singulair) 10 mg PO QPM [facility] Multivitamins/Minerals (Therapeutic-M Tab) 1 tab PO DAILY [facility] Pantoprazole Sodium (Protonix Ec Tab) 40 mg PO DAILY [facility] Last Admin: 04/21/17 09:21 Dose: 40 mg Physical Exam - Constitutional Appears: Non-toxic, No Acute Distress - Head Exam Head Exam: ATRAUMATIC - ENT Exam ENT Exam: Mucous Membranes Moist - Respiratory Exam Respiratory Exam: Wheezes (B/L ), Respiratory Distress (conversational dyspnea ) . absent: Accessory Muscle Use - Cardiovascular Exam Cardiovascular Exam: REGULAR RHYTHM, +S1, +S2. absent: Diastolic murmur, Gallop , Rubs, Systolic Murmur - GI/Abdominal Exam GI & Abdominal Exam: Normal Bowel Sounds, Soft. absent: Diminished Bowel Sounds , Distended, Firm, Organomegaly, Rigid, Tenderness - Extremities Exam Extremities exam: Positive for: pedal edema (1+ B/L). Negative for: calf tenderness - Neurological Exam Neurological exam: Alert, Oriented x3 - Psychiatric Exam Psychiatric exam: Normal Affect, Normal Mood - Skin Skin Exam: Dry, Intact, Normal Color, Warm Results - Vital Signs Recent Vital Signs: Last Vital Signs Temp 98.1 F 04/21/17 08:00 Pulse 100 H 04/21/17 09:16 Resp 24 04/21/17 09:00 BP 147/79 04/21/17 09:16 Pulse Ox 100 04/21/17 09:00 - Labs Result Diagrams: 04/21/17 05:10 04/21/17 05:10 Labs: Laboratory Results - last 24 hr 04/21/17 04/21/17 04/21/17 05:10 05:10 05:10 WBC 16.8 H D RBC 3.70 L Hgb 11.1 L D Hct 35.2 MCV 95.1 D MCH 30.1 MCHC 31.6 L RDW 17.8 H Plt Count 357 MPV 8.6 Neut % (Auto) 51.2 Lymph % (Auto) 34.2 [place] % (Auto) 8.8 Eos % (Auto) 5.3 H Baso % (Auto) 0.5 Neut # 8.6 H Lymph # 5.8 H [place] # 1.5 H Eos # 0.9 H Baso # 0.1 PT 11.2 INR 1.0 APTT 35.4 pCO2 pO2 HCO3 ABG pH ABG Total CO2 ABG O2 Saturation ABG Base Excess [place] Test ABG Potassium A-a O2 Difference Glucose Lactate Vent Mode Mechanical Rate FiO2 Inspiratory BiPAP Expiratory BiPAP Crit Value Called To Crit Value Called By Crit Value Read Back Blood Gas Notified Time Sodium 142 Potassium 4.5 Chloride 111 H Carbon Dioxide 22 Anion Gap 14 BUN 17 Creatinine 1.0 Est GFR ( Amer) > 60 Est GFR (Non-Af Amer) 56 POC Glucose (mg/dL) Random Glucose 273 H Calcium 8.7 Total Bilirubin 0.5 AST 66 H D ALT 33 Alkaline Phosphatase 134 H D Troponin I 0.0460 NT-Pro-B Natriuret Pep 46371 H Total Protein 7.9 Albumin 3.7 Globulin 4.1 H Albumin/Globulin Ratio 0.9 L Lipase 184 Arterial Blood Potassium Urine Color Urine Clarity Urine pH Ur Specific [place] Urine Protein Urine Glucose (UA) Urine Ketones Urine Blood Urine Nitrate Urine Bilirubin Urine Urobilinogen Ur Leukocyte Esterase Urine RBC (Auto) Urine Microscopic WBC Ur Squamous Epith Cells Urine Bacteria Hyaline Casts 04/21/17 04/21/17 04/21/17 05:18 05:40 06:17 WBC RBC Hgb Hct MCV MCH MCHC RDW Plt Count MPV Neut % (Auto) Lymph % (Auto) [place] % (Auto) Eos % (Auto) Baso % (Auto) Neut # Lymph # [place] # Eos # Baso # PT INR APTT pCO2 60 H pO2 250 H HCO3 18.8 L ABG pH 7.16 L* ABG Total CO2 23.2 ABG O2 Saturation 99.9 H ABG Base Excess -8.0 L [place] Test Yes ABG Potassium 4.1 A-a O2 Difference 388.0 Glucose 319 H Lactate 0.7 Vent Mode Bipap Mechanical Rate 14 FiO2 100.0 Inspiratory BiPAP 14 Expiratory BiPAP 6 Crit Value Called To Dr katey walker Crit Value Called By 333 Crit Value Read Back Y Blood Gas Notified Time 528 Sodium 140.0 Potassium Chloride 115.0 H Carbon Dioxide Anion Gap BUN Creatinine Est GFR ( Amer) Est GFR (Non-Af Amer) POC Glucose (mg/dL) 181 H Random Glucose Calcium Total Bilirubin AST ALT Alkaline Phosphatase Troponin I NT-Pro-B Natriuret Pep Total Protein Albumin Globulin Albumin/Globulin Ratio Lipase Arterial Blood Potassium 4.1 Urine Color Yellow Urine Clarity Slighty-cloudy Urine pH 5.0 Ur Specific [place] 1.009 Urine Protein >=500 Urine Glucose (UA) Neg Urine Ketones Negative Urine Blood Small Urine Nitrate Negative Urine Bilirubin Negative Urine Urobilinogen 0.2-1.0 Ur Leukocyte Esterase Neg Urine RBC (Auto) 11 H Urine Microscopic WBC 4 Ur Squamous Epith Cells < 1 Urine Bacteria Few H Hyaline Casts 3-5 H 04/21/17 04/21/17 06:57 07:49 WBC RBC Hgb Hct MCV MCH MCHC RDW Plt Count MPV Neut % (Auto) Lymph % (Auto) [place] % (Auto) Eos % (Auto) Baso % (Auto) Neut # Lymph # [place] # Eos # Baso # PT INR APTT pCO2 pO2 HCO3 ABG pH ABG Total CO2 ABG O2 Saturation ABG Base Excess [place] Test ABG Potassium A-a O2 Difference Glucose Lactate Vent Mode Mechanical Rate FiO2 Inspiratory BiPAP Expiratory BiPAP Crit Value Called To Crit Value Called By Crit Value Read Back Blood Gas Notified Time Sodium Potassium Chloride Carbon Dioxide Anion Gap BUN Creatinine Est GFR ( Amer) Est GFR (Non-Af Amer) POC Glucose (mg/dL) 87 86 Random Glucose Calcium Total Bilirubin AST ALT Alkaline Phosphatase Troponin I NT-Pro-B Natriuret Pep Total Protein Albumin Globulin Albumin/Globulin Ratio Lipase Arterial Blood Potassium Urine Color Urine Clarity Urine pH Ur Specific [place] Urine Protein Urine Glucose (UA) Urine Ketones Urine Blood Urine Nitrate Urine Bilirubin Urine Urobilinogen Ur Leukocyte Esterase Urine RBC (Auto) Urine Microscopic WBC Ur Squamous Epith Cells Urine Bacteria Hyaline Casts Assessment & Plan - Assessment and Plan (Free Text) Assessment: 62 year old female with past medial history of HTN, DM, CAD, PAD, COPD is being seen for CHF exacerbation. [place] [id number]. CXR on admission showed cardiomegaly with worsening pulmonary intersitial edema. EKG showed sinus tachy at 140 bmp. Echo from 01/2017 showed normal EF at 65-70%. 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 Procal is pending Continue steroid treatment CAD Continue Aspirin, plavix, coreg and lipitor Consider switching from Norvasc to ACEI Initial troponin was negative. EKG showed ST changes will check lipid panel, HgbA1c, TSH PAD Continue Pletal DM Continue management per ICU team HTN Urgency Pt was noncompliant with medications for about 2 weeks. Along with this, pt has symptoms of bronchitis which could cause acute elevation of BP Continue to monitor VS Currently on Norvasc, Coreg, Lasixs Case will be discussed with attending, Dr. Montes - Date & Time Date: 04/21/17 Time: 10:14 <Kulwinder Montes - Last Filed: 04/21/17 23:08> Meds - Medications Medications: Current Medications Al Hydrox/Mg Hydrox/Simethicone (Maalox Plus 30 Ml) 30 ml PO Q6 PRN PRN Reason: Indigestion / Heartburn Albuterol/Ipratropium (Duoneb 3 Mg/0.5 Mg (3 Ml) Ud) 3 ml INH RQ4 [facility] Last Admin: 04/21/17 19:43 Dose: 3 ml Amlodipine Besylate (Norvasc) 10 mg PO DAILY [facility] Last Admin: 04/21/17 09:15 Dose: 10 mg Aspirin (Ecotrin) 81 mg PO DAILY [facility] Last Admin: 04/21/17 10:25 Dose: 81 mg Atorvastatin Calcium (Lipitor) 20 mg PO HS [facility] Last Admin: 04/21/17 21:07 Dose: 20 mg Carvedilol (Coreg) 25 mg PO Q12 [facility] Last Admin: 04/21/17 21:07 Dose: 25 mg Cholecalciferol (Vitamin D) 1,000 intlu PO DAILY [facility] Last Admin: 04/21/17 10:25 Dose: 1,000 intlu Cilostazol (Pletal) 100 mg PO BID [facility] Last Admin: 04/21/17 17:14 Dose: 100 mg Dextrose (Dextrose 50% Inj) 0 ml IV STAT PRN; Protocol PRN Reason: Hypoglycemia Protocol Dextrose (Glutose 15) 0 gm PO ONCE PRN; Protocol PRN Reason: Hypoglycemia Protocol Dorzolamide HCl (Trusopt) 1 drop OU BID [facility] Last Admin: 04/21/17 17:12 Dose: 1 drop Enoxaparin Sodium (Lovenox) 40 mg SC DAILY [facility] PRN Reason: Protocol Last Admin: 04/21/17 10:24 Dose: 40 mg Furosemide (Lasix) 40 mg IVP BID [facility] Last Admin: 04/21/17 17:57 Dose: 40 mg Glucagon (Glucagen Diagnostic Kit) 0 mg IM STAT PRN; Protocol PRN Reason: Hypoglycemia Protocol Hydralazine HCl (Apresoline) 100 mg PO Q8 [facility] Last Admin: 04/21/17 17:15 Dose: 100 mg Hydromorphone HCl (Dilaudid) 1 mg IVP Q6 PRN PRN Reason: Pain, moderate (4-7) Levofloxacin/Dextrose (Levaquin 500mg) 500 mg in 100 mls @ 100 mls/hr IVPB DAILY [facility] PRN Reason: Protocol Last Admin: 04/21/17 12:30 Dose: 100 mls/hr Insulin Detemir (Levemir) 20 units SC HS [facility] Insulin Human Lispro (Humalog) 0 units SC ACHS [facility] PRN Reason: Protocol Last Admin: 04/21/17 17:19 Dose: 2 u Insulin Lispro Protam/Lispro Human (Humalog Mix 75/25) 10 units SC ACBD [facility] Last Admin: 04/21/17 17:21 Dose: 10 units Isosorbide Dinitrate (Isordil) 10 mg PO BID [facility] Last Admin: 04/21/17 17:16 Dose: 10 mg Losartan Potassium (Cozaar) 100 mg PO DAILY [facility] Last Admin: 04/21/17 14:44 Dose: 100 mg Methylprednisolone (Solu-Medrol) 40 mg IVP Q6H [facility] Last Admin: 04/21/17 21:07 Dose: 40 mg Montelukast Sodium (Singulair) 10 mg PO QPM [facility] Last Admin: 04/21/17 17:26 Dose: 10 mg Multivitamins/Minerals (Therapeutic-M Tab) 1 tab PO DAILY [facility] Last Admin: 04/21/17 10:25 Dose: 1 tab Pantoprazole Sodium (Protonix Ec Tab) 40 mg PO DAILY [facility] Last Admin: 04/21/17 09:21 Dose: 40 mg Sitagliptin Phosphate (Januvia) 100 mg PO DAILY [facility] Last Admin: 04/21/17 12:24 Dose: 100 mg Results - Vital Signs Recent Vital Signs: Last Vital Signs Temp 98.6 F 04/21/17 20:00 Pulse 95 H 04/21/17 21:07 Resp 22 04/21/17 20:00 BP 131/58 L 04/21/17 21:07 Pulse Ox 100 04/21/17 22:25 - Labs Result Diagrams: 04/21/17 05:10 04/21/17 05:10 Labs: Laboratory Results - last 24 hr 04/21/17 04/21/17 04/21/17 05:10 05:10 05:10 WBC 16.8 H D RBC 3.70 L Hgb 11.1 L D Hct 35.2 MCV 95.1 D MCH 30.1 MCHC 31.6 L RDW 17.8 H Plt Count 357 MPV 8.6 Neut % (Auto) 51.2 Lymph % (Auto) 34.2 [place] % (Auto) 8.8 Eos % (Auto) 5.3 H Baso % (Auto) 0.5 Neut # 8.6 H Lymph # 5.8 H [place] # 1.5 H Eos # 0.9 H Baso # 0.1 PT 11.2 INR 1.0 APTT 35.4 pCO2 pO2 HCO3 ABG pH ABG Total CO2 ABG O2 Saturation ABG Base Excess [place] Test ABG Potassium A-a O2 Difference Glucose Lactate Vent Mode Mechanical Rate FiO2 Inspiratory BiPAP Expiratory BiPAP Crit Value Called To Crit Value Called By Crit Value Read Back Blood Gas Notified Time Sodium 142 Potassium 4.5 Chloride 111 H Carbon Dioxide 22 Anion Gap 14 BUN 17 Creatinine 1.0 Est GFR ( Amer) > 60 Est GFR (Non-Af Amer) 56 POC Glucose (mg/dL) Random Glucose 273 H Hemoglobin A1c Calcium 8.7 Total Bilirubin 0.5 AST 66 H D ALT 33 Alkaline Phosphatase 134 H D Troponin I 0.0460 NT-Pro-B Natriuret Pep 83270 H Total Protein 7.9 Albumin 3.7 Globulin 4.1 H Albumin/Globulin Ratio 0.9 L Triglycerides Cholesterol LDL Cholesterol Direct HDL Cholesterol Lipase 184 Procalcitonin Free T4 TSH 3rd Generation Arterial Blood Potassium Urine Color Urine Clarity Urine pH Ur Specific [place] Urine Protein Urine Glucose (UA) Urine Ketones Urine Blood Urine Nitrate Urine Bilirubin Urine Urobilinogen Ur Leukocyte Esterase Urine RBC (Auto) Urine Microscopic WBC Ur Squamous Epith Cells Urine Bacteria Hyaline Casts 04/21/17 04/21/17 04/21/17 05:18 05:40 06:17 WBC RBC Hgb Hct MCV MCH MCHC RDW Plt Count MPV Neut % (Auto) Lymph % (Auto) [place] % (Auto) Eos % (Auto) Baso % (Auto) Neut # Lymph # [place] # Eos # Baso # PT INR APTT pCO2 60 H pO2 250 H HCO3 18.8 L ABG pH 7.16 L* ABG Total CO2 23.2 ABG O2 Saturation 99.9 H ABG Base Excess -8.0 L [place] Test Yes ABG Potassium 4.1 A-a O2 Difference 388.0 Glucose 319 H Lactate 0.7 Vent Mode Bipap Mechanical Rate 14 FiO2 100.0 Inspiratory BiPAP 14 Expiratory BiPAP 6 Crit Value Called To Dr katey walker Crit Value Called By 333 Crit Value Read Back Y Blood Gas Notified Time 528 Sodium 140.0 Potassium Chloride 115.0 H Carbon Dioxide Anion Gap BUN Creatinine Est GFR ( Amer) Est GFR (Non-Af Amer) POC Glucose (mg/dL) 181 H Random Glucose Hemoglobin A1c Calcium Total Bilirubin AST ALT Alkaline Phosphatase Troponin I NT-Pro-B Natriuret Pep Total Protein Albumin Globulin Albumin/Globulin Ratio Triglycerides Cholesterol LDL Cholesterol Direct HDL Cholesterol Lipase Procalcitonin Free T4 TSH 3rd Generation Arterial Blood Potassium 4.1 Urine Color Yellow Urine Clarity Slighty-cloudy Urine pH 5.0 Ur Specific [place] 1.009 Urine Protein >=500 Urine Glucose (UA) Neg Urine Ketones Negative Urine Blood Small Urine Nitrate Negative Urine Bilirubin Negative Urine Urobilinogen 0.2-1.0 Ur Leukocyte Esterase Neg Urine RBC (Auto) 11 H Urine Microscopic WBC 4 Ur Squamous Epith Cells < 1 Urine Bacteria Few H Hyaline Casts 3-5 H 04/21/17 04/21/17 04/21/17 06:57 07:49 09:02 WBC RBC Hgb Hct MCV MCH MCHC RDW Plt Count MPV Neut % (Auto) Lymph % (Auto) [place] % (Auto) Eos % (Auto) Baso % (Auto) Neut # Lymph # [place] # Eos # Baso # PT INR APTT pCO2 pO2 HCO3 ABG pH ABG Total CO2 ABG O2 Saturation ABG Base Excess [place] Test ABG Potassium A-a O2 Difference Glucose Lactate Vent Mode Mechanical Rate FiO2 Inspiratory BiPAP Expiratory BiPAP Crit Value Called To Crit Value Called By Crit Value Read Back Blood Gas Notified Time Sodium Potassium Chloride Carbon Dioxide Anion Gap BUN Creatinine Est GFR ( Amer) Est GFR (Non-Af Amer) POC Glucose (mg/dL) 87 86 Random Glucose Hemoglobin A1c Calcium Total Bilirubin AST ALT Alkaline Phosphatase Troponin I NT-Pro-B Natriuret Pep Total Protein Albumin Globulin Albumin/Globulin Ratio Triglycerides Cholesterol LDL Cholesterol Direct HDL Cholesterol Lipase Procalcitonin 0.17 L Free T4 TSH 3rd Generation Arterial Blood Potassium Urine Color Urine Clarity Urine pH Ur Specific [place] Urine Protein Urine Glucose (UA) Urine Ketones Urine Blood Urine Nitrate Urine Bilirubin Urine Urobilinogen Ur Leukocyte Esterase Urine RBC (Auto) Urine Microscopic WBC Ur Squamous Epith Cells Urine Bacteria Hyaline Casts 04/21/17 04/21/17 04/21/17 11:41 12:20 12:20 WBC RBC Hgb Hct MCV MCH MCHC RDW Plt Count MPV Neut % (Auto) Lymph % (Auto) [place] % (Auto) Eos % (Auto) Baso % (Auto) Neut # Lymph # [place] # Eos # Baso # PT INR APTT pCO2 pO2 HCO3 ABG pH ABG Total CO2 ABG O2 Saturation ABG Base Excess [place] Test ABG Potassium A-a O2 Difference Glucose Lactate Vent Mode Mechanical Rate FiO2 Inspiratory BiPAP Expiratory BiPAP Crit Value Called To Crit Value Called By Crit Value Read Back Blood Gas Notified Time Sodium Potassium Chloride Carbon Dioxide Anion Gap BUN Creatinine Est GFR ( Amer) Est GFR (Non-Af Amer) POC Glucose (mg/dL) 178 H Random Glucose Hemoglobin A1c 6.6 H D Calcium Total Bilirubin AST ALT Alkaline Phosphatase Troponin I NT-Pro-B Natriuret Pep Total Protein Albumin Globulin Albumin/Globulin Ratio Triglycerides 243 H Cholesterol 238 H LDL Cholesterol Direct 134 H HDL Cholesterol 41 Lipase Procalcitonin Free T4 TSH 3rd Generation 12.40 H Arterial Blood Potassium Urine Color Urine Clarity Urine pH Ur Specific [place] Urine Protein Urine Glucose (UA) Urine Ketones Urine Blood Urine Nitrate Urine Bilirubin Urine Urobilinogen Ur Leukocyte Esterase Urine RBC (Auto) Urine Microscopic WBC Ur Squamous Epith Cells Urine Bacteria Hyaline Casts 04/21/17 04/21/17 04/21/17 14:40 17:03 21:24 WBC RBC Hgb Hct MCV MCH MCHC RDW Plt Count MPV Neut % (Auto) Lymph % (Auto) [place] % (Auto) Eos % (Auto) Baso % (Auto) Neut # Lymph # [place] # Eos # Baso # PT INR APTT pCO2 pO2 HCO3 ABG pH ABG Total CO2 ABG O2 Saturation ABG Base Excess [place] Test ABG Potassium A-a O2 Difference Glucose Lactate Vent Mode Mechanical Rate FiO2 Inspiratory BiPAP Expiratory BiPAP Crit Value Called To Crit Value Called By Crit Value Read Back Blood Gas Notified Time Sodium Potassium Chloride Carbon Dioxide Anion Gap BUN Creatinine Est GFR ( Amer) Est GFR (Non-Af Amer) POC Glucose (mg/dL) 187 H 171 H Random Glucose Hemoglobin A1c Calcium Total Bilirubin AST ALT Alkaline Phosphatase Troponin I NT-Pro-B Natriuret Pep Total Protein Albumin Globulin Albumin/Globulin Ratio Triglycerides Cholesterol LDL Cholesterol Direct HDL Cholesterol Lipase Procalcitonin Free T4 0.86 TSH 3rd Generation Arterial Blood Potassium Urine Color Urine Clarity Urine pH Ur Specific [place] Urine Protein Urine Glucose (UA) Urine Ketones Urine Blood Urine Nitrate Urine Bilirubin Urine Urobilinogen Ur Leukocyte Esterase Urine RBC (Auto) Urine Microscopic WBC Ur Squamous Epith Cells Urine Bacteria Hyaline Casts Assessment & Plan (1) CHF (congestive heart failure) Status: Acute (2) Respiratory failure Status: Acute (3) HTN (hypertension) Status: Acute Attending/Attestation - Attestation I have personally seen and examined this patient.: Yes I have fully participated in the care of the patient.: Yes I have reviewed all pertinent clinical information: Yes
[2017-04-21] MEDS: MethylPREDNISolone 40 mg Vial IVP SCH ×3 (10:22→21:07)
[2017-04-21] MEDS: Enoxaparin 40 mg Syringe SC SCH (10:24)
[2017-04-21] MEDS: Cholecalciferol 1,000 INTLU TAB PO SCH (10:25)
[2017-04-21] MEDS: Multivitamin With Minerals Tab PO SCH (10:25)
[2017-04-21] MEDS ORDERED: Sodium Chloride 3% for Inhalation 4 ML VIAL.NEB IH PRN (10:37)
--- NOTE | 2017-04-21 12:17 | CARD ---
APPROVED REPORT EKG Measurement Heart [id number] <Conclusion> Sinus tachycardia Otherwise normal ECG
[2017-04-21] MEDS: Dorzolamide 2% Ophth Soln OU SCH ×2 (12:21→17:12)
[2017-04-21] MEDS: levoFLOXacin 500 mg in D5W 500 MG/100 ML BAG IVPB SCH (12:30)
--- NOTE | 2017-04-21 14:44 | CP.PCM.PCO ---
Additional Comments - Additional Comments Additional Comments: Events reviewed since admission and discussed with Dr. San. Son at the bedside and discussed HPI events with him and patient, now off BiPAP this Am at approx. 10AM, on nasal cannula, and has diuresed over 2000ml urine after multiple doses of Lasix. She is also relates recent URI symptom at home with productive thick white phlegm, denies any chest discomfort. She has chronic R sided hip and back pain, usually gets relief with 2 Percocet tabs. BiPAP remains on standby for now and may not be needed any further.
[2017-04-21] MEDS: Insulin Lispro Mix 75/25 100 units/ml (HumaLog) 10ml SC SCH (17:21)
--- NOTE | 2017-04-21 20:25 | CON ---
DATE: HISTORY OF PRESENT ILLNESS: Mrs. Reyna is a 62-year-old female who was referred for pulmonary evaluation by Rigoberto Andrade. She was admitted with respiratory failure and requiring BiPAP therapy. She indicates that she ran out of medications at home and the legs became swollen and she became short of breath. PAST MEDICAL HISTORY: She has a past medical history of anemia, chronic obstructive pulmonary disease, coronary artery disease, congestive heart failure, diabetes mellitus, hypertension. FAMILY HISTORY: Unremarkable. SOCIAL HISTORY: She used to smoke years ago but quit. Does not use drugs. Does not use alcohol. REVIEW OF SYSTEMS: Remarkable for shortness of breath and exercise intolerance with swelling of the legs. PHYSICAL EXAMINATION: GENERAL: The patient is presently off BiPAP, on facemask oxygen. VITAL SIGNS: Blood pressure 157/86, pulse 97, respiratory rate 18. She is afebrile. O2 sat 100% on Ventimask. HEENT: Mouth shows fair hygiene. NECK: JVP flat. LUNGS: Coarse bilateral rales with wheezing and dullness at both bases. HEART: S1, S2. ABDOMEN: Soft, nontender. No organomegaly. EXTREMITIES: A 3+ pitting pedal edema. CENTRAL NERVOUS SYSTEM: The patient is alert and oriented, responds appropriately to verbal commands. LABORATORY DATA: Remarkable for WBC of 16.8, hemoglobin 11.1, platelet count 357,000. Sodium 142, potassium 4.5, BUN 17, creatinine 1.0, serum glucose 181. Troponin 0.046, proBNP 14,300. Chest x-ray, official report is pending. EKG, official report is pending. IMPRESSION: Acute respiratory failure, probably secondary to a combination of chronic obstructive pulmonary disease exacerbation and congestive heart failure, leukocytosis. One has to rule out superimposed upper respiratory tract infection. PLAN: Maintain the patient on oxygen, aerosolized bronchodilators, diuretics as needed, monitor I's and O's. Obtain sputum for Gram stain and cultures. We would place the patient on empiric antibiotic therapy once hua cultures are complete. We will continue to follow with you. The patient is advised to have her medications refilled and be compliant with meds. Cuauhtemoc Jones MD [facility] # [id number]
[2017-04-21] MEDS ORDERED: HYDROmorphone 0.5 mg/0.5 ml ISec IVP ONE (21:15)
[2017-04-21] MEDS: Insulin Detemir 100 Units/ml Inj SC SCH (23:07)
[2017-04-22] MEDS: Albuterol-Ipratrop 3 mg / 0.5 (3 ml) UD INH SCH ×7 (00:32→23:07)
[2017-04-22] MEDS: MethylPREDNISolone 40 mg Vial IVP SCH ×4 (02:05→21:21)
[2017-04-22 05:59] LABS: BASO % 0.1 % (0.0-2.0); HEMOGLOBIN 9.6 g/dL (12.0-16.0); LYMPH # 0.6 K/uL (1.0-4.3); LYMPH % 4.3 % (20.0-40.0); MEAN CELL VOLUME 92.9 fl (81.0-99.0); MEAN CORPUSCULAR HEMOGLOBIN 29.5 pg (27.0-31.0); MEAN CORPUSCULAR HGB CONC 31.8 g/dL (33.0-37.0); MEAN PLATELET VOLUME 8.4 fl (7.2-11.7); MONO # 0.2 K/uL (0.0-0.8); MONO % 1.7 % (0.0-10.0); NEUT # 13.1 K/uL (1.8-7.0); NEUT % 93.9 % (50.0-75.0); PLATELET COUNT 270 K/uL (130-400); RBC 3.24 Mil/uL (3.80-5.20); RED CELL DISTRIBUTION WIDTH 17.7 % (11.5-14.5); WHITE BLOOD COUNT 13.9 K/uL (4.8-10.8)
[2017-04-22 06:22] LABS: B-TYPE NATRIURETIC PEPTIDE 22600 pg/ml (0-900)
[2017-04-22 06:26] LABS: ALB/GLOB RATIO 0.9 (1.0-2.1); ALBUMIN 3.1 g/dL (3.5-5.0); ALT/SGPT 40 U/L (9-52); AST/SGOT 23 U/L (14-36); BLOOD UREA NITROGEN 26 mg/dl (7-17); CALCIUM 8.8 mg/dL (8.4-10.2); GFR AFRICAN-AMERICAN > 60; GFR NON-AFRICAN AMERICAN 50
--- NOTE | 2017-04-22 07:06 | PQF GENQUE ---
This form is a permanent part of the medical record 04/22/17 Rigoberto Andrade APN, Please clarify the TYPE of CHF. Documentation of a history of CHF and patient is also being admitted for an acute exacerbation of CHF. PROBNP >14,000. CXR: Cardiomegaly with worsening pulmonary interstitial edema-- CHF inferred. ECHO:01/2017: EF 65-70%. Treated with IV Lasix. Clarification of your documentation is requested to better reflect the severity of illness and intensity of treatment of your patient. Indicators present [] Specify: [] [] Specify: [] [] Specify: [] [] Specify: [] Location in the medical record that reflects the above clinical findings: [] Treatment Provided: [] PHYSICIAN'S RESPONSE Based on your medical judgment of the clinical indicators outlined above please clarify the following: [] Practitioner response acute on chronic systolic chf [] If unable to determine, please check the box, sign and date. Present On Admission (POA) Indicator: [x Present at the time of admission [] Not present at the time of admission [] Clinically Undetermined In responding to this query, please exercise your independent professional judgment. The fact that a question is asked does not imply that any particular answer is desired or expected. Thank you for your clarification on this documentation. If you have any questions please call:extension [phone] * Thank you, Monica Feng RN [facility]
--- NOTE | 2017-04-22 07:11 | PQF GENQUE ---
This form is a permanent part of the medical record 04/22/17 Rigoberto Andrade APN, Please clarify the TYPE and ACUITY of ASTHMA if known. Patient with a history of Asthma is admitted with Acute Respiratory Failure, COPD and CHF exacerbations. Treated with Bipap, IVAB, Solumedrol, Nebulizers. Clarification of your documentation is requested to better reflect the severity of illness and intensity of treatment of your patient. Indicators present [] Specify: [] [] Specify: [] [] Specify: [] [] Specify: [] Location in the medical record that reflects the above clinical findings: [] Treatment Provided: [] PHYSICIAN'S RESPONSE 1. Please clarify type of asthma: [] Childhood [] Cough variant [] Exercise induced [] Late onset [] Mild intermittent [x] Mild persistent [] Moderate persistent [] Severe persistent [] With bronchitis(please clarify acuity of bronchitis) [] With chronic lung disease (please document specific chronic lung disease ) [] Other (please specify) [] Clinically unable to determine [] Unknown 2. Please clarify acuity of asthma: [] Uncomplicated [x] With exacerbation(acute) [] With status asthmaticus [] Other (please specify) [] Clinically unable to determine [] Unknown Based on your medical judgment of the clinical indicators outlined above please clarify the following: [x] Practitioner response [] If unable to determine, please check the box, sign and date. Present On Admission (POA) Indicator: [x] Present at the time of admission [] Not present at the time of admission [] Clinically Undetermined In responding to this query, please exercise your independent professional judgment. The fact that a question is asked does not imply that any particular answer is desired or expected. Thank you for your clarification on this documentation. If you have any questions please call:extension [phone] * Thank you, Monica Feng RN CD[facility]
--- NOTE | 2017-04-22 07:42 | PQF GENQUE ---
This form is a permanent part of the medical record 04/22/17 Rigoberto Andrade [employer], [employer], [place] has the patient listed as 5'6", weighing 273 pounds with a BMI of 44. Would you please clarify if there is an associated diagnosis to go along with the this finding. If yes please document the BMI too. Clarification of your documentation is requested to better reflect the severity of illness and intensity of treatment of your patient. Indicators present [] Specify: [] [] Specify: [] [] Specify: [] [] Specify: [] Location in the medical record that reflects the above clinical findings: [] Treatment Provided: [] PHYSICIAN'S RESPONSE Based on your medical judgment of the clinical indicators outlined above please clarify the following: [] Practitioner response morbid obesity [id number] diet control, exercise as beth [] If unable to determine, please check the box, sign and date. Present On Admission (POA) Indicator: [x] Present at the time of admission [] Not present at the time of admission [] Clinically Undetermined In responding to this query, please exercise your independent professional judgment. The fact that a question is asked does not imply that any particular answer is desired or expected. Thank you for your clarification on this documentation. If you have any questions please call:ext [phone] * Thank you, Monica Feng RN [facility]
[2017-04-22] MEDS: Insulin Lispro (humaLOG) 100 Units/ml Inj SC SCH ×3 (07:53→16:56)
--- NOTE | 2017-04-22 08:56 | CP.PCM.PN ---
<Lesley Vargas - Last Filed: 04/22/17 08:58> Subjective - Date & Time of Evaluation Date of Evaluation: 04/22/17 Time of Evaluation: 08:54 - Subjective Subjective: PGY2 progress note for cardiology, Dr. Montes Pt seen and examined at bedside. No acute events overnight. Pt was on CPAP overnight. Currently on 2 L NC. Pt states SOB has improved considerably from yesterday. Still c/o productive cough with clear sputum. Denies having any CP , abd pain, N/V/D/C, F/C. 12 point ROS negative except for the above mentioned. Objective - Vital Signs/Intake and Output Vital Signs (last 24 hours): Temp Pulse Resp BP Pulse Ox 98.6 F 92 H 18 133/69 97 04/22/17 07:47 04/22/17 07:47 04/22/17 07:47 04/22/17 07:47 04/22/17 07:47 Intake and Output: 04/22/17 04/22/17 06:59 18:59 Intake Total 100 Output Total 250 Balance -150 - Medications Medications: Current Medications Al Hydrox/Mg Hydrox/Simethicone (Maalox Plus 30 Ml) 30 ml PO Q6 PRN PRN Reason: Indigestion / Heartburn Albuterol/Ipratropium (Duoneb 3 Mg/0.5 Mg (3 Ml) Ud) 3 ml INH RQ4 [facility] Last Admin: 04/22/17 08:02 Dose: 3 ml Amlodipine Besylate (Norvasc) 10 mg PO DAILY [facility] Last Admin: 04/21/17 09:15 Dose: 10 mg Aspirin (Ecotrin) 81 mg PO DAILY [facility] Last Admin: 04/21/17 10:25 Dose: 81 mg Atorvastatin Calcium (Lipitor) 20 mg PO HS [facility] Last Admin: 04/21/17 21:07 Dose: 20 mg Carvedilol (Coreg) 25 mg PO Q12 [facility] Last Admin: 04/21/17 21:07 Dose: 25 mg Cholecalciferol (Vitamin D) 1,000 intlu PO DAILY [facility] Last Admin: 04/21/17 10:25 Dose: 1,000 intlu Cilostazol (Pletal) 100 mg PO BID [facility] Last Admin: 04/21/17 17:14 Dose: 100 mg Dextrose (Dextrose 50% Inj) 0 ml IV STAT PRN; Protocol PRN Reason: Hypoglycemia Protocol Dextrose (Glutose 15) 0 gm PO ONCE PRN; Protocol PRN Reason: Hypoglycemia Protocol Dorzolamide HCl (Trusopt) 1 drop OU BID [facility] Last Admin: 04/21/17 17:12 Dose: 1 drop Enoxaparin Sodium (Lovenox) 40 mg SC DAILY [facility] PRN Reason: Protocol Last Admin: 04/21/17 10:24 Dose: 40 mg Furosemide (Lasix) 40 mg IVP BID [facility] Last Admin: 04/21/17 17:57 Dose: 40 mg Glucagon (Glucagen Diagnostic Kit) 0 mg IM STAT PRN; Protocol PRN Reason: Hypoglycemia Protocol Hydralazine HCl (Apresoline) 100 mg PO Q8 [facility] Last Admin: 04/22/17 02:05 Dose: 100 mg Hydromorphone HCl (Dilaudid) 1 mg IVP Q6 PRN PRN Reason: Pain, moderate (4-7) Last Admin: 04/22/17 08:45 Dose: 1 mg Levofloxacin/Dextrose (Levaquin 500mg) 500 mg in 100 mls @ 100 mls/hr IVPB DAILY [facility] PRN Reason: Protocol Last Admin: 04/21/17 12:30 Dose: 100 mls/hr Insulin Detemir (Levemir) 20 units SC HS [facility] Last Admin: 04/21/17 23:07 Dose: 20 units Insulin Human Lispro (Humalog) 0 units SC ACHS [facility] PRN Reason: Protocol Last Admin: 04/22/17 07:53 Dose: 1 u Insulin Lispro Protam/Lispro Human (Humalog Mix 75/25) 10 units SC ACBD [facility] Last Admin: 04/21/17 17:21 Dose: 10 units Isosorbide Dinitrate (Isordil) 10 mg PO BID [facility] Last Admin: 04/21/17 17:16 Dose: 10 mg Losartan Potassium (Cozaar) 100 mg PO DAILY [facility] Last Admin: 04/21/17 14:44 Dose: 100 mg Methylprednisolone (Solu-Medrol) 40 mg IVP Q6H [facility] Last Admin: 04/22/17 02:05 Dose: 40 mg Montelukast Sodium (Singulair) 10 mg PO QPM [facility] Last Admin: 04/21/17 17:26 Dose: 10 mg Multivitamins/Minerals (Therapeutic-M Tab) 1 tab PO DAILY [facility] Last Admin: 04/21/17 10:25 Dose: 1 tab Pantoprazole Sodium (Protonix Ec Tab) 40 mg PO DAILY [facility] Last Admin: 04/21/17 09:21 Dose: 40 mg Sitagliptin Phosphate (Januvia) 100 mg PO DAILY [facility] Last Admin: 04/21/17 12:24 Dose: 100 mg - Labs Labs: 04/22/17 05:40 04/22/17 05:40 PT 11.2 Seconds (9.8-13.1) 04/21/17 05:10 INR 1.0 (0.9-1.2) 04/21/17 05:10 APTT 35.4 Seconds (25.6-37.1) 04/21/17 05:10 - Constitutional Appears: Non-toxic, No Acute Distress - Head Exam Head Exam: ATRAUMATIC - ENT Exam ENT Exam: Mucous Membranes Moist - Respiratory Exam Respiratory Exam: Rales, Wheezes. absent: Accessory Muscle Use, Respiratory Distress - Cardiovascular Exam Cardiovascular Exam: REGULAR RHYTHM, +S1, +S2. absent: Gallop, Rubs, Murmur - GI/Abdominal Exam GI & Abdominal Exam: Soft, Normal Bowel Sounds. absent: Distended, Firm, Guarding, Rigid, Tenderness, Organomegaly - Extremities Exam Extremities Exam: absent: Pedal Edema, Tenderness - Neurological Exam Neurological Exam: Alert, Awake, Oriented x3 - Psychiatric Exam Psychiatric exam: Normal Affect, Normal Mood - Skin Skin Exam: Dry, Intact, Normal Color, Warm Assessment and Plan - Assessment and Plan (Free Text) Assessment: 62 year old female with past medial history of HTN, DM, CAD, PAD, COPD is being seen for CHF exacerbation. [place] admission [place] [address]. CXR on admission showed cardiomegaly with worsening pulmonary intersitial edema. EKG showed sinus tachy at 140 bmp. Echo from 01/2017 showed normal EF at 65-70%. 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 likely viral bronchitis. Continue steroid treatment CAD Continue Aspirin, plavix, coreg and lipitor Hyperlipidemia Continue lipitor PAD Continue Pletal DM Continue management per primary team HgbA1c is 6.6 HTN Urgency Pt was noncompliant with medications for about 2 weeks. Along with this, pt has symptoms of bronchitis which could cause acute elevation of BP Continue to monitor VS Currently on Norvasc, Coreg, Lasixs, Cozaar Hypothyroid TSH was 12.40 (high) and Free T4 0.86 Likely due to sick thyroid Will need to be followed up outpt by PMD Case will be discussed with attending, Dr. Montes <Kulwinder Montes - Last Filed: 04/22/17 09:06> Objective - Vital Signs/Intake and Output Vital Signs (last 24 hours): Temp Pulse Resp BP Pulse Ox 98.6 F 92 H 18 133/69 97 04/22/17 07:47 04/22/17 07:47 04/22/17 07:47 04/22/17 07:47 04/22/17 07:47 Intake and Output: 04/22/17 04/22/17 06:59 18:59 Intake Total 100 Output Total 250 Balance -150 - Medications Medications: Current Medications Al Hydrox/Mg Hydrox/Simethicone (Maalox Plus 30 Ml) 30 ml PO Q6 PRN PRN Reason: Indigestion / Heartburn Albuterol/Ipratropium (Duoneb 3 Mg/0.5 Mg (3 Ml) Ud) 3 ml INH RQ4 [facility] Last Admin: 04/22/17 08:02 Dose: 3 ml Amlodipine Besylate (Norvasc) 10 mg PO DAILY [facility] Last Admin: 04/21/17 09:15 Dose: 10 mg Aspirin (Ecotrin) 81 mg PO DAILY [facility] Last Admin: 04/21/17 10:25 Dose: 81 mg Atorvastatin Calcium (Lipitor) 20 mg PO HS [facility] Last Admin: 04/21/17 21:07 Dose: 20 mg Carvedilol (Coreg) 25 mg PO Q12 [facility] Last Admin: 04/21/17 21:07 Dose: 25 mg Cholecalciferol (Vitamin D) 1,000 intlu PO DAILY [facility] Last Admin: 04/21/17 10:25 Dose: 1,000 intlu Cilostazol (Pletal) 100 mg PO BID [facility] Last Admin: 04/21/17 17:14 Dose: 100 mg Dextrose (Dextrose 50% Inj) 0 ml IV STAT PRN; Protocol PRN Reason: Hypoglycemia Protocol Dextrose (Glutose 15) 0 gm PO ONCE PRN; Protocol PRN Reason: Hypoglycemia Protocol Dorzolamide HCl (Trusopt) 1 drop OU BID [facility] Last Admin: 04/21/17 17:12 Dose: 1 drop Enoxaparin Sodium (Lovenox) 40 mg SC DAILY [facility] PRN Reason: Protocol Last Admin: 04/21/17 10:24 Dose: 40 mg Furosemide (Lasix) 40 mg IVP BID [facility] Last Admin: 04/21/17 17:57 Dose: 40 mg Glucagon (Glucagen Diagnostic Kit) 0 mg IM STAT PRN; Protocol PRN Reason: Hypoglycemia Protocol Hydralazine HCl (Apresoline) 100 mg PO Q8 [facility] Last Admin: 04/22/17 02:05 Dose: 100 mg Hydromorphone HCl (Dilaudid) 1 mg IVP Q6 PRN PRN Reason: Pain, moderate (4-7) Last Admin: 04/22/17 08:45 Dose: 1 mg Levofloxacin/Dextrose (Levaquin 500mg) 500 mg in 100 mls @ 100 mls/hr IVPB DAILY [facility] PRN Reason: Protocol Last Admin: 04/21/17 12:30 Dose: 100 mls/hr Insulin Detemir (Levemir) 20 units SC HS [facility] Last Admin: 04/21/17 23:07 Dose: 20 units Insulin Human Lispro (Humalog) 0 units SC ACHS [facility] PRN Reason: Protocol Last Admin: 04/22/17 07:53 Dose: 1 u Insulin Lispro Protam/Lispro Human (Humalog Mix 75/25) 10 units SC ACBD [facility] Last Admin: 04/21/17 17:21 Dose: 10 units Isosorbide Dinitrate (Isordil) 10 mg PO BID [facility] Last Admin: 04/21/17 17:16 Dose: 10 mg Losartan Potassium (Cozaar) 100 mg PO DAILY [facility] Last Admin: 04/21/17 14:44 Dose: 100 mg Methylprednisolone (Solu-Medrol) 40 mg IVP Q6H [facility] Last Admin: 04/22/17 02:05 Dose: 40 mg Montelukast Sodium (Singulair) 10 mg PO QPM [facility] Last Admin: 04/21/17 17:26 Dose: 10 mg Multivitamins/Minerals (Therapeutic-M Tab) 1 tab PO DAILY [facility] Last Admin: 04/21/17 10:25 Dose: 1 tab Pantoprazole Sodium (Protonix Ec Tab) 40 mg PO DAILY [facility] Last Admin: 04/21/17 09:21 Dose: 40 mg Sitagliptin Phosphate (Januvia) 100 mg PO DAILY [facility] Last Admin: 04/21/17 12:24 Dose: 100 mg - Labs Labs: 04/22/17 05:40 04/22/17 05:40 PT 11.2 Seconds (9.8-13.1) 04/21/17 05:10 INR 1.0 (0.9-1.2) 04/21/17 05:10 APTT 35.4 Seconds (25.6-37.1) 04/21/17 05:10 Assessment and Plan (1) CHF (congestive heart failure) Status: Acute (2) Respiratory failure Status: Acute (3) HTN (hypertension) Status: Acute Attending/Attestation - Attestation I have personally seen and examined this patient.: Yes I have fully participated in the care of the patient.: Yes I have reviewed all pertinent clinical information, including history, physical exam and plan: Yes
[2017-04-22] MEDS: Pantoprazole 40 mg EC Tab PO SCH (08:58)
[2017-04-22] MEDS: Cilostazol 100 mg Tab UD PO SCH ×2 (08:59→16:51)
[2017-04-22] MEDS: Enoxaparin 40 mg Syringe SC SCH (08:59)
[2017-04-22] MEDS: Multivitamin With Minerals Tab PO SCH (09:00)
[2017-04-22] MEDS: Dorzolamide 2% Ophth Soln OU SCH ×2 (09:01→16:51)
[2017-04-22] MEDS: Cholecalciferol 1,000 INTLU TAB PO SCH (09:01)
[2017-04-22] MEDS: Insulin Lispro Mix 75/25 100 units/ml (HumaLog) 10ml SC SCH ×2 (09:03→16:55)
--- NOTE | 2017-04-22 09:27 | CP.PCM.PN ---
Subjective - Date & Time of Evaluation Date of Evaluation: 04/22/17 Time of Evaluation: 09:27 - Subjective Subjective: pt awake/alert, still weaknes. no f/c, n/v/d. admited to not taking meds x 1-2 wks. denies cigarette smoking. bw ntoed. consults appriciated. comfortable on nc. Objective - Vital Signs/Intake and Output Vital Signs (last 24 hours): Temp Pulse Resp BP Pulse Ox 98.6 F 92 H 18 133/69 97 04/22/17 07:47 04/22/17 09:03 04/22/17 07:47 04/22/17 09:03 04/22/17 07:47 Intake and Output: 04/22/17 04/22/17 06:59 18:59 Intake Total 100 Output Total 250 Balance -150 - Medications Medications: Current Medications Al Hydrox/Mg Hydrox/Simethicone (Maalox Plus 30 Ml) 30 ml PO Q6 PRN PRN Reason: Indigestion / Heartburn Albuterol/Ipratropium (Duoneb 3 Mg/0.5 Mg (3 Ml) Ud) 3 ml INH RQ4 [facility] Last Admin: 04/22/17 08:02 Dose: 3 ml Amlodipine Besylate (Norvasc) 10 mg PO DAILY [facility] Last Admin: 04/22/17 09:03 Dose: 10 mg Aspirin (Ecotrin) 81 mg PO DAILY [facility] Last Admin: 04/22/17 08:59 Dose: 81 mg Atorvastatin Calcium (Lipitor) 20 mg PO HS [facility] Last Admin: 04/21/17 21:07 Dose: 20 mg Carvedilol (Coreg) 25 mg PO Q12 [facility] Last Admin: 04/22/17 09:00 Dose: 25 mg Cholecalciferol (Vitamin D) 1,000 intlu PO DAILY [facility] Last Admin: 04/22/17 09:01 Dose: 1,000 intlu Cilostazol (Pletal) 100 mg PO BID [facility] Last Admin: 04/22/17 08:59 Dose: 100 mg Dextrose (Dextrose 50% Inj) 0 ml IV STAT PRN; Protocol PRN Reason: Hypoglycemia Protocol Dextrose (Glutose 15) 0 gm PO ONCE PRN; Protocol PRN Reason: Hypoglycemia Protocol Dorzolamide HCl (Trusopt) 1 drop OU BID [facility] Last Admin: 04/22/17 09:01 Dose: 1 drop Enoxaparin Sodium (Lovenox) 40 mg SC DAILY [facility] PRN Reason: Protocol Last Admin: 04/22/17 08:59 Dose: 40 mg Furosemide (Lasix) 40 mg IVP BID [facility] Last Admin: 04/22/17 08:56 Dose: 40 mg Glucagon (Glucagen Diagnostic Kit) 0 mg IM STAT PRN; Protocol PRN Reason: Hypoglycemia Protocol Hydralazine HCl (Apresoline) 100 mg PO Q8 [facility] Last Admin: 04/22/17 08:58 Dose: 100 mg Hydromorphone HCl (Dilaudid) 1 mg IVP Q6 PRN PRN Reason: Pain, moderate (4-7) Last Admin: 04/22/17 08:45 Dose: 1 mg Levofloxacin/Dextrose (Levaquin 500mg) 500 mg in 100 mls @ 100 mls/hr IVPB DAILY [facility] PRN Reason: Protocol Last Admin: 04/21/17 12:30 Dose: 100 mls/hr Insulin Detemir (Levemir) 20 units SC HS [facility] Last Admin: 04/21/17 23:07 Dose: 20 units Insulin Human Lispro (Humalog) 0 units SC ACHS [facility] PRN Reason: Protocol Last Admin: 04/22/17 07:53 Dose: 1 u Insulin Lispro Protam/Lispro Human (Humalog Mix 75/25) 10 units SC ACBD [facility] Last Admin: 04/22/17 09:03 Dose: 10 units Isosorbide Dinitrate (Isordil) 10 mg PO BID [facility] Last Admin: 04/22/17 08:59 Dose: 10 mg Losartan Potassium (Cozaar) 100 mg PO DAILY [facility] Last Admin: 04/22/17 08:58 Dose: 100 mg Methylprednisolone (Solu-Medrol) 40 mg IVP Q6H [facility] Last Admin: 04/22/17 09:01 Dose: 40 mg Montelukast Sodium (Singulair) 10 mg PO QPM [facility] Last Admin: 04/21/17 17:26 Dose: 10 mg Multivitamins/Minerals (Therapeutic-M Tab) 1 tab PO DAILY [facility] Last Admin: 04/22/17 09:00 Dose: 1 tab Pantoprazole Sodium (Protonix Ec Tab) 40 mg PO DAILY [facility] Last Admin: 04/22/17 08:58 Dose: 40 mg Promethazine HCl/Dextromethorphan (Phenergan Dm Syrup) 5 ml PO Q6 PRN PRN Reason: Cough Sitagliptin Phosphate (Januvia) 100 mg PO DAILY [facility] Last Admin: 04/22/17 09:00 Dose: 100 mg - Labs Labs: 04/22/17 05:40 04/22/17 05:40 PT 11.2 Seconds (9.8-13.1) 04/21/17 05:10 INR 1.0 (0.9-1.2) 04/21/17 05:10 APTT 35.4 Seconds (25.6-37.1) 04/21/17 05:10 - Constitutional Appears: Well, Non-toxic, No Acute Distress - Head Exam Head Exam: ATRAUMATIC, NORMAL INSPECTION, NORMOCEPHALIC - Eye Exam Eye Exam: EOMI, Normal appearance, PERRL Pupil Exam: NORMAL ACCOMODATION, PERRL - ENT Exam ENT Exam: Mucous Membranes Moist, Normal Exam - Neck Exam Neck Exam: Full ROM, Normal Inspection. absent: Lymphadenopathy - Respiratory Exam Respiratory Exam: Clear to Ausculation Bilateral, NORMAL BREATHING PATTERN - Cardiovascular Exam Cardiovascular Exam: REGULAR RHYTHM, RRR, +S1, +S2. absent: Murmur - GI/Abdominal Exam GI & Abdominal Exam: Soft, Normal Bowel Sounds. absent: Tenderness - Extremities Exam Extremities Exam: Full ROM, Normal Capillary Refill, Normal Inspection. absent : Joint Swelling, Pedal Edema - Back Exam Back Exam: NORMAL INSPECTION - Neurological Exam Neurological Exam: Alert, Awake, CN II-XII Intact, Normal Gait, Oriented x3 - Psychiatric Exam Psychiatric exam: Normal Affect, Normal Mood - Skin Skin Exam: Dry, Intact, Normal Color, Warm Assessment and Plan (1) CHF (congestive heart failure) Status: Acute (2) COPD exacerbation Status: Acute (3) Chronic kidney disease, stage 3 (moderate) Status: Acute (4) DVT prophylaxis Status: Acute (5) Diabetes type 2, uncontrolled Status: Acute - Assessment and Plan (Free Text) Assessment: 1-dm2 uncontrolled-cont home meds, fsbg, fsbg q6 w/. ss diet control 2-chf-acute onchronic-cardio, lasix, I/O, bipap for support now dc and on nc 3-resp failure r/t chf-bipap, pulm, duonebs, solumedrol, improving, now on nc, comfortable, cont pulm/cardio 4-dvt ppx-scd, ae hose, lovenox 5-htn-cont home meds pt/ot eval pending
--- NOTE | 2017-04-22 11:02 | CP.PCM.PN ---
Subjective - Date & Time of Evaluation Date of Evaluation: 04/22/17 Time of Evaluation: 11:02 - Subjective Subjective: TRANSFERRED OUT OF ICU RESPIRATORY DISTRESS IMPROVED STILL COUGHING Objective - Vital Signs/Intake and Output Vital Signs (last 24 hours): Temp Pulse Resp BP Pulse Ox 98.6 F 92 H 18 133/69 97 04/22/17 07:47 04/22/17 09:03 04/22/17 07:47 04/22/17 09:03 04/22/17 07:47 Intake and Output: 04/22/17 04/22/17 06:59 18:59 Intake Total 100 Output Total 250 Balance -150 - Medications Medications: Current Medications Al Hydrox/Mg Hydrox/Simethicone (Maalox Plus 30 Ml) 30 ml PO Q6 PRN PRN Reason: Indigestion / Heartburn Albuterol/Ipratropium (Duoneb 3 Mg/0.5 Mg (3 Ml) Ud) 3 ml INH RQ4 [facility] Last Admin: 04/22/17 08:02 Dose: 3 ml Amlodipine Besylate (Norvasc) 10 mg PO DAILY [facility] Last Admin: 04/22/17 09:03 Dose: 10 mg Aspirin (Ecotrin) 81 mg PO DAILY [facility] Last Admin: 04/22/17 08:59 Dose: 81 mg Atorvastatin Calcium (Lipitor) 20 mg PO HS [facility] Last Admin: 04/21/17 21:07 Dose: 20 mg Carvedilol (Coreg) 25 mg PO Q12 [facility] Last Admin: 04/22/17 09:00 Dose: 25 mg Cholecalciferol (Vitamin D) 1,000 intlu PO DAILY [facility] Last Admin: 04/22/17 09:01 Dose: 1,000 intlu Cilostazol (Pletal) 100 mg PO BID [facility] Last Admin: 04/22/17 08:59 Dose: 100 mg Dextrose (Dextrose 50% Inj) 0 ml IV STAT PRN; Protocol PRN Reason: Hypoglycemia Protocol Dextrose (Glutose 15) 0 gm PO ONCE PRN; Protocol PRN Reason: Hypoglycemia Protocol Dorzolamide HCl (Trusopt) 1 drop OU BID [facility] Last Admin: 04/22/17 09:01 Dose: 1 drop Enoxaparin Sodium (Lovenox) 40 mg SC DAILY [facility] PRN Reason: Protocol Last Admin: 04/22/17 08:59 Dose: 40 mg Furosemide (Lasix) 40 mg IVP BID [facility] Last Admin: 04/22/17 08:56 Dose: 40 mg Glucagon (Glucagen Diagnostic Kit) 0 mg IM STAT PRN; Protocol PRN Reason: Hypoglycemia Protocol Hydralazine HCl (Apresoline) 100 mg PO Q8 [facility] Last Admin: 04/22/17 08:58 Dose: 100 mg Hydromorphone HCl (Dilaudid) 1 mg IVP Q6 PRN PRN Reason: Pain, moderate (4-7) Last Admin: 04/22/17 08:45 Dose: 1 mg Levofloxacin/Dextrose (Levaquin 500mg) 500 mg in 100 mls @ 100 mls/hr IVPB DAILY [facility] PRN Reason: Protocol Last Admin: 04/21/17 12:30 Dose: 100 mls/hr Insulin Detemir (Levemir) 20 units SC HS [facility] Last Admin: 04/21/17 23:07 Dose: 20 units Insulin Human Lispro (Humalog) 0 units SC ACHS [facility] PRN Reason: Protocol Last Admin: 04/22/17 07:53 Dose: 1 u Insulin Lispro Protam/Lispro Human (Humalog Mix 75/25) 10 units SC ACBD [facility] Last Admin: 04/22/17 09:03 Dose: 10 units Isosorbide Dinitrate (Isordil) 10 mg PO BID [facility] Last Admin: 04/22/17 08:59 Dose: 10 mg Losartan Potassium (Cozaar) 100 mg PO DAILY [facility] Last Admin: 04/22/17 08:58 Dose: 100 mg Methylprednisolone (Solu-Medrol) 40 mg IVP Q6H [facility] Last Admin: 04/22/17 09:01 Dose: 40 mg Montelukast Sodium (Singulair) 10 mg PO QPM [facility] Last Admin: 04/21/17 17:26 Dose: 10 mg Multivitamins/Minerals (Therapeutic-M Tab) 1 tab PO DAILY [facility] Last Admin: 04/22/17 09:00 Dose: 1 tab Pantoprazole Sodium (Protonix Ec Tab) 40 mg PO DAILY [facility] Last Admin: 04/22/17 08:58 Dose: 40 mg Promethazine HCl/Dextromethorphan (Phenergan Dm Syrup) 5 ml PO Q6 PRN PRN Reason: Cough Sitagliptin Phosphate (Januvia) 100 mg PO DAILY [facility] Last Admin: 04/22/17 09:00 Dose: 100 mg - Labs Labs: 04/22/17 05:40 04/22/17 05:40 PT 11.2 Seconds (9.8-13.1) 04/21/17 05:10 INR 1.0 (0.9-1.2) 04/21/17 05:10 APTT 35.4 Seconds (25.6-37.1) 04/21/17 05:10 - Constitutional Appears: Chronically Ill - Head Exam Head Exam: ATRAUMATIC, NORMAL INSPECTION, NORMOCEPHALIC - Eye Exam Eye Exam: EOMI, Normal appearance, PERRL Pupil Exam: NORMAL ACCOMODATION, PERRL - ENT Exam ENT Exam: Mucous Membranes Moist, Normal Exam - Neck Exam Neck Exam: Full ROM, Normal Inspection. absent: Lymphadenopathy - Respiratory Exam Respiratory Exam: Decreased Breath Sounds, Prolonged Expiratory Phase, Rales, Wheezes, NORMAL BREATHING PATTERN - Cardiovascular Exam Cardiovascular Exam: REGULAR RHYTHM, +S1, +S2. absent: Murmur - GI/Abdominal Exam GI & Abdominal Exam: Soft, Normal Bowel Sounds. absent: Tenderness - Rectal Exam Rectal Exam: NORMAL INSPECTION - Extremities Exam Extremities Exam: Full ROM, Normal Capillary Refill, Normal Inspection, Pedal Edema. absent: Joint Swelling - Back Exam Back Exam: NORMAL INSPECTION - Neurological Exam Neurological Exam: Alert, Awake, CN II-XII Intact, Oriented x3 - Psychiatric Exam Psychiatric exam: Normal Affect, Normal Mood - Skin Skin Exam: Dry, Intact, Normal Color, Warm Assessment and Plan - Assessment and Plan (Free Text) Assessment: RESPIRATORY FAILURE--IMPROVED[CHF/COPD] Plan: CONTINUE CURRENT RX ABG AND CXR IN AM
[2017-04-22 11:48] LABS: LYMPHOCYTE 9 % (20-50); MONOCYTE 3 % (0-10); MYELOCYTE 1 % (0-0); NEUTROPHIL 87 % (42-75); PLATELET ESTIMATE NORMAL (NORMAL); TOTAL CELLS COUNTED 100
[2017-04-22 11:49] LABS: ANISOCYTOSIS SLIGHT; HYPOCHROMIC SLIGHT
[2017-04-22 11:50] LABS: LARGE PLATELETS PRESENT
[2017-04-22] MEDS: Insulin Regular 100 units/ml SC SCH ×3 (12:00→21:23)
[2017-04-22] MEDS: levoFLOXacin 500 mg in D5W 500 MG/100 ML BAG IVPB SCH (12:32)
[2017-04-22] MEDS: Promethazine DM 6.25 mg-15 mg/5 ml Syrup PO PRN ×2 (12:55→18:37)
[2017-04-22] MEDS ORDERED: Benzocaine/Menthol (Cepacol) Lozenge PO PRN (16:53)
[2017-04-22] MEDS: Insulin Detemir 100 Units/ml Inj SC SCH (22:09)
[2017-04-23] MEDS: MethylPREDNISolone 40 mg Vial IVP SCH ×4 (02:13→21:53)
[2017-04-23] MEDS: Albuterol-Ipratrop 3 mg / 0.5 (3 ml) UD INH SCH ×6 (04:50→23:32)
[2017-04-23 05:16] LABS: HEMOGLOBIN 9.5 g/dL (12.0-16.0); MEAN CORPUSCULAR HEMOGLOBIN 29.8 pg (27.0-31.0); RBC 3.2 Mil/uL (3.80-5.20); WHITE BLOOD COUNT 17.5 K/uL (4.8-10.8)
[2017-04-23 05:24] LABS: ALB/GLOB RATIO 0.9 (1.0-2.1); ALBUMIN 3.1 g/dL (3.5-5.0); CALCIUM 8.8 mg/dL (8.4-10.2)
[2017-04-23] MEDS: Insulin Regular 100 units/ml SC SCH ×4 (06:40→22:32)
[2017-04-23] MEDS: Promethazine DM 6.25 mg-15 mg/5 ml Syrup PO PRN ×2 (06:44→16:49)
--- NOTE | 2017-04-23 07:38 | CP.PCM.PN ---
<Lesley Vargas - Last Filed: 04/23/17 08:08> Subjective - Date & Time of Evaluation Date of Evaluation: 04/23/17 Time of Evaluation: 07:36 - Subjective Subjective: PGY2 progress note for cardiology, Dr. Montes Pt seen and examined at bedside. No acute events overnight. Pt used BiPAP machine overnight and tolerated well. Currently on NC. Continues to c/o productive cough with clear sputum and SOB. Denies having any CP, F/C, abd pain , N/V/D/C. 12 point ROS negative except for the above mentioned. Objective - Vital Signs/Intake and Output Vital Signs (last 24 hours): Temp Pulse Resp BP Pulse Ox 97.9 F 84 16 128/66 99 04/23/17 05:01 04/23/17 05:01 04/23/17 05:01 04/23/17 05:01 04/23/17 05:01 - Medications Medications: Current Medications Al Hydrox/Mg Hydrox/Simethicone (Maalox Plus 30 Ml) 30 ml PO Q6 PRN PRN Reason: Indigestion / Heartburn Albuterol/Ipratropium (Duoneb 3 Mg/0.5 Mg (3 Ml) Ud) 3 ml INH RQ4 [facility] Last Admin: 04/23/17 04:50 Dose: 3 ml Amlodipine Besylate (Norvasc) 10 mg PO DAILY [facility] Last Admin: 04/22/17 09:03 Dose: 10 mg Aspirin (Ecotrin) 81 mg PO DAILY [facility] Last Admin: 04/22/17 08:59 Dose: 81 mg Atorvastatin Calcium (Lipitor) 20 mg PO HS [facility] Last Admin: 04/22/17 21:21 Dose: 20 mg Benzocaine/Menthol (Cepacol Sore Throat) 1 dinah PO Q3 PRN PRN Reason: Sore Throat Last Admin: 04/22/17 18:38 Dose: 1 dinah Carvedilol (Coreg) 25 mg PO Q12 [facility] Last Admin: 04/22/17 21:21 Dose: 25 mg Cholecalciferol (Vitamin D) 1,000 intlu PO DAILY [facility] Last Admin: 04/22/17 09:01 Dose: 1,000 intlu Cilostazol (Pletal) 100 mg PO BID [facility] Last Admin: 04/22/17 16:51 Dose: 100 mg Dextrose (Dextrose 50% Inj) 0 ml IV STAT PRN; Protocol PRN Reason: Hypoglycemia Protocol Dextrose (Glutose 15) 0 gm PO ONCE PRN; Protocol PRN Reason: Hypoglycemia Protocol Dorzolamide HCl (Trusopt) 1 drop OU BID [facility] Last Admin: 04/22/17 16:51 Dose: 1 drop Enoxaparin Sodium (Lovenox) 40 mg SC DAILY [facility] PRN Reason: Protocol Last Admin: 04/22/17 08:59 Dose: 40 mg Furosemide (Lasix) 40 mg IVP BID [facility] Last Admin: 04/22/17 16:49 Dose: 40 mg Glucagon (Glucagen Diagnostic Kit) 0 mg IM STAT PRN; Protocol PRN Reason: Hypoglycemia Protocol Hydralazine HCl (Apresoline) 100 mg PO Q8 [facility] Last Admin: 04/23/17 02:09 Dose: 100 mg Hydromorphone HCl (Dilaudid) 1 mg IVP Q6 PRN PRN Reason: Pain, moderate (4-7) Last Admin: 04/23/17 03:10 Dose: 1 mg Levofloxacin/Dextrose (Levaquin 500mg) 500 mg in 100 mls @ 100 mls/hr IVPB DAILY [facility] PRN Reason: Protocol Last Admin: 04/22/17 12:32 Dose: 100 mls/hr Insulin Detemir (Levemir) 20 units SC HS [facility] Last Admin: 04/22/17 22:09 Dose: 20 units Insulin Human Regular (Humulin R) 0 units SC ACHS [facility] PRN Reason: Protocol Last Admin: 04/23/17 06:40 Dose: 2 units Insulin Lispro Protam/Lispro Human (Humalog Mix 75/25) 10 units SC ACBD [facility] Last Admin: 04/22/17 16:55 Dose: 10 units Isosorbide Dinitrate (Isordil) 10 mg PO BID [facility] Last Admin: 04/22/17 16:52 Dose: Not Given Losartan Potassium (Cozaar) 100 mg PO DAILY [facility] Last Admin: 04/22/17 08:58 Dose: 100 mg Methylprednisolone (Solu-Medrol) 40 mg IVP Q6H [facility] Last Admin: 04/23/17 02:13 Dose: 40 mg Montelukast Sodium (Singulair) 10 mg PO QPM [facility] Last Admin: 04/22/17 18:38 Dose: 10 mg Multivitamins/Minerals (Therapeutic-M Tab) 1 tab PO DAILY [facility] Last Admin: 04/22/17 09:00 Dose: 1 tab Nystatin (Nystop Topical Powder) 1 applic TOP BID [facility] Pantoprazole Sodium (Protonix Ec Tab) 40 mg PO DAILY [facility] Last Admin: 04/22/17 08:58 Dose: 40 mg Promethazine HCl/Dextromethorphan (Phenergan Dm Syrup) 5 ml PO Q6 PRN PRN Reason: Cough Last Admin: 04/23/17 06:44 Dose: 5 ml Sitagliptin Phosphate (Januvia) 100 mg PO DAILY [facility] Last Admin: 04/22/17 09:00 Dose: 100 mg - Labs Labs: 04/23/17 04:35 04/23/17 04:35 PT 11.2 Seconds (9.8-13.1) 04/21/17 05:10 INR 1.0 (0.9-1.2) 04/21/17 05:10 APTT 35.4 Seconds (25.6-37.1) 04/21/17 05:10 - Constitutional Appears: Non-toxic, No Acute Distress - Head Exam Head Exam: ATRAUMATIC - ENT Exam ENT Exam: Mucous Membranes Moist - Respiratory Exam Respiratory Exam: Rhonchi, Wheezes. absent: Accessory Muscle Use, Clear to Ausculation Bilateral, Respiratory Distress - Cardiovascular Exam Cardiovascular Exam: Tachycardia, REGULAR RHYTHM, +S1, +S2. absent: Gallop, Rubs, Murmur - GI/Abdominal Exam GI & Abdominal Exam: Soft, Normal Bowel Sounds. absent: Distended, Firm, Guarding, Rigid, Tenderness, Organomegaly - Extremities Exam Extremities Exam: absent: Pedal Edema, Tenderness - Neurological Exam Neurological Exam: Alert, Awake, Oriented x3 - Psychiatric Exam Psychiatric exam: Normal Affect, Normal Mood - Skin Skin Exam: Dry, Intact, Normal Color, Warm Assessment and Plan - Assessment and Plan (Free Text) Assessment: 62 year old female with past medial history of HTN, DM, CAD, PAD, COPD is being seen for CHF exacerbation. [place] admission [place] [address]. CXR on admission showed cardiomegaly with worsening pulmonary intersitial edema. EKG showed sinus tachy at 140 bmp. Echo from 01/2017 showed normal EF at 65-70%. CHF exacerbation Continue coreg 25 mg q12. 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 likely viral bronchitis. Continue steroid treatment CAD Continue Aspirin, plavix, coreg and lipitor Hyperlipidemia Continue lipitor PAD Continue Pletal DM Continue management per primary team HgbA1c is 6.6 HTN BP improved Continue to monitor VS Currently on Norvasc, Coreg, Lasixs, Cozaar Hypothyroid TSH was 12.40 (high) and Free T4 0.86 Likely due to sick thyroid Will need to be followed up outpt by PMD ARCHIE Cr this morning is 1.5, likely due to ARB will continue to monitor Case will be discussed with attending, Dr. Montes <Kulwinder Montes - Last Filed: 04/26/17 08:59> Objective - Vital Signs/Intake and Output Vital Signs (last 24 hours): Temp Pulse Resp BP Pulse Ox 98.4 F 85 18 119/63 94 L 04/26/17 08:14 04/26/17 08:14 04/26/17 08:14 04/26/17 08:14 04/26/17 08:14 Intake and Output: 04/26/17 04/26/17 06:59 18:59 Intake Total 240 Output Total 1100 Balance -860 - Medications Medications: Current Medications Al Hydrox/Mg Hydrox/Simethicone (Maalox Plus 30 Ml) 30 ml PO Q6 PRN PRN Reason: Indigestion / Heartburn Albuterol/Ipratropium (Duoneb 3 Mg/0.5 Mg (3 Ml) Ud) 3 ml INH RQ4 [facility] Last Admin: 04/26/17 07:41 Dose: 3 ml Amlodipine Besylate (Norvasc) 10 mg PO DAILY [facility] Last Admin: 04/25/17 10:02 Dose: 10 mg Aspirin (Ecotrin) 81 mg PO DAILY [facility] Last Admin: 04/25/17 10:04 Dose: 81 mg Atorvastatin Calcium (Lipitor) 20 mg PO HS [facility] Last Admin: 04/25/17 22:19 Dose: 20 mg Benzocaine/Menthol (Cepacol Sore Throat) 1 dinah PO Q3 PRN PRN Reason: Sore Throat Last Admin: 04/22/17 18:38 Dose: 1 dinah Carvedilol (Coreg) 25 mg PO Q12 [facility] Last Admin: 04/25/17 22:16 Dose: Not Given Cholecalciferol (Vitamin D) 1,000 intlu PO DAILY [facility] Last Admin: 04/25/17 10:00 Dose: 1,000 intlu Cilostazol (Pletal) 100 mg PO BID [facility] Last Admin: 04/25/17 17:48 Dose: 100 mg Cyclobenzaprine HCl (Flexeril) 5 mg PO TID PRN PRN Reason: Muscle spasm Dextrose (Dextrose 50% Inj) 0 ml IV STAT PRN; Protocol PRN Reason: Hypoglycemia Protocol Dextrose (Glutose 15) 0 gm PO ONCE PRN; Protocol PRN Reason: Hypoglycemia Protocol Dorzolamide HCl (Trusopt) 1 drop OU BID [facility] Last Admin: 04/25/17 17:48 Dose: 1 drop Enoxaparin Sodium (Lovenox) 40 mg SC DAILY [facility] PRN Reason: Protocol Last Admin: 04/25/17 09:58 Dose: 40 mg Furosemide (Lasix) 40 mg PO DAILY [facility] Last Admin: 04/25/17 10:00 Dose: 40 mg Glucagon (Glucagen Diagnostic Kit) 0 mg IM STAT PRN; Protocol PRN Reason: Hypoglycemia Protocol Hydralazine HCl (Apresoline) 100 mg PO Q8 [facility] Last Admin: 04/26/17 01:48 Dose: Not Given Hydromorphone HCl (Dilaudid) 1 mg IVP Q6 PRN PRN Reason: Pain, moderate (4-7) Last Admin: 04/26/17 06:42 Dose: 1 mg Levofloxacin/Dextrose (Levaquin 500mg) 500 mg in 100 mls @ 100 mls/hr IVPB DAILY [facility] PRN Reason: Protocol Last Admin: 04/25/17 10:04 Dose: 100 mls/hr Insulin Detemir (Levemir) 20 units SC HS [facility] Last Admin: 04/25/17 22:19 Dose: 20 units Insulin Human Regular (Humulin R) 0 units SC ACHS [facility] PRN Reason: Protocol Last Admin: 04/25/17 22:17 Dose: Not Given Insulin Lispro Protam/Lispro Human (Humalog Mix 75/25) 10 units SC ACBD [facility] Last Admin: 04/25/17 17:46 Dose: 10 units Isosorbide Dinitrate (Isordil) 10 mg PO BID [facility] Last Admin: 04/25/17 17:47 Dose: 10 mg Losartan Potassium (Cozaar) 100 mg PO DAILY [facility] Last Admin: 04/25/17 10:02 Dose: 100 mg Methylprednisolone (Solu-Medrol) 40 mg IVP DAILY [facility] Montelukast Sodium (Singulair) 10 mg PO QPM [facility] Last Admin: 04/25/17 17:47 Dose: 10 mg Multivitamins/Minerals (Therapeutic-M Tab) 1 tab PO DAILY [facility] Last Admin: 04/25/17 09:59 Dose: 1 tab Nystatin (Nystop Topical Powder) 1 applic TOP BID [facility] Last Admin: 04/25/17 17:48 Dose: 1 applic Pantoprazole Sodium (Protonix Ec Tab) 40 mg PO DAILY [facility] Last Admin: 04/25/17 10:02 Dose: 40 mg Polyethylene Glycol (Miralax) 17 gm PO DAILY [facility] Promethazine HCl/Dextromethorphan (Phenergan Dm Syrup) 5 ml PO Q6 PRN PRN Reason: Cough Last Admin: 04/25/17 22:13 Dose: 5 ml Sitagliptin Phosphate (Januvia) 100 mg PO DAILY [facility] Last Admin: 04/25/17 10:00 Dose: 100 mg - Labs Labs: 04/26/17 07:09 04/26/17 07:09 PT 11.2 Seconds (9.8-13.1) 04/21/17 05:10 INR 1.0 (0.9-1.2) 04/21/17 05:10 APTT 35.4 Seconds (25.6-37.1) 04/21/17 05:10 Assessment and Plan (1) CHF (congestive heart failure) Status: Acute (2) Respiratory failure Status: Acute (3) HTN (hypertension) Status: Acute Attending/Attestation - Attestation I have personally seen and examined this patient.: Yes I have fully participated in the care of the patient.: Yes I have reviewed all pertinent clinical information, including history, physical exam and plan: Yes
[2017-04-23 08:24] LABS: ABG ALLEN TEST YES; ARTERIAL BLOOD GAS HCO3 24.4 mmol/L (21-28); ARTERIAL BLOOD GAS O2 CAPACITY 13.7 mL/dL (16-24); ARTERIAL BLOOD GAS O2 CONTENT 13.4 ML/dL (15-23); ARTERIAL BLOOD GAS O2 SAT 97.8 % (95-98); ARTERIAL BLOOD GAS PCO2 40 mm/Hg (35-45); ARTERIAL BLOOD GAS PH 7.39 (7.35-7.45); ARTERIAL BLOOD GAS PO2 78 mm/Hg (80-100); ARTERIAL BLOOD GAS TCO2 25.4 mmol/L (22-28)
--- NOTE | 2017-04-23 08:55 | CP.PCM.PN ---
Subjective - Date & Time of Evaluation Date of Evaluation: 04/23/17 Time of Evaluation: 08:55 - Subjective Subjective: doing well on nc. no complaints. no f/,c n/v/d. still w/ weakness but improving. pt/ot evals noted Objective - Vital Signs/Intake and Output Vital Signs (last 24 hours): Temp Pulse Resp BP Pulse Ox 98.3 F 101 H 18 149/65 97 04/23/17 08:03 04/23/17 08:03 04/23/17 08:03 04/23/17 08:03 04/23/17 08:03 - Medications Medications: Current Medications Al Hydrox/Mg Hydrox/Simethicone (Maalox Plus 30 Ml) 30 ml PO Q6 PRN PRN Reason: Indigestion / Heartburn Albuterol/Ipratropium (Duoneb 3 Mg/0.5 Mg (3 Ml) Ud) 3 ml INH RQ4 [facility] Last Admin: 04/23/17 08:06 Dose: 3 ml Amlodipine Besylate (Norvasc) 10 mg PO DAILY [facility] Last Admin: 04/22/17 09:03 Dose: 10 mg Aspirin (Ecotrin) 81 mg PO DAILY [facility] Last Admin: 04/22/17 08:59 Dose: 81 mg Atorvastatin Calcium (Lipitor) 20 mg PO HS [facility] Last Admin: 04/22/17 21:21 Dose: 20 mg Benzocaine/Menthol (Cepacol Sore Throat) 1 dinah PO Q3 PRN PRN Reason: Sore Throat Last Admin: 04/22/17 18:38 Dose: 1 dinah Carvedilol (Coreg) 25 mg PO Q12 [facility] Last Admin: 04/22/17 21:21 Dose: 25 mg Cholecalciferol (Vitamin D) 1,000 intlu PO DAILY [facility] Last Admin: 04/22/17 09:01 Dose: 1,000 intlu Cilostazol (Pletal) 100 mg PO BID [facility] Last Admin: 04/22/17 16:51 Dose: 100 mg Dextrose (Dextrose 50% Inj) 0 ml IV STAT PRN; Protocol PRN Reason: Hypoglycemia Protocol Dextrose (Glutose 15) 0 gm PO ONCE PRN; Protocol PRN Reason: Hypoglycemia Protocol Dorzolamide HCl (Trusopt) 1 drop OU BID [facility] Last Admin: 04/22/17 16:51 Dose: 1 drop Enoxaparin Sodium (Lovenox) 40 mg SC DAILY [facility] PRN Reason: Protocol Last Admin: 04/22/17 08:59 Dose: 40 mg Furosemide (Lasix) 40 mg PO DAILY [facility] Glucagon (Glucagen Diagnostic Kit) 0 mg IM STAT PRN; Protocol PRN Reason: Hypoglycemia Protocol Hydralazine HCl (Apresoline) 100 mg PO Q8 [facility] Last Admin: 04/23/17 02:09 Dose: 100 mg Hydromorphone HCl (Dilaudid) 1 mg IVP Q6 PRN PRN Reason: Pain, moderate (4-7) Last Admin: 04/23/17 03:10 Dose: 1 mg Levofloxacin/Dextrose (Levaquin 500mg) 500 mg in 100 mls @ 100 mls/hr IVPB DAILY [facility] PRN Reason: Protocol Last Admin: 04/22/17 12:32 Dose: 100 mls/hr Insulin Detemir (Levemir) 20 units SC HS [facility] Last Admin: 04/22/17 22:09 Dose: 20 units Insulin Human Regular (Humulin R) 0 units SC ACHS [facility] PRN Reason: Protocol Last Admin: 04/23/17 06:40 Dose: 2 units Insulin Lispro Protam/Lispro Human (Humalog Mix 75/25) 10 units SC ACBD [facility] Last Admin: 04/22/17 16:55 Dose: 10 units Isosorbide Dinitrate (Isordil) 10 mg PO BID [facility] Last Admin: 04/22/17 16:52 Dose: Not Given Losartan Potassium (Cozaar) 100 mg PO DAILY [facility] Last Admin: 04/22/17 08:58 Dose: 100 mg Methylprednisolone (Solu-Medrol) 40 mg IVP Q6H [facility] Last Admin: 04/23/17 02:13 Dose: 40 mg Montelukast Sodium (Singulair) 10 mg PO QPM [facility] Last Admin: 04/22/17 18:38 Dose: 10 mg Multivitamins/Minerals (Therapeutic-M Tab) 1 tab PO DAILY [facility] Last Admin: 04/22/17 09:00 Dose: 1 tab Nystatin (Nystop Topical Powder) 1 applic TOP BID [facility] Pantoprazole Sodium (Protonix Ec Tab) 40 mg PO DAILY [facility] Last Admin: 04/22/17 08:58 Dose: 40 mg Promethazine HCl/Dextromethorphan (Phenergan Dm Syrup) 5 ml PO Q6 PRN PRN Reason: Cough Last Admin: 04/23/17 06:44 Dose: 5 ml Sitagliptin Phosphate (Januvia) 100 mg PO DAILY [facility] Last Admin: 04/22/17 09:00 Dose: 100 mg - Labs Labs: 04/23/17 04:35 04/23/17 04:35 PT 11.2 Seconds (9.8-13.1) 04/21/17 05:10 INR 1.0 (0.9-1.2) 04/21/17 05:10 APTT 35.4 Seconds (25.6-37.1) 04/21/17 05:10 - Constitutional Appears: Well, Non-toxic, No Acute Distress - Head Exam Head Exam: ATRAUMATIC, NORMAL INSPECTION, NORMOCEPHALIC - Eye Exam Eye Exam: EOMI, Normal appearance, PERRL Pupil Exam: NORMAL ACCOMODATION, PERRL - ENT Exam ENT Exam: Mucous Membranes Moist, Normal Exam - Neck Exam Neck Exam: Full ROM, Normal Inspection. absent: Lymphadenopathy - Respiratory Exam Respiratory Exam: Clear to Ausculation Bilateral, NORMAL BREATHING PATTERN - Cardiovascular Exam Cardiovascular Exam: REGULAR RHYTHM, RRR, +S1, +S2. absent: Murmur - GI/Abdominal Exam GI & Abdominal Exam: Soft, Normal Bowel Sounds. absent: Tenderness - Extremities Exam Extremities Exam: Full ROM, Normal Capillary Refill, Normal Inspection. absent : Joint Swelling, Pedal Edema - Back Exam Back Exam: NORMAL INSPECTION - Neurological Exam Neurological Exam: Alert, Awake, CN II-XII Intact, Normal Gait, Oriented x3 - Psychiatric Exam Psychiatric exam: Normal Affect, Normal Mood - Skin Skin Exam: Dry, Intact, Normal Color, Warm Assessment and Plan (1) CHF (congestive heart failure) Status: Acute (2) COPD exacerbation Status: Acute (3) Chronic kidney disease, stage 3 (moderate) Status: Acute (4) DVT prophylaxis Status: Acute (5) Diabetes type 2, uncontrolled Status: Acute - Assessment and Plan (Free Text) Assessment: 1-dm2 uncontrolled-cont home meds, fsbg, fsbg q6 w/. ss diet control 2-chf-acute onchronic-cardio, lasix, I/O, bipap for support now dc and on nc 3-resp failure r/t chf-bipap, pulm, duonebs, solumedrol, improving, now on nc, comfortable, cont pulm/cardio 4-dvt ppx-scd, ae hose, lovenox 5-htn-cont home meds 6-chronic pain-dilaudid while in hospital overall improving pt/ot state home w/ services, however, it is this providers belief pt would benefit from benita
[2017-04-23] MEDS: Multivitamin With Minerals Tab PO SCH (09:18)
[2017-04-23] MEDS: Enoxaparin 40 mg Syringe SC SCH (09:21)
[2017-04-23] MEDS: levoFLOXacin 500 mg in D5W 500 MG/100 ML BAG IVPB SCH (09:21)
[2017-04-23] MEDS: Dorzolamide 2% Ophth Soln OU SCH ×2 (09:22→16:50)
[2017-04-23] MEDS: Cholecalciferol 1,000 INTLU TAB PO SCH (09:22)
[2017-04-23] MEDS: Insulin Lispro Mix 75/25 100 units/ml (HumaLog) 10ml SC SCH ×2 (09:23→16:48)
[2017-04-23] MEDS: Pantoprazole 40 mg EC Tab PO SCH (09:27)
[2017-04-23] MEDS: Cilostazol 100 mg Tab UD PO SCH ×2 (09:27→16:49)
--- NOTE | 2017-04-23 11:24 | RAD ---
PROCEDURE: CHEST RADIOGRAPH, 1 VIEW HISTORY: CHF COMPARISON: Frontal chest radiograph 04/21/2017. FINDINGS: LUNGS: There is difficulty penetrating the bilateral bases in this obese patient. Right chest remains clear. Borderline atelectasis or infiltrate appears to this so with the medial left hemidiaphragm. PLEURA: No pneumothorax or pleural fluid seen. CARDIOVASCULAR: Cardiomegaly appears stable with diminishing pulmonary venous congestion pattern. OSSEOUS STRUCTURES: No significant abnormalities. VISUALIZED UPPER ABDOMEN: Normal. OTHER FINDINGS: None. IMPRESSION: Diminishing pulmonary venous congestion. Borderline atelectasis or infiltrate developing at the medial left base.
--- NOTE | 2017-04-23 13:47 | CP.PCM.PN ---
Subjective - Date & Time of Evaluation Date of Evaluation: 04/23/17 Time of Evaluation: 13:47 - Subjective Subjective: LESS SOB LUNGS-FAIR AERATION HEART-S1S2 EXT-LESS EDEMA IMP-RESP FAILURE IMPROVING WILL CONTINUE PRESENT RX Objective - Vital Signs/Intake and Output Vital Signs (last 24 hours): Temp Pulse Resp BP Pulse Ox 98.3 F 76 18 95/56 L 97 04/23/17 12:09 04/23/17 12:09 04/23/17 12:09 04/23/17 12:09 04/23/17 12:09 - Medications Medications: Current Medications Al Hydrox/Mg Hydrox/Simethicone (Maalox Plus 30 Ml) 30 ml PO Q6 PRN PRN Reason: Indigestion / Heartburn Albuterol/Ipratropium (Duoneb 3 Mg/0.5 Mg (3 Ml) Ud) 3 ml INH RQ4 [facility] Last Admin: 04/23/17 12:07 Dose: 3 ml Amlodipine Besylate (Norvasc) 10 mg PO DAILY [facility] Last Admin: 04/23/17 09:20 Dose: 10 mg Aspirin (Ecotrin) 81 mg PO DAILY [facility] Last Admin: 04/23/17 09:23 Dose: 81 mg Atorvastatin Calcium (Lipitor) 20 mg PO HS [facility] Last Admin: 04/22/17 21:21 Dose: 20 mg Benzocaine/Menthol (Cepacol Sore Throat) 1 dinah PO Q3 PRN PRN Reason: Sore Throat Last Admin: 04/22/17 18:38 Dose: 1 dinah Carvedilol (Coreg) 25 mg PO Q12 [facility] Last Admin: 04/23/17 09:19 Dose: 25 mg Cholecalciferol (Vitamin D) 1,000 intlu PO DAILY [facility] Last Admin: 04/23/17 09:22 Dose: 1,000 intlu Cilostazol (Pletal) 100 mg PO BID [facility] Last Admin: 04/23/17 09:27 Dose: 100 mg Dextrose (Dextrose 50% Inj) 0 ml IV STAT PRN; Protocol PRN Reason: Hypoglycemia Protocol Dextrose (Glutose 15) 0 gm PO ONCE PRN; Protocol PRN Reason: Hypoglycemia Protocol Dorzolamide HCl (Trusopt) 1 drop OU BID [facility] Last Admin: 04/23/17 09:22 Dose: 1 drop Enoxaparin Sodium (Lovenox) 40 mg SC DAILY [facility] PRN Reason: Protocol Last Admin: 04/23/17 09:21 Dose: 40 mg Furosemide (Lasix) 40 mg PO DAILY [facility] Last Admin: 04/23/17 09:29 Dose: 40 mg Glucagon (Glucagen Diagnostic Kit) 0 mg IM STAT PRN; Protocol PRN Reason: Hypoglycemia Protocol Hydralazine HCl (Apresoline) 100 mg PO Q8 [facility] Last Admin: 04/23/17 09:19 Dose: 100 mg Hydromorphone HCl (Dilaudid) 1 mg IVP Q6 PRN PRN Reason: Pain, moderate (4-7) Last Admin: 04/23/17 09:30 Dose: 1 mg Levofloxacin/Dextrose (Levaquin 500mg) 500 mg in 100 mls @ 100 mls/hr IVPB DAILY [facility] PRN Reason: Protocol Last Admin: 04/23/17 09:21 Dose: 100 mls/hr Insulin Detemir (Levemir) 20 units SC HS [facility] Last Admin: 04/22/17 22:09 Dose: 20 units Insulin Human Regular (Humulin R) 0 units SC ACHS [facility] PRN Reason: Protocol Last Admin: 04/23/17 12:01 Dose: 2 units Insulin Lispro Protam/Lispro Human (Humalog Mix 75/25) 10 units SC ACBD [facility] Last Admin: 04/23/17 09:23 Dose: 10 units Isosorbide Dinitrate (Isordil) 10 mg PO BID [facility] Last Admin: 04/23/17 09:24 Dose: 10 mg Losartan Potassium (Cozaar) 100 mg PO DAILY [facility] Last Admin: 04/23/17 09:26 Dose: 100 mg Methylprednisolone (Solu-Medrol) 40 mg IVP Q6H [facility] Last Admin: 04/23/17 09:40 Dose: 40 mg Montelukast Sodium (Singulair) 10 mg PO QPM [facility] Last Admin: 04/22/17 18:38 Dose: 10 mg Multivitamins/Minerals (Therapeutic-M Tab) 1 tab PO DAILY [facility] Last Admin: 04/23/17 09:18 Dose: 1 tab Nystatin (Nystop Topical Powder) 1 applic TOP BID [facility] Last Admin: 04/23/17 09:25 Dose: 1 applic Pantoprazole Sodium (Protonix Ec Tab) 40 mg PO DAILY [facility] Last Admin: 04/23/17 09:27 Dose: 40 mg Promethazine HCl/Dextromethorphan (Phenergan Dm Syrup) 5 ml PO Q6 PRN PRN Reason: Cough Last Admin: 04/23/17 06:44 Dose: 5 ml Sitagliptin Phosphate (Januvia) 100 mg PO DAILY [facility] Last Admin: 04/23/17 09:20 Dose: 100 mg - Labs Labs: 04/23/17 04:35 04/23/17 04:35 PT 11.2 Seconds (9.8-13.1) 04/21/17 05:10 INR 1.0 (0.9-1.2) 04/21/17 05:10 APTT 35.4 Seconds (25.6-37.1) 04/21/17 05:10
[2017-04-23] MEDS: Insulin Detemir 100 Units/ml Inj SC SCH (22:30)
[2017-04-24] MEDS: MethylPREDNISolone 40 mg Vial IVP SCH ×3 (03:21→21:28)
[2017-04-24] MEDS: Albuterol-Ipratrop 3 mg / 0.5 (3 ml) UD INH SCH ×6 (04:08→23:38)
--- NOTE | 2017-04-24 07:19 | CP.PCM.PN ---
Subjective - Date & Time of Evaluation Date of Evaluation: 04/24/17 Time of Evaluation: 07:19 - Subjective Subjective: pt in no distress. c/o muscle spasms. no f/c, n/v/d. still weak. am labs pending. pt/ot evals appriciated. Objective - Vital Signs/Intake and Output Vital Signs (last 24 hours): Temp Pulse Resp BP Pulse Ox 98.3 F 83 20 124/63 97 04/24/17 05:00 04/24/17 05:00 04/24/17 05:00 04/24/17 05:00 04/24/17 05:00 Intake and Output: 04/24/17 04/24/17 06:59 18:59 Intake Total 200 Output Total 730 Balance -530 - Medications Medications: Current Medications Al Hydrox/Mg Hydrox/Simethicone (Maalox Plus 30 Ml) 30 ml PO Q6 PRN PRN Reason: Indigestion / Heartburn Albuterol/Ipratropium (Duoneb 3 Mg/0.5 Mg (3 Ml) Ud) 3 ml INH RQ4 [facility] Last Admin: 04/24/17 04:08 Dose: 3 ml Amlodipine Besylate (Norvasc) 10 mg PO DAILY [facility] Last Admin: 04/23/17 09:20 Dose: 10 mg Aspirin (Ecotrin) 81 mg PO DAILY [facility] Last Admin: 04/23/17 09:23 Dose: 81 mg Atorvastatin Calcium (Lipitor) 20 mg PO HS [facility] Last Admin: 04/23/17 21:53 Dose: 20 mg Benzocaine/Menthol (Cepacol Sore Throat) 1 dinah PO Q3 PRN PRN Reason: Sore Throat Last Admin: 04/22/17 18:38 Dose: 1 dinah Carvedilol (Coreg) 25 mg PO Q12 [facility] Last Admin: 04/23/17 21:53 Dose: 25 mg Cholecalciferol (Vitamin D) 1,000 intlu PO DAILY [facility] Last Admin: 04/23/17 09:22 Dose: 1,000 intlu Cilostazol (Pletal) 100 mg PO BID [facility] Last Admin: 04/23/17 16:49 Dose: 100 mg Dextrose (Dextrose 50% Inj) 0 ml IV STAT PRN; Protocol PRN Reason: Hypoglycemia Protocol Dextrose (Glutose 15) 0 gm PO ONCE PRN; Protocol PRN Reason: Hypoglycemia Protocol Dorzolamide HCl (Trusopt) 1 drop OU BID [facility] Last Admin: 04/23/17 16:50 Dose: 1 drop Enoxaparin Sodium (Lovenox) 40 mg SC DAILY [facility] PRN Reason: Protocol Last Admin: 04/23/17 09:21 Dose: 40 mg Furosemide (Lasix) 40 mg PO DAILY [facility] Last Admin: 04/23/17 09:29 Dose: 40 mg Glucagon (Glucagen Diagnostic Kit) 0 mg IM STAT PRN; Protocol PRN Reason: Hypoglycemia Protocol Hydralazine HCl (Apresoline) 100 mg PO Q8 [facility] Last Admin: 04/24/17 00:56 Dose: 100 mg Hydromorphone HCl (Dilaudid) 1 mg IVP Q6 PRN PRN Reason: Pain, moderate (4-7) Last Admin: 04/24/17 04:04 Dose: 1 mg Levofloxacin/Dextrose (Levaquin 500mg) 500 mg in 100 mls @ 100 mls/hr IVPB DAILY [facility] PRN Reason: Protocol Last Admin: 04/23/17 09:21 Dose: 100 mls/hr Insulin Detemir (Levemir) 20 units SC HS [facility] Last Admin: 04/22/17 22:09 Dose: 20 units Insulin Human Regular (Humulin R) 0 units SC ACHS [facility] PRN Reason: Protocol Last Admin: 04/23/17 16:50 Dose: 3 units Insulin Lispro Protam/Lispro Human (Humalog Mix 75/25) 10 units SC ACBD [facility] Last Admin: 04/23/17 16:48 Dose: 10 units Isosorbide Dinitrate (Isordil) 10 mg PO BID [facility] Last Admin: 04/23/17 16:48 Dose: 10 mg Losartan Potassium (Cozaar) 100 mg PO DAILY [facility] Last Admin: 04/23/17 09:26 Dose: 100 mg Methylprednisolone (Solu-Medrol) 40 mg IVP Q6H [facility] Last Admin: 04/24/17 03:21 Dose: 40 mg Montelukast Sodium (Singulair) 10 mg PO QPM [facility] Last Admin: 04/23/17 17:58 Dose: 10 mg Multivitamins/Minerals (Therapeutic-M Tab) 1 tab PO DAILY [facility] Last Admin: 04/23/17 09:18 Dose: 1 tab Nystatin (Nystop Topical Powder) 1 applic TOP BID [facility] Last Admin: 04/23/17 16:48 Dose: 1 applic Pantoprazole Sodium (Protonix Ec Tab) 40 mg PO DAILY [facility] Last Admin: 04/23/17 09:27 Dose: 40 mg Promethazine HCl/Dextromethorphan (Phenergan Dm Syrup) 5 ml PO Q6 PRN PRN Reason: Cough Last Admin: 04/23/17 16:49 Dose: 5 ml Sitagliptin Phosphate (Januvia) 100 mg PO DAILY [facility] Last Admin: 04/23/17 09:20 Dose: 100 mg - Labs Labs: 04/23/17 04:35 04/23/17 04:35 PT 11.2 Seconds (9.8-13.1) 04/21/17 05:10 INR 1.0 (0.9-1.2) 04/21/17 05:10 APTT 35.4 Seconds (25.6-37.1) 04/21/17 05:10 - Constitutional Appears: Well, Non-toxic, No Acute Distress - Head Exam Head Exam: ATRAUMATIC, NORMAL INSPECTION, NORMOCEPHALIC - Eye Exam Eye Exam: EOMI, Normal appearance, PERRL Pupil Exam: NORMAL ACCOMODATION, PERRL - ENT Exam ENT Exam: Mucous Membranes Moist, Normal Exam - Neck Exam Neck Exam: Full ROM, Normal Inspection. absent: Lymphadenopathy - Respiratory Exam Respiratory Exam: Clear to Ausculation Bilateral, NORMAL BREATHING PATTERN - Cardiovascular Exam Cardiovascular Exam: REGULAR RHYTHM, RRR, +S1, +S2. absent: Murmur - GI/Abdominal Exam GI & Abdominal Exam: Soft, Normal Bowel Sounds. absent: Tenderness - Extremities Exam Extremities Exam: Full ROM, Normal Capillary Refill, Normal Inspection. absent : Joint Swelling, Pedal Edema - Back Exam Back Exam: NORMAL INSPECTION - Neurological Exam Neurological Exam: Alert, Awake, CN II-XII Intact, Normal Gait, Oriented x3 - Psychiatric Exam Psychiatric exam: Normal Affect, Normal Mood - Skin Skin Exam: Dry, Intact, Normal Color, Warm Assessment and Plan (1) CHF (congestive heart failure) Status: Acute (2) COPD exacerbation Status: Acute (3) Chronic kidney disease, stage 3 (moderate) Status: Acute (4) DVT prophylaxis Status: Acute (5) Diabetes type 2, uncontrolled Status: Acute - Assessment and Plan (Free Text) Assessment: 1-dm2 uncontrolled-cont home meds, fsbg, fsbg q6 w/. ss diet control 2-chf-acute onchronic-cardio, lasix, I/O, bipap for support now dc and on nc 3-resp failure r/t chf-bipap, pulm, duonebs, solumedrol start to titrate, improving, now on nc, comfortable, cont pulm/cardio 4-dvt ppx-scd, ae hose, lovenox 5-htn-cont home meds 6-chronic pain-dilaudid while in hospital, flexeril for muscle spasms overall improving pt/ot state home w/ services, however, it is this providers belief pt would benefit from benita
[2017-04-24 07:52] LABS: HEMOGLOBIN 9.9 g/dL (12.0-16.0); MEAN CELL VOLUME 92.3 fl (81.0-99.0); MEAN CORPUSCULAR HEMOGLOBIN 30.3 pg (27.0-31.0); MEAN CORPUSCULAR HGB CONC 32.8 g/dL (33.0-37.0); RBC 3.26 Mil/uL (3.80-5.20); RED CELL DISTRIBUTION WIDTH 17.6 % (11.5-14.5); WHITE BLOOD COUNT 13.5 K/uL (4.8-10.8)
[2017-04-24 08:03] LABS: CALCIUM 8.6 mg/dL (8.4-10.2)
[2017-04-24] MEDS: Multivitamin With Minerals Tab PO SCH (09:18)
[2017-04-24] MEDS: Cilostazol 100 mg Tab UD PO SCH ×2 (09:18→17:06)
[2017-04-24] MEDS: levoFLOXacin 500 mg in D5W 500 MG/100 ML BAG IVPB SCH (09:18)
[2017-04-24] MEDS: Dorzolamide 2% Ophth Soln OU SCH ×2 (09:19→17:05)
[2017-04-24] MEDS: Insulin Lispro Mix 75/25 100 units/ml (HumaLog) 10ml SC SCH ×2 (09:20→17:05)
[2017-04-24] MEDS: Pantoprazole 40 mg EC Tab PO SCH (09:21)
[2017-04-24] MEDS: Enoxaparin 40 mg Syringe SC SCH (09:22)
[2017-04-24] MEDS: Insulin Regular 100 units/ml SC SCH ×4 (09:23→22:31)
[2017-04-24] MEDS: Cholecalciferol 1,000 INTLU TAB PO SCH (09:24)
[2017-04-24] MEDS: Insulin Detemir 100 Units/ml Inj SC SCH (21:27)
[2017-04-25] MEDS: Albuterol-Ipratrop 3 mg / 0.5 (3 ml) UD INH SCH ×6 (03:56→23:50)
[2017-04-25 07:18] LABS: HEMOGLOBIN 10.1 g/dL (12.0-16.0); LYMPH % 6.1 % (20.0-40.0); MEAN CELL VOLUME 92.5 fl (81.0-99.0); MEAN CORPUSCULAR HEMOGLOBIN 30.4 pg (27.0-31.0); MEAN CORPUSCULAR HGB CONC 32.9 g/dL (33.0-37.0); MEAN PLATELET VOLUME 8.5 fl (7.2-11.7); MONO # 0.6 K/uL (0.0-0.8); MONO % 3.8 % (0.0-10.0); NEUT # 14.9 K/uL (1.8-7.0); NEUT % 90.1 % (50.0-75.0); PLATELET COUNT 267 K/uL (130-400); RBC 3.33 Mil/uL (3.80-5.20); RED CELL DISTRIBUTION WIDTH 17.3 % (11.5-14.5); WHITE BLOOD COUNT 16.6 K/uL (4.8-10.8)
[2017-04-25 08:03] LABS: ALB/GLOB RATIO 0.8 (1.0-2.1); ALBUMIN 2.8 g/dL (3.5-5.0); CALCIUM 8.9 mg/dL (8.4-10.2)
--- NOTE | 2017-04-25 08:13 | CP.PCM.PN ---
Subjective - Date & Time of Evaluation Date of Evaluation: 04/25/17 Time of Evaluation: 08:13 - Subjective Subjective: cont to improve, feels stronger but still appears weak. no f/c, n/v/d. am cmp noted, cbc pending. bnp is 4000s. consults appriciated Objective - Vital Signs/Intake and Output Vital Signs (last 24 hours): Temp Pulse Resp BP Pulse Ox 98.1 F 75 18 113/64 97 04/25/17 05:32 04/25/17 05:32 04/25/17 05:32 04/25/17 05:32 04/25/17 05:32 Intake and Output: 04/25/17 04/25/17 06:59 18:59 Output Total 900 Balance -900 - Medications Medications: Current Medications Al Hydrox/Mg Hydrox/Simethicone (Maalox Plus 30 Ml) 30 ml PO Q6 PRN PRN Reason: Indigestion / Heartburn Albuterol/Ipratropium (Duoneb 3 Mg/0.5 Mg (3 Ml) Ud) 3 ml INH RQ4 [facility] Last Admin: 04/25/17 07:37 Dose: 3 ml Amlodipine Besylate (Norvasc) 10 mg PO DAILY [facility] Last Admin: 04/24/17 09:19 Dose: 10 mg Aspirin (Ecotrin) 81 mg PO DAILY [facility] Last Admin: 04/24/17 09:20 Dose: 81 mg Atorvastatin Calcium (Lipitor) 20 mg PO HS [facility] Last Admin: 04/24/17 21:26 Dose: 20 mg Benzocaine/Menthol (Cepacol Sore Throat) 1 dinah PO Q3 PRN PRN Reason: Sore Throat Last Admin: 04/22/17 18:38 Dose: 1 dinah Carvedilol (Coreg) 25 mg PO Q12 [facility] Last Admin: 04/24/17 21:25 Dose: 25 mg Cholecalciferol (Vitamin D) 1,000 intlu PO DAILY [facility] Last Admin: 04/24/17 09:24 Dose: 1,000 intlu Cilostazol (Pletal) 100 mg PO BID [facility] Last Admin: 04/24/17 17:06 Dose: 100 mg Cyclobenzaprine HCl (Flexeril) 5 mg PO TID PRN PRN Reason: Muscle spasm Dextrose (Dextrose 50% Inj) 0 ml IV STAT PRN; Protocol PRN Reason: Hypoglycemia Protocol Dextrose (Glutose 15) 0 gm PO ONCE PRN; Protocol PRN Reason: Hypoglycemia Protocol Dorzolamide HCl (Trusopt) 1 drop OU BID [facility] Last Admin: 04/24/17 17:05 Dose: 1 drop Enoxaparin Sodium (Lovenox) 40 mg SC DAILY [facility] PRN Reason: Protocol Last Admin: 04/24/17 09:22 Dose: 40 mg Furosemide (Lasix) 40 mg PO DAILY [facility] Last Admin: 04/24/17 09:22 Dose: 40 mg Glucagon (Glucagen Diagnostic Kit) 0 mg IM STAT PRN; Protocol PRN Reason: Hypoglycemia Protocol Hydralazine HCl (Apresoline) 100 mg PO Q8 [facility] Last Admin: 04/25/17 00:30 Dose: 100 mg Hydromorphone HCl (Dilaudid) 1 mg IVP Q6 PRN PRN Reason: Pain, moderate (4-7) Last Admin: 04/25/17 05:13 Dose: 1 mg Levofloxacin/Dextrose (Levaquin 500mg) 500 mg in 100 mls @ 100 mls/hr IVPB DAILY [facility] PRN Reason: Protocol Last Admin: 04/24/17 09:18 Dose: 100 mls/hr Insulin Detemir (Levemir) 20 units SC HS [facility] Last Admin: 04/24/17 21:27 Dose: 20 units Insulin Human Regular (Humulin R) 0 units SC ACHS [facility] PRN Reason: Protocol Last Admin: 04/24/17 22:31 Dose: Not Given Insulin Lispro Protam/Lispro Human (Humalog Mix 75/25) 10 units SC ACBD [facility] Last Admin: 04/24/17 17:05 Dose: 10 units Isosorbide Dinitrate (Isordil) 10 mg PO BID [facility] Last Admin: 04/24/17 17:06 Dose: 10 mg Losartan Potassium (Cozaar) 100 mg PO DAILY [facility] Last Admin: 04/24/17 09:21 Dose: 100 mg Methylprednisolone (Solu-Medrol) 40 mg IVP Q12 [facility] Last Admin: 04/24/17 21:28 Dose: 40 mg Montelukast Sodium (Singulair) 10 mg PO QPM [facility] Last Admin: 04/24/17 17:07 Dose: 10 mg Multivitamins/Minerals (Therapeutic-M Tab) 1 tab PO DAILY [facility] Last Admin: 04/24/17 09:18 Dose: 1 tab Nystatin (Nystop Topical Powder) 1 applic TOP BID [facility] Last Admin: 04/24/17 17:04 Dose: 1 applic Pantoprazole Sodium (Protonix Ec Tab) 40 mg PO DAILY [facility] Last Admin: 04/24/17 09:21 Dose: 40 mg Promethazine HCl/Dextromethorphan (Phenergan Dm Syrup) 5 ml PO Q6 PRN PRN Reason: Cough Last Admin: 04/23/17 16:49 Dose: 5 ml Sitagliptin Phosphate (Januvia) 100 mg PO DAILY [facility] Last Admin: 04/24/17 09:20 Dose: 100 mg - Labs Labs: 04/25/17 06:30 04/25/17 06:30 PT 11.2 Seconds (9.8-13.1) 04/21/17 05:10 INR 1.0 (0.9-1.2) 04/21/17 05:10 APTT 35.4 Seconds (25.6-37.1) 04/21/17 05:10 - Constitutional Appears: Well, Non-toxic, No Acute Distress, Chronically Ill - Head Exam Head Exam: ATRAUMATIC, NORMAL INSPECTION, NORMOCEPHALIC - Eye Exam Eye Exam: EOMI, Normal appearance, PERRL Pupil Exam: NORMAL ACCOMODATION, PERRL - ENT Exam ENT Exam: Mucous Membranes Moist, Normal Exam - Neck Exam Neck Exam: Full ROM, Normal Inspection. absent: Lymphadenopathy - Respiratory Exam Respiratory Exam: Clear to Ausculation Bilateral, NORMAL BREATHING PATTERN - Cardiovascular Exam Cardiovascular Exam: REGULAR RHYTHM, RRR, +S1, +S2. absent: Murmur - GI/Abdominal Exam GI & Abdominal Exam: Soft, Normal Bowel Sounds. absent: Tenderness - Extremities Exam Extremities Exam: Full ROM, Normal Capillary Refill, Normal Inspection. absent : Joint Swelling, Pedal Edema - Back Exam Back Exam: NORMAL INSPECTION - Neurological Exam Neurological Exam: Abnormal Gait, Alert, Awake, CN II-XII Intact, Oriented x3 Additional comments: needs assistance w/ gait - Psychiatric Exam Psychiatric exam: Normal Affect, Normal Mood - Skin Skin Exam: Dry, Intact, Normal Color, Warm Assessment and Plan (1) CHF (congestive heart failure) Status: Acute (2) COPD exacerbation Status: Acute (3) Chronic kidney disease, stage 3 (moderate) Status: Acute (4) DVT prophylaxis Status: Acute (5) Diabetes type 2, uncontrolled Status: Acute - Assessment and Plan (Free Text) Assessment: 1-dm2 uncontrolled-cont home meds, fsbg, fsbg q6 w/. ss diet control 2-chf-acute onchronic-cardio, lasix, I/O, nc 3-resp failure r/t chf- pulm, duonebs, solumedrol - titrate, nc, comfortable, cont pulm/cardio, levaquin 4-dvt ppx-scd, ae hose, lovenox 5-htn-cont home meds 6-chronic pain-dilaudid while in hospital, flexeril for muscle spasms overall improving pt/ot state home w/ services, however, it is this providers belief pt would benefit from benita dispo tomorrow
[2017-04-25] MEDS: MethylPREDNISolone 40 mg Vial IVP SCH (09:58)
[2017-04-25] MEDS: Enoxaparin 40 mg Syringe SC SCH (09:58)
[2017-04-25] MEDS: Multivitamin With Minerals Tab PO SCH (09:59)
[2017-04-25] MEDS: Insulin Lispro Mix 75/25 100 units/ml (HumaLog) 10ml SC SCH ×2 (10:00→17:46)
[2017-04-25] MEDS: Cholecalciferol 1,000 INTLU TAB PO SCH (10:00)
[2017-04-25] MEDS: Insulin Regular 100 units/ml SC SCH ×4 (10:01→22:17)
[2017-04-25] MEDS: Pantoprazole 40 mg EC Tab PO SCH (10:02)
[2017-04-25] MEDS: Dorzolamide 2% Ophth Soln OU SCH ×2 (10:03→17:48)
[2017-04-25] MEDS: Cilostazol 100 mg Tab UD PO SCH ×2 (10:03→17:48)
[2017-04-25] MEDS: levoFLOXacin 500 mg in D5W 500 MG/100 ML BAG IVPB SCH (10:04)
--- NOTE | 2017-04-25 10:29 | CP.PCM.PN ---
Subjective - Date & Time of Evaluation Date of Evaluation: 04/25/17 Time of Evaluation: 10:29 - Subjective Subjective: CLINICALLY IMPROVED SOB RESOLVED Objective - Vital Signs/Intake and Output Vital Signs (last 24 hours): Temp Pulse Resp BP Pulse Ox 98.0 F 71 18 137/54 L 97 04/25/17 08:15 04/25/17 10:02 04/25/17 08:15 04/25/17 10:02 04/25/17 08:15 Intake and Output: 04/25/17 04/25/17 06:59 18:59 Output Total 900 Balance -900 - Medications Medications: Current Medications Al Hydrox/Mg Hydrox/Simethicone (Maalox Plus 30 Ml) 30 ml PO Q6 PRN PRN Reason: Indigestion / Heartburn Albuterol/Ipratropium (Duoneb 3 Mg/0.5 Mg (3 Ml) Ud) 3 ml INH RQ4 [facility] Last Admin: 04/25/17 07:37 Dose: 3 ml Amlodipine Besylate (Norvasc) 10 mg PO DAILY [facility] Last Admin: 04/25/17 10:02 Dose: 10 mg Aspirin (Ecotrin) 81 mg PO DAILY [facility] Last Admin: 04/25/17 10:04 Dose: 81 mg Atorvastatin Calcium (Lipitor) 20 mg PO HS [facility] Last Admin: 04/24/17 21:26 Dose: 20 mg Benzocaine/Menthol (Cepacol Sore Throat) 1 dinah PO Q3 PRN PRN Reason: Sore Throat Last Admin: 04/22/17 18:38 Dose: 1 dinah Carvedilol (Coreg) 25 mg PO Q12 [facility] Last Admin: 04/25/17 09:59 Dose: 25 mg Cholecalciferol (Vitamin D) 1,000 intlu PO DAILY [facility] Last Admin: 04/25/17 10:00 Dose: 1,000 intlu Cilostazol (Pletal) 100 mg PO BID [facility] Last Admin: 04/25/17 10:03 Dose: 100 mg Cyclobenzaprine HCl (Flexeril) 5 mg PO TID PRN PRN Reason: Muscle spasm Dextrose (Dextrose 50% Inj) 0 ml IV STAT PRN; Protocol PRN Reason: Hypoglycemia Protocol Dextrose (Glutose 15) 0 gm PO ONCE PRN; Protocol PRN Reason: Hypoglycemia Protocol Dorzolamide HCl (Trusopt) 1 drop OU BID [facility] Last Admin: 04/25/17 10:03 Dose: 1 drop Enoxaparin Sodium (Lovenox) 40 mg SC DAILY [facility] PRN Reason: Protocol Last Admin: 04/25/17 09:58 Dose: 40 mg Furosemide (Lasix) 40 mg PO DAILY [facility] Last Admin: 04/25/17 10:00 Dose: 40 mg Glucagon (Glucagen Diagnostic Kit) 0 mg IM STAT PRN; Protocol PRN Reason: Hypoglycemia Protocol Hydralazine HCl (Apresoline) 100 mg PO Q8 [facility] Last Admin: 04/25/17 10:01 Dose: 100 mg Hydromorphone HCl (Dilaudid) 1 mg IVP Q6 PRN PRN Reason: Pain, moderate (4-7) Last Admin: 04/25/17 05:13 Dose: 1 mg Levofloxacin/Dextrose (Levaquin 500mg) 500 mg in 100 mls @ 100 mls/hr IVPB DAILY [facility] PRN Reason: Protocol Last Admin: 04/25/17 10:04 Dose: 100 mls/hr Insulin Detemir (Levemir) 20 units SC HS [facility] Last Admin: 04/24/17 21:27 Dose: 20 units Insulin Human Regular (Humulin R) 0 units SC ACHS [facility] PRN Reason: Protocol Last Admin: 04/25/17 10:01 Dose: 3 units Insulin Lispro Protam/Lispro Human (Humalog Mix 75/25) 10 units SC ACBD [facility] Last Admin: 04/25/17 10:00 Dose: 10 units Isosorbide Dinitrate (Isordil) 10 mg PO BID [facility] Last Admin: 04/25/17 09:59 Dose: 10 mg Losartan Potassium (Cozaar) 100 mg PO DAILY [facility] Last Admin: 04/25/17 10:02 Dose: 100 mg Methylprednisolone (Solu-Medrol) 40 mg IVP Q12 [facility] Last Admin: 04/25/17 09:58 Dose: 40 mg Montelukast Sodium (Singulair) 10 mg PO QPM [facility] Last Admin: 04/24/17 17:07 Dose: 10 mg Multivitamins/Minerals (Therapeutic-M Tab) 1 tab PO DAILY [facility] Last Admin: 04/25/17 09:59 Dose: 1 tab Nystatin (Nystop Topical Powder) 1 applic TOP BID [facility] Last Admin: 04/25/17 10:02 Dose: 1 applic Pantoprazole Sodium (Protonix Ec Tab) 40 mg PO DAILY [facility] Last Admin: 04/25/17 10:02 Dose: 40 mg Promethazine HCl/Dextromethorphan (Phenergan Dm Syrup) 5 ml PO Q6 PRN PRN Reason: Cough Last Admin: 04/23/17 16:49 Dose: 5 ml Sitagliptin Phosphate (Januvia) 100 mg PO DAILY [facility] Last Admin: 04/25/17 10:00 Dose: 100 mg - Labs Labs: 04/25/17 06:30 04/25/17 06:30 PT 11.2 Seconds (9.8-13.1) 04/21/17 05:10 INR 1.0 (0.9-1.2) 04/21/17 05:10 APTT 35.4 Seconds (25.6-37.1) 04/21/17 05:10 - Constitutional Appears: No Acute Distress - Head Exam Head Exam: ATRAUMATIC, NORMAL INSPECTION, NORMOCEPHALIC - Eye Exam Eye Exam: EOMI, Normal appearance, PERRL Pupil Exam: NORMAL ACCOMODATION, PERRL - ENT Exam ENT Exam: Mucous Membranes Moist, Normal Exam - Neck Exam Neck Exam: Full ROM, Normal Inspection. absent: Lymphadenopathy - Respiratory Exam Respiratory Exam: Clear to Ausculation Bilateral, Prolonged Expiratory Phase - Cardiovascular Exam Cardiovascular Exam: REGULAR RHYTHM, +S1, +S2. absent: Murmur - GI/Abdominal Exam GI & Abdominal Exam: Soft, Normal Bowel Sounds. absent: Tenderness - Rectal Exam Rectal Exam: NORMAL INSPECTION - Extremities Exam Extremities Exam: Full ROM, Normal Capillary Refill, Normal Inspection. absent : Joint Swelling, Pedal Edema - Back Exam Back Exam: NORMAL INSPECTION - Neurological Exam Neurological Exam: Alert, Awake, CN II-XII Intact, Normal Gait, Oriented x3 - Psychiatric Exam Psychiatric exam: Normal Affect, Normal Mood - Skin Skin Exam: Dry, Intact, Normal Color, Warm Assessment and Plan - Assessment and Plan (Free Text) Assessment: COPD-IMPROVED CHF-IMPROVED Plan: TAPER STEROIDS PT WANTS TO GO TO SUBACUTE CARE
[2017-04-25 13:04] LABS: ANISOCYTOSIS SLIGHT; EOSINOPHIL 1 % (0-7); LYMPHOCYTE 6 % (20-50); MONOCYTE 1 % (0-10); NEUTROPHIL 92 % (42-75); PLATELET ESTIMATE NORMAL (NORMAL); TOTAL CELLS COUNTED 100
[2017-04-25 13:05] LABS: HYPOCHROMIC SLIGHT
[2017-04-25] MEDS: Promethazine DM 6.25 mg-15 mg/5 ml Syrup PO PRN (22:13)
[2017-04-25] MEDS: Insulin Detemir 100 Units/ml Inj SC SCH (22:19)
[2017-04-26] MEDS: Albuterol-Ipratrop 3 mg / 0.5 (3 ml) UD INH SCH ×5 (04:42→19:23)
--- NOTE | 2017-04-26 07:53 | CP.PCM.PN ---
Subjective - Date & Time of Evaluation Date of Evaluation: 04/26/17 Time of Evaluation: 07:52 - Subjective Subjective: pt comfortable in bed, on ra. no f/c n/v/d. still appears weak. am labs pending.no pain at present. no wheezing Objective - Vital Signs/Intake and Output Vital Signs (last 24 hours): Temp Pulse Resp BP Pulse Ox 98.2 F 77 18 104/58 L 96 04/26/17 05:00 04/26/17 05:00 04/26/17 05:00 04/26/17 05:00 04/26/17 05:00 Intake and Output: 04/26/17 04/26/17 06:59 18:59 Intake Total 240 Output Total 1100 Balance -860 - Medications Medications: Current Medications Al Hydrox/Mg Hydrox/Simethicone (Maalox Plus 30 Ml) 30 ml PO Q6 PRN PRN Reason: Indigestion / Heartburn Albuterol/Ipratropium (Duoneb 3 Mg/0.5 Mg (3 Ml) Ud) 3 ml INH RQ4 [facility] Last Admin: 04/26/17 07:41 Dose: 3 ml Amlodipine Besylate (Norvasc) 10 mg PO DAILY [facility] Last Admin: 04/25/17 10:02 Dose: 10 mg Aspirin (Ecotrin) 81 mg PO DAILY [facility] Last Admin: 04/25/17 10:04 Dose: 81 mg Atorvastatin Calcium (Lipitor) 20 mg PO HS [facility] Last Admin: 04/25/17 22:19 Dose: 20 mg Benzocaine/Menthol (Cepacol Sore Throat) 1 dinah PO Q3 PRN PRN Reason: Sore Throat Last Admin: 04/22/17 18:38 Dose: 1 dinah Carvedilol (Coreg) 25 mg PO Q12 [facility] Last Admin: 04/25/17 22:16 Dose: Not Given Cholecalciferol (Vitamin D) 1,000 intlu PO DAILY [facility] Last Admin: 04/25/17 10:00 Dose: 1,000 intlu Cilostazol (Pletal) 100 mg PO BID [facility] Last Admin: 04/25/17 17:48 Dose: 100 mg Cyclobenzaprine HCl (Flexeril) 5 mg PO TID PRN PRN Reason: Muscle spasm Dextrose (Dextrose 50% Inj) 0 ml IV STAT PRN; Protocol PRN Reason: Hypoglycemia Protocol Dextrose (Glutose 15) 0 gm PO ONCE PRN; Protocol PRN Reason: Hypoglycemia Protocol Dorzolamide HCl (Trusopt) 1 drop OU BID [facility] Last Admin: 04/25/17 17:48 Dose: 1 drop Enoxaparin Sodium (Lovenox) 40 mg SC DAILY [facility] PRN Reason: Protocol Last Admin: 04/25/17 09:58 Dose: 40 mg Furosemide (Lasix) 40 mg PO DAILY [facility] Last Admin: 04/25/17 10:00 Dose: 40 mg Glucagon (Glucagen Diagnostic Kit) 0 mg IM STAT PRN; Protocol PRN Reason: Hypoglycemia Protocol Hydralazine HCl (Apresoline) 100 mg PO Q8 [facility] Last Admin: 04/26/17 01:48 Dose: Not Given Hydromorphone HCl (Dilaudid) 1 mg IVP Q6 PRN PRN Reason: Pain, moderate (4-7) Last Admin: 04/26/17 06:42 Dose: 1 mg Levofloxacin/Dextrose (Levaquin 500mg) 500 mg in 100 mls @ 100 mls/hr IVPB DAILY [facility] PRN Reason: Protocol Last Admin: 04/25/17 10:04 Dose: 100 mls/hr Insulin Detemir (Levemir) 20 units SC HS [facility] Last Admin: 04/25/17 22:19 Dose: 20 units Insulin Human Regular (Humulin R) 0 units SC ACHS [facility] PRN Reason: Protocol Last Admin: 04/25/17 22:17 Dose: Not Given Insulin Lispro Protam/Lispro Human (Humalog Mix 75/25) 10 units SC ACBD [facility] Last Admin: 04/25/17 17:46 Dose: 10 units Isosorbide Dinitrate (Isordil) 10 mg PO BID [facility] Last Admin: 04/25/17 17:47 Dose: 10 mg Losartan Potassium (Cozaar) 100 mg PO DAILY [facility] Last Admin: 04/25/17 10:02 Dose: 100 mg Methylprednisolone (Solu-Medrol) 40 mg IVP DAILY [facility] Montelukast Sodium (Singulair) 10 mg PO QPM [facility] Last Admin: 04/25/17 17:47 Dose: 10 mg Multivitamins/Minerals (Therapeutic-M Tab) 1 tab PO DAILY [facility] Last Admin: 04/25/17 09:59 Dose: 1 tab Nystatin (Nystop Topical Powder) 1 applic TOP BID [facility] Last Admin: 04/25/17 17:48 Dose: 1 applic Pantoprazole Sodium (Protonix Ec Tab) 40 mg PO DAILY [facility] Last Admin: 04/25/17 10:02 Dose: 40 mg Polyethylene Glycol (Miralax) 17 gm PO DAILY [facility] Promethazine HCl/Dextromethorphan (Phenergan Dm Syrup) 5 ml PO Q6 PRN PRN Reason: Cough Last Admin: 04/25/17 22:13 Dose: 5 ml Sitagliptin Phosphate (Januvia) 100 mg PO DAILY [facility] Last Admin: 04/25/17 10:00 Dose: 100 mg - Labs Labs: 04/25/17 06:30 04/25/17 06:30 PT 11.2 Seconds (9.8-13.1) 04/21/17 05:10 INR 1.0 (0.9-1.2) 04/21/17 05:10 APTT 35.4 Seconds (25.6-37.1) 04/21/17 05:10 - Constitutional Appears: Well, Non-toxic, No Acute Distress - Head Exam Head Exam: ATRAUMATIC, NORMAL INSPECTION, NORMOCEPHALIC - Eye Exam Eye Exam: EOMI, Normal appearance, PERRL Pupil Exam: NORMAL ACCOMODATION, PERRL - ENT Exam ENT Exam: Mucous Membranes Moist, Normal Exam - Neck Exam Neck Exam: Full ROM, Normal Inspection. absent: Lymphadenopathy - Respiratory Exam Respiratory Exam: Clear to Ausculation Bilateral, NORMAL BREATHING PATTERN - Cardiovascular Exam Cardiovascular Exam: REGULAR RHYTHM, RRR, +S1, +S2. absent: Murmur - GI/Abdominal Exam GI & Abdominal Exam: Soft, Normal Bowel Sounds. absent: Tenderness - Extremities Exam Extremities Exam: Full ROM, Normal Capillary Refill, Normal Inspection. absent : Joint Swelling, Pedal Edema - Back Exam Back Exam: NORMAL INSPECTION - Neurological Exam Neurological Exam: Alert, Awake, CN II-XII Intact, Normal Gait, Oriented x3 - Psychiatric Exam Psychiatric exam: Normal Affect, Normal Mood - Skin Skin Exam: Dry, Intact, Normal Color, Warm Assessment and Plan (1) CHF (congestive heart failure) Status: Acute (2) COPD exacerbation Status: Acute (3) Chronic kidney disease, stage 3 (moderate) Status: Acute (4) DVT prophylaxis Status: Acute (5) Diabetes type 2, uncontrolled Status: Acute - Assessment and Plan (Free Text) Assessment: 1-dm2 uncontrolled-cont home meds, fsbg, fsbg q6 w/. ss diet control 2-chf-acute onchronic-cardio, lasix, I/O, nc 3-resp failure r/t chf- pulm, duonebs, solumedrol - titrate, nc, comfortable, cont pulm/cardio, levaquin 4-dvt ppx-scd, ae hose, lovenox 5-htn-cont home meds 6-chronic pain-dilaudid while in hospital, flexeril for muscle spasms overall improving pt/ot state home w/ services, however, it is this providers belief pt would benefit from benita dispo today
[2017-04-26 07:54] LABS: BASO % 0.1 % (0.0-2.0); EOS % 0.3 % (0.0-4.0); HEMOGLOBIN 10.9 g/dL (12.0-16.0); LYMPH % 17.1 % (20.0-40.0); MEAN CELL VOLUME 92.4 fl (81.0-99.0); MEAN CORPUSCULAR HEMOGLOBIN 29.9 pg (27.0-31.0); MEAN CORPUSCULAR HGB CONC 32.3 g/dL (33.0-37.0); MEAN PLATELET VOLUME 8.6 fl (7.2-11.7); MONO # 1.5 K/uL (0.0-0.8); MONO % 8.6 % (0.0-10.0); NEUT # 12.8 K/uL (1.8-7.0); NEUT % 73.9 % (50.0-75.0); NRBC % 0.1 % (0.0-0.0); RBC 3.64 Mil/uL (3.80-5.20); RED CELL DISTRIBUTION WIDTH 17.7 % (11.5-14.5); WHITE BLOOD COUNT 17.4 K/uL (4.8-10.8)
[2017-04-26 08:17] LABS: ALB/GLOB RATIO 0.9 (1.0-2.1); ALBUMIN 2.9 g/dL (3.5-5.0); CALCIUM 8.8 mg/dL (8.4-10.2)
[2017-04-26] MEDS ORDERED: MethylPREDNISolone 40 mg Vial IVP SCH (09:00)
[2017-04-26] MEDS ORDERED: POLYETHYLENE GLYCOL 3350 17 GM/Dose PACKET PO SCH (09:00)
--- NOTE | 2017-04-26 09:44 | CP.PCM.PCO ---
Assessment & Plan - Assessment and Plan (Free Text) Assessment: patient will require 1 week of IV Antibiotics Levaquin 500 mg iv daily and Solumedrol taper 40 mg iv daily monitor cbc, bmp cont. PT/OT
--- NOTE | 2017-04-26 09:51 | CP.PCM.PN ---
<Lesley Vargas - Last Filed: 04/26/17 09:48> Subjective - Date & Time of Evaluation Date of Evaluation: 04/26/17 Time of Evaluation: 09:49 - Subjective Subjective: PGY2 progress note for cardiology, Dr. Montes Pt seen and examined at bedside. No acute events overnight. Pt is resting comfortably. States that breathing has improved since admission. Still c/o productive cough with clear sputum and chest congestion. Denies having any CP, abd pain, N/V. Pt states last BM was over 6 days ago. Complains of decreased appetite. 12 point ROS negative except for above mentioned. Objective - Vital Signs/Intake and Output Vital Signs (last 24 hours): Temp Pulse Resp BP Pulse Ox 98.4 F 85 18 119/63 94 L 04/26/17 08:14 04/26/17 08:14 04/26/17 08:14 04/26/17 08:14 04/26/17 08:14 Intake and Output: 04/26/17 04/26/17 06:59 18:59 Intake Total 240 Output Total 1100 Balance -860 - Medications Medications: Current Medications Al Hydrox/Mg Hydrox/Simethicone (Maalox Plus 30 Ml) 30 ml PO Q6 PRN PRN Reason: Indigestion / Heartburn Albuterol/Ipratropium (Duoneb 3 Mg/0.5 Mg (3 Ml) Ud) 3 ml INH RQ4 [facility] Last Admin: 04/26/17 07:41 Dose: 3 ml Amlodipine Besylate (Norvasc) 10 mg PO DAILY [facility] Last Admin: 04/25/17 10:02 Dose: 10 mg Aspirin (Ecotrin) 81 mg PO DAILY [facility] Last Admin: 04/25/17 10:04 Dose: 81 mg Atorvastatin Calcium (Lipitor) 20 mg PO HS [facility] Last Admin: 04/25/17 22:19 Dose: 20 mg Benzocaine/Menthol (Cepacol Sore Throat) 1 dinah PO Q3 PRN PRN Reason: Sore Throat Last Admin: 04/22/17 18:38 Dose: 1 dinah Carvedilol (Coreg) 25 mg PO Q12 [facility] Last Admin: 04/25/17 22:16 Dose: Not Given Cholecalciferol (Vitamin D) 1,000 intlu PO DAILY [facility] Last Admin: 04/25/17 10:00 Dose: 1,000 intlu Cilostazol (Pletal) 100 mg PO BID [facility] Last Admin: 04/25/17 17:48 Dose: 100 mg Cyclobenzaprine HCl (Flexeril) 5 mg PO TID PRN PRN Reason: Muscle spasm Dextrose (Dextrose 50% Inj) 0 ml IV STAT PRN; Protocol PRN Reason: Hypoglycemia Protocol Dextrose (Glutose 15) 0 gm PO ONCE PRN; Protocol PRN Reason: Hypoglycemia Protocol Dorzolamide HCl (Trusopt) 1 drop OU BID [facility] Last Admin: 04/25/17 17:48 Dose: 1 drop Enoxaparin Sodium (Lovenox) 40 mg SC DAILY [facility] PRN Reason: Protocol Last Admin: 04/25/17 09:58 Dose: 40 mg Furosemide (Lasix) 40 mg PO DAILY [facility] Last Admin: 04/25/17 10:00 Dose: 40 mg Glucagon (Glucagen Diagnostic Kit) 0 mg IM STAT PRN; Protocol PRN Reason: Hypoglycemia Protocol Hydralazine HCl (Apresoline) 50 mg PO Q8 [facility] Hydromorphone HCl (Dilaudid) 1 mg IVP Q6 PRN PRN Reason: Pain, moderate (4-7) Last Admin: 04/26/17 06:42 Dose: 1 mg Levofloxacin/Dextrose (Levaquin 500mg) 500 mg in 100 mls @ 100 mls/hr IVPB DAILY [facility] PRN Reason: Protocol Last Admin: 04/25/17 10:04 Dose: 100 mls/hr Insulin Detemir (Levemir) 20 units SC HS [facility] Last Admin: 04/25/17 22:19 Dose: 20 units Insulin Human Regular (Humulin R) 0 units SC ACHS [facility] PRN Reason: Protocol Last Admin: 04/25/17 22:17 Dose: Not Given Insulin Lispro Protam/Lispro Human (Humalog Mix 75/25) 10 units SC ACBD [facility] Last Admin: 04/25/17 17:46 Dose: 10 units Isosorbide Dinitrate (Isordil) 10 mg PO BID [facility] Last Admin: 04/25/17 17:47 Dose: 10 mg Losartan Potassium (Cozaar) 100 mg PO DAILY [facility] Last Admin: 04/25/17 10:02 Dose: 100 mg Methylprednisolone (Solu-Medrol) 40 mg IVP DAILY [facility] Montelukast Sodium (Singulair) 10 mg PO QPM [facility] Last Admin: 04/25/17 17:47 Dose: 10 mg Multivitamins/Minerals (Therapeutic-M Tab) 1 tab PO DAILY [facility] Last Admin: 04/25/17 09:59 Dose: 1 tab Nystatin (Nystop Topical Powder) 1 applic TOP BID [facility] Last Admin: 04/25/17 17:48 Dose: 1 applic Pantoprazole Sodium (Protonix Ec Tab) 40 mg PO DAILY [facility] Last Admin: 04/25/17 10:02 Dose: 40 mg Polyethylene Glycol (Miralax) 17 gm PO DAILY [facility] Promethazine HCl/Dextromethorphan (Phenergan Dm Syrup) 5 ml PO Q6 PRN PRN Reason: Cough Last Admin: 04/25/17 22:13 Dose: 5 ml Sitagliptin Phosphate (Januvia) 100 mg PO DAILY [facility] Last Admin: 04/25/17 10:00 Dose: 100 mg - Labs Labs: 04/26/17 07:09 04/26/17 07:09 PT 11.2 Seconds (9.8-13.1) 04/21/17 05:10 INR 1.0 (0.9-1.2) 04/21/17 05:10 APTT 35.4 Seconds (25.6-37.1) 04/21/17 05:10 - Constitutional Appears: Non-toxic, No Acute Distress - Head Exam Head Exam: ATRAUMATIC - ENT Exam ENT Exam: Mucous Membranes Moist - Respiratory Exam Respiratory Exam: Rales, Wheezes. absent: Accessory Muscle Use, Prolonged Expiratory Phase, Rhonchi, Respiratory Distress - Cardiovascular Exam Cardiovascular Exam: REGULAR RHYTHM, +S1, +S2. absent: Gallop, Rubs, Murmur - GI/Abdominal Exam GI & Abdominal Exam: Soft, Normal Bowel Sounds. absent: Distended, Firm, Guarding, Rigid, Tenderness - Neurological Exam Neurological Exam: Alert, Awake, Oriented x3 - Psychiatric Exam Psychiatric exam: Normal Affect, Normal Mood - Skin Skin Exam: Dry, Intact, Normal Color, Warm Assessment and Plan - Assessment and Plan (Free Text) Assessment: 62 year old female with past medial history of HTN, DM, CAD, PAD, COPD is being seen for CHF exacerbation. Echo from 01/2017 showed normal EF at 65-70%. CHF exacerbation Lasixs on hold today. Pt can resume lasixs in 3 days once ARCHIE has improved Hydralazine decreased to 50 mg q8 due to transient hypotension Continue coreg 25 mg q12. Pt started on cozaar yesterday ProBNP is improving COPD exacerbation Currently on Levaquin Procal is low. likely viral bronchitis. Tapering steroid treatment CAD Continue Aspirin, plavix, coreg and lipitor Hyperlipidemia Continue lipitor PAD Continue Pletal DM Continue management per primary team HgbA1c is 6.6 HTN Currently on Norvasc, Coreg, Lasixs, Cozaar and hydralazine Hypothyroid TSH was 12.40 (high) and Free T4 0.86 Likely due to sick thyroid Will need to be followed up outpt by PMD ARCHIE Likely due to ARB will continue to monitor Lasixs placed on hold Case will be discussed with attending, Dr. Montes. Patient is cleared from cardiology to be transferred to [facility] <Kulwinder Montes - Last Filed: 04/26/17 10:11> Objective - Vital Signs/Intake and Output Vital Signs (last 24 hours): Temp Pulse Resp BP Pulse Ox 98.4 F 85 18 119/63 94 L 04/26/17 08:14 04/26/17 10:02 04/26/17 08:14 04/26/17 10:02 04/26/17 08:14 Intake and Output: 04/26/17 04/26/17 06:59 18:59 Intake Total 240 Output Total 1100 Balance -860 - Medications Medications: Current Medications Al Hydrox/Mg Hydrox/Simethicone (Maalox Plus 30 Ml) 30 ml PO Q6 PRN PRN Reason: Indigestion / Heartburn Albuterol/Ipratropium (Duoneb 3 Mg/0.5 Mg (3 Ml) Ud) 3 ml INH RQ4 [facility] Last Admin: 04/26/17 07:41 Dose: 3 ml Amlodipine Besylate (Norvasc) 10 mg PO DAILY [facility] Last Admin: 04/26/17 10:02 Dose: 10 mg Aspirin (Ecotrin) 81 mg PO DAILY [facility] Last Admin: 04/26/17 10:02 Dose: 81 mg Atorvastatin Calcium (Lipitor) 20 mg PO HS [facility] Last Admin: 04/25/17 22:19 Dose: 20 mg Benzocaine/Menthol (Cepacol Sore Throat) 1 dinah PO Q3 PRN PRN Reason: Sore Throat Last Admin: 04/22/17 18:38 Dose: 1 dinah Carvedilol (Coreg) 25 mg PO Q12 [facility] Last Admin: 04/26/17 09:58 Dose: 25 mg Cholecalciferol (Vitamin D) 1,000 intlu PO DAILY [facility] Last Admin: 04/26/17 10:00 Dose: 1,000 intlu Cilostazol (Pletal) 100 mg PO BID [facility] Last Admin: 04/26/17 10:00 Dose: 100 mg Cyclobenzaprine HCl (Flexeril) 5 mg PO TID PRN PRN Reason: Muscle spasm Dextrose (Dextrose 50% Inj) 0 ml IV STAT PRN; Protocol PRN Reason: Hypoglycemia Protocol Dextrose (Glutose 15) 0 gm PO ONCE PRN; Protocol PRN Reason: Hypoglycemia Protocol Dorzolamide HCl (Trusopt) 1 drop OU BID [facility] Last Admin: 04/26/17 10:06 Dose: 1 drop Enoxaparin Sodium (Lovenox) 40 mg SC DAILY [facility] PRN Reason: Protocol Last Admin: 04/26/17 10:00 Dose: 40 mg Furosemide (Lasix) 40 mg PO DAILY [facility] Last Admin: 04/25/17 10:00 Dose: 40 mg Glucagon (Glucagen Diagnostic Kit) 0 mg IM STAT PRN; Protocol PRN Reason: Hypoglycemia Protocol Hydralazine HCl (Apresoline) 50 mg PO Q8 [facility] Hydromorphone HCl (Dilaudid) 1 mg IVP Q6 PRN PRN Reason: Pain, moderate (4-7) Last Admin: 04/26/17 06:42 Dose: 1 mg Levofloxacin/Dextrose (Levaquin 500mg) 500 mg in 100 mls @ 100 mls/hr IVPB DAILY [facility] PRN Reason: Protocol Last Admin: 04/25/17 10:04 Dose: 100 mls/hr Insulin Detemir (Levemir) 20 units SC HS [facility] Last Admin: 04/25/17 22:19 Dose: 20 units Insulin Human Regular (Humulin R) 0 units SC ACHS [facility] PRN Reason: Protocol Last Admin: 04/26/17 10:04 Dose: 4 units Insulin Lispro Protam/Lispro Human (Humalog Mix 75/25) 10 units SC ACBD [facility] Last Admin: 04/26/17 10:03 Dose: 10 units Isosorbide Dinitrate (Isordil) 10 mg PO BID [facility] Last Admin: 04/26/17 10:04 Dose: 10 mg Losartan Potassium (Cozaar) 100 mg PO DAILY [facility] Last Admin: 04/26/17 09:59 Dose: 100 mg Methylprednisolone (Solu-Medrol) 40 mg IVP DAILY [facility] Last Admin: 04/26/17 10:01 Dose: 40 mg Montelukast Sodium (Singulair) 10 mg PO QPM [facility] Last Admin: 04/25/17 17:47 Dose: 10 mg Multivitamins/Minerals (Therapeutic-M Tab) 1 tab PO DAILY [facility] Last Admin: 04/26/17 10:00 Dose: 1 tab Nystatin (Nystop Topical Powder) 1 applic TOP BID [facility] Last Admin: 04/26/17 10:01 Dose: 1 applic Pantoprazole Sodium (Protonix Ec Tab) 40 mg PO DAILY [facility] Last Admin: 04/26/17 10:06 Dose: 40 mg Polyethylene Glycol (Miralax) 17 gm PO DAILY [facility] Last Admin: 04/26/17 10:02 Dose: 17 gm Promethazine HCl/Dextromethorphan (Phenergan Dm Syrup) 5 ml PO Q6 PRN PRN Reason: Cough Last Admin: 04/25/17 22:13 Dose: 5 ml Sitagliptin Phosphate (Januvia) 100 mg PO DAILY [facility] Last Admin: 04/26/17 10:02 Dose: 100 mg - Labs Labs: 04/26/17 07:09 04/26/17 07:09 PT 11.2 Seconds (9.8-13.1) 04/21/17 05:10 INR 1.0 (0.9-1.2) 04/21/17 05:10 APTT 35.4 Seconds (25.6-37.1) 04/21/17 05:10 Assessment and Plan (1) CHF (congestive heart failure) Status: Acute (2) Respiratory failure Status: Acute (3) HTN (hypertension) Status: Acute Attending/Attestation - Attestation I have personally seen and examined this patient.: Yes I have fully participated in the care of the patient.: Yes I have reviewed all pertinent clinical information, including history, physical exam and plan: Yes
[2017-04-26] MEDS: Cholecalciferol 1,000 INTLU TAB PO SCH (10:00)
[2017-04-26] MEDS: Enoxaparin 40 mg Syringe SC SCH (10:00)
[2017-04-26] MEDS: Multivitamin With Minerals Tab PO SCH (10:00)
[2017-04-26] MEDS: Cilostazol 100 mg Tab UD PO SCH ×2 (10:00→17:27)
[2017-04-26] MEDS: Insulin Lispro Mix 75/25 100 units/ml (HumaLog) 10ml SC SCH ×2 (10:03→17:25)
[2017-04-26] MEDS: Insulin Regular 100 units/ml SC SCH ×3 (10:04→17:25)
[2017-04-26] MEDS: Dorzolamide 2% Ophth Soln OU SCH ×2 (10:06→17:24)
[2017-04-26] MEDS: Pantoprazole 40 mg EC Tab PO SCH (10:06)
[2017-04-26] MEDS: levoFLOXacin 500 mg in D5W 500 MG/100 ML BAG IVPB SCH (10:15)
[2017-04-26 19:59] VITALS: BP 103/59; PULSE 82; RESP 20; TEMP 98; O2SAT 100
--- NOTE | 2017-04-27 06:28 | CP.PCM.DIS ---
Provider - Provider Date of Admission: 04/21/17 05:43 Attending physician: Jose Roberto Johns MD Primary care physician: Jose Roberto Johns MD Time Spent in preparation of Discharge (in minutes): 30 Diagnosis - Discharge Diagnosis (1) CHF (congestive heart failure) Status: Acute (2) COPD exacerbation Status: Acute (3) Chronic kidney disease, stage 3 (moderate) Status: Acute (4) DVT prophylaxis Status: Acute (5) Diabetes type 2, uncontrolled Status: Acute Hospital Course - Lab Results Lab Results: Micro Results 04/21/17 05:35 Blood Blood Culture - Final NO GROWTH AFTER 5 DAYS 04/21/17 05:35 Blood Gram Stain - Final TEST NOT PERFORMED 04/21/17 05:10 Blood Blood Culture - Final NO GROWTH AFTER 5 DAYS 04/21/17 05:10 Blood Gram Stain - Final TEST NOT PERFORMED 04/23/17 16:11 Sputum Gram Stain - Final 04/23/17 16:11 Sputum Sputum Culture - Final NORMAL SAPROPHYTIC RICKY 04/21/17 04:20 Naris MRSA Culture (Admit) - Final MRSA NOT DETECTED Most Recent Lab Values WBC 17.4 K/uL (4.8-10.8) H 04/26/17 07:09 RBC 3.64 Mil/uL (3.80-5.20) L 04/26/17 07:09 Hgb 10.9 g/dL (12.0-16.0) L 04/26/17 07:09 Hct 33.7 % (34.0-47.0) L 04/26/17 07:09 MCV 92.4 fl (81.0-99.0) 04/26/17 07:09 MCH 29.9 pg (27.0-31.0) 04/26/17 07:09 MCHC 32.3 g/dL (33.0-37.0) L 04/26/17 07:09 RDW 17.7 % (11.5-14.5) H 04/26/17 07:09 Plt Count 306 K/uL (130-400) 04/26/17 07:09 MPV 8.6 fl (7.2-11.7) 04/26/17 07:09 Neut % (Auto) 73.9 % (50.0-75.0) 04/26/17 07:09 Lymph % (Auto) 17.1 % (20.0-40.0) L 04/26/17 07:09 [place] % (Auto) 8.6 % (0.0-10.0) 04/26/17 07:09 Eos % (Auto) 0.3 % (0.0-4.0) 04/26/17 07:09 Baso % (Auto) 0.1 % (0.0-2.0) 04/26/17 07:09 Neut # 12.8 K/uL (1.8-7.0) H 04/26/17 07:09 Lymph # 3.0 K/uL (1.0-4.3) 04/26/17 07:09 [place] # 1.5 K/uL (0.0-0.8) H 04/26/17 07:09 Eos # 0.0 K/uL (0.0-0.7) 04/26/17 07:09 Baso # 0.0 K/uL (0.0-0.2) 04/26/17 07:09 Neutrophils % (Manual) 92 % (42-75) H 04/25/17 06:30 Lymphocytes % (Manual) 6 % (20-50) L 04/25/17 06:30 Monocytes % (Manual) 1 % (0-10) 04/25/17 06:30 Eosinophils % (Manual) 1 % (0-7) 04/25/17 06:30 Myelocytes % 1 % (0-0) H 04/22/17 05:40 Platelet Estimate Normal (NORMAL) 04/25/17 06:30 Large Platelets Present 04/22/17 05:40 Hypochromasia (manual) Slight 04/25/17 06:30 Anisocytosis (manual) Slight 04/25/17 06:30 PT 11.2 Seconds (9.8-13.1) 04/21/17 05:10 INR 1.0 (0.9-1.2) 04/21/17 05:10 APTT 35.4 Seconds (25.6-37.1) 04/21/17 05:10 pCO2 40 mm/Hg (35-45) 04/23/17 04:48 pO2 78 mm/Hg (80-100) L 04/23/17 04:48 HCO3 24.4 mmol/L (21-28) 04/23/17 04:48 ABG pH 7.39 (7.35-7.45) 04/23/17 04:48 ABG Total CO2 25.4 mmol/L (22-28) 04/23/17 04:48 ABG O2 Saturation 97.8 % (95-98) 04/23/17 04:48 ABG O2 Content 13.4 ML/dL (15-23) L 04/23/17 04:48 ABG Base Excess -0.7 mmol/L (-2.0-3.0) 04/23/17 04:48 ABG Hemoglobin 10.0 g/dL (11.7-17.4) L 04/23/17 04:48 ABG Carboxyhemoglobin 1.4 % (0.5-1.5) 04/23/17 04:48 POC ABG HHb (Measured) 2.1 % (0.0-5.0) 04/23/17 04:48 ABG Methemoglobin 1.6 % (0.0-3.0) 04/23/17 04:48 ABG O2 Capacity 13.7 mL/dL (16-24) L 04/23/17 04:48 [place]ard Test Yes 04/23/17 04:48 ABG Potassium 4.1 mmol/L (3.6-5.2) 04/21/17 05:18 A-a O2 Difference 72.0 mm/Hg 04/23/17 04:48 Hgb O2 Saturation 94.9 % (95.0-98.0) L 04/23/17 04:48 Sodium 140.0 mmol/L (132-148) 04/21/17 05:18 Chloride 115.0 mmol/L (98-107) H 04/21/17 05:18 Glucose 319 mg/dL (65-105) H 04/21/17 05:18 Lactate 0.7 mmol/L (0.7-2.1) 04/21/17 05:18 Vent Mode Bipap 04/21/17 05:18 Mechanical Rate 14 04/21/17 05:18 FiO2 28.0 % 04/23/17 04:48 Inspiratory BiPAP 14 04/21/17 05:18 Expiratory BiPAP 6 04/21/17 05:18 Blood Gas Comments 2l/m nc,rr 04/23/17 04:48 Crit Value Called To Dr katey walker 04/21/17 05:18 Crit Value Called By 333 04/21/17 05:18 Crit Value Read Back Y 04/21/17 05:18 Blood Gas Notified Time 528 04/21/17 05:18 Sodium 140 mmol/l (132-148) 04/26/17 07:09 Potassium 4.2 MMOL/L (3.6-5.0) 04/26/17 07:09 Chloride 103 mmol/L (98-107) 04/26/17 07:09 Carbon Dioxide 30 mmol/L (22-30) 04/26/17 07:09 Anion Gap 11 (10-20) 04/26/17 07:09 BUN 54 mg/dl (7-17) H 04/26/17 07:09 Creatinine 1.6 mg/dl (0.7-1.2) H 04/26/17 07:09 Est GFR ( Amer) 40 04/26/17 07:09 Est GFR (Non-Af Amer) 33 04/26/17 07:09 POC Glucose (mg/dL) 151 mg/dL (65-110) H 04/26/17 15:44 Random Glucose 216 mg/dL (65-105) H 04/26/17 07:09 Hemoglobin A1c 6.6 % (4.2-6.5) H D 04/21/17 12:20 Calcium 8.8 mg/dL (8.4-10.2) 04/26/17 07:09 Total Bilirubin 0.2 mg/dl (0.2-1.3) 04/26/17 07:09 AST 20 U/L (14-36) 04/26/17 07:09 ALT 37 U/L (9-52) 04/26/17 07:09 Alkaline Phosphatase 76 U/L (38-126) 04/26/17 07:09 Troponin I 0.0460 ng/mL (0.00-0.120) 04/21/17 05:10 NT-Pro-B Natriuret Pep 4290 pg/ml (0-900) H 04/25/17 06:30 Total Protein 6.1 G/DL (6.3-8.2) L 04/26/17 07:09 Albumin 2.9 g/dL (3.5-5.0) L 04/26/17 07:09 Globulin 3.2 gm/dL (2.2-3.9) 04/26/17 07:09 Albumin/Globulin Ratio 0.9 (1.0-2.1) L 04/26/17 07:09 Triglycerides 243 mg/DL (0-149) H 04/21/17 12:20 Cholesterol 238 mg/dL (0-199) H 04/21/17 12:20 LDL Cholesterol Direct 134 mg/dL (0-129) H 04/21/17 12:20 HDL Cholesterol 41 MG/DL (30-70) 04/21/17 12:20 Lipase 184 U/L (23-300) 04/21/17 05:10 Procalcitonin 0.17 NG/ML (0.19-0.49) L 04/21/17 09:02 Free T4 0.86 ng/dL (0.78-2.19) 04/21/17 14:40 TSH 3rd Generation 12.40 mIU/ML (0.46-4.68) H 04/21/17 12:20 Arterial Blood Potassium 4.1 mmol/L (3.6-5.2) 04/21/17 05:18 Urine Color Yellow (YELLOW) 04/21/17 05:40 Urine Clarity Slighty-cloudy (Clear) 04/21/17 05:40 Urine pH 5.0 (5.0-8.0) 04/21/17 05:40 Ur Specific [place] 1.009 (1.003-1.030) 04/21/17 05:40 Urine Protein >=500 mg/dL (NEGATIVE) 04/21/17 05:40 Urine Glucose (UA) Neg mg/dL (Normal) 04/21/17 05:40 Urine Ketones Negative mg/dL (NEGATIVE) 04/21/17 05:40 Urine Blood Small (NEGATIVE) 04/21/17 05:40 Urine Nitrate Negative (NEGATIVE) 04/21/17 05:40 Urine Bilirubin Negative (NEGATIVE) 04/21/17 05:40 Urine Urobilinogen 0.2-1.0 mg/dL (0.2-1.0) 04/21/17 05:40 Ur Leukocyte Esterase Neg Ana/uL (Negative) 04/21/17 05:40 Urine RBC (Auto) 11 /hpf (0-3) H 04/21/17 05:40 Urine Microscopic WBC 4 /hpf (0-5) 04/21/17 05:40 Ur Squamous Epith Cells < 1 /hpf (0-5) 04/21/17 05:40 Urine Bacteria Few (<OCC) H 04/21/17 05:40 Hyaline Casts 3-5 /hpf (0-2) H 04/21/17 05:40 Discharge Exam - Head Exam Head Exam: ATRAUMATIC Discharge Plan - Discharge Medications Prescriptions: levoFLOXacin 500 mg in D5W [Levaquin 500MG] 500 mg IVPB DAILY #7 bag - Follow Up Plan Condition: GUARDED Disposition: REHAB FACILITY/REHAB UNIT Additional Instructions: pt dc to [facility] by cardio w/ recommendations noted no distress/complaints final dx-chf exacerbation, elev tsh, bronchitis, tay, dehydration, uncontrolled dm2 Referrals: Jose Roberto Johns MD [Primary Care Provider] -
== END 2017-04-26 19:50 | DRG 541 ==
LOC: H.ER 05:00 → H.ERHOLD 05:43 → H.ICU/CCU 06:48 → H.TEL 04-22 00:21
PROVIDERS: ADMIT Family Medicine; ATTEND Family Medicine
PROC: 5A09457 Assistance with Respiratory Ventilation, 24-96 Consecutive Hours, Continuous Positive Airway Pressure (ICD-10-PCS; principal; 2017-04-21)
PROC: 3E0F73Z Introduction of Anti-inflammatory into Respiratory Tract, Via Natural or Artificial Opening (ICD-10-PCS; 2017-04-21)
DX: J96.01 Acute respiratory failure with hypoxia (principal); N17.9 Acute kidney failure, unspecified; I50.23 Acute on chronic systolic (congestive) heart failure; E87.4 Mixed disorder of acid-base balance; E11.22 Type 2 diabetes mellitus with diabetic chronic kidney disease; J44.1 Chronic obstructive pulmonary disease with (acute) exacerbation; N18.3 Chronic kidney disease, stage 3 (moderate); J45.31 Mild persistent asthma with (acute) exacerbation; E66.01 Morbid (severe) obesity due to excess calories; I13.0 Hypertensive heart and chronic kidney disease with heart failure and stage 1 through stage 4 chronic kidney disease, or unspecified chronic kidney disease; E11.65 Type 2 diabetes mellitus with hyperglycemia; I16.0 Hypertensive urgency; Z68.41 Body mass index [BMI] 40.0-44.9, adult; G89.29 Other chronic pain; I25.10 Atherosclerotic heart disease of native coronary artery without angina pectoris; K21.9 Gastro-esophageal reflux disease without esophagitis; E78.5 Hyperlipidemia, unspecified; E03.9 Hypothyroidism, unspecified; D72.829 Elevated white blood cell count, unspecified; M19.90 Unspecified osteoarthritis, unspecified site; Z91.14 Patient's other noncompliance with medication regimen; Z88.1 Allergy status to other antibiotic agents; Z79.4 Long term (current) use of insulin; Z79.82 Long term (current) use of aspirin; Z87.891 Personal history of nicotine dependence

== ENCOUNTER 2017-12-22 23:40 | Emergency (ER) | payer MEDICAID ==
[2017-12-22 23:40] VITALS: BMI 47.5
[2017-12-22 23:45] VITALS: O2SAT 99
--- NOTE | 2017-12-23 00:30 | ED PDOC ---
Syncope/Near Syncope/Dizziness Time Seen by Provider: 12/22/17 23:51 Chief Complaint (Nursing): Syncope Chief Complaint (Provider): Syncopal episode History Per: Patient History/Exam Limitations: no limitations Onset/Duration Of Symptoms: Hrs (today) Current Symptoms Are (Timing): Still Present Number Of Syncopal Episodes: 1 Activity At Onset Of Symptoms: Sitting Fall Associated With With Symptoms: No Additional Complaint(s): Ana Reyna is a 62 year old female, with a past medical history of diabetes , HTN and COPD, who was brought to the emergency department by EMS for syncopal episode today. Patient states her air conditioning was broken today, she was sitting and felt hot in her room. She reports passing out for about a minute and states she had some chest tightness which resolved after receiving oxygen. Patient states she feels fine now and has no medical complaints. PMD: Rigoberto Andrade Past Medical History Reviewed: Historical Data, Nursing Documentation, Vital Signs Vital Signs: Last Vital Signs Temp 98 F 12/22/17 23:42 Pulse 68 12/22/17 23:42 Resp 16 12/22/17 23:42 BP 118/63 12/22/17 23:42 Pulse Ox 99 12/22/17 23:42 - Medical History PMH: Anemia, Arthritis, Asthma, CAD, CHF, COPD, Diabetes, GERD, HTN, Hypercholesterolemia, Hypothyroidism, Pancreatitis Denies: Anxiety, Bipolar Disorder, Depression, HIV, Chronic Kidney Disease - Surgical History Surgical History: Cholecystectomy, (x1) - Family History Family History: States: Diabetes, Hypertension - Immunization History Hx Tetanus Toxoid Vaccination: No - Home Medications Home Medications: Ambulatory Orders Medication Instructions Recorded Alogliptin Benzoate [Alogliptin] 25 mg PO DAILY 12/26/16 Aspirin [Ecotrin] 81 mg PO DAILY 12/26/16 Brinzolamide [Azopt] 1 drop BOTHEYES BID 12/26/16 Cholecalciferol [Vitamin D 1000 IU] 1,000 iu PO DAILY 12/26/16 Simvastatin [Zocor] 40 mg PO HS 12/26/16 Aluminum Hydroxide/Magnesium 30 ml PO Q6 PRN #250 ml 02/15/17 [Maalox Plus 30 ml] Carvedilol [Coreg] 25 mg PO Q12 #60 tab 10/30/17 Isosorbide Dinitrate [Isordil] 10 mg PO BID #60 tab 02/15/17 Pantoprazole [Protonix EC Tab] 40 mg PO DAILY #30 ect 02/15/17 amLODIPine [Norvasc] 10 mg PO DAILY #30 tab 02/15/17 Cilostazol [Pletal] 100 mg PO BID 02/24/17 Insulin Detemir [Levemir] 20 units SC HS 02/24/17 Insulin Lispro Mix 75/25 [HumaLog 10 units SC ACBD 02/24/17 MIX 75/25] Montelukast [Singulair] 10 mg PO QPM 02/24/17 Multivitamin [Daily Doris] 1 tab PO DAILY 02/24/17 Albuterol/Ipratropium [Duoneb 3 3 ml INH RQ4 PRN #100 neb 03/03/17 mg/0.5 mg (3 ml) UD] Benzocaine/Menthol [Cepacol Sore 1 dinah PO Q3 PRN dinah 04/26/17 Throat] Cyclobenzaprine [Flexeril] 5 mg PO TID PRN tab 04/26/17 Enoxaparin [Lovenox] 40 mg SC DAILY syr 04/26/17 Insulin Human Regular [HumuLIN R] 0 units SC ACHS ml 04/26/17 Nystatin [Nystop Topical Powder] 1 applic TOP BID bottle 04/26/17 Polyethylene Glycol 3350 [Miralax] 17 gm PO DAILY packet 04/26/17 Promethazine DM [Phenergan DM 5 ml PO Q6 PRN cup 04/26/17 Syrup] hydrALAZINE [Apresoline] 50 mg PO Q8 tab 04/26/17 levoFLOXacin 500 mg in D5W 500 mg IVPB DAILY #7 bag 04/26/17 [Levaquin 500MG] methylPREDNISolone [Solu-Medrol] 40 mg IVP DAILY ml 04/26/17 - Allergies Allergies/Adverse Reactions: Allergies Allergy/AdvReac Type Severity Reaction Status Date / Time azithromycin [From Zithromax] Allergy RASH Verified 12/22/17 23:42 Review of Systems ROS Statement: Except As Marked, All Systems Reviewed And Found Negative Cardiovascular: Negative for: Other (chest tightness, resolved) Neurological: Positive for: Other (syncopal episode) Physical Exam - Reviewed Nursing Documentation Reviewed: Yes Vital Signs Reviewed: Yes - Physical Exam Appears: Positive for: No Acute Distress Head Exam: Positive for: ATRAUMATIC, NORMAL INSPECTION, NORMOCEPHALIC Skin: Positive for: Normal Color, Warm, Dry Eye Exam: Positive for: Normal appearance, EOMI, PERRL Neck: Positive for: Painless ROM Cardiovascular/Chest: Positive for: Regular Rate, Rhythm. Negative for: Murmur Respiratory: Positive for: Normal Breath Sounds. Negative for: Respiratory Distress Gastrointestinal/Abdominal: Positive for: Normal Exam, Soft. Negative for: Tenderness, Guarding, Rebound Back: Positive for: Normal Inspection. Negative for: L CVA Tenderness, R CVA Tenderness, Vertebral Tenderness Extremity: Positive for: Normal ROM (upper and lower extremities). Negative for : Deformity, Swelling Neurologic/Psych: Positive for: Alert, Oriented. Negative for: Motor/Sensory Deficits - Laboratory Results Result Diagrams: 12/23/17 00:20 12/23/17 00:20 - ECG O2 Sat by Pulse Oximetry: 99 (RA) Pulse Ox Interpretation: Normal Medical Decision Making Medical Decision Making: Time: 23:51 A/P: Female with history of diabetes, HTN and COPD presents with syncope. Currently patient is very well appearing, asymptomatic and with normal vital signs. Syncope likely secondary to heat and lack of proper air conditioning. Initial Plan: --EKG --BMP --Troponin I --CBC --Reevaluation 02:10 -Labs showed no clinical significant abnormalities. Elevated WBC count possibly due to steroid use given COPD/asthma. Upon provider reevaluation patient is feeling better, is medically stable, and requires no further treatment in the ED at this time. Patient will be discharged home. Counseling was provided and all questions were answered regarding diagnosis and need for follow up with PMD. There is agreement to discharge plan. Return if symptoms persist or worsen. ----- Scribe Attestation: Documented by Jaden Villegas, acting as a scribe for Delroy Bright MD. Provider Scribe Attestation: All medical record entries made by the Scribe were at my direction and personally dictated by me. I have reviewed the chart and agree that the record accurately reflects my personal performance of the history, physical exam, medical decision making, and the department course for this patient. I have also personally directed, reviewed, and agree with the discharge instructions and disposition. Disposition - Clinical Impression Clinical Impression: Heat syncope - Disposition Referrals: Jose Roberto Johns MD [Family Provider] - Rigoberto Andrade, JLUIS, CAMERA TECHNICIAN [Advanced Practice Nurse] - Disposition: Routine/Home Disposition Time: 02:10 Condition: STABLE Instructions: Syncope (Fainting), Heat Exhaustion and Heat Stroke (DC) Forms: [facility] (Paraguayan)
[2017-12-23 00:43] LABS: HEMOGLOBIN 13.4 g/dL (12.0-16.0); MEAN CELL VOLUME 95.7 fl (81.0-99.0); MEAN CORPUSCULAR HEMOGLOBIN 31.8 pg (27.0-31.0); MEAN CORPUSCULAR HGB CONC 33.2 g/dL (33.0-37.0); RBC 4.21 Mil/uL (3.80-5.20); RED CELL DISTRIBUTION WIDTH 14.3 % (11.5-14.5); WHITE BLOOD COUNT 15.2 K/uL (4.8-10.8)
[2017-12-23 00:50] LABS: BLOOD UREA NITROGEN 20 mg/dl (7-17); GFR NON-AFRICAN AMERICAN 56
[2017-12-23 03:37] VITALS: BP 126/65; PULSE 71; RESP 17; TEMP 98.2
--- NOTE | 2017-12-23 07:37 | CARD ---
APPROVED REPORT Date of service: 12/23/2017 EKG Measurement Heart [id number] <Conclusion> Normal sinus rhythm Normal ECG
== END 2017-12-23 02:18 | disposition home or self-care (01) ==
LOC: H.ER 23:40
DX: T67.1XXA Heat syncope, initial encounter (principal); E11.9 Type 2 diabetes mellitus without complications; E03.9 Hypothyroidism, unspecified; E78.00 Pure hypercholesterolemia, unspecified; I11.0 Hypertensive heart disease with heart failure; I50.9 Heart failure, unspecified; Z79.4 Long term (current) use of insulin